=== PATIENT | male | born 1960 | race Caucasian/White ===

== ENCOUNTER 2016-05-19 18:45 | Emergency (ER) | payer BC, OTHER ==
--- NOTE | 2016-05-19 19:07 | ER Document Report ---
ED Medical Screen (RME) - General Chief Complaint: General Weakness Stated Complaint: WEAKNESS Mode of Arrival: Ambulatory Information source: Patient Notes: She presents to the emergency department with feelings of weakness. Reports he has not been eating that well. Reports history of diarrhea. Last diarrhea this am, green. Pt is a diabetic. Patient also reports recent separation from his of 20 years. He reports increased stress. He feels like his head is in a fog. Reports he is thirsty all the time. Reports frequent urination. Pt drinking po fluids now. I have greeted and performed a rapid initial assessment of this patient. A comprehensive ED assessment and evaluation of the patient, analysis of test results and completion of the medical decision making process will be conducted by additional ED providers. TRAVEL OUTSIDE OF THE [place] IN LAST 30 DAYS: No - Related Data Allergies/Adverse Reactions: No Known Allergies Allergy (Verified 01/18/15 12:53) Past Medical History - Past Medical History Cardiac Medical History: Reports: Hx Hypertension Pulmonary Medical History: Denies: Hx Tuberculosis Neurological Medical History: Denies: Hx Seizures Endocrine Medical History: Reports: Hx Diabetes Mellitus Type 2 Past Surgical History: Reports: Hx Cholecystectomy. Denies: Hx Appendectomy, Hx Bowel Surgery, Hx Coronary Artery Bypass Graft, Hx Gastric Bypass Surgery, Hx Herniorrhaphy, Hx Pacemaker, Hx Tonsillectomy - Immunizations Hx Diphtheria, Pertussis, Tetanus Vaccination: Yes Physical Exam - Vital signs Vitals: Temp Pulse Resp BP Pulse Ox 98.3 F 103 H 16 108/67 100 05/19/16 18:54 05/19/16 18:54 05/19/16 18:54 05/19/16 18:54 05/19/16 18:54 Course - Vital Signs Vital signs: Temp Pulse Resp BP Pulse Ox 98.3 F 103 H 16 108/67 100 05/19/16 18:54 05/19/16 18:54 05/19/16 18:54 05/19/16 18:54 05/19/16 18:54
[2016-05-19 19:59] LABS: ABSOLUTE EOSINOPHILS # (AUTO) 0.1 10^3/uL (0.0-0.6); ABSOLUTE LYMPHOCYTES (AUTO) 2.2 10^3/uL (0.5-4.7); ABSOLUTE MONOCYTES (AUTO) 0.9 10^3/uL (0.1-1.4); ABSOLUTE NEUT (AUTO) 7.7 10^3/uL (1.7-8.2); BASOPHILS % (AUTO) 0.4 % (0-2); EOSINOPHILS % (AUTO) 1.2 % (0-6); HEMATOCRIT 46.3 % (37.9-51.0); HEMOGLOBIN 16.1 g/dL (13.5-17.0); LYMPHOCYTES % (AUTO) 19.8 % (13-45); MEAN CORPUSCULAR HEMOGLOBIN 30.7 pg (27.0-33.4); MEAN CORPUSCULAR HGB CONC 34.8 g/dL (32.0-36.0); MEAN CORPUSCULAR VOLUME 88 fl (80-97); MONOCYTES % (AUTO) 8.3 % (3-13); RED BLOOD COUNT 5.26 10^6/uL (4.35-5.55); RED CELL DISTRIBUTION WIDTH 12.8 % (11.5-14.0); SEGMENTED NEUTROPHILS % (AUTO) 70.3 % (42-78)
[2016-05-19 20:07] LABS: APPEARANCE,URINE SLIGHTLY-CLOUDY; BILIRUBIN,URINE NEGATIVE (NEGATIVE); GLUCOSE, URINE 150 mg/dL (NEGATIVE); KETONES,URINE TRACE mg/dL (NEGATIVE); LEUKOCYTE ESTERASE,URINE NEGATIVE (NEGATIVE); NITRITE,URINE NEGATIVE (NEGATIVE); PROTEIN,URINE 100 mg/dL (NEGATIVE); URINE SPECIFIC GRAVITY 1.018; UROBILINOGEN,URINE NEGATIVE mg/dL (<2.0)
[2016-05-19 20:19] LABS: ALANINE AMINOTRANSFERASE 34 U/L (21-72); ALBUMIN 4.2 g/dL (3.5-5.0); ALKALINE PHOSPHATASE 95 U/L (38-126); ANION GAP 13 (5-19); ASPARTATE AMINO TRANSFERASE 17 U/L (17-59); BILIRUBIN,DIRECT 0.2 mg/dL (0.0-0.4); BILIRUBIN,TOTAL 0.8 mg/dL (0.2-1.3); BLOOD UREA NITROGEN 27 mg/dL (7-20); CALCIUM 10.3 mg/dL (8.4-10.2); CARBON DIOXIDE 30 mmol/L (22-30); CHLORIDE 98 mmol/L (98-107); CREATININE RESULT 1.78 mg/dL (0.52-1.25); GLUCOSE 335 mg/dL (75-110); POTASSIUM 4.7 mmol/L (3.6-5.0); SODIUM 141.1 mmol/L (137-145); TOTAL PROTEIN 7.3 g/dL (6.3-8.2)
--- NOTE | 2016-05-20 00:16 | EKG REPORT ---
SEVERITY:- BORDERLINE ECG - SINUS RHYTHM PROBABLE LEFT ATRIAL ABNORMALITY BORDERLINE T ABNORMALITIES, INFERIOR LEADS : Confirmed by: Farheen Cabrera 20-May-2016 00:15:39
--- NOTE | 2016-05-20 02:02 | ER Document Report ---
ED General - General Chief Complaint: General Weakness Stated Complaint: WEAKNESS Time seen by provider: 02:00 Mode of Arrival: Ambulatory Information source: Patient TRAVEL OUTSIDE OF THE [place] IN LAST 30 DAYS: No - HPI Patient complains to provider of: dizziness, decreased by mouth intake, depression Onset: Other - 2-3 days Onset/Duration: Waxing and waning Quality of pain: No pain Exacerbated by: Denies Relieved by: Denies Similar symptoms previously: No Recently seen / treated by doctor: No Notes: Patient is a 55-year-old male who presents to the emergency room complaining of dizziness and lightheadedness, with decreased by mouth intake and depression, states his of nearly 20 years recently left him to move with her children in [place], he reports this is worsened his depression, and therefore he is not taking very good care of himself, he is not eating very well, but continues to take his metformin and glipizide, patient denies any suicidal ideation - Related Data Allergies/Adverse Reactions: No Known Allergies Allergy (Verified 01/18/15 12:53) Past Medical History - General Information source: Patient - Social History Smoking Status: Never Smoker Family History: Reviewed & Not Pertinent Patient has suicidal ideation: No Patient has homicidal ideation: No - Past Medical History Cardiac Medical History: Reports: Hx Hypertension Pulmonary Medical History: Denies: Hx Tuberculosis Neurological Medical History: Denies: Hx Seizures Endocrine Medical History: Reports: Hx Diabetes Mellitus Type 2 Renal/ Medical History: Denies: Hx Peritoneal Dialysis Past Surgical History: Reports: Hx Cholecystectomy. Denies: Hx Appendectomy, Hx Bowel Surgery, Hx Coronary Artery Bypass Graft, Hx Gastric Bypass Surgery, Hx Herniorrhaphy, Hx Pacemaker, Hx Tonsillectomy - Immunizations Hx Diphtheria, Pertussis, Tetanus Vaccination: Yes Review of Systems - Review of Systems Constitutional: No symptoms reported EENT: No symptoms reported Cardiovascular: Dizziness, Lightheaded Respiratory: No symptoms reported Gastrointestinal: Poor appetite, Poor fluid intake Genitourinary: No symptoms reported Male Genitourinary: No symptoms reported Musculoskeletal: No symptoms reported Skin: No symptoms reported Hematologic/Lymphatic: No symptoms reported Neurological/Psychological: Depression. denies: Suicidal ideation -: Yes All other systems reviewed and negative Physical Exam - Vital signs Vitals: Temp Pulse Resp BP Pulse Ox 98.3 F 103 H 16 108/67 100 05/19/16 18:54 05/19/16 18:54 05/19/16 18:54 05/19/16 18:54 05/19/16 18:54 Interpretation: Normal - General General appearance: Appears well, Alert - HEENT Head: Normocephalic, Atraumatic Eyes: Normal Pupils: PERRL - Respiratory Respiratory status: No respiratory distress Chest status: Nontender Breath sounds: Normal Chest palpation: Normal - Cardiovascular Rhythm: Regular Heart sounds: Normal auscultation Murmur: No - Abdominal Inspection: Normal Distension: No distension Bowel sounds: Normal Tenderness: Nontender Organomegaly: No organomegaly - Back Back: Normal, Nontender - Extremities General upper extremity: Normal inspection, Nontender, Normal color, Normal ROM , Normal temperature General lower extremity: Normal inspection, Nontender, Normal color, Normal ROM , Normal temperature, Normal weight bearing. No: Roly's sign - Neurological Neuro grossly intact: Yes Cognition: Normal Orientation: AAOx4 Fernando Coma Scale Eye Opening: Spontaneous Fernando Coma Scale Verbal: Oriented Haines Coma Scale Motor: Obeys Commands Fernando Coma Scale Total: 15 Speech: Normal Motor strength normal: LUE, RUE, LLE, RLE Sensory: Normal - Psychological Associated symptoms: Depressed, Flat affect - Skin Skin Temperature: Warm Skin Moisture: Dry Skin Color: Normal Course - Re-evaluation Re-evalutation: 05/20/16 03:33 Patient ambulating without difficulty throughout the emergency room, his lab findings were discussed with him at bedside which are relatively unremarkable except for elevated blood sugar, patient denies any suicidal or homicidal ideation although he does admit to increased depression related to recent separation from his , patient was offered to stay in the emergency room as a voluntary patient to be seen and evaluated by the mental health team in the morning for assistance with resources for his current state of depression, alternatively he was offered the list of mental health providers in the area for follow-up as an outpatient on his own which he preferred, therefore patient was discharged with information for mental health resources and advised that he can return at any time for reevaluation or assistance with his depression, he was advised to eat adequately throughout the day and drink plenty of fluids, patient acknowledges understanding and agreement with this plan - Vital Signs Vital signs: Temp Pulse Resp BP Pulse Ox 98.3 F 98 18 121/84 100 05/19/16 18:54 05/20/16 01:45 05/20/16 01:45 05/20/16 01:45 05/20/16 01:45 - Laboratory Result Diagrams: 05/19/16 19:30 05/19/16 19:30 Laboratory results interpreted by me: 05/19/16 05/19/16 05/19/16 19:30 19:30 19:35 WBC 11.0 H BUN 27 H Creatinine 1.78 H Est GFR ( Amer) 48 L Est GFR (Non-Af Amer) 40 L Glucose 335 H Calcium 10.3 H Urine Protein 100 H Urine Glucose (UA) 150 H Urine Ketones TRACE H Urine Blood SMALL H - EKG Interpretation by Me EKG shows normal: Sinus rhythm Rate: Normal Rhythm: NSR Discharge - Discharge Clinical Impression: Lightheaded Depression Qualifiers: Depression Type: unspecified Qualified Code(s): F32.9 - Major depressive disorder, single episode, unspecified Condition: Stable Disposition: HOME, SELF-CARE Instructions: Depression ([facility]), Dizziness ([facility]) Additional Instructions: Follow up with your primary care provider and a mental health professional in 2- 3 days. Return to the ER immediately if symptoms worsen or any additional concerns. Forms: Return to Work
[2016-05-20 02:44] VITALS: BP 121/84
== END 2016-05-20 02:20 | disposition home or self-care (01) ==
LOC: ER 18:45
DX: R42 Dizziness and giddiness (principal); F32.9 Major depressive disorder, single episode, unspecified; R53.1 Weakness; I10 Essential (primary) hypertension; E11.9 Type 2 diabetes mellitus without complications; Z90.49 Acquired absence of other specified parts of digestive tract
CPT/HCPCS: 36415; 80053; 81001; 82962; 85025; 93005; 93010; 99285

== ENCOUNTER 2016-06-15 14:40 | Emergency (ER) | payer BC, OTHER ==
--- NOTE | 2016-06-15 15:03 | ER Document Report ---
ED Medical Screen (RME) - General Chief Complaint: Dizziness Stated Complaint: DIZZY/NAUSEA Notes: patient is here complaining of dizziness that started around 2 PM yesterday. He says he fell a couple of times because of the dizziness. The most recent episode was about 1:30 this afternoon. He says it feels as if he's on a ride at the [employer]. Denies any headache. Denies any visual changes. No recent illness, UTI, fever, etc. Did feel like he was sweating heavily yesterday. PMH: Hypertension, NIDDM, no heart disease. TRAVEL OUTSIDE OF THE [place] IN LAST 30 DAYS: No - Related Data Allergies/Adverse Reactions: No Known Allergies Allergy (Verified 06/15/16 14:48) Past Medical History - Past Medical History Cardiac Medical History: Reports: Hx Hypertension Pulmonary Medical History: Denies: Hx Tuberculosis Neurological Medical History: Denies: Hx Seizures Endocrine Medical History: Reports: Hx Diabetes Mellitus Type 2 Renal/ Medical History: Denies: Hx Peritoneal Dialysis Past Surgical History: Reports: Hx Cholecystectomy. Denies: Hx Appendectomy, Hx Bowel Surgery, Hx Coronary Artery Bypass Graft, Hx Gastric Bypass Surgery, Hx Herniorrhaphy, Hx Pacemaker, Hx Tonsillectomy - Immunizations Hx Diphtheria, Pertussis, Tetanus Vaccination: Yes Physical Exam - Vital signs Vitals: Temp Pulse Resp BP Pulse Ox 97.3 F 101 H 18 141/101 H 100 06/15/16 14:49 06/15/16 14:49 06/15/16 14:49 06/15/16 14:49 06/15/16 14:49 Course - Vital Signs Vital signs: Temp Pulse Resp BP Pulse Ox 97.3 F 101 H 18 141/101 H 100 06/15/16 14:49 06/15/16 14:49 06/15/16 14:49 06/15/16 14:49 06/15/16 14:49
[2016-06-15 15:20] LABS: ABSOLUTE LYMPHOCYTES (AUTO) 1.7 10^3/uL (0.5-4.7); ABSOLUTE MONOCYTES (AUTO) 0.7 10^3/uL (0.1-1.4); ABSOLUTE NEUT (AUTO) 6.3 10^3/uL (1.7-8.2); BASOPHILS % (AUTO) 0.4 % (0-2); EOSINOPHILS % (AUTO) 0.4 % (0-6); HEMATOCRIT 48.4 % (37.9-51.0); HEMOGLOBIN 17.2 g/dL (13.5-17.0); HGB HCT DIFFERENCE 3.2; LYMPHOCYTES % (AUTO) 19.8 % (13-45); MEAN CORPUSCULAR HEMOGLOBIN 31.2 pg (27.0-33.4); MEAN CORPUSCULAR HGB CONC 35.5 g/dL (32.0-36.0); MEAN CORPUSCULAR VOLUME 88 fl (80-97); MONOCYTES % (AUTO) 7.8 % (3-13); RED BLOOD COUNT 5.51 10^6/uL (4.35-5.55); RED CELL DISTRIBUTION WIDTH 13.2 % (11.5-14.0); SEGMENTED NEUTROPHILS % (AUTO) 71.6 % (42-78); WHITE BLOOD COUNT 8.7 10^3/uL (4.0-10.5)
[2016-06-15 15:43] LABS: ALANINE AMINOTRANSFERASE 26 U/L (21-72); ALBUMIN 4.3 g/dL (3.5-5.0); ALKALINE PHOSPHATASE 99 U/L (38-126); ANION GAP 18 (5-19); ASPARTATE AMINO TRANSFERASE 19 U/L (17-59); BILIRUBIN,DIRECT 0.2 mg/dL (0.0-0.4); BILIRUBIN,TOTAL 1.6 mg/dL (0.2-1.3); BLOOD UREA NITROGEN 12 mg/dL (7-20); CALCIUM 9.6 mg/dL (8.4-10.2); CARBON DIOXIDE 28 mmol/L (22-30); CHLORIDE 98 mmol/L (98-107); CREATININE RESULT 1.19 mg/dL (0.52-1.25); GLUCOSE 157 mg/dL (75-110); POTASSIUM 3.4 mmol/L (3.6-5.0); SODIUM 144.4 mmol/L (137-145); TOTAL PROTEIN 7.2 g/dL (6.3-8.2)
--- NOTE | 2016-06-15 15:48 | ER Document Report ---
ED Dizziness/Weakness - General Chief Complaint: Dizziness Stated Complaint: DIZZY/NAUSEA Time seen by provider: 15:35 Mode of Arrival: Ambulatory Information source: Patient Notes: Patient complains of dizziness since started around 2 PM yesterday. He says he fell down a couple times because of the dizziness. He states his most recent episode was this afternoon about 1. He states he felt like he is on a merry-go- round IFTT[employer] ride. On did not have any headaches until now. States he has had no vomiting that has helped felt a little nausea from the dizziness. Denies any history of any cardiac problems except for high blood pressure denies any seizures. TRAVEL OUTSIDE OF THE [place] IN LAST 30 DAYS: No - HPI Patient complains to provider of: Dizziness Onset: Yesterday Onset/Duration: Intermittent Quality of pain: Achy Severity: Mild Pain Level: 1 Associated symptoms: Lightheaded, Nausea Exacerbated by: Change in position Baseline gait: Walks w/o assistance - Related Data Allergies/Adverse Reactions: No Known Allergies Allergy (Verified 06/15/16 14:48) Past Medical History - General Information source: Patient - Social History Smoking Status: Never Smoker Cigarette use (# per day): No Chew tobacco use (# tins/day): No Smoking Education Provided: No Frequency of alcohol use: None Drug Abuse: None 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 Lives with: Alone - from right now Family History: Hypertension, Malignancy Patient has suicidal ideation: No Patient has homicidal ideation: No - Past Medical History Cardiac Medical History: Reports: Hx Hypertension EENT Medical History: Reports: None Neurological Medical History: Reports: None Endocrine Medical History: Reports: Hx Diabetes Mellitus Type 2 Renal/ Medical History: Reports: None Malignancy Medical History: Reports None GI Medical History: Reports: Hx Colonoscopy, Hx Endoscopy, Other - Gastroparesis Musculoskeltal Medical History: Reports None Skin Medical History: Reports None Psychiatric Medical History: Reports: None Traumatic Medical History: Reports: None Infectious Medical History: Reports: None Past Surgical History: Reports: Hx Cholecystectomy - Immunizations Hx Diphtheria, Pertussis, Tetanus Vaccination: Yes Review of Systems - Review of Systems Constitutional: No symptoms reported EENT: No symptoms reported Cardiovascular: Dizziness, Lightheaded Respiratory: No symptoms reported Gastrointestinal: Nausea - When dizzy Genitourinary: No symptoms reported Male Genitourinary: No symptoms reported Musculoskeletal: No symptoms reported Skin: No symptoms reported Hematologic/Lymphatic: No symptoms reported Neurological/Psychological: No symptoms reported -: Yes All other systems reviewed and negative - Mild headache but refused Tylenol Physical Exam - Vital signs Vitals: Temp Pulse Resp BP Pulse Ox 97.3 F 101 H 18 141/101 H 100 06/15/16 14:49 06/15/16 14:49 06/15/16 14:49 06/15/16 14:49 06/15/16 14:49 Interpretation: Tachycardic - General General appearance: Appears well, Alert - HEENT Head: Normocephalic, Atraumatic Eyes: Normal Pupils: PERRL - Respiratory Respiratory status: No respiratory distress Chest status: Nontender Breath sounds: Normal Chest palpation: Normal - Cardiovascular Rhythm: Regular Heart sounds: Normal auscultation Murmur: No - Abdominal Inspection: Normal Distension: No distension Bowel sounds: Normal Tenderness: Nontender Organomegaly: No organomegaly - Back Back: Normal, Nontender - Extremities General upper extremity: Normal inspection, Nontender, Normal color, Normal ROM , Normal temperature General lower extremity: Normal inspection, Nontender, Normal color, Normal ROM , Normal temperature, Normal weight bearing. No: Roly's sign - Neurological Neuro grossly intact: Yes Cognition: Normal Orientation: AAOx4 Thurston Coma Scale Eye Opening: Spontaneous Fernando Coma Scale Verbal: Oriented Fernando Coma Scale Motor: Obeys Commands Thurston Coma Scale Total: 15 Speech: Normal Cranial nerves: Normal Cerebellar coordination: Normal Motor strength normal: LUE, RUE, LLE, RLE Additional motor exam normals: Equal clay carman Babinski reflex: Normal (flexor plantar) Sensory: Normal - Psychological Associated symptoms: Normal affect, Normal mood - Skin Skin Temperature: Warm Skin Moisture: Dry Skin Color: Normal Course - Re-evaluation Re-evalutation: 06/15/16 19:10 Discussed labs with patient and encouraged him to increase his fluid intake. As well as eating about a diet. Patient states she has been depressed since his left him 28 days ago and he has not been eat and drink properly. All labs and x-rays except for the fact that he is dehydrated or within normal limits. He does have an elevated blood pressure this could be from stress. I have instructed him to please follow-up with his primary doctor tomorrow and go over this and to get a referral to ENT further evaluate his dizziness. - Vital Signs Vital signs: Temp Pulse Resp BP Pulse Ox 98.6 F 101 H 12 156/93 H 98 06/15/16 18:48 06/15/16 14:49 06/15/16 19:01 06/15/16 19:01 06/15/16 19:01 - Laboratory Result Diagrams: 06/15/16 15:05 06/15/16 15:05 Laboratory results interpreted by me: 06/15/16 06/15/16 06/15/16 15:05 15:05 17:33 Hgb 17.2 H Potassium 3.4 L Glucose 157 H Total Bilirubin 1.6 H Urine Protein >=500 H Urine Glucose (UA) 50 H Urine Ketones 80 H Urine Blood SMALL H Urine Urobilinogen 2.0 H - Diagnostic Test Radiology reviewed: Image reviewed, Reports reviewed - EKG Interpretation by Me When compared to previous EKG there are: No significant change Discharge - Discharge Clinical Impression: Dizziness Condition: Stable Disposition: HOME, SELF-CARE Additional Instructions: DIZZINESS: Under normal circumstances, your sense of balance is controlled by a number of signals that your brain receives from several locations: Eyes. No matter what your position, visual signals help you determine where your body is in space and how it's moving. Sensory nerves. These are in your skin, muscles and joints. Sensory nerves send messages to your brain about body movements and positions. Inner ear. The organ of balance in your inner ear is the vestibular labyrinth. It includes loop-shaped structures (semicircular canals) that contain fluid and fine, hair-like sensors that monitor the rotation of your head. Near the semicircular canals are the utricle and saccule, which contain tiny particles called otoconia ([id number]). These particles are attached to sensors that help detect gravity and [id number] motion. Good balance depends on at least two of these three sensory systems working well. For instance, closing your eyes while washing your hair in the shower doesn't mean you'll lose your balance. Signals from your inner ear and sensory nerves help keep you upright. However, if your central nervous system can't process signals from all of these locations, if the messages are contradictory, or if the sensory systems aren't functioning properly, you may experience loss of balance. Dizziness may have a number of potential causes. These may include: Vertigo Vertigo - the false sense of motion or spinning - is the most common symptom of dizziness. Sitting up or moving around may make it worse. Sometimes vertigo is severe enough to cause nausea and vomiting. Vertigo usually results from a problem with the nerves and the structures of the balance mechanism in your inner ear (vestibular system), which sense movement and changes in your head position. Abnormal rhythmic eye movements ( nystagmus) almost always accompany vertigo. Causes of vertigo may include: Benign paroxysmal positional vertigo (BPPV). BPPV involves intense, brief episodes of vertigo associated with a change in the position of your head, often when you turn over in bed or sit up in the morning. It occurs when normal calcium carbonate crystals (otoconia) break loose and fall into the wrong part of the canals in your inner ear. When these particles shift, they stimulate sensors in your ear, producing an episode of vertigo. Doctors don't know what causes BPPV, but it may be a natural result of aging. Trauma to your head also may lead to BPPV. Inflammation in the inner ear. Signs and symptoms of inflammation of the inner ear (acute vestibular neuronitis or labyrinthitis) include sudden, intense vertigo that may persist for several days, with nausea and vomiting. It can be incapacitating, requiring bed rest to minimize the signs and symptoms. Fortunately, vestibular neuronitis generally subsides and clears up on its own. Recovery time may be shorter with vestibular rehabilitation exercises. Although the cause of this condition is unknown, it may be a viral infection. Meniere's disease. This disease involves the excessive buildup of fluid in your inner ear. It may affect adults at any age and is characterized by sudden episodes of vertigo lasting 30 minutes to an hour or longer. Other signs and symptoms include the feeling of fullness in your ear, buzzing or ringing in your ear (tinnitus), and fluctuating hearing loss. The cause of Meniere's disease is unknown. Vestibular migraine. People who experience a vestibular migraine are very sensitive to motion. Dizziness and vertigo caused by a vestibular migraine may be triggered by turning your head quickly, being in a crowded or confusing place , driving or riding in a vehicle, or even watching movement on TV. A vestibular migraine may cause feelings of imbalance or unsteadiness, hearing loss, "muffled " hearing, or ringing in your ears (tinnitus). For most people with a vestibular migraine, vertigo doesn't necessarily happen at the same time as the headache. Instead, typical migraine triggers may lead to vertigo without an actual migraine. Attacks of migrainous vertigo can last from a few minutes to several days. Acoustic neuroma. An acoustic neuroma (schwannoma) is a noncancerous (benign ) growth on the acoustic nerve, which connects the inner ear to your brain. Signs and symptoms of an acoustic neuroma may include dizziness, loss of balance , hearing loss and tinnitus. Rapid changes in motion. Riding on roller coasters or in boats, cars or even airplanes may on occasion make you dizzy. Other causes. Rarely, vertigo can be a symptom of a more serious neurological problem such as a stroke, brain hemorrhage or multiple sclerosis. Feeling of faintness (presyncope) "Presyncope" is the medical term for feeling faint and lightheaded without losing consciousness. Sometimes nausea, pale skin and a sense of dizziness accompany a feeling of faintness. Causes of presyncope include: Drop in blood pressure (orthostatic hypotension). A dramatic drop in your systolic blood pressure - the higher number in your blood pressure reading - may result in lightheadedness or a feeling of faintness. It can occur after sitting up or standing too quickly. Inadequate output of blood from the heart. Conditions such as partially blocked arteries (atherosclerosis), disease of the heart muscle (cardiomyopathy) , abnormal heart rhythm (arrhythmia) or a decrease in blood volume may cause inadequate blood flow from your heart. Loss of balance (disequilibrium) Disequilibrium is the loss of balance or the feeling of unsteadiness when you walk. Causes may include: Inner ear (vestibular) problems. Abnormalities with your inner ear can cause you to feel like you are floating, have a heavy head or are unsteady in the dark. Sensory disorders. Failing vision and nerve damage in your legs (peripheral neuropathy) are common in older adultsand may result in difficulty maintaining your balance. Joint and muscle problems. Muscle weakness and osteoarthritis - the type of arthritis that involves wear and tear of your joints - can contribute to loss of balance when it involves your weight-bearing joints. Medications. Loss of balance can be a side effect of certain medications, such as anti-seizure drugs, sedatives and tranquilizers. Lightheadedness and other kinds of dizziness Feeling lightheaded is the feeling of being "spaced out" or having the sensation of spinning inside your head. It can also give you the sensation that if your lightheadedness worsens, you might lose consciousness. Causes may include: Inner ear disorders. These abnormalities of your inner ear can lead to illusions of motion and make you feel like you're floating. Anxiety disorders. Certain anxiety disorders, such as panic attacks and a fear of leaving home or being in large, open spaces (agoraphobia), may cause lightheadedness. Hyperventilation. Abnormally rapid breathing that often accompanies anxiety disorders may make you feel lightheaded. NORMAL EXAM AND WORKUP: At this time, your examination and workup show no significant abnormality. No significant abnormal physical findings were noted. All laboratory, EKG, and imaging (x-ray, CT scans, ultrasound) studies that were ordered show no significant abnormality. Although your examination and all studies that were ordered showed no significant abnormal finding, there are no examinations and no studies that are 100% accurate. There is always the possibility that some abnormality could exist and not be detected with physical examination or within the limits and capabilities of laboratory and other studies. You should return or follow up as you were instructed on your visit today for further evaluation if your symptoms do not resolve. MECLIZINE: You are to take meclizine (Antivert) for control of symptoms. This is a drug of the antihistamine family which is useful for controlling nausea, dizziness, and motion sickness. Meclizine is usually taken three times a day, as needed. It's more effective at preventing symptoms than at relieving severe symptoms once they occur. It can be taken BEFORE activities which are likely to cause dizziness or nausea. Common side effects of this medicine are drowsiness and dry mouth. You should use caution in driving or operating machinery while taking this medication. In particular, you should not drive long distances or drive at night while taking this medicine. Meclizine should not be combined with alcohol , narcotics, or sedative medications without consulting your physician. ANTINAUSEA MEDICATION: You have been given a medication to suppress nausea and vomiting. This type of medication can be given as a shot, pill, or suppository. It will usually last for many hours. Pills and shots usually last six to eight hours, suppositories last about 12 hours. For the typical illness, only one or two doses of the medication may be necessary. Mild lightheadedness may occur. This type of medicine can cause drowsiness. Do not drive or operate dangerous machinery while under its influence. Do not mix with alcohol. See your doctor at once if you have muscle spasms or tightness, or uncontrollable motions (particularly of the neck, mouth, or jaw). Persistent vomiting or severe lightheadedness should also be evaluated by the physician. FOLLOW-UP CARE: If you have been referred to a physician for follow-up care, call the physician s office for an appointment as you were instructed or within the next two days. If you experience worsening or a significant change in your symptoms, notify the physician immediately or return to the Emergency Department at any time for re-evaluation. Please call your doctor in the morning and try to schedule an appointment for tomorrow to follow-up and then get an appointment for ENT for follow-up. Prescriptions: Meclizine HCl [Antivert 25 mg Tablet] 25 mg PO TIDP PRN #14 tablet PRN Reason: Forms: Elevated Blood Pressure, Return to Work
[2016-06-15 15:54] LABS: CREATINE KINASE MB 0.53 ng/mL (<4.55)
[2016-06-15 16:00] LABS: TROPONIN I < 0.012 ng/mL
--- NOTE | 2016-06-15 16:57 | EKG REPORT ---
SEVERITY:- ABNORMAL ECG - SINUS RHYTHM PROBABLE LEFT ATRIAL ABNORMALITY NONSPECIFIC T ABNORMALITIES, INFERIOR LEADS BORDERLINE PROLONGED QT INTERVAL : Confirmed by: Latia Snow MD 15-Jun-2016 16:56:41
[2016-06-15 18:23] LABS: URINE BARBITURATES SCREEN NEGATIVE; URINE METHADONE SCREEN NEGATIVE; URINE OPIATES LOW NEGATIVE; URINE PHENCYCLIDINE SCREEN NEGATIVE
[2016-06-15 18:36] LABS: APPEARANCE,URINE SLIGHTLY-CLOUDY; BILIRUBIN,URINE NEGATIVE (NEGATIVE); GLUCOSE, URINE 50 mg/dL (NEGATIVE); KETONES,URINE 80 mg/dL (NEGATIVE); LEUKOCYTE ESTERASE,URINE NEGATIVE (NEGATIVE); NITRITE,URINE NEGATIVE (NEGATIVE); PROTEIN,URINE >=500 mg/dL (NEGATIVE); URINE SPECIFIC GRAVITY 1.028
[2016-06-15 20:01] VITALS: BP 148/95
== END 2016-06-15 20:01 | disposition home or self-care (01) ==
LOC: ER 14:40
DX: R42 Dizziness and giddiness (principal)
CPT/HCPCS: 36415; 70450; 80053; 80307; 81001; 82553; 84484; 85025; 85379; 93005; 93010; 99284

== ENCOUNTER 2017-07-09 14:26 | Emergency (ER) | payer BC ==
--- NOTE | 2017-07-09 15:03 | ER Document Report ---
ED Medical Screen (RME) - General Chief Complaint: Near Syncope Stated Complaint: NEAR SYNCOPE Time Seen by Provider: 07/09/17 14:52 Mode of Arrival: Ambulatory Information source: Patient Notes: 56-year-old male with a history of hypertension, diabetes presents with complaint of dizziness that started 4 days prior to arrival. Patient states that he has had several episodes of dizziness which he describes as feeling like he is going to "pass out". Patient states that it can occur at any time whether he is active or at rest. He states he often half to brace himself to stop from falling. Patient denies any prior similar symptoms. He does state that he has a history of vertigo but this is completely different. He denies any loss of consciousness, head injury. He does report that for over 1 month he has had a decrease in hearing of the right ear. He has seen his primary care physician for this recently without any intervention. Patient also states that about 1 month ago he stopped his blood pressure medication and restarted it 2 days ago. Patient denies any preceding chest pain, shortness of breath, diaphoresis, nausea. He denies any recent illnesses. I have greeted and performed a rapid medical assessment of the patient. A comprehensive evaluation and assessment will be performed by another ED provider. Medical decision making, lab review/xrays if performed will be reviewed by the ED provider assuming care of the patient. PHYSICAL EXAMINATION: GENERAL: Well-appearing, well-nourished and in no acute distress. HEAD: Atraumatic, normocephalic. EYES: Pupils equal round extraocular movements intact, conjunctiva are normal. No Nystagmus ENT: Nares patent Cardiac; regular rate rhythm, no murmurs. NECK: Normal range of motion LUNGS: No respiratory distress, there to auscultation bilaterally Musculoskeletal: Normal range of motion NEUROLOGICAL: Normal speech, normal gait. PSYCH: Normal mood, normal affect. SKIN: Warm, Dry, normal turgor, no rashes or lesions noted. TRAVEL OUTSIDE OF THE [place] IN LAST 30 DAYS: No - HPI Onset: Last week Onset/Duration: Sudden, Persistent Quality of pain: No pain Associated Symptoms: Dizzy/lightheaded, Earache. denies: Chest pain, Diarrhea, Nausea, Shortness of breath, Sweating Exacerbated by: Movement Relieved by: Denies Similar symptoms previously: No Recently seen / treated by doctor: No - Related Data Smoking: Non-smoker Frequency of alcohol use: None Drug Abuse: None Allergies/Adverse Reactions: No Known Allergies Allergy (Verified 07/09/17 14:31) Past Medical History - Social History Chew tobacco use (# tins/day): No Frequency of alcohol use: None Drug Abuse: None - Past Medical History Cardiac Medical History: Reports: Hx Hypertension Pulmonary Medical History: Denies: Hx Tuberculosis Neurological Medical History: Denies: Hx Seizures Endocrine Medical History: Reports: Hx Diabetes Mellitus Type 2 Renal/ Medical History: Denies: Hx Peritoneal Dialysis GI Medical History: Reports: Hx Colonoscopy, Hx Endoscopy Past Surgical History: Reports: Hx Cholecystectomy. Denies: Hx Appendectomy, Hx Bowel Surgery, Hx Coronary Artery Bypass Graft, Hx Gastric Bypass Surgery, Hx Herniorrhaphy, Hx Pacemaker, Hx Tonsillectomy - Immunizations Hx Diphtheria, Pertussis, Tetanus Vaccination: Yes Physical Exam - Vital signs Vitals: Temp Pulse Resp BP Pulse Ox 99.1 F 102 H 16 132/74 H 100 07/09/17 14:37 07/09/17 14:37 07/09/17 14:37 07/09/17 14:37 07/09/17 14:37 Course - Vital Signs Vital signs: Temp Pulse Resp BP Pulse Ox 99.1 F 102 H 16 132/74 H 100 07/09/17 14:37 07/09/17 14:37 07/09/17 14:37 07/09/17 14:37 07/09/17 14:37
[2017-07-09 16:24] LABS: ABSOLUTE BASOPHILS # (AUTO) 0.1 10^3/uL (0.0-0.2); ABSOLUTE LYMPHOCYTES (AUTO) 1.8 10^3/uL (0.5-4.7); ABSOLUTE MONOCYTES (AUTO) 1.4 10^3/uL (0.1-1.4); ABSOLUTE NEUT (AUTO) 13.4 10^3/uL (1.7-8.2); BASOPHILS % (AUTO) 0.4 % (0-2); EOSINOPHILS % (AUTO) 0.2 % (0-6); HEMOGLOBIN 16.4 g/dL (13.5-17.0); LYMPHOCYTES % (AUTO) 10.7 % (13-45); MEAN CORPUSCULAR HGB CONC 33.5 g/dL (32.0-36.0); MEAN CORPUSCULAR VOLUME 90 fl (80-97); MONOCYTES % (AUTO) 8.5 % (3-13); PLATELET COUNT 246 10^3/uL (150-450); RED BLOOD COUNT 5.47 10^6/uL (4.35-5.55); RED CELL DISTRIBUTION WIDTH 13.6 % (11.5-14.0); SEGMENTED NEUTROPHILS % (AUTO) 80.2 % (42-78); TOTAL CELLS COUNTED % (AUTO) 100 %; WHITE BLOOD COUNT 16.8 10^3/uL (4.0-10.5)
[2017-07-09 16:33] LABS: APPEARANCE,URINE SLIGHTLY-CLOUDY; BILIRUBIN,URINE NEGATIVE (NEGATIVE); COLOR,URINE AMBER; GLUCOSE, URINE 50 mg/dL (NEGATIVE); KETONES,URINE TRACE mg/dL (NEGATIVE); LEUKOCYTE ESTERASE,URINE NEGATIVE (NEGATIVE); NITRITE,URINE NEGATIVE (NEGATIVE); PROTEIN,URINE 100 mg/dL (NEGATIVE); URINE SPECIFIC GRAVITY 1.023
[2017-07-09 16:42] LABS: ALANINE AMINOTRANSFERASE 23 U/L (21-72); ALBUMIN 4.4 g/dL (3.5-5.0); ALKALINE PHOSPHATASE 100 U/L (38-126); ANION GAP 18 (5-19); ASPARTATE AMINO TRANSFERASE 16 U/L (17-59); BILIRUBIN,DIRECT 0.5 mg/dL (0.0-0.4); BLOOD UREA NITROGEN 36 mg/dL (7-20); CALCIUM 9.7 mg/dL (8.4-10.2); CARBON DIOXIDE 27 mmol/L (22-30); CHLORIDE 95 mmol/L (98-107); CREATINE KINASE 35 U/L (55-170); GLUCOSE 130 mg/dL (75-110); POTASSIUM 4.2 mmol/L (3.6-5.0); SODIUM 140.4 mmol/L (137-145); TOTAL PROTEIN 7.8 g/dL (6.3-8.2)
[2017-07-09 16:47] LABS: URINE AMPHETAMINES SCREEN NEGATIVE; URINE BARBITURATES SCREEN NEGATIVE; URINE BENZODIAZEPINES SCREEN NEGATIVE; URINE COCAINE SCREEN NEGATIVE; URINE MARIJUANA (THC) SCREEN NEGATIVE; URINE METHADONE SCREEN NEGATIVE; URINE PHENCYCLIDINE SCREEN NEGATIVE
[2017-07-09 16:56] LABS: CREATINE KINASE MB 0.49 ng/mL (<4.55); TROPONIN I < 0.012 ng/mL
[2017-07-09] MEDS ORDERED: NORMAL SALINE 1000 ML 1,000 ML IV ONE ×4 (17:03→22:28)
--- NOTE | 2017-07-09 18:43 | ER Document Report ---
ED General - General Chief Complaint: Near Syncope Stated Complaint: NEAR SYNCOPE Time Seen by Provider: 07/09/17 14:52 Mode of Arrival: Ambulatory TRAVEL OUTSIDE OF THE [place] IN LAST 30 DAYS: No - HPI Patient complains to provider of: dizzy-worse with standing up Onset: Other - 3-4 days ago Onset/Duration: Gradual Associated symptoms: Other - decreased appetite for 3 days Similar symptoms previously: Yes Recently seen / treated by doctor: Yes - PMD yesterday Notes: States that he is having marital problems and his has moved to another state with her family. Patient states that for the last 3 days he has not really had an appetite and has not eaten or drank anything. He states he is dizzy. He states he had vertigo in the past and this is not similar at all. He states that as soon as he got to the hospital he called his family member to have them inform his that he was hospitalized. He states that the family member stated he had told and she does not want to talk to them at this time. Patient states he does not have a lot of family besides a brother who lives far away. He states his parents of been for some time now. Patient denies suicidal ideation. He does work. - Related Data Allergies/Adverse Reactions: No Known Allergies Allergy (Verified 07/09/17 14:31) Past Medical History - General Information source: Patient - Social History Smoking Status: Never Smoker Chew tobacco use (# tins/day): No Frequency of alcohol use: None Drug Abuse: None Lives with: Alone Family History: Hypertension, Malignancy Patient has suicidal ideation: No Patient has homicidal ideation: No - Past Medical History Cardiac Medical History: Reports: Hx Hypertension Pulmonary Medical History: Reports: None Denies: Hx Tuberculosis EENT Medical History: Reports: None Neurological Medical History: Reports: None. Denies: Hx Seizures Endocrine Medical History: Reports: Hx Diabetes Mellitus Type 2 Renal/ Medical History: Reports: None. Denies: Hx Peritoneal Dialysis Malignancy Medical History: Reports None GI Medical History: Reports: Hx Colonoscopy, Hx Endoscopy Musculoskeltal Medical History: Reports None Skin Medical History: Reports None Psychiatric Medical History: Reports: None Traumatic Medical History: Reports: None Past Surgical History: Reports: Hx Cholecystectomy. Denies: Hx Appendectomy, Hx Bowel Surgery, Hx Coronary Artery Bypass Graft, Hx Gastric Bypass Surgery, Hx Herniorrhaphy, Hx Pacemaker, Hx Tonsillectomy - Immunizations Hx Diphtheria, Pertussis, Tetanus Vaccination: Yes Review of Systems - Review of Systems Constitutional: Weakness EENT: No symptoms reported Cardiovascular: Dizziness Respiratory: No symptoms reported Gastrointestinal: Poor appetite, Poor fluid intake Genitourinary: No symptoms reported Male Genitourinary: No symptoms reported Musculoskeletal: No symptoms reported Skin: No symptoms reported Hematologic/Lymphatic: No symptoms reported Neurological/Psychological: No symptoms reported Physical Exam - Vital signs Vitals: Temp Pulse Resp BP Pulse Ox 99.1 F 102 H 16 132/74 H 100 07/09/17 14:37 07/09/17 14:37 07/09/17 14:37 07/09/17 14:37 07/09/17 14:37 - Notes Notes: PHYSICAL EXAMINATION: GENERAL: Well-appearing, well-nourished and in no acute distress. HEAD: Atraumatic, normocephalic. EYES: Pupils equal round and reactive to light, extraocular movements intact, sclera anicteric, conjunctiva are normal. ENT: Nares patent, oropharynx clear without exudates. Dry mucous membranes. NECK: Normal range of motion, supple without lymphadenopathy LUNGS: Breath sounds clear to auscultation bilaterally and equal. No wheezes rales or rhonchi. HEART: Regular rate and rhythm without murmurs ABDOMEN: Soft, nontender, nondistended abdomen. No guarding, no rebound. No masses appreciated. Musculoskeletal: Normal range of motion, no pitting or edema. No cyanosis. NEUROLOGICAL: Cranial nerves grossly intact. Normal speech, normal gait. Normal sensory, motor exams PSYCH: Normal mood, normal affect. SKIN: Warm, Dry, normal turgor, no rashes or lesions noted. Course - Re-evaluation Re-evalutation: 07/09/17 20:15 Had loose stool was unable to get out of the bed due to being hooked up to the IV. 07/09/17 20:15 Chest X-Ray 07/09/17 18:18 IMPRESSION: NO ACUTE RADIOGRAPHIC FINDING IN THE CHEST. NO SIGNIFICANT CHANGE FROM PRIOR STUDY. 07/09/17 21:13 She had a run of SVT at 1649 and lasted a few seconds and resolve. It was prior to the magnesium infusion. It was after his bout of diarrhea. 07/09/17 21:15 EKG shows sinus tachycardia at a rate of [address] elevation or depression. Wave inversions are present inferior and laterally was present on the EKG at 06/15/2016 07/09/17 23:50 Patient's heart rate is now 90 sinus rhythm blood pressure is 158/97. Patient feels better and will be discharged home for follow-up with his primary medical doctor in the next few days. I did tell him that he needs to eat and drink on a regular basis. Patient also states he is on losartan. I stated for him to monitor his blood pressures over the next few days and write them down and then bring that documentation to his primary medical doctor so the doctor can determine whether he needs to be on this medication or not. - Vital Signs Vital signs: Temp Pulse Resp BP Pulse Ox 99.1 F 111 H 27 H 158/97 H 94 07/09/17 14:37 07/09/17 22:24 07/09/17 23:45 07/09/17 23:01 07/09/17 23:45 - Laboratory Result Diagrams: 07/09/17 16:00 07/09/17 16:00 Laboratory results interpreted by me: 07/09/17 07/09/17 07/09/17 15:30 15:56 16:00 WBC 16.8 H Seg Neutrophils % 80.2 H Lymphocytes % 10.7 L Absolute Neutrophils 13.4 H Chloride BUN Creatinine Est GFR ( Amer) Est GFR (Non-Af Amer) Glucose POC Glucose 120 H Magnesium Total Bilirubin Direct Bilirubin AST Creatine Kinase Urine Protein 100 H Urine Glucose (UA) 50 H Urine Ketones TRACE H Urine Blood SMALL H Urine Urobilinogen 2.0 H 07/09/17 07/09/17 16:00 16:00 WBC Seg Neutrophils % Lymphocytes % Absolute Neutrophils Chloride 95 L BUN 36 H Creatinine 1.72 H Est GFR ( Amer) 50 L Est GFR (Non-Af Amer) 41 L Glucose 130 H POC Glucose Magnesium 1.4 L Total Bilirubin 2.0 H Direct Bilirubin 0.5 H AST 16 L Creatine Kinase 35 L Urine Protein Urine Glucose (UA) Urine Ketones Urine Blood Urine Urobilinogen - EKG Interpretation by Me EKG shows normal: Sinus rhythm - 102 Rate: Tachycardia When compared to previous EKG there are: No significant change Additional EKG results interpreted by me: 07/09/17 20:16 NSST changes Discharge - Discharge Clinical Impression: Dehydration, Stress at home, Hypomagnesemia Instructions: Dehydration ([facility]) Additional Instructions: Make sure you are eating 3 meals daily. Please call your primary medical doctor in the morning for follow-up. Return to the emergency department as needed. Please talk to her primary medical doctor to determine if a counselor would be beneficial for you.
--- NOTE | 2017-07-09 18:56 | RADIOLOGY REPORT (SQ) ---
EXAM DESCRIPTION: CHEST 2 VIEWS COMPLETED DATE/TIME: 07/09/2017 6:48 pm REASON FOR STUDY: dizzy COMPARISON: 06/28/2011 EXAM PARAMETERS: NUMBER OF VIEWS: two views TECHNIQUE: Digital Frontal and Lateral radiographic views of the chest acquired. RADIATION DOSE: NA LIMITATIONS: none FINDINGS: LUNGS AND PLEURA: No new opacities, masses or pneumothorax. No pleural effusion. MEDIASTINUM AND HILAR STRUCTURES: No masses or contour abnormalities. HEART AND VASCULAR STRUCTURES: Heart stable size. No evidence for failure. BONES: No acute findings. HARDWARE: None in the chest. OTHER: No other significant finding. IMPRESSION: NO ACUTE RADIOGRAPHIC FINDING IN THE CHEST. NO SIGNIFICANT CHANGE FROM PRIOR STUDY. TECHNICAL DOCUMENTATION: JOB ID: [id number] [employer]- All Rights Reserved Reading location - IP/workstation name: [email or web address]
--- NOTE | 2017-07-09 19:26 | EKG REPORT ---
SEVERITY:- ABNORMAL ECG - SINUS TACHYCARDIA PROBABLE POSTERIOR INFARCT BORDERLINE T ABNORMALITIES, INFERIOR LEADS : Confirmed by: Farheen Cabrera 09-Jul-2017 19:25:20
[2017-07-09] MEDS: MAGNESIUM SULFATE/D5W 1 GM/100 ML RTUPB IV SCH ×2 (20:36→21:18)
--- NOTE | 2017-07-09 23:08 | EKG REPORT ---
SEVERITY:- ABNORMAL ECG - SINUS TACHYCARDIA NONSPECIFIC T ABNORMALITIES, DIFFUSE LEADS : Confirmed by: Farheen Cabrera 09-Jul-2017 20:07:15
[2017-07-10 00:15] VITALS: BP 131/74
== END 2017-07-10 00:22 | disposition home or self-care (01) ==
LOC: ER 14:26
DX: E86.0 Dehydration (principal); E83.42 Hypomagnesemia; I10 Essential (primary) hypertension; R42 Dizziness and giddiness; R63.0 Anorexia; R53.1 Weakness; E11.9 Type 2 diabetes mellitus without complications; R19.7 Diarrhea, unspecified; I47.1 Supraventricular tachycardia; Z63.5 Disruption of family by separation and divorce
CPT/HCPCS: 93005; 99284; 96361; 96365; 36415; 82553; 82962; 82550; 83735; 85025; 80053; 81001; 84484; 80307; 71046; 93010; J3475; J7030

== ENCOUNTER 2017-07-11 16:27 | Inpatient (IN) | payer BC, OTHER ==
[~2017-07-11 16:27] MED LIST: LIDOCAINE 2% INJ-PF (20 MG/ML) 2 ML AMPUL ONE; METOCLOPRAMIDE HCL INJ/PF 10 MG/2 ML SDV ONE; ONDANSETRON HCL INJ/PF 4 MG/2 ML SDV ONE; PHENYLEPHRINE HCL INJ/PF 10 MG/1 ML SDV ONE; SUCCINYLCHOLINE CHLORIDE INJ 200 MG/10 ML VIAL ONE
[2017-07-11] MEDS ORDERED: NORMAL SALINE 1000 ML 1,000 ML IV ONE ×2 (16:58→18:50)
[2017-07-11] MEDS ORDERED: PIPERACILLIN/TAZOBACTAM 4.5 GM VIAL IV ONE (16:58)
[2017-07-11] MEDS ORDERED: VANCOMYCIN HCL INJ 1000 MG VIAL IV ONE (16:58)
--- NOTE | 2017-07-11 17:04 | ER Document Report ---
ED Medical Screen (RME) - General Chief Complaint: Foot Pain Stated Complaint: TOE PAIN Time Seen by Provider: 07/11/17 16:46 Notes: 56-year-old male complaining of fevers and large black blister on his right great toe. Patient states that 2 days ago his foot looked completely normal however when he woke up this morning his right foot was swollen and had a large black blister on the medial aspect of the right great toe, he has had fevers for the past 2 days. States he is a diabetic. States he was seen at urgent care earlier today and was sent here via EMS because they were concerned for possible sepsis. States that he has had decreased appetite for the past several days and he thinks that is why his blood sugar is elevated. Denies any trauma. TRAVEL OUTSIDE OF THE [place] IN LAST 30 DAYS: No - Related Data Allergies/Adverse Reactions: No Known Allergies Allergy (Verified 07/11/17 16:28) Past Medical History - General Information source: Patient - Social History Chew tobacco use (# tins/day): No Frequency of alcohol use: None Drug Abuse: None - Past Medical History Cardiac Medical History: Reports: Hx Hypertension Pulmonary Medical History: Denies: Hx Tuberculosis Neurological Medical History: Denies: Hx Seizures Endocrine Medical History: Reports: Hx Diabetes Mellitus Type 2 Renal/ Medical History: Denies: Hx Peritoneal Dialysis GI Medical History: Reports: Hx Colonoscopy, Hx Endoscopy Past Surgical History: Reports: Hx Cholecystectomy. Denies: Hx Appendectomy, Hx Bowel Surgery, Hx Coronary Artery Bypass Graft, Hx Gastric Bypass Surgery, Hx Herniorrhaphy, Hx Pacemaker, Hx Tonsillectomy - Immunizations Hx Diphtheria, Pertussis, Tetanus Vaccination: Yes Review of Systems - Review of Systems Constitutional: See HPI, Chills, Fever Musculoskeletal: See HPI Skin: See HPI Physical Exam - Vital signs Vitals: Temp Pulse Resp BP Pulse Ox 100.0 F 115 H 16 133/90 H 98 07/11/17 16:42 07/11/17 16:42 07/11/17 16:42 07/11/17 16:42 07/11/17 16:42 Interpretation: Tachycardic, Febrile - General General appearance: Alert, Anxious - HEENT Head: Normocephalic, Atraumatic - Skin Notes: Right great toe is grossly swollen, there is a large dark fluid-filled blister along the medial aspect that does extend to both the dorsal and plantar aspect, no active drainage, the blister is nontender to palpation but other pieces of the right great toe R. Distal to the blister capillary refill and sensation is normal. There is erythema to the right great toe surrounding this area and it does extend proximally up the foot. Course - Vital Signs Vital signs: Temp Pulse Resp BP Pulse Ox 100.0 F 115 H 16 133/90 H 98 07/11/17 16:42 07/11/17 16:42 07/11/17 16:42 07/11/17 16:42 07/11/17 16:42
[2017-07-11 17:47] LABS: VENOUS BLOOD BASE EXCESS 2.1 mmol/L; VENOUS BLOOD HCO3 26.9 mmol/L (20-32); VENOUS BLOOD PCO2 42.6 mmHg (35-63); VENOUS BLOOD PH 7.42 (7.30-7.42)
[2017-07-11 17:51] LABS: ABSOLUTE MONOCYTES (AUTO) 1.3 10^3/uL (0.1-1.4); ABSOLUTE NEUT (AUTO) 13.7 10^3/uL (1.7-8.2); BASOPHILS % (AUTO) 0.2 % (0-2); EOSINOPHILS % (AUTO) 0.1 % (0-6); HEMOGLOBIN 14.9 g/dL (13.5-17.0); LYMPHOCYTES % (AUTO) 6.1 % (13-45); MEAN CORPUSCULAR HEMOGLOBIN 30.1 pg (27.0-33.4); MEAN CORPUSCULAR HGB CONC 33.8 g/dL (32.0-36.0); MEAN CORPUSCULAR VOLUME 89 fl (80-97); MONOCYTES % (AUTO) 8.3 % (3-13); PLATELET COUNT 251 10^3/uL (150-450); RED BLOOD COUNT 4.95 10^6/uL (4.35-5.55); RED CELL DISTRIBUTION WIDTH 13.2 % (11.5-14.0); SEGMENTED NEUTROPHILS % (AUTO) 85.3 % (42-78); TOTAL CELLS COUNTED % (AUTO) 100 %; WHITE BLOOD COUNT 16.1 10^3/uL (4.0-10.5)
[2017-07-11 17:56] LABS: INTERNATIONAL RATION (INR) 0.96; PROTHROMBIN TIME 13.2 SEC (11.4-15.4)
[2017-07-11 18:10] LABS: ALANINE AMINOTRANSFERASE 24 U/L (21-72); ALBUMIN 3.7 g/dL (3.5-5.0); ALKALINE PHOSPHATASE 84 U/L (38-126); ANION GAP 16 (5-19); ASPARTATE AMINO TRANSFERASE 11 U/L (17-59); BILIRUBIN,DIRECT 0.4 mg/dL (0.0-0.4); BILIRUBIN,TOTAL 1.1 mg/dL (0.2-1.3); BLOOD UREA NITROGEN 21 mg/dL (7-20); CALCIUM 8.8 mg/dL (8.4-10.2); CARBON DIOXIDE 28 mmol/L (22-30); CHLORIDE 95 mmol/L (98-107); GLUCOSE 276 mg/dL (75-110); POTASSIUM 4.1 mmol/L (3.6-5.0); SODIUM 138.6 mmol/L (137-145); TOTAL PROTEIN 6.9 g/dL (6.3-8.2)
--- NOTE | 2017-07-11 18:21 | ER Document Report ---
ED General - General Chief Complaint: Foot Pain Stated Complaint: TOE PAIN Time Seen by Provider: 07/11/17 16:46 Mode of Arrival: Ambulatory Information source: Patient, Outside Facility Records - Patient sent in from urgent care Notes: 56-year-old diabetic male presents with 2 day duration of swelling of his right foot first digit patient denies any previous similar episodes notes he was febrile today sent in from the urgent care for concerns of sepsis TRAVEL OUTSIDE OF THE [place] IN LAST 30 DAYS: No - HPI Onset: Other Onset/Duration: Persistent Quality of pain: Sharp Severity: Moderate Pain Level: 4 Associated symptoms: Fever, Other Exacerbated by: Movement Relieved by: Denies Similar symptoms previously: Yes Recently seen / treated by doctor: Yes - Related Data Allergies/Adverse Reactions: No Known Allergies Allergy (Verified 07/11/17 16:28) Past Medical History - General Information source: Patient - Social History Smoking Status: Never Smoker Cigarette use (# per day): No Chew tobacco use (# tins/day): No Smoking Education Provided: No Frequency of alcohol use: None Drug Abuse: None Family History: Hypertension, Malignancy Patient has suicidal ideation: No Patient has homicidal ideation: No - Past Medical History Cardiac Medical History: Reports: Hx Hypertension Pulmonary Medical History: Denies: Hx Tuberculosis Neurological Medical History: Denies: Hx Seizures Endocrine Medical History: Reports: Hx Diabetes Mellitus Type 2 Renal/ Medical History: Denies: Hx Peritoneal Dialysis GI Medical History: Reports: Hx Colonoscopy, Hx Endoscopy Past Surgical History: Reports: Hx Cholecystectomy. Denies: Hx Appendectomy, Hx Bowel Surgery, Hx Coronary Artery Bypass Graft, Hx Gastric Bypass Surgery, Hx Herniorrhaphy, Hx Pacemaker, Hx Tonsillectomy - Immunizations Hx Diphtheria, Pertussis, Tetanus Vaccination: Yes Review of Systems - Review of Systems Notes: REVIEW OF SYSTEMS: CONSTITUTIONAL : Admits fever EENT: Denies eye, ear, throat, or mouth pain or symptoms. Denies nasal or sinus congestion or discharge. Denies throat, tongue, or mouth swelling or difficulty swallowing. CARDIOVASCULAR: Denies chest pain. Denies palpitations or racing or irregular heart beat. Denies ankle edema. RESPIRATORY: Denies cough, cold, or chest congestion. Denies shortness of breath, difficulty breathing, or wheezing. GASTROINTESTINAL: Denies abdominal pain or distention. Denies nausea, vomiting , or diarrhea. Denies blood in vomitus, stools, or per rectum. Denies black, tarry stools. Denies constipation. GENITOURINARY: Denies difficulty urinating, painful urination, burning, frequency, blood in urine, or discharge. MUSCULOSKELETAL: Denies back or neck pain or stiffness. Denies joint pain or swelling. SKIN: Admits to rash on the right big toe HEMATOLOGIC : Denies easy bruising or bleeding. LYMPHATIC: Denies swollen, enlarged glands. NEUROLOGICAL: Denies confusion or altered mental status. Denies passing out or loss of consciousness. Denies dizziness or lightheadedness. Denies headache. Denies weakness or paralysis or loss of use of either side. Denies problems with gait or speech. Denies sensory loss, numbness, or tingling. Denies seizures. PSYCHIATRIC: Denies anxiety or stress. Denies depression, suicidal ideation, or homicidal ideation. ALL OTHER SYSTEMS REVIEWED AND NEGATIVE. Dictation was performed using [employer] voice recognition software PHYSICAL EXAMINATION: GENERAL: Well-appearing, well-nourished and in no acute distress. HEAD: Atraumatic, normocephalic. EYES: Pupils equal round and reactive to light, extraocular movements intact, sclera anicteric, conjunctiva are normal. ENT: Nares patent, oropharynx clear without exudates. Moist mucous membranes. NECK: Normal range of motion, supple without lymphadenopathy LUNGS: Breath sounds clear to auscultation bilaterally and equal. No wheezes rales or rhonchi. HEART: Tachycardic ABDOMEN: Soft, nontender, nondistended abdomen. No guarding, no rebound. No masses appreciated. Musculoskeletal: Normal range of motion, no pitting or edema. No cyanosis. NEUROLOGICAL: Cranial nerves grossly intact. Normal speech, normal gait. Normal sensory, motor exams PSYCH: Normal mood, normal affect. SKIN: Right foot first digit large area of necrotic tissue swelling of the medial aspect Physical Exam - Vital signs Vitals: Temp Pulse Resp BP Pulse Ox 100.0 F 115 H 16 133/90 H 98 07/11/17 16:42 07/11/17 16:42 07/11/17 16:42 07/11/17 16:42 07/11/17 16:42 Course - Re-evaluation Re-evalutation: 07/11/17 18:[address] Joyce, he will ID but requests hospitalist admission 07/11/17 18:12 Hospitalist paged for admission 07/11/17 19:31 Dr Cochran will accept patient and go to the OR where he is noted after bedside incision to have a large amount necrotic tissue 07/11/17 21:34 - Vital Signs Vital signs: Temp Pulse Resp BP Pulse Ox 99.7 F 115 H 15 193/109 H 98 07/11/17 19:08 07/11/17 16:42 07/11/17 19:40 07/11/17 19:40 07/11/17 19:40 - Laboratory Result Diagrams: 07/11/17 17:30 07/11/17 17:30 Laboratory results interpreted by me: 07/11/17 07/11/17 07/11/17 17:30 17:30 17:30 WBC 16.1 H Seg Neutrophils % 85.3 H Lymphocytes % 6.1 L Absolute Neutrophils 13.7 H Chloride 95 L BUN 21 H Creatinine 1.32 H Est GFR (Non-Af Amer) 56 L Glucose 276 H Lactic Acid 2.2 H AST 11 L Urine Protein Urine Glucose (UA) Urine Blood Urine Urobilinogen 07/11/17 18:40 WBC Seg Neutrophils % Lymphocytes % Absolute Neutrophils Chloride BUN Creatinine Est GFR (Non-Af Amer) Glucose Lactic Acid AST Urine Protein >=500 H Urine Glucose (UA) >=500 H Urine Blood SMALL H Urine Urobilinogen 4.0 H - Diagnostic Test Radiology reviewed: Image reviewed - X-ray foot review notes large amount swelling, Reports reviewed Critical Care Note - Critical Care Note Total time excluding time spent on procedures (mins): 34 Comments: 34 minutes of critical care time spent in direct contact evaluating and reevaluating the patient, treating symptoms, reviewing labs and studies and speaking with family and consultants excluding any procedures Discharge - Discharge Clinical Impression: Gangrene of toe of right foot, Gas gangrene Sepsis Qualifiers: Sepsis type: sepsis due to unspecified organism Qualified Code(s): A41.9 - Sepsis, unspecified organism Condition: Poor Disposition: ADMITTED INPATIENT Admitting Provider: Surgicalist Unit Admitted: Surgical Floor
--- NOTE | 2017-07-11 18:25 | RADIOLOGY REPORT (SQ) ---
EXAM DESCRIPTION: FOOT RIGHT COMPLETE COMPLETED DATE/TIME: 07/11/2017 6:09 pm REASON FOR STUDY: right great toe infection, possible osteo COMPARISON: None. NUMBER OF VIEWS: Three views. TECHNIQUE: AP, lateral and oblique radiographic images acquired of the right foot. LIMITATIONS: None. FINDINGS: MINERALIZATION: Normal. BONES: No periosteal reaction. No acute fracture or dislocation. No worrisome bone lesions. JOINTS: No effusions. Degenerative changes are seen of the great toe metatarsophalangeal joint. SOFT TISSUES: Marked soft tissue swelling involving the great toe noting a 2.5 x 8.0 x 1.2 cm collect ion of subcutaneous gas within the dorsal soft tissues. OTHER: No other significant finding. IMPRESSION: Great toe soft tissue swelling with subcutaneous gas. No periosteal reaction to suggest osteomyelitis. TECHNICAL DOCUMENTATION: JOB ID: [id number] [employer]- All Rights Reserved Reading location - IP/workstation name: [email or web address]
[2017-07-11] MEDS: NORMAL SALINE 1000 ML 1,000 ML IV PRN (18:59)
[2017-07-11 19:01] LABS: APPEARANCE,URINE SLIGHTLY-CLOUDY; BILIRUBIN,URINE NEGATIVE (NEGATIVE); COLOR,URINE YELLOW; GLUCOSE, URINE >=500 mg/dL (NEGATIVE); KETONES,URINE NEGATIVE (NEGATIVE); LEUKOCYTE ESTERASE,URINE NEGATIVE (NEGATIVE); NITRITE,URINE NEGATIVE (NEGATIVE); PROTEIN,URINE >=500 mg/dL (NEGATIVE); URINE SPECIFIC GRAVITY 1.028
--- NOTE | 2017-07-11 19:15 | PDOC H&P ---
History of Present Illness Patient complains of: right great toe blistering and swelling History of Present Illness: KEISHA SILVERIO is a 56 year old male with diabetes who come to the ER with a 2 day hx of progressive swelling, blistering, and black discoloration of right great toe. An Xray of the righ foot has been obtained and it is significant for great toe soft tissue gas. t Past Medical History Cardiac Medical History: Reports: Hypertension Pulmonary Medical History: Denies: Tuberculosis Neurological Medical History: Denies: Seizures Endocrine Medical History: Reports: Diabetes Mellitus Type 2 Past Surgical History Past Surgical History: Reports: Cholecystectomy Denies: Appendectomy, Coronary Artery Bypass Graft, Gastric Bypass Surgery, Herniorrhaphy, Pacemaker, Tonsillectomy Social History Smoking Status: Never Smoker Hx Recreational Drug Use: No Hx Prescription Drug Abuse: No Family History Family History: Hypertension, Malignancy Parental Family History Reviewed: Yes - NHT, cancer Children Family History Reviewed: No Sibling(s) Family History Reviewed.: No Medication/Allergy Home Medications: Metoclopramide HCl [Reglan] 10 mg PO QID 07/04/11 Glimepiride [Glimepiride] 1 tab PO BID 07/11/17 Losartan/Hydrochlorothiazide [Losartan-Hctz 100-25 mg Tab] 1 each PO DAILY 07/11 Metformin HCl 1,000 mg PO BID 07/11/17 Allergies/Adverse Reactions: No Known Allergies Allergy (Verified 07/11/17 16:28) Physical Exam Vital Signs: Temp Pulse Resp BP Pulse Ox 99.7 F 115 H 15 193/105 H 96 07/11/17 19:08 07/11/17 16:42 07/11/17 19:01 07/11/17 19:01 07/11/17 19:01 Intake & Output 07/10/17 07/11/17 07/12/17 06:59 06:59 06:59 Weight 91.2 kg General appearance: PRESENT: no acute distress, cooperative Eye exam: PRESENT: EOMI Neck exam: PRESENT: full ROM Respiratory exam: PRESENT: clear to auscultation priyank Cardiovascular exam: PRESENT: RRR GI/Abdominal exam: PRESENT: soft Extremities exam: PRESENT: other - Right foot: great toe swollen, erythematous with large blister over proxinal toe filled with foul smelling fluid and underneath necrotic proximal toe skin, lymphangitic streak crossing over right foor dorsum and anterior distal leg Results Laboratory Results: 07/11/17 17:30 07/11/17 17:30 07/11/17 07/11/17 07/11/17 17:30 17:30 17:30 WBC 16.1 H RBC 4.95 Hgb 14.9 Hct 44.0 MCV 89 MCH 30.1 MCHC 33.8 RDW 13.2 Plt Count 251 Seg Neutrophils % 85.3 H Lymphocytes % 6.1 L Monocytes % 8.3 Eosinophils % 0.1 Basophils % 0.2 Absolute Neutrophils 13.7 H Absolute Lymphocytes 1.0 Absolute Monocytes 1.3 Absolute Eosinophils 0.0 Absolute Basophils 0.0 VBG pH VBG pCO2 VBG HCO3 VBG Base Excess Sodium 138.6 Potassium 4.1 Chloride 95 L Carbon Dioxide 28 Anion Gap 16 BUN 21 H Creatinine 1.32 H Est GFR ( Amer) > 60 Est GFR (Non-Af Amer) 56 L Glucose 276 H Lactic Acid 2.2 H Calcium 8.8 Total Bilirubin 1.1 AST 11 L ALT 24 Alkaline Phosphatase 84 Total Protein 6.9 Albumin 3.7 Urine Color Urine Appearance Urine pH Ur Specific Girard Urine Protein Urine Glucose (UA) Urine Ketones Urine Blood Urine Nitrite Ur Leukocyte Esterase Urine WBC (Auto) Urine RBC (Auto) 07/11/17 07/11/17 17:30 18:40 WBC RBC Hgb Hct MCV MCH MCHC RDW Plt Count Seg Neutrophils % Lymphocytes % Monocytes % Eosinophils % Basophils % Absolute Neutrophils Absolute Lymphocytes Absolute Monocytes Absolute Eosinophils Absolute Basophils VBG pH 7.42 VBG pCO2 42.6 VBG HCO3 26.9 VBG Base Excess 2.1 Sodium Potassium Chloride Carbon Dioxide Anion Gap BUN Creatinine Est GFR ( Amer) Est GFR (Non-Af Amer) Glucose Lactic Acid Calcium Total Bilirubin AST ALT Alkaline Phosphatase Total Protein Albumin Urine Color YELLOW Urine Appearance SLIGHTLY-CLOUDY Urine pH 5.0 Ur Specific Girard 1.028 Urine Protein >=500 H Urine Glucose (UA) >=500 H Urine Ketones NEGATIVE Urine Blood SMALL H Urine Nitrite NEGATIVE Ur Leukocyte Esterase NEGATIVE Urine WBC (Auto) 1 Urine RBC (Auto) 4 Impressions: Foot X-Ray 07/11/17 16:58 IMPRESSION: Great toe soft tissue swelling with subcutaneous gas. No periosteal reaction to suggest osteomyelitis. Assessment & Plan - Diagnosis (1) Gangrene of toe of right foot Is this a current diagnosis for this admission?: Yes (2) Gas gangrene Is this a current diagnosis for this admission?: Yes - Plan Summary Plan Summary: A/ 56 y/o diabetic male with right great toe gas gangrene which occurred during the past 24-36 hours Lymphangitic streaking seen across right foot and anterior right leg Right foot Xray shows right great toe subcutaneous gas Above finding suspicious for clostridial gas gangrene infection of right great toe, rapidly spreading Leukocytosis Elevated lactic acid 2.2 P/ Plan emergent right great toe ray amputation tonight Admission to follow IVF IV Zosyn and Vancomycin Second look surgery if needed in 24-48 hours
[2017-07-11] MEDS ORDERED: KETAMINE HCL INJ 500 MG/10 ML VIAL ONE (19:21)
[2017-07-11] MEDS ORDERED: FENTANYL CITRATE INJ/PF 100 MCG/2 ML AMPUL ONE ×2 (19:21→19:22)
[2017-07-11] MEDS ORDERED: PROPOFOL INJ 200 MG/20 ML VIAL IV ONE (19:22)
[2017-07-11] MEDS ORDERED: MIDAZOLAM 2 MG/2 ML INJ ONE (19:22)
[2017-07-11] MEDS ORDERED: ACETAMINOPHEN 100 ML IV ONE (19:22)
[2017-07-11] MEDS ORDERED: DEXMEDETOMIDINE INJ 80 MCG/20 ML VIAL IV ONE (19:23)
[2017-07-11] MEDS ORDERED: EPHEDRINE SULFATE INJ 50 MG/1 ML AMPULE ONE (19:23)
--- NOTE | 2017-07-11 20:50 | EKG REPORT ---
SEVERITY:- BORDERLINE ECG - SINUS TACHYCARDIA BORDERLINE T ABNORMALITIES, INFERIOR LEADS : Confirmed by: Farheen Cabrera 11-Jul-2017 17:49:32
[2017-07-11] MEDS ORDERED: PROMETHAZINE HCL INJ 25 MG/1 ML VIAL IV PRN ×2 (20:52)
[2017-07-11] MEDS ORDERED: ONDANSETRON HCL INJ/PF 4 MG/2 ML SDV IV PRN ×2 (20:52→21:50)
[2017-07-11] MEDS ORDERED: FENTANYL CITRATE INJ/PF 100 MCG/2 ML AMPUL IV PRN ×3 (20:52)
[2017-07-11] MEDS ORDERED: MEPERIDINE HCL/PF INJ 25 MG/1 ML DISP.SYRIN IV PRN (20:52)
[2017-07-11] MEDS ORDERED: DIPHENHYDRAMINE HCL 50 MG/ML VIAL IV PRN (20:52)
[2017-07-11] MEDS ORDERED: PIPERACILLIN/TAZOBACTAM 3.375 GM VIAL IV PRN (21:48)
[2017-07-11] MEDS ORDERED: HYDROMORPHONE HCL INJ/PF 2 MG/ML AMPULE IV PRN (21:51)
[2017-07-11] MEDS ORDERED: DOCUSATE SODIUM 100 MG CAPSULE PO ONE (22:00)
[2017-07-11] MEDS ORDERED: PIPERACILLIN/TAZOBACTAM 3.375 GM VIAL IV ONE (22:26)
[2017-07-11] MEDS ORDERED: VANCOMYCIN HCL INJ 1000 MG VIAL ONE (22:26)
[2017-07-11] MEDS: FAMOTIDINE INJ/PF 20 MG/2 ML SDV IV SCH (22:40)
[2017-07-12] MEDS ORDERED: VANCOMYCIN HCL INJ 1000 MG VIAL IV PRN ×2 (00:04→03:00)
[2017-07-12] MEDS: NORMAL SALINE 1000 ML 1,000 ML IV PRN ×2 (00:11→08:03)
[2017-07-12] MEDS: PIPERACILLIN SODIUM/TAZOBACTAM 3.375 GM in NORMAL SALINE 100 ML IV SCH ×3 (00:13→12:25)
--- NOTE | 2017-07-12 01:46 | PDOC CONSULTATION ---
Consultation Consult Date: 07/11/17 Attending physician:: THOMAS GARCIA Consult reason:: Diabetic management History of Present Illness Admission Date/PCP: 07/11/17 19:39 History of Present Illness: KEISHA SILVERIO is a 56 year old male admitted for right great toe swelling and patient found to have gangrene and he is status post amputation of right great toe. The hospitalist service consulted to comanage his diabetes. Past Medical History Cardiac Medical History: Reports: Hypertension Pulmonary Medical History: Denies: Tuberculosis Neurological Medical History: Denies: Seizures Endocrine Medical History: Reports: Diabetes Mellitus Type 2 Psychiatric Medical History: Denies: Depression Past Surgical History Past Surgical History: Reports: Cholecystectomy Denies: Appendectomy, Coronary Artery Bypass Graft, Gastric Bypass Surgery, Herniorrhaphy, Pacemaker, Tonsillectomy Social History Smoking Status: Never Smoker Frequency of Alcohol Use: None Hx Recreational Drug Use: No Drugs: None Hx Prescription Drug Abuse: No - Advance Directive Resuscitation Status: Full Code Family History Family History: Hypertension, Malignancy Parental Family History Reviewed: Yes Children Family History Reviewed: Yes Sibling(s) Family History Reviewed.: Yes Medication/Allergy Home Medications: Glimepiride [Glimepiride] 1 tab PO BID 07/11/17 Lansoprazole [Lansoprazole] 1 cap PO DAILY 07/11/17 Losartan/Hydrochlorothiazide [Losartan-Hctz 100-25 mg Tab] 1 each PO DAILY 07/11 Metformin HCl 1,000 mg PO BID 07/11/17 Omeprazole [Omeprazole] 20 mg PO DAILY 07/11/17 Allergies/Adverse Reactions: No Known Allergies Allergy (Verified 07/11/17 16:28) Review of Systems Constitutional: ABSENT: as per HPI, anorexia, chills, fatigue, fever(s), headache(s), night sweats, weakness, weight gain, weight loss, other Cardiovascular: ABSENT: as per HPI, chest pain, dyspnea on exertion, edema, orthropnea, palpitations, other Respiratory: ABSENT: as per HPI, cough, dyspnea, hemoptysis, sputum, other Neurological: ABSENT: as per HPI, abnormal gait, abnormal movements, abnormal speech, confusion, convulsions, dizziness, focal weakness, frequent falls, lack of coordination, memory loss, numbness, paresthesias, restless legs, syncope, tingling, tremor(s), vertigo, weakness, other Physical Exam Vital Signs: Temp Pulse Resp BP Pulse Ox 87 F L 87 17 161/94 H 99 07/12/17 01:00 07/12/17 01:00 07/12/17 01:00 07/12/17 01:00 07/12/17 01:00 Intake & Output 07/10/17 07/11/17 07/12/17 06:59 06:59 06:59 Intake Total 1225 Output Total 50 Balance 1175 Weight 91.2 kg Results Laboratory Results: 07/11/17 22:56 Lactic Acid 1.5 Impressions: Foot X-Ray 07/11/17 16:58 IMPRESSION: Great toe soft tissue swelling with subcutaneous gas. No periosteal reaction to suggest osteomyelitis. Assessment & Plan - Diagnosis (1) Diabetes mellitus Qualifiers: Diabetes mellitus type: type 2 Is this a current diagnosis for this admission?: Yes Plan: I will start him on a sliding scale and adjust his home medications. (2) Gangrene of toe of right foot Is this a current diagnosis for this admission?: Yes Plan: Management per surgical team - Time Time Spent: 30 to 50 Minutes - Inpatient Certification Medical Necessity: Need for IV Antibiotics
[2017-07-12] MEDS ORDERED: DEXTROSE 50%-WATER 25 GM/50 ML DISP.SYRIN IV PRN ×4 (02:01→08:59)
[2017-07-12] MEDS ORDERED: GLUCAGON,HUMAN RECOMB 1 MG INJ IM PRN (02:01)
[2017-07-12] MEDS ORDERED: DEXTROSE 40% GEL 15 GM TUBE PO PRN ×4 (02:01→08:59)
[2017-07-12] MEDS ORDERED: VANCOMYCIN HCL 1,000 MG in DEXTROSE 5%-WATER 250 ML IV ONE (05:00)
[2017-07-12 06:35] LABS: HEMATOCRIT 37.9 % (37.9-51.0); HEMOGLOBIN 13.1 g/dL (13.5-17.0); MEAN CORPUSCULAR HEMOGLOBIN 30.6 pg (27.0-33.4); MEAN CORPUSCULAR HGB CONC 34.6 g/dL (32.0-36.0); MEAN CORPUSCULAR VOLUME 88 fl (80-97); PLATELET COUNT 157 10^3/uL (150-450); RED CELL DISTRIBUTION WIDTH 13.5 % (11.5-14.0); WHITE BLOOD COUNT 10.8 10^3/uL (4.0-10.5)
[2017-07-12 06:52] LABS: ANION GAP 10 (5-19); BLOOD UREA NITROGEN 15 mg/dL (7-20); CARBON DIOXIDE 24 mmol/L (22-30); CHLORIDE 107 mmol/L (98-107); GLUCOSE 238 mg/dL (75-110); SODIUM 141.4 mmol/L (137-145)
[2017-07-12] MEDS: INSULIN LISPRO 100 UNIT/ML 3 ML VIAL SUBCUT PRN ×3 (08:03→22:29)
[2017-07-12] MEDS ORDERED: HYDROCODONE/ACETAMINOPHEN 5-325 MG TABLET PO PRN (08:58)
[2017-07-12] MEDS ORDERED: GLUCAGON,HUMAN RECOMB 1 MG INJ SUBCUT PRN (08:59)
[2017-07-12] MEDS: DOCUSATE SODIUM 100 MG CAPSULE PO SCH ×2 (09:00→17:41)
[2017-07-12] MEDS: FAMOTIDINE INJ/PF 20 MG/2 ML SDV IV SCH ×2 (09:01→22:20)
[2017-07-12] MEDS: LOSARTAN POTASSIUM 50 MG TABLET PO SCH (09:01)
[2017-07-12] MEDS: LANSOPRAZOLE 30 MG TAB.RAP.DR PO SCH (09:01)
--- NOTE | 2017-07-12 09:07 | PDOC PROGRESS REPORT ---
Subjective Progress Note for:: 07/12/17 Subjective:: Sudden bleeding through right foot amputation site dressings Reason For Visit: GANGRENE OF TOE OF RIGHT FOOT, GAS GANGRENE Physical Exam Vital Signs: Temp Pulse Resp BP Pulse Ox 97.3 F 87 16 166/88 H 93 07/12/17 08:40 07/12/17 08:40 07/12/17 08:40 07/12/17 08:40 07/12/17 08:40 Intake & Output 07/11/17 07/12/17 07/13/17 06:59 06:59 06:59 Intake Total 2521 300 Output Total 1350 Balance 1171 300 Weight 91.3 kg General appearance: PRESENT: no acute distress, cooperative Musculoskeletal exam: PRESENT: other - R foot= surgical incision with mild active bleeding, particulalrly at Yury site, skin edges viable, no cellulitis , no odor, minimal edema Results Laboratory Results: 07/12/17 06:01 07/12/17 06:01 07/11/17 07/12/17 07/12/17 22:56 06:01 06:01 WBC 10.8 H RBC 4.30 L Hgb 13.1 L Hct 37.9 MCV 88 MCH 30.6 MCHC 34.6 RDW 13.5 Plt Count 157 Sodium 141.4 Potassium 4.0 Chloride 107 Carbon Dioxide 24 Anion Gap 10 BUN 15 Creatinine 0.98 Est GFR ( Amer) > 60 Est GFR (Non-Af Amer) > 60 Glucose 238 H Lactic Acid 1.5 Calcium 8.0 L Impressions: Foot X-Ray 07/11/17 16:58 IMPRESSION: Great toe soft tissue swelling with subcutaneous gas. No periosteal reaction to suggest osteomyelitis. Assessment & Plan - Diagnosis (1) Gangrene of toe of right foot Is this a current diagnosis for this admission?: Yes (2) Gas gangrene Is this a current diagnosis for this admission?: Yes - Plan Summary Plan Summary: A/ POD#1 after amputation of right great toe and first metatarsal head VSS, AF Patient noted sudden onset of bleeding through dressing this am, denies OOB ambulation Surgical site shows bleeding at suture line and at Yury sites patient sleepy after Dilaudid P/ Replace right foot dressing with pressure dressings monitor surgical site for additional bleeding Keep NPO Decreased IVF 100 mL/hr discontinue Dilaudid start [place] po
[2017-07-12] MEDS ORDERED: GLIMEPIRIDE 4 MG TABLET PO SCH (10:00)
[2017-07-12] MEDS ORDERED: (PENDING PHARMACY ID) (Losartan/Hydrochlorothiazide [Losartan-Hctz 100-25 Mg Tab] 1 EACH) PO SCH (10:00)
[2017-07-12] MEDS ORDERED: HYDROCHLOROTHIAZIDE 25 MG TABLET PO SCH (10:00)
[2017-07-12] MEDS ORDERED: METFORMIN HCL 500 MG TABLET PO SCH (10:00)
[2017-07-12] MEDS: VANCOMYCIN HCL 750 MG in DEXTROSE 5%-WATER 250 ML IV SCH ×2 (14:16→22:20)
--- NOTE | 2017-07-12 14:25 | PDOC PROGRESS REPORT ---
Subjective Progress Note for:: 07/12/17 Subjective:: KEISHA SILVERIO is a 56 year old male admitted for right great toe swelling and patient found to have gangrene and he is status post amputation of right great toe. The hospitalist service consulted to co-manage his diabetes and hypertension. Reason For Visit: GANGRENE OF TOE OF RIGHT FOOT, GAS GANGRENE Physical Exam Vital Signs: Temp Pulse Resp BP Pulse Ox 99.1 F 98 16 167/92 H 95 07/12/17 11:32 07/12/17 11:32 07/12/17 11:32 07/12/17 11:32 07/12/17 11:32 Intake & Output 07/11/17 07/12/17 07/13/17 06:59 06:59 06:59 Intake Total 2521 300 Output Total 1350 Balance 1171 300 Weight 91.3 kg General appearance: PRESENT: no acute distress Eye exam: PRESENT: conjunctiva pink, PERRLA Mouth exam: PRESENT: moist Respiratory exam: PRESENT: symmetrical, unlabored Pulses: PRESENT: normal radial pulses Extremities exam: ABSENT: full ROM - R foot immobile Musculoskeletal exam: ABSENT: ambulatory - NWB R FOOT, full ROM - right foot immobile Neurological exam: PRESENT: alert, awake, oriented to person, oriented to place , oriented to time, oriented to situation Psychiatric exam: PRESENT: appropriate affect Skin exam: PRESENT: dry, intact Results Laboratory Results: 07/12/17 06:01 07/12/17 06:01 07/11/17 07/12/17 07/12/17 22:56 06:01 06:01 WBC 10.8 H RBC 4.30 L Hgb 13.1 L Hct 37.9 MCV 88 MCH 30.6 MCHC 34.6 RDW 13.5 Plt Count 157 Sodium 141.4 Potassium 4.0 Chloride 107 Carbon Dioxide 24 Anion Gap 10 BUN 15 Creatinine 0.98 Est GFR ( Amer) > 60 Est GFR (Non-Af Amer) > 60 Glucose 238 H Lactic Acid 1.5 Calcium 8.0 L Impressions: Foot X-Ray 07/11/17 16:58 IMPRESSION: Great toe soft tissue swelling with subcutaneous gas. No periosteal reaction to suggest osteomyelitis. Status: Imported from PACS Assessment & Plan - Diagnosis (1) Hypertension Is this a current diagnosis for this admission?: Yes Plan: Patient endorses a history of hypertension. Continue home dose losartan and hydrochlorothiazide He has remained relatively HYPERtensive since admission Initiated Norvasc 5 mg p.o. 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 He has either been n.p.o. or has reported poor appetite since admission. Discontinued home dose metformin, initiate Accu-Cheks before meals at bedtime with Humalog sliding scale insulin. (3) Gangrene of toe of right foot Is this a current diagnosis for this admission?: Yes Plan: Management per surgical team - Time Time Spent with patient: 15-24 minutes Medications reviewed and adjusted accordingly: Yes Anticipated discharge: Home - Inpatient Certification Based on my medical assessment, after consideration of the patient's comorbidities, presenting symptoms, or acuity I expect that the services needed warrant INPATIENT care.: Yes I certify that my determination is in accordance with my understanding of Medicare's requirements for reasonable and necessary INPATIENT services [42 CFR 412.3e].: Yes Medical Necessity: Need For IV Fluids, Need for Surgery, Risk of Complication if Not Cared For in Hospital
[2017-07-12] MEDS: AMLODIPINE BESYLATE 5 MG TABLET PO SCH (14:39)
[2017-07-12] MEDS ORDERED: NORMAL SALINE 1000 ML 1,000 ML IV ONE (15:28)
[2017-07-12 16:02] LABS: ABSOLUTE NEUT (AUTO) 9.5 10^3/uL (1.7-8.2); BASOPHILS % (AUTO) 0.2 % (0-2); EOSINOPHILS % (AUTO) 0.2 % (0-6); HEMATOCRIT 38.2 % (37.9-51.0); HEMOGLOBIN 12.9 g/dL (13.5-17.0); LYMPHOCYTES % (AUTO) 8.5 % (13-45); MEAN CORPUSCULAR HEMOGLOBIN 29.8 pg (27.0-33.4); MEAN CORPUSCULAR HGB CONC 33.7 g/dL (32.0-36.0); MEAN CORPUSCULAR VOLUME 88 fl (80-97); PLATELET COUNT 191 10^3/uL (150-450); RED BLOOD COUNT 4.32 10^6/uL (4.35-5.55); RED CELL DISTRIBUTION WIDTH 13.5 % (11.5-14.0); SEGMENTED NEUTROPHILS % (AUTO) 82.1 % (42-78); TOTAL CELLS COUNTED % (AUTO) 100 %; WHITE BLOOD COUNT 11.5 10^3/uL (4.0-10.5)
[2017-07-12] MEDS ORDERED: ACETAMINOPHEN 325 MG TABLET PO PRN (16:10)
[2017-07-12 16:16] LABS: ANION GAP 12 (5-19); BLOOD UREA NITROGEN 11 mg/dL (7-20); CARBON DIOXIDE 26 mmol/L (22-30); CHLORIDE 102 mmol/L (98-107); GLUCOSE 212 mg/dL (75-110); POTASSIUM 3.9 mmol/L (3.6-5.0); SODIUM 139.9 mmol/L (137-145)
[2017-07-12] MEDS ORDERED: LORAZEPAM INJ 2 MG/1 ML VIAL IV ONE (16:30)
[2017-07-12 17:03] LABS: CREATINE KINASE MB 1.22 ng/mL (<4.55); TROPONIN I 0.016 ng/mL
[2017-07-12] MEDS ORDERED: MEROPENEM 500 MG VIAL IV PRN (17:12)
--- NOTE | 2017-07-12 20:07 | RADIOLOGY REPORT (SQ) ---
EXAM DESCRIPTION: CTA CHEST COMPLETED DATE/TIME: 07/12/2017 7:07 pm REASON FOR STUDY: SOB, R/O PE COMPARISON: 10/09/2009 TECHNIQUE: CT scan of the chest performed using helical scanning technique with dynamic intravenous contrast injection. Images reviewed with lung, soft tissue and bone windows. Reconstructed coronal and sagittal MPR images reviewed. Additional 3 dimensional post-processing performed to develop Maximal Intensity Projection images (VT P). All images stored on PACS. All CT scanners at this facility use dose modulation, iterative reconstruction, and/or weight based d osing when appropriate to reduce radiation dose to as low as reasonably achievable (ALARA). [facility]: Dose Right [facility]: CareDose [facility]: Dose Right [facility]: Teradose 4D [facility]: [facility] CONTRAST TYPE AND DOSE: contrast/concentration: Isovue 370.00 mg/ml; Total Contrast Delivered: 77.0 ml; Total Saline Delivered: 110.1 ml Contrast bolus optimized for the pulmonary arteries. Not diagnostic for the aorta. RENAL FUNCTION: GFR > 60. RADIATION DOSE: CT Rad equipment meets quality standard of care and radiation dose reduction techniq ues were employed. CTDIvol: 19.8 - 22.3 mGy. DLP: 785 mGy-cm. . LIMITATIONS: Moderate breathing motion artifact. FINDINGS: LUNGS AND PLEURA: Bilateral lower lobe subsegmental atelectasis and small pleural effusion s. Mild interstitial thickening consistent with mild pulmonary edema. AORTA AND GREAT VESSELS: No aneurysm. Contrast bolus not optimized for the aorta. HEART: No pericardial effusion. Mild coronary artery calcifications. PULMONARY ARTERIES: No emboli visualized in the main pulmonary arteries. Breathing motion limits jared luation of the segmental branches. HILAR AND MEDIASTINAL STRUCTURES: No identified masses or abnormal nodes. HARDWARE: None in the chest. UPPER ABDOMEN: No significant findings. Limited exam. THYROID AND OTHER SOFT TISSUES: No masses. No adenopathy. BONES: No acute finding. 3D MIPS: Confirm above findings. OTHER: No other significant finding. IMPRESSION: Bilateral lower lobe subsegmental atelectasis and small pleural effusions. Mild interst itial thickening consistent with mild pulmonary edema.No emboli visualized in the main pulmonary bernadine casandra. Breathing motion limits evaluation of the segmental branches. COMMENT: Quality ID # [id number]: Final reports with documentation of one or more dose reduction techniques (e.g., Automated exposure control, adjustment of the mA and/or kV according to patient size, use of iterative reconstruction technique) TECHNICAL DOCUMENTATION: JOB ID: [id number] [place]-72 2010 [employer]- All Rights Reserved Reading location - IP/workstation name: [email or web address]
[2017-07-12] MEDS ORDERED: MEROPENEM 1 GM VIAL ONE (22:31)
[2017-07-12] MEDS: MEROPENEM 1 GM VIAL IV PRN (23:41)
[2017-07-12] MEDS: MEROPENEM 1 GM in NORMAL SALINE 50 ML IV SCH (23:42)
[2017-07-13 04:03] LABS: HEMATOCRIT 35.4 % (37.9-51.0); HEMOGLOBIN 12.1 g/dL (13.5-17.0); MEAN CORPUSCULAR HEMOGLOBIN 29.9 pg (27.0-33.4); MEAN CORPUSCULAR HGB CONC 34.2 g/dL (32.0-36.0); MEAN CORPUSCULAR VOLUME 87 fl (80-97); PLATELET COUNT 184 10^3/uL (150-450); RED BLOOD COUNT 4.06 10^6/uL (4.35-5.55); WHITE BLOOD COUNT 11.6 10^3/uL (4.0-10.5)
[2017-07-13 04:06] LABS: ANION GAP 8 (5-19); BLOOD UREA NITROGEN 12 mg/dL (7-20); CARBON DIOXIDE 29 mmol/L (22-30); CHLORIDE 101 mmol/L (98-107); GLUCOSE 190 mg/dL (75-110); POTASSIUM 3.6 mmol/L (3.6-5.0); SODIUM 138.2 mmol/L (137-145)
[2017-07-13] MEDS: MEROPENEM 1 GM VIAL IV PRN (05:16)
[2017-07-13] MEDS: MEROPENEM 1 GM in NORMAL SALINE 50 ML IV SCH ×3 (05:16→22:43)
[2017-07-13] MEDS: VANCOMYCIN HCL 750 MG in DEXTROSE 5%-WATER 250 ML IV SCH ×2 (06:01→13:58)
[2017-07-13] MEDS: NORMAL SALINE 1000 ML 1,000 ML IV PRN ×2 (06:02→22:43)
[2017-07-13] MEDS: INSULIN LISPRO 100 UNIT/ML 3 ML VIAL SUBCUT PRN ×3 (06:38→18:54)
[2017-07-13] MEDS: LANSOPRAZOLE 30 MG TAB.RAP.DR PO SCH (09:20)
[2017-07-13] MEDS: LOSARTAN POTASSIUM 50 MG TABLET PO SCH (09:20)
[2017-07-13] MEDS: ENOXAPARIN SODIUM INJ 30 MG/0.3 ML DISP.SYRIN SUBCUT SCH (09:20)
[2017-07-13] MEDS: FAMOTIDINE INJ/PF 20 MG/2 ML SDV IV SCH ×2 (09:21→22:43)
[2017-07-13] MEDS: DOCUSATE SODIUM 100 MG CAPSULE PO SCH ×2 (09:21→18:54)
[2017-07-13] MEDS ORDERED: ALPRAZOLAM 0.5 MG TABLET PO ONE (09:55)
--- NOTE | 2017-07-13 10:58 | PDOC PROGRESS REPORT ---
Subjective Progress Note for:: 07/13/17 Reason For Visit: GANGRENE OF R TOE Patient laying in bed, no complaints; has been at bedrest Physical Exam Vital Signs: Temp Pulse Resp BP Pulse Ox 99.4 F 95 19 167/95 H 93 07/13/17 07:28 07/13/17 07:28 07/13/17 07:28 07/13/17 07:28 07/13/17 07:28 Intake & Output 07/12/17 07/13/17 07/14/17 06:59 06:59 06:59 Intake Total 2521 2468 Output Total 1350 1800 Balance 1171 668 Weight 91.3 kg 66.3 kg General appearance: PRESENT: no acute distress Extremities exam: PRESENT: other - Dressings removed; no active bleeding. No hematoma. Operative site looks excellent. All sutures in place. No drain. No erythema to the foot. Some edema. Results Laboratory Results: 07/13/17 03:39 07/13/17 03:39 07/12/17 07/12/17 07/12/17 15:46 15:46 15:46 WBC 11.5 H RBC 4.32 L Hgb 12.9 L Hct 38.2 MCV 88 MCH 29.8 MCHC 33.7 RDW 13.5 Plt Count 191 Seg Neutrophils % 82.1 H Lymphocytes % 8.5 L Monocytes % 9.0 Eosinophils % 0.2 Basophils % 0.2 Absolute Neutrophils 9.5 H Absolute Lymphocytes 1.0 Absolute Monocytes 1.0 Absolute Eosinophils 0.0 Absolute Basophils 0.0 Sodium 139.9 Potassium 3.9 Chloride 102 Carbon Dioxide 26 Anion Gap 12 BUN 11 Creatinine 1.05 Est GFR ( Amer) > 60 Est GFR (Non-Af Amer) > 60 Glucose 212 H Lactic Acid 1.6 Calcium 8.0 L 07/13/17 07/13/17 03:39 03:39 WBC 11.6 H RBC 4.06 L Hgb 12.1 L Hct 35.4 L MCV 87 MCH 29.9 MCHC 34.2 RDW 13.0 Plt Count 184 Seg Neutrophils % Lymphocytes % Monocytes % Eosinophils % Basophils % Absolute Neutrophils Absolute Lymphocytes Absolute Monocytes Absolute Eosinophils Absolute Basophils Sodium 138.2 Potassium 3.6 Chloride 101 Carbon Dioxide 29 Anion Gap 8 BUN 12 Creatinine 0.96 Est GFR ( Amer) > 60 Est GFR (Non-Af Amer) > 60 Glucose 190 H Lactic Acid Calcium 8.0 L 07/12/17 07/12/17 07/12/17 15:46 15:46 21:12 Creatine Kinase 51 L CK-MB (CK-2) 1.22 Troponin I 0.016 0.036 07/13/17 03:39 Creatine Kinase CK-MB (CK-2) Troponin I 0.027 Impressions: Foot X-Ray 07/11/17 16:58 IMPRESSION: Great toe soft tissue swelling with subcutaneous gas. No periosteal reaction to suggest osteomyelitis. Chest/Abdomen CTA 07/12/17 17:55 IMPRESSION: Bilateral lower lobe subsegmental atelectasis and small pleural effusions. Mild interstitial thickening consistent with mild pulmonary edema.No emboli visualized in the main pulmonary arteries. Breathing motion limits evaluation of the segmental branches. Assessment & Plan - Diagnosis (1) Gangrene of toe of right foot Is this a current diagnosis for this admission?: Yes Plan: Status post right great toe amputation ready, primary closure, looking very good postoperative day 1.5. Recommendations: 1. Continue intravenous antibiotics; follow-up with wound cultures 2. Start dressing changes; orders written 3. We will get patient surgical sandal, patient may be up and ambulate with supervision, keeping leg elevated all times when stationary.
--- NOTE | 2017-07-13 12:59 | OPERATIVE REPORT E ---
Operative Report NAME: KEISHA SILVERIO : 1960 AGE: 56Y DATE OF SURGERY: 07/11/2017 ROOM: 436 PREOPERATIVE DIAGNOSIS: Gas gangrene, right great toe. POSTOPERATIVE DIAGNOSIS: Gas gangrene, right great toe. OPERATION: 1. Amputation of right great toe. 2. Amputation distal head, right first metatarsal. SURGEON: THOMAS GARCIA M.D. ANESTHESIA: General. FLUIDS: 600. DRAINS: Quarter-inch Yury drain per monitor. INDICATION AND FINDINGS: A 56-year-old male presented to the emergency room with a 24-hour history of right great toe swelling, redness, pain and blistering. On physical examination, there was diffuse edema and edema of the right great toe with black discoloration of the proximal skin of right great toe together with lymphangitis, streaking of the dorsal foot as well as the distal half of the right leg. The x-ray showed subcutaneous gas and the patient's was elevated 16.1. His lactic acid 2.2. Decision was made to perform an immediate amputation of great toe and to the distal head of the first metatarsal more on the right. PROCEDURE: Procedure was done in the operating room. Patient was placed in the supine position. General anesthesia induced by endotracheal intubation. The right foot was prepped and draped in the usual fashion. A tourniquet was put in place in the right calf. Following this, an Esmarch rubber band was applied to the right foot and distal leg. A tourniquet was inflated to 260 mmHg. The Esmarch band was then removed. The healthy skin of the right foot just proximal to the necrotic great toe was marked with surgical marker circumferentially around the great toe and extended it to the medial aspect of the foot in a teardrop fashion. The skin was then divided with a knife first and then with Bovie. The great toe was then removed by dividing the tendon and ligaments and sent to Pathology. A was used to circumferentially free the distal head of the first metatarsal bone which was then divided with an electric saw and sent to Pathology. Following this, a quarter-inch Yury drain was laid flat deep in the surgical field. The anesthesia was then closed with interrupted deep inverted 2-0 Vicryl sutures. The drain was secured to the skin, only the side with 2-0 nylon sutures. The skin edges approximated with 2-0 nylon interrupted suture. Appropriate antibiotic was applied to the wound edge followed by dressings, 4 x 4's, ANGELA bandage and Kerlix. The patient was then extubated. The tourniquet was taken down. The tourniquet time was approximately 6 minutes. The patient was extubated, transferred to recovery room in satisfactory condition. DICTATING PHYSICIAN: THOMAS GARCIA M.D. [id number] PHY#: [id number] ID: [id number] JOB#: [id number] ACCT: [id number] cc:THOMAS GARCIA M.D. >
[2017-07-13] MEDS ORDERED: PAROXETINE HCL 20 MG TABLET PO ONE (13:00)
[2017-07-13 14:26] LABS: VANCOMYCIN,TROUGH 10.3 ug/mL (5.0-20.0)
[2017-07-13] MEDS ORDERED: ACETAMINOPHEN 325 MG TABLET PO PRN (15:29)
[2017-07-13] MEDS: AMLODIPINE BESYLATE 5 MG TABLET PO SCH (15:57)
[2017-07-13] MEDS: VANCOMYCIN HCL 1,000 MG in DEXTROSE 5%-WATER 250 ML IV SCH (22:43)
[2017-07-14] MEDS: HYDRALAZINE HCL INJ/PF 20 MG/1 ML SDV IV PRN ×2 (00:23→13:14)
--- NOTE | 2017-07-14 01:54 | PDOC PROGRESS REPORT ---
<RICARDA GRACIA A - Last Filed: 07/14/17 01:45> Subjective Progress Note for:: 07/13/17 Subjective:: KEISHA SILVERIO is a 56 year old male admitted for right great toe swelling and patient found to have gangrene. POD#2 amputation of right great toe and distal head of the R 1st metatarsal. The hospitalist service consulted to co- manage his diabetes and hypertension. Patient spiked a fever this afternoon. Tmax 102. Surgery aware. Plan to re- culture. Reason For Visit: GANGRENE OF R TOE Physical Exam Vital Signs: Temp Pulse Resp BP Pulse Ox 102.5 F H 103 H 18 171/82 H 93 07/13/17 15:10 07/13/17 15:10 07/13/17 15:09 07/13/17 15:10 07/13/17 15:09 Intake & Output 07/12/17 07/13/17 07/14/17 06:59 06:59 06:59 Intake Total 2521 2468 2020 Output Total 1350 1800 1225 Balance 1171 668 795 Weight 91.3 kg 66.3 kg General appearance: PRESENT: no acute distress Eye exam: PRESENT: conjunctiva pink Mouth exam: PRESENT: moist Respiratory exam: PRESENT: clear to auscultation priyank, symmetrical, unlabored Cardiovascular exam: PRESENT: +S1, +S2 Pulses: PRESENT: normal radial pulses, normal dorsalis pedis pul GI/Abdominal exam: PRESENT: normal bowel sounds, soft Rectal exam: PRESENT: deferred Extremities exam: PRESENT: full ROM Musculoskeletal exam: PRESENT: ambulatory, full ROM Neurological exam: PRESENT: alert, awake, oriented to person, oriented to place , oriented to time, oriented to situation Psychiatric exam: PRESENT: depressed, other - TEARFUL Skin exam: PRESENT: dry, normal color Results Laboratory Results: 07/13/17 03:39 07/13/17 03:39 07/13/17 07/13/17 03:39 03:39 WBC 11.6 H RBC 4.06 L Hgb 12.1 L Hct 35.4 L MCV 87 MCH 29.9 MCHC 34.2 RDW 13.0 Plt Count 184 Sodium 138.2 Potassium 3.6 Chloride 101 Carbon Dioxide 29 Anion Gap 8 BUN 12 Creatinine 0.96 Est GFR ( Amer) > 60 Est GFR (Non-Af Amer) > 60 Glucose 190 H Calcium 8.0 L 07/12/17 07/12/17 07/12/17 15:46 15:46 21:12 Creatine Kinase 51 L CK-MB (CK-2) 1.22 Troponin I 0.016 0.036 07/13/17 03:39 Creatine Kinase CK-MB (CK-2) Troponin I 0.027 Impressions: Foot X-Ray 07/11/17 16:58 IMPRESSION: Great toe soft tissue swelling with subcutaneous gas. No periosteal reaction to suggest osteomyelitis. Chest/Abdomen CTA 07/12/17 17:55 IMPRESSION: Bilateral lower lobe subsegmental atelectasis and small pleural effusions. Mild interstitial thickening consistent with mild pulmonary edema.No emboli visualized in the main pulmonary arteries. Breathing motion limits evaluation of the segmental branches. Status: Imported from PACS Assessment & Plan - Diagnosis (1) Fever QualifierTitle: Fever type: post-procedural Qualified Code(s): R50.82 - Postprocedural fever Is this a current diagnosis for this admission?: Yes Plan: POD#2 L great toe amputation, TMAX 102 today Tylenol 975mg q6h PRN fever >101 Currently on Meropenem and Vancomycin IV Repeat blood cultures today when febrile Previous blood cultures no growth to date Wound cultures +Group B Beta Strep Pending venous duplex to evaluate for DVT as possible source of fever (2) Hypertension Is this a current diagnosis for this admission?: Yes Plan: Patient endorses a history of hypertension. Continue home dose losartan and hydrochlorothiazide He has remained relatively HYPERtensive since admission Increased Norvasc to 10 mg p.o. 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 He has either been n.p.o. or has reported poor appetite since admission. Continue Accu-Cheks before meals at bedtime with Humalog sliding scale insulin. Home dose Metformin on hold for now (4) Gangrene of toe of right foot Is this a current diagnosis for this admission?: Yes Plan: Management per surgical team (5) Depression QualifierTitle: Depression Type: reactive depression Qualified Code(s): F32.9 - Major depressive disorder, single episode, unspecified Is this a current diagnosis for this admission?: Yes Plan: Patient is very tearful, states he feels like a failure for not taking better care of himself Visiting family member told nursing staff that the patient expressed suicidal ideation, patient has denied SI/HI to medical staff Patient admits to feelings of loneliness following divorce from ex- Psych consulted Initiated Paxil Encouraged ambulation (supervised by nursing staff) in hallways and open curtains during the day - Time Time Spent with patient: 15-24 minutes Medications reviewed and adjusted accordingly: Yes Anticipated discharge: Home - Inpatient Certification Based on my medical assessment, after consideration of the patient's comorbidities, presenting symptoms, or acuity I expect that the services needed warrant INPATIENT care.: Yes I certify that my determination is in accordance with my understanding of Medicare's requirements for reasonable and necessary INPATIENT services [42 CFR 412.3e].: Yes Medical Necessity: Need for IV Antibiotics <SARAHI MORENO C - Last Filed: 07/14/17 15:23> Subjective Reason For Visit: GANGRENE OF R TOE Physical Exam Vital Signs: Temp Pulse Resp BP Pulse Ox 98.9 F 94 19 171/91 H 94 07/14/17 11:26 07/14/17 11:26 07/14/17 11:26 07/14/17 11:26 07/14/17 11:26 Intake & Output 07/13/17 07/14/17 07/15/17 06:59 06:59 06:59 Intake Total 2468 3791 560 Output Total 1800 4335 Balance 668 1466 560 Weight 66.3 kg 69.7 kg Results Laboratory Results: 07/14/17 06:26 07/14/17 06:26 07/14/17 07/14/17 06:26 06:26 WBC 10.9 H RBC 4.05 L Hgb 12.2 L Hct 35.6 L MCV 88 MCH 30.2 MCHC 34.3 RDW 12.9 Plt Count 234 Sodium 138.5 Potassium 3.3 L Chloride 98 Carbon Dioxide 28 Anion Gap 13 BUN 11 Creatinine 0.91 Est GFR ( Amer) > 60 Est GFR (Non-Af Amer) > 60 Glucose 178 H Calcium 8.1 L 07/12/17 07/12/17 07/12/17 15:46 15:46 21:12 Creatine Kinase 51 L CK-MB (CK-2) 1.22 Troponin I 0.016 0.036 07/13/17 03:39 Creatine Kinase CK-MB (CK-2) Troponin I 0.027 Impressions: Foot X-Ray 07/11/17 16:58 IMPRESSION: Great toe soft tissue swelling with subcutaneous gas. No periosteal reaction to suggest osteomyelitis. Chest/Abdomen CTA 07/12/17 17:55 IMPRESSION: Bilateral lower lobe subsegmental atelectasis and small pleural effusions. Mild interstitial thickening consistent with mild pulmonary edema.No emboli visualized in the main pulmonary arteries. Breathing motion limits evaluation of the segmental branches. Venous Doppler Study 07/14/17 00:00 IMPRESSION: NO EVIDENCE DVT OR SVT IN EITHER LEG. Assessment & Plan - Plan Summary Plan Summary: Co signing the note for Ricarda Bautista NP.
[2017-07-14] MEDS ORDERED: AMLODIPINE BESYLATE 5 MG TABLET PO ONE (02:45)
[2017-07-14] MEDS: MEROPENEM 1 GM in NORMAL SALINE 50 ML IV SCH ×3 (05:56→22:36)
[2017-07-14] MEDS: VANCOMYCIN HCL 1,000 MG in DEXTROSE 5%-WATER 250 ML IV SCH ×3 (06:30→22:37)
[2017-07-14] MEDS: INSULIN LISPRO 100 UNIT/ML 3 ML VIAL SUBCUT PRN ×2 (06:54→17:14)
[2017-07-14 07:07] LABS: HEMATOCRIT 35.6 % (37.9-51.0); HEMOGLOBIN 12.2 g/dL (13.5-17.0); MEAN CORPUSCULAR HEMOGLOBIN 30.2 pg (27.0-33.4); MEAN CORPUSCULAR HGB CONC 34.3 g/dL (32.0-36.0); MEAN CORPUSCULAR VOLUME 88 fl (80-97); PLATELET COUNT 234 10^3/uL (150-450); RED BLOOD COUNT 4.05 10^6/uL (4.35-5.55); RED CELL DISTRIBUTION WIDTH 12.9 % (11.5-14.0); WHITE BLOOD COUNT 10.9 10^3/uL (4.0-10.5)
[2017-07-14 07:29] LABS: ANION GAP 13 (5-19); BLOOD UREA NITROGEN 11 mg/dL (7-20); CALCIUM 8.1 mg/dL (8.4-10.2); CARBON DIOXIDE 28 mmol/L (22-30); CHLORIDE 98 mmol/L (98-107); GLUCOSE 178 mg/dL (75-110); POTASSIUM 3.3 mmol/L (3.6-5.0); SODIUM 138.5 mmol/L (137-145)
--- NOTE | 2017-07-14 08:31 | EKG REPORT ---
SEVERITY:- ABNORMAL ECG - SINUS TACHYCARDIA CONSIDER A FLUTTER WITH 2:1 CONDUCTION OR AFIB WITH RVR REPOLARIZATION ABNORMALITY, PROB RATE RELATED BORDERLINE PROLONGED QT INTERVAL : Confirmed on behalf of: Farheen Cabrera 14-Jul-2017 08:30:47
[2017-07-14] MEDS: FAMOTIDINE INJ/PF 20 MG/2 ML SDV IV SCH ×2 (09:41→22:37)
[2017-07-14] MEDS: DOCUSATE SODIUM 100 MG CAPSULE PO SCH ×2 (09:42→17:14)
[2017-07-14] MEDS: LANSOPRAZOLE 30 MG TAB.RAP.DR PO SCH (09:42)
[2017-07-14] MEDS: LOSARTAN POTASSIUM 50 MG TABLET PO SCH (09:43)
[2017-07-14] MEDS: ENOXAPARIN SODIUM INJ 30 MG/0.3 ML DISP.SYRIN SUBCUT SCH (09:45)
[2017-07-14] MEDS ORDERED: PAROXETINE HCL 20 MG TABLET PO SCH (10:00)
--- NOTE | 2017-07-14 11:04 | RADIOLOGY REPORT (SQ) ---
EXAM DESCRIPTION: VENOUS BILATERAL LOWER COMPLETED DATE/TIME: 07/14/2017 10:07 am REASON FOR STUDY: R/O DVT COMPARISON: None. TECHNIQUE: Dynamic and static garner scale and color images acquired of both lower extremity venous sy stems. Selected spectral images acquired with additional compression and augmentation maneuvers. Imag es stored on PACS. LIMITATIONS: None. FINDINGS: RIGHT LEG COMMON FEMORAL AND FEMORAL: Normal phasicity, compression and augmentation. No visualized echogenic m aterial on garner scale. No defects on color images. POPLITEAL: Normal compression and augmentation. No visualized echogenic material on garner scale. No de fects on color images. CALF VESSELS: Normal compression and augmentation. No visualized echogenic material on garner scale. No defects on color image. GSV AND SSV: Normal compression. No visualized echogenic material on garner scale. No defects on color images. ANY DEEP VENOUS INSUFFICIENCY: Not evaluated. ANY EVIDENCE OF POPLITEAL CYST: No. OTHER: No other significant finding. LEFT LEG COMMON FEMORAL AND FEMORAL: Normal phasicity, compression and augmentation. No visualized echogenic m aterial on garner scale. No defects on color images. POPLITEAL: Normal compression and augmentation. No visualized echogenic material on garner scale. No de fects on color images. CALF VESSELS: Normal compression and augmentation. No visualized echogenic material on garner scale. No defects on color images. GSV AND SSV: Normal compression. No visualized echogenic material on garner scale. No defects on color images. ANY DEEP VENOUS INSUFFICIENCY: Not evaluated. ANY EVIDENCE POPLITEAL CYST: No. OTHER: No other significant finding. IMPRESSION: NO EVIDENCE DVT OR SVT IN EITHER LEG. TECHNICAL DOCUMENTATION: JOB ID: [id number] [employer]- All Rights Reserved Reading location - IP/workstation name: [email or web address]
--- NOTE | 2017-07-14 12:18 | PSYCHOLOGICAL NOTE ---
Psych Note - Psych Note Psych Note: Reason for consult: Suicidal ideation Contact permission: None Patient is a 56-year-old male. Patient reports on Thursday his foot was bleeding and he felt terrible and was extremely tearful. Patient reports that he lost his toe because of his diabetes. Patient reports that he feels like a failure in life and cannot take care of himself. Patient reports that he no longer can work in the job that he wanted to. Patient reports that he feels like he has no friends although people have visited him. Patient reports that he wanted to go fishing several times and would call people and nobody would want to make plans with him. Patient reports he is very lonely, as his has officially left him and is living in [employer]. Patient reports that they were doing marriage counseling approximately 2 years ago and he also did grief counseling a year ago and states that he was prescribed medications for depression. Patient reports he then stopped taking the medications and was dealing with depression off and on. Patient reports that right now he is feeling depressed and has thoughts of suicide but denies suicidal ideation however after talking for some time patient disclosed he wanted to sit in his garage with the garage door closed and the car windows open to from carbon monoxide poisoning. Patient reports that he wanted it to be the easiest way and thought if he can get a hold of a gun that would be the best way, but the car would be easy because he does not have access to a gun and can drink enough alcohol and fall asleep before he sat in his car. Patient reports that his was always concerned that he would commit suicide because of the way he has been talking lately and called the abrasive worker on him a few times to check in on him. Patient reports he has never been to an inpatient psychiatric hospital. Patient reports he was to his for 24 years. Patient reports that the grief counseling was to address his parents and states he has no family here. Patient reports that his brother also struggled with suicidal ideation. Patient stated "I just want to find the easiest way to kill myself". Collateral information: Patient's nurse Patient's nurse states that patient had visitors on Thursday. Patient's nurse stated that when the visitors left she received a phone call from the patient's friend stating that the patient was talking about suicide. Patient's nurse state stated she had concerns for patient safety regarding the suicidal ideation. Medication recommendations made by contracted [facility] a provider Dr. Jesenia MD includes: 1. Please discontinue Paxil 20 mg daily 2. Please begin Celexa 20 mg daily 3. Please begin BuSpar 10 mg at night Diagnosis: 296.23 (F32.2) Major depressive disorder (per history; patient report) Impression/plan: Recommendation to involuntary commit patient due to patient endorsing suicidal ideation with a plan. Patient endorsed suicidal ideation. Patient stated he would start his car in the garage with the garage door closed , and car windows open and drink enough alcohol so that he was able to follow through with the plan. Clinician observed patient is extremely tearful and is unable to identify a supportive system. Mental health to reassess at a later time. Attending hospitalist in agreement with plan and disposition. Consulted with Dr. oClin regarding the management and care of patient.
--- NOTE | 2017-07-14 14:24 | PDOC PROGRESS REPORT ---
Subjective Progress Note for:: 07/14/17 Subjective:: No complaints. Reason For Visit: GANGRENE OF R TOE Physical Exam Vital Signs: Temp Pulse Resp BP Pulse Ox 98.9 F 94 19 171/91 H 94 07/14/17 11:26 07/14/17 11:26 07/14/17 11:26 07/14/17 11:26 07/14/17 11:26 Intake & Output 07/13/17 07/14/17 07/15/17 06:59 06:59 06:59 Intake Total 2468 3791 560 Output Total 1800 2325 Balance 668 1466 560 Weight 66.3 kg 69.7 kg Extremities exam: PRESENT: other - Wound is clean dry and intact with no drainage. Sutures in place. There is very subtle diffuse erythema in the surrounding region but no fluctuance Results Laboratory Results: 07/14/17 06:26 07/14/17 06:26 07/14/17 07/14/17 06:26 06:26 WBC 10.9 H RBC 4.05 L Hgb 12.2 L Hct 35.6 L MCV 88 MCH 30.2 MCHC 34.3 RDW 12.9 Plt Count 234 Sodium 138.5 Potassium 3.3 L Chloride 98 Carbon Dioxide 28 Anion Gap 13 BUN 11 Creatinine 0.91 Est GFR ( Amer) > 60 Est GFR (Non-Af Amer) > 60 Glucose 178 H Calcium 8.1 L 07/12/17 07/12/17 07/12/17 15:46 15:46 21:12 Creatine Kinase 51 L CK-MB (CK-2) 1.22 Troponin I 0.016 0.036 07/13/17 03:39 Creatine Kinase CK-MB (CK-2) Troponin I 0.027 Impressions: Foot X-Ray 07/11/17 16:58 IMPRESSION: Great toe soft tissue swelling with subcutaneous gas. No periosteal reaction to suggest osteomyelitis. Chest/Abdomen CTA 07/12/17 17:55 IMPRESSION: Bilateral lower lobe subsegmental atelectasis and small pleural effusions. Mild interstitial thickening consistent with mild pulmonary edema.No emboli visualized in the main pulmonary arteries. Breathing motion limits evaluation of the segmental branches. Venous Doppler Study 07/14/17 00:00 IMPRESSION: NO EVIDENCE DVT OR SVT IN EITHER LEG. Assessment & Plan - Diagnosis (1) Gangrene of toe of right foot Is this a current diagnosis for this admission?: Yes Plan: Status post amputation with primary closure. With the erythema present, continue IV antibiotics. May be up to discharge patient home on p.o. antibiotics in the next couple days.
--- NOTE | 2017-07-14 15:01 | Progress Note ---
Provider Note Provider Note: I saw the patient to evaluate his emotional state. He is tearful and sad. He feels lonely and is in the process of separing from his long time pastner. He admits to suicidal ideation and plan. The patient agrees that he would benefit from mental health counselling/therapy. I agree with IVC and suicide precautions for now.
[2017-07-14] MEDS: AMLODIPINE BESYLATE 5 MG TABLET PO SCH (15:34)
--- NOTE | 2017-07-14 16:02 | PDOC PROGRESS REPORT ---
<ANASTASIIA ARREOLA - Last Filed: 07/14/17 15:41> Subjective Progress Note for:: 07/14/17 Subjective:: The patient is a 56-year-old male with past medical history significant for hypertension and diabetes mellitus type 2 who was admitted by the surgical service for gangrene of the great toe of the right foot now status post amputation. The hospitalist service was consulted for diabetes management. The patient is seen on morning rounds; he is found resting in bed comfortably on room air. He reports significant depression with anxiety, sleep disturbance , and poor appetite. He reports that he has had suicidal ideation recently. Per nursing, the patient's friends called them last night report that they were concerned that he may be suicidal and that he generally does not express symptoms of depression. When asked, the patient does endorse that he has been thinking of suicidal plans more frequently related to the recent separation from his significant other of 23 years. The patient does endorse depression and fever. Otherwise, the patient denies body aches, chest pain, palpitations, dyspnea, orthopnea, cough, abdominal pain , nausea vomiting and diarrhea. He denies pain to his right foot. Reason For Visit: GANGRENE OF R TOE Physical Exam Vital Signs: Temp Pulse Resp BP Pulse Ox 98.9 F 94 19 171/91 H 94 07/14/17 11:26 07/14/17 11:26 07/14/17 11:26 07/14/17 11:26 07/14/17 11:26 Intake & Output 07/13/17 07/14/17 07/15/17 06:59 06:59 06:59 Intake Total 2468 3791 560 Output Total 1800 2325 Balance 668 1466 560 Weight 66.3 kg 69.7 kg General appearance: PRESENT: no acute distress, cooperative, well-developed, well-nourished Head exam: PRESENT: atraumatic, normocephalic Eye exam: PRESENT: conjunctiva pink, EOMI, PERRLA. ABSENT: scleral icterus Ear exam: PRESENT: normal external ear exam Mouth exam: PRESENT: moist, tongue midline Neck exam: ABSENT: carotid bruit, JVD, lymphadenopathy, thyromegaly Respiratory exam: PRESENT: clear to auscultation priyank, symmetrical, unlabored. ABSENT: rales, rhonchi, wheezes Cardiovascular exam: PRESENT: RRR, +S1, +S2. ABSENT: diastolic murmur, rubs, systolic murmur Pulses: PRESENT: normal dorsalis pedis pul Vascular exam: PRESENT: normal capillary refill GI/Abdominal exam: PRESENT: normal bowel sounds, soft. ABSENT: distended, guarding, mass, organolmegaly, rebound, tenderness Rectal exam: PRESENT: deferred Extremities exam: PRESENT: full ROM. ABSENT: calf tenderness, clubbing, pedal edema Neurological exam: PRESENT: alert, awake, oriented to person, oriented to place , oriented to time, oriented to situation, CN II-XII grossly intact. ABSENT: motor sensory deficit Psychiatric exam: PRESENT: appropriate affect, depressed, suicidal ideation, other - tearful. ABSENT: homicidal ideation Skin exam: PRESENT: dry, warm. ABSENT: cyanosis, intact - Surgical site to R great toe not visualized; surgical dressing in place. No surrounding erythema or edema noted., rash Results Laboratory Results: 07/14/17 06:26 07/14/17 06:26 07/14/17 07/14/17 06:26 06:26 WBC 10.9 H RBC 4.05 L Hgb 12.2 L Hct 35.6 L MCV 88 MCH 30.2 MCHC 34.3 RDW 12.9 Plt Count 234 Sodium 138.5 Potassium 3.3 L Chloride 98 Carbon Dioxide 28 Anion Gap 13 BUN 11 Creatinine 0.91 Est GFR ( Amer) > 60 Est GFR (Non-Af Amer) > 60 Glucose 178 H Calcium 8.1 L 07/12/17 07/12/17 07/12/17 15:46 15:46 21:12 Creatine Kinase 51 L CK-MB (CK-2) 1.22 Troponin I 0.016 0.036 07/13/17 03:39 Creatine Kinase CK-MB (CK-2) Troponin I 0.027 Impressions: Foot X-Ray 07/11/17 16:58 IMPRESSION: Great toe soft tissue swelling with subcutaneous gas. No periosteal reaction to suggest osteomyelitis. Chest/Abdomen CTA 07/12/17 17:55 IMPRESSION: Bilateral lower lobe subsegmental atelectasis and small pleural effusions. Mild interstitial thickening consistent with mild pulmonary edema.No emboli visualized in the main pulmonary arteries. Breathing motion limits evaluation of the segmental branches. Venous Doppler Study 07/14/17 00:00 IMPRESSION: NO EVIDENCE DVT OR SVT IN EITHER LEG. Assessment & Plan - Diagnosis (1) Gangrene of toe of right foot Is this a current diagnosis for this admission?: Yes Plan: Management per surgical team. (2) Fever QualifierTitle: Fever type: post-procedural Qualified Code(s): R50.82 - Postprocedural fever Is this a current diagnosis for this admission?: Yes Plan: Postop day #3 right great toe amputation. T-max last 24 hours: 103.1. Initial blood cultures are negative at 48 hours. Repeat blood cultures obtained while febrile are pending. Urine culture has no growth at 2 days. Wound culture shows group B beta strep. Venous Doppler is negative for DVT/SVT (to rule out DVT as possible source of fever). We will continue IV meropenem and vancomycin. Leukocytosis is trending down (16.1--> 10.9) and the clinical appearance of the foot is improved per surgical notes. Considering antibiotics (drug fever) as potential source of the fever. Anticipate consulting infectious disease tomorrow if the patient continues to remain febrile. Incentive spirometer to bedside. Tylenol as needed. (3) Suicidal ideations Is this a current diagnosis for this admission?: Yes Plan: The patient endorsed significant depression and hopelessness related to personal relationships. Psychiatry was consulted; appreciate their evealuation and recommendations. The patient is placed on IVC. Suicide precautions. Psychiatry's medication recommendations are instituted; stop Paxil (initiated yesterday), begin Celexa 20 mg p.o. daily and BuSpar 10 mg nightly. (4) Diabetes mellitus QualifierTitle: Diabetes mellitus type: type 2 Diabetes mellitus long term care phlebotomist insulin use: with long term care phlebotomist use Diabetes mellitus complication status: without complication Qualified Code(s): E11.9 - Type 2 diabetes mellitus without complications; Z79.4 - shelter (current) use of insulin; Z79.4 - shelter (current) use of insulin; Z79.4 - equipment operator intermodal yard (current) use of insulin; Z79.4 - shelter (current) use of insulin Is this a current diagnosis for this admission?: Yes Plan: Hemoglobin A1c 7.9%. Holding metformin and glipizide while inpatient. He is placed on a consistent carb diet. Accu-Cheks before meals and at bedtime with Humalog for sliding scale coverage. The gas truck driver has been consulted; appreciate her assistance. (5) Hypertension Is this a current diagnosis for this admission?: Yes Plan: The patient has remained relatively hypertensive since admission. We will continue his home dose of losartan and hydrochlorothiazide. Blood pressure appears slightly improved following increase of Norvasc to 10 mg p.o. daily yesterday; will continue to monitor. IV hydralazine as needed for blood pressure control. (6) Depression QualifierTitle: Depression Type: major depressive disorder Is this a current diagnosis for this admission?: Yes Plan: The patient is very tearful and states that he feels like he is a failure who let his friends and family down. He endorses depression related to separation from significant other of 23 years. He reports recent suicide attempt (Feb 2017 ). Psychiatry has been consulted. Plan as above. - Time Time Spent with patient: 35 or more minutes Medications reviewed and adjusted accordingly: Yes - Inpatient Certification Based on my medical assessment, after consideration of the patient's comorbidities, presenting symptoms, or acuity I expect that the services needed warrant INPATIENT care.: Yes I certify that my determination is in accordance with my understanding of Medicare's requirements for reasonable and necessary INPATIENT services [42 CFR 412.3e].: Yes Medical Necessity: Need for IV Antibiotics <TIFFANIEJUNE C - Last Filed: 07/26/17 18:18> Subjective Reason For Visit: GANGRENE OF R TOE Physical Exam Vital Signs: Temp Pulse Resp BP Pulse Ox 98.5 F 78 16 162/86 H 99 07/24/17 11:12 07/24/17 11:12 07/24/17 11:12 07/24/17 11:12 07/24/17 11:12 Results Laboratory Results: 07/24/17 06:03 07/24/17 06:03 07/12/17 07/12/17 07/12/17 15:46 15:46 21:12 Creatine Kinase 51 L CK-MB (CK-2) 1.22 Troponin I 0.016 0.036 NT-Pro-B Natriuret Pep 07/13/17 07/16/17 07/20/17 03:39 10:50 05:30 Creatine Kinase CK-MB (CK-2) Troponin I 0.027 < 0.012 NT-Pro-B Natriuret Pep 1860 H 624 Impressions: Foot X-Ray 07/11/17 16:58 IMPRESSION: Great toe soft tissue swelling with subcutaneous gas. No periosteal reaction to suggest osteomyelitis. Chest/Abdomen CTA 07/12/17 17:55 IMPRESSION: Bilateral lower lobe subsegmental atelectasis and small pleural effusions. Mild interstitial thickening consistent with mild pulmonary edema.No emboli visualized in the main pulmonary arteries. Breathing motion limits evaluation of the segmental branches. Venous Doppler Study 07/14/17 00:00 IMPRESSION: NO EVIDENCE DVT OR SVT IN EITHER LEG. Abdomen/Pelvis CT 07/16/17 00:00 IMPRESSION: NO SIGNIFICANT OR ACUTE FINDING IN THE ABDOMEN OR PELVIS ON CT SCAN WITH IV CONTRAST. Assessment & Plan - Plan Summary Plan Summary: Co-signing for Anastasiia Arreola NP
[2017-07-14] MEDS: NORMAL SALINE 1000 ML 1,000 ML IV PRN (17:15)
[2017-07-14] MEDS ORDERED: BUSPIRONE HCL 10 MG TABLET PO SCH (22:00)
[2017-07-14 22:30] LABS: VANCOMYCIN,TROUGH 13.8 ug/mL (5.0-20.0)
[2017-07-14] MEDS: BUSPIRONE HCL 10 MG TABLET PO SCH (22:37)
[2017-07-15 05:44] LABS: HEMATOCRIT 35.6 % (37.9-51.0); HEMOGLOBIN 12.2 g/dL (13.5-17.0); MEAN CORPUSCULAR HEMOGLOBIN 29.7 pg (27.0-33.4); MEAN CORPUSCULAR HGB CONC 34.2 g/dL (32.0-36.0); MEAN CORPUSCULAR VOLUME 87 fl (80-97); PLATELET COUNT 259 10^3/uL (150-450); RED CELL DISTRIBUTION WIDTH 13.3 % (11.5-14.0); WHITE BLOOD COUNT 11.1 10^3/uL (4.0-10.5)
[2017-07-15 06:12] LABS: ANION GAP 12 (5-19); BLOOD UREA NITROGEN 13 mg/dL (7-20); CALCIUM 8.1 mg/dL (8.4-10.2); CARBON DIOXIDE 26 mmol/L (22-30); CHLORIDE 102 mmol/L (98-107); GLUCOSE 176 mg/dL (75-110); PHOSPHORUS 3.1 mg/dL (2.5-4.5); POTASSIUM 3.2 mmol/L (3.6-5.0); SODIUM 139.9 mmol/L (137-145)
[2017-07-15] MEDS: MEROPENEM 1 GM in NORMAL SALINE 50 ML IV SCH ×3 (06:17→22:26)
[2017-07-15] MEDS: VANCOMYCIN HCL 1,000 MG in DEXTROSE 5%-WATER 250 ML IV SCH ×3 (06:17→22:26)
[2017-07-15] MEDS: ENOXAPARIN SODIUM INJ 30 MG/0.3 ML DISP.SYRIN SUBCUT SCH (10:28)
[2017-07-15] MEDS: LOSARTAN POTASSIUM 50 MG TABLET PO SCH (10:29)
[2017-07-15] MEDS: LANSOPRAZOLE 30 MG TAB.RAP.DR PO SCH (10:29)
[2017-07-15] MEDS: DOCUSATE SODIUM 100 MG CAPSULE PO SCH ×2 (10:29→17:49)
[2017-07-15] MEDS: FAMOTIDINE INJ/PF 20 MG/2 ML SDV IV SCH ×2 (10:30→22:26)
[2017-07-15] MEDS: CITALOPRAM HYDROBROMIDE 20 MG TABLET PO SCH (10:30)
--- NOTE | 2017-07-15 10:50 | PDOC PROGRESS REPORT ---
Subjective Progress Note for:: 07/15/17 Reason For Visit: GANGRENE OF R TOE Physical Exam Vital Signs: Temp Pulse Resp BP Pulse Ox 98.6 F 94 14 170/87 H 96 07/15/17 08:15 07/15/17 08:15 07/15/17 08:15 07/15/17 08:15 07/15/17 08:15 Intake & Output 07/14/17 07/15/17 07/16/17 06:59 06:59 06:59 Intake Total 3791 1116 Output Total 2325 875 Balance 1466 241 Weight 69.7 kg 66.6 kg Results Laboratory Results: 07/15/17 05:21 07/15/17 05:21 07/15/17 07/15/17 05:21 05:21 WBC 11.1 H RBC 4.10 L Hgb 12.2 L Hct 35.6 L MCV 87 MCH 29.7 MCHC 34.2 RDW 13.3 Plt Count 259 Sodium 139.9 Potassium 3.2 L Chloride 102 Carbon Dioxide 26 Anion Gap 12 BUN 13 Creatinine 0.91 Est GFR ( Amer) > 60 Est GFR (Non-Af Amer) > 60 Glucose 176 H Calcium 8.1 L Phosphorus 3.1 Magnesium 1.5 L 07/12/17 07/12/17 07/12/17 15:46 15:46 21:12 Creatine Kinase 51 L CK-MB (CK-2) 1.22 Troponin I 0.016 0.036 07/13/17 03:39 Creatine Kinase CK-MB (CK-2) Troponin I 0.027 Impressions: Foot X-Ray 07/11/17 16:58 IMPRESSION: Great toe soft tissue swelling with subcutaneous gas. No periosteal reaction to suggest osteomyelitis. Chest/Abdomen CTA 07/12/17 17:55 IMPRESSION: Bilateral lower lobe subsegmental atelectasis and small pleural effusions. Mild interstitial thickening consistent with mild pulmonary edema.No emboli visualized in the main pulmonary arteries. Breathing motion limits evaluation of the segmental branches. Venous Doppler Study 07/14/17 00:00 IMPRESSION: NO EVIDENCE DVT OR SVT IN EITHER LEG. Assessment & Plan - Diagnosis (1) Gangrene of toe of right foot Is this a current diagnosis for this admission?: Yes - Plan Summary Plan Summary: This is a 56-year-old male status post Ray amputation of the right great toe. There is still some erythema at the incision site. There is no active purulence , necrosis, or gas gangrene. Continue with IV antibiotics until erythema has resolved. Keep foot elevated when laying in bed. Psychiatry following for suicidal ideations.
[2017-07-15] MEDS: INSULIN LISPRO 100 UNIT/ML 3 ML VIAL SUBCUT PRN ×2 (12:26→17:51)
--- NOTE | 2017-07-15 13:13 | PDOC PROGRESS REPORT ---
Subjective Progress Note for:: 07/15/17 Subjective:: The patient is a 56-year-old male with past medical history significant for hypertension and diabetes mellitus type 2 who was admitted by the surgical service for gangrene of the great toe of the right foot now status post amputation. The hospitalist service was consulted for diabetes management. The patient is seen on morning rounds; he is found sitting up in the recliner on room air. He is talking with the school vocational educator this morning. We do not discuss his depression today but is slightly tearful. of 23 years. The patient does endorse fever (Tmax 100.0/24 hrs) and fatigue. Otherwise, the patient denies body aches, chest pain, palpitations, dyspnea, orthopnea, cough, abdominal pain, nausea vomiting and diarrhea. He denies pain to his right foot. He does report a slightly improved appetite today. He has no new questions or concerns. Reason For Visit: GANGRENE OF R TOE Physical Exam Vital Signs: Temp Pulse Resp BP Pulse Ox 98.6 F 94 14 170/87 H 96 07/15/17 08:15 07/15/17 08:15 07/15/17 08:15 07/15/17 08:15 07/15/17 08:15 Intake & Output 07/14/17 07/15/17 07/16/17 06:59 06:59 06:59 Intake Total 3791 1116 Output Total 2325 875 Balance 1466 241 Weight 69.7 kg 66.6 kg General appearance: PRESENT: no acute distress, cooperative - pleasant, well- developed, well-nourished, other - Overweight Head exam: PRESENT: atraumatic, normocephalic Eye exam: PRESENT: conjunctiva pink, EOMI, PERRLA. ABSENT: scleral icterus Ear exam: PRESENT: normal external ear exam Mouth exam: PRESENT: moist, tongue midline Neck exam: ABSENT: carotid bruit, JVD, lymphadenopathy, thyromegaly Respiratory exam: PRESENT: clear to auscultation priyank, symmetrical, unlabored. ABSENT: rales, rhonchi, wheezes Cardiovascular exam: PRESENT: RRR, +S1, +S2. ABSENT: diastolic murmur, rubs, systolic murmur Pulses: PRESENT: normal dorsalis pedis pul Vascular exam: PRESENT: normal capillary refill GI/Abdominal exam: PRESENT: normal bowel sounds, soft. ABSENT: distended, guarding, mass, organolmegaly, rebound, tenderness Rectal exam: PRESENT: deferred Extremities exam: PRESENT: full ROM. ABSENT: calf tenderness, clubbing, pedal edema Neurological exam: PRESENT: alert, awake, oriented to person, oriented to place , oriented to time, oriented to situation, CN II-XII grossly intact. ABSENT: motor sensory deficit Psychiatric exam: PRESENT: depressed, other - pleasant, appreciative of care, tearful. ABSENT: homicidal ideation, suicidal ideation Skin exam: PRESENT: dry, warm. ABSENT: cyanosis, intact - Surgical incision not visualized; amputation of the right great toe with slight erythema per surgical note. Clean dry dressing in place., rash Results Laboratory Results: 07/15/17 05:21 07/15/17 05:21 07/15/17 07/15/17 05:21 05:21 WBC 11.1 H RBC 4.10 L Hgb 12.2 L Hct 35.6 L MCV 87 MCH 29.7 MCHC 34.2 RDW 13.3 Plt Count 259 Sodium 139.9 Potassium 3.2 L Chloride 102 Carbon Dioxide 26 Anion Gap 12 BUN 13 Creatinine 0.91 Est GFR ( Amer) > 60 Est GFR (Non-Af Amer) > 60 Glucose 176 H Calcium 8.1 L Phosphorus 3.1 Magnesium 1.5 L 07/12/17 07/12/17 07/12/17 15:46 15:46 21:12 Creatine Kinase 51 L CK-MB (CK-2) 1.22 Troponin I 0.016 0.036 07/13/17 03:39 Creatine Kinase CK-MB (CK-2) Troponin I 0.027 Impressions: Foot X-Ray 07/11/17 16:58 IMPRESSION: Great toe soft tissue swelling with subcutaneous gas. No periosteal reaction to suggest osteomyelitis. Chest/Abdomen CTA 07/12/17 17:55 IMPRESSION: Bilateral lower lobe subsegmental atelectasis and small pleural effusions. Mild interstitial thickening consistent with mild pulmonary edema.No emboli visualized in the main pulmonary arteries. Breathing motion limits evaluation of the segmental branches. Venous Doppler Study 07/14/17 00:00 IMPRESSION: NO EVIDENCE DVT OR SVT IN EITHER LEG. Assessment & Plan - Diagnosis (1) Fever Qualifiers: Fever type: post-procedural Qualified Code(s): R50.82 - Postprocedural fever Is this a current diagnosis for this admission?: Yes Plan: Improved. T-max last 24 hours: 100.0 (103.1/48 hrs). Postop day #4 right great toe amputation. Initial blood cultures are negative at 72 hours. Repeat blood cultures obtained while febrile have no growth at 24 hours. Urine culture has no growth at 2 days. Wound culture shows group B beta strep. Venous Doppler is negative for DVT/SVT (to rule out DVT as possible source of fever). We will continue IV meropenem and vancomycin. Leukocytosis is trending down (16.1--> 11.1) and the clinical appearance of the foot is improved per surgical notes. Incentive spirometer to bedside. Tylenol as needed. (2) Suicidal ideations Is this a current diagnosis for this admission?: Yes Plan: The patient endorsed significant depression and hopelessness related to personal relationships. Psychiatry was consulted; appreciate their evealuation and recommendations. The patient is placed on IVC. Suicide precautions. Psychiatry's medication recommendations are instituted; begin Celexa 20 mg p.o. daily and BuSpar 10 mg nightly. (3) Diabetes mellitus Qualifiers: Diabetes mellitus type: type 2 Diabetes mellitus nursing home insulin use: with salvage determiner use Diabetes mellitus complication status: without complication Qualified Code(s): E11.9 - Type 2 diabetes mellitus without complications; Z79.4 - snf (current) use of insulin; Z79.4 - termination clerk ( current) use of insulin; Z79.4 - snf (current) use of insulin; Z79.4 - snf (current) use of insulin Is this a current diagnosis for this admission?: Yes Plan: Hemoglobin A1c 7.9%. Holding metformin and glipizide while inpatient. He is placed on a consistent carb diet. Accu-Cheks before meals and at bedtime with Humalog for sliding scale coverage. The school vocational educator has been consulted; appreciate her assistance. (4) Gangrene of toe of right foot Is this a current diagnosis for this admission?: Yes Plan: Management per surgical team. (5) Hypertension Is this a current diagnosis for this admission?: Yes Plan: The patient has remained relatively hypertensive since admission. We will continue his home dose of losartan and hydrochlorothiazide. Blood pressure appears slightly improved following increase of Norvasc to 10 mg p.o. daily; will continue to monitor. IV hydralazine as needed for blood pressure control. (6) Depression Qualifiers: Depression Type: major depressive disorder Is this a current diagnosis for this admission?: Yes Plan: The patient is very tearful and states that he feels like he is a failure who let his friends and family down. He endorses depression related to separation from significant other of 23 years. He reports recent suicide attempt (Feb 2017 ). Psychiatry has been consulted. Plan as above. - Time Time Spent with patient: 15-24 minutes Medications reviewed and adjusted accordingly: Yes
--- NOTE | 2017-07-15 16:16 | PSYCHOLOGICAL NOTE ---
Psych Note - Psych Note Psych Note: Reason for consult: Suicidal ideation Contact permission: None Patient is a 56-year-old male. Patient reports on Thursday his foot was bleeding and he felt terrible and was extremely tearful. Patient reports that he lost his toe because of his diabetes. Patient reports that he feels like a failure in life and cannot take care of himself. Clinician conducted chart review and spoke with attending nurse. Attending nurse noted that patient did not know he was under involuntary commitment however it was explained to him today by staff. She reports no behavioral concerns from him learning he is under IVC. Patient is still not medically cleared. Medication recommendations made by [facility]'s contracted psychiatrist Dr. Jesenia MD includes: 1. Please discontinue Paxil 20 mg daily 2. Please begin Celexa 20 mg daily 3. Please begin BuSpar 10 mg at night Diagnosis: 296.23 (F32.2) Major depressive disorder (per history; patient report) Impression/plan: Recommendation to continue under involuntary commit due to patient endorsing suicidal ideation with a plan. Patient endorsed suicidal ideation with a detailed plan. Patient stated he would start his car in the garage with the garage door closed, and car windows open and drink enough alcohol so that he was able to follow through. Patient will be reassessed. Attending hospitalist in agreement with plan and disposition. Consulted with Dr. Colin regarding the management and care of patient.
[2017-07-15] MEDS: AMLODIPINE BESYLATE 5 MG TABLET PO SCH (16:45)
[2017-07-15] MEDS ORDERED: HYDRALAZINE HCL INJ/PF 20 MG/1 ML SDV IV PRN (20:22)
[2017-07-15] MEDS: BUSPIRONE HCL 10 MG TABLET PO SCH (22:26)
[2017-07-16] MEDS: MEROPENEM 1 GM in NORMAL SALINE 50 ML IV SCH ×3 (05:15→22:32)
[2017-07-16] MEDS: VANCOMYCIN HCL 1,000 MG in DEXTROSE 5%-WATER 250 ML IV SCH ×3 (05:16→22:32)
[2017-07-16 05:46] LABS: HEMOGLOBIN 12.4 g/dL (13.5-17.0); MEAN CORPUSCULAR HGB CONC 34.4 g/dL (32.0-36.0); MEAN CORPUSCULAR VOLUME 87 fl (80-97); PLATELET COUNT 288 10^3/uL (150-450); RED BLOOD COUNT 4.11 10^6/uL (4.35-5.55); RED CELL DISTRIBUTION WIDTH 13.2 % (11.5-14.0); WHITE BLOOD COUNT 9.6 10^3/uL (4.0-10.5)
[2017-07-16 06:03] LABS: ANION GAP 9 (5-19); BLOOD UREA NITROGEN 13 mg/dL (7-20); CALCIUM 8.2 mg/dL (8.4-10.2); CARBON DIOXIDE 29 mmol/L (22-30); CHLORIDE 101 mmol/L (98-107); GLUCOSE 194 mg/dL (75-110); POTASSIUM 3.4 mmol/L (3.6-5.0); SODIUM 139.3 mmol/L (137-145)
[2017-07-16] MEDS ORDERED: PROMETHAZINE HCL INJ 25 MG/1 ML VIAL IV PRN (08:14)
[2017-07-16] MEDS ORDERED: ONDANSETRON 4 MG TAB.RAPDIS PO PRN (08:14)
[2017-07-16] MEDS: LANSOPRAZOLE 30 MG TAB.RAP.DR PO SCH (09:46)
[2017-07-16] MEDS: INSULIN LISPRO 100 UNIT/ML 3 ML VIAL SUBCUT PRN (09:46)
[2017-07-16] MEDS: ENOXAPARIN SODIUM INJ 30 MG/0.3 ML DISP.SYRIN SUBCUT SCH (09:46)
[2017-07-16] MEDS: HYDROCHLOROTHIAZIDE 25 MG TABLET PO SCH (09:47)
[2017-07-16] MEDS: FAMOTIDINE INJ/PF 20 MG/2 ML SDV IV SCH (09:52)
[2017-07-16] MEDS: CITALOPRAM HYDROBROMIDE 20 MG TABLET PO SCH (09:52)
[2017-07-16] MEDS: LOSARTAN POTASSIUM 50 MG TABLET PO SCH (09:52)
[2017-07-16] MEDS: DOCUSATE SODIUM 100 MG CAPSULE PO SCH ×2 (09:53→17:35)
--- NOTE | 2017-07-16 10:19 | PDOC PROGRESS REPORT ---
Subjective Progress Note for:: 07/16/17 Subjective:: Complain of subxiphoid abdominal pain that began last night. Along with nausea. Patient has had his gallbladder removed in the past. No chest pain and no shortness of breath Reason For Visit: GANGRENE OF R TOE Physical Exam Vital Signs: Temp Pulse Resp BP Pulse Ox 98.7 F 94 18 158/76 H 95 07/15/17 23:24 07/16/17 07:00 07/15/17 23:24 07/15/17 23:24 07/15/17 23:24 Intake & Output 07/15/17 07/16/17 07/17/17 06:59 06:59 06:59 Intake Total 1116 2055 Output Total 875 1200 Balance 241 855 Weight 66.6 kg 66.7 kg General appearance: PRESENT: no acute distress, cooperative Respiratory exam: PRESENT: clear to auscultation priyank Cardiovascular exam: PRESENT: RRR GI/Abdominal exam: PRESENT: other - Soft, nondistended, mild epigastric abdominal tenderness without peritoneal signs. Extremities exam: PRESENT: other - Wound clean dry and intact with sutures. Mild diffuse erythema. No drainage Results Laboratory Results: 07/16/17 05:09 07/16/17 05:09 07/16/17 07/16/17 05:09 05:09 WBC 9.6 RBC 4.11 L Hgb 12.4 L Hct 36.0 L MCV 87 MCH 30.0 MCHC 34.4 RDW 13.2 Plt Count 288 Sodium 139.3 Potassium 3.4 L Chloride 101 Carbon Dioxide 29 Anion Gap 9 BUN 13 Creatinine 0.88 Est GFR ( Amer) > 60 Est GFR (Non-Af Amer) > 60 Glucose 194 H Calcium 8.2 L Phosphorus 3.0 Magnesium 1.6 07/12/17 07/12/17 07/12/17 15:46 15:46 21:12 Creatine Kinase 51 L CK-MB (CK-2) 1.22 Troponin I 0.016 0.036 07/13/17 03:39 Creatine Kinase CK-MB (CK-2) Troponin I 0.027 Impressions: Foot X-Ray 07/11/17 16:58 IMPRESSION: Great toe soft tissue swelling with subcutaneous gas. No periosteal reaction to suggest osteomyelitis. Chest/Abdomen CTA 07/12/17 17:55 IMPRESSION: Bilateral lower lobe subsegmental atelectasis and small pleural effusions. Mild interstitial thickening consistent with mild pulmonary edema.No emboli visualized in the main pulmonary arteries. Breathing motion limits evaluation of the segmental branches. Venous Doppler Study 07/14/17 00:00 IMPRESSION: NO EVIDENCE DVT OR SVT IN EITHER LEG. Assessment & Plan - Diagnosis (1) Gangrene of toe of right foot Is this a current diagnosis for this admission?: Yes Plan: Status post amputation with primary closure. With the erythema present, continue IV antibiotics. (2) Epigastric abdominal pain Is this a current diagnosis for this admission?: Yes Plan: New onset. Patient already on Pepcid. EKG abnormalities seen. No prior EKGs on the chart. I have called archives for prior EKGs. Will ask hospitalist to evaluate patient. We will plan to check laboratory studies as well as a troponin. Provided the troponin is negative will obtain abdominal pelvic CT scan.
[2017-07-16 11:21] LABS: ALANINE AMINOTRANSFERASE 20 U/L (21-72); ALKALINE PHOSPHATASE 78 U/L (38-126); ASPARTATE AMINO TRANSFERASE 11 U/L (17-59); BILIRUBIN,DIRECT 0.3 mg/dL (0.0-0.4); BILIRUBIN,TOTAL 0.5 mg/dL (0.2-1.3); LIPASE 63.9 U/L (23-300); TOTAL PROTEIN 6.2 g/dL (6.3-8.2)
[2017-07-16 11:23] LABS: AMYLASE < 30 U/L (30-110)
[2017-07-16 11:38] LABS: NT PRO BNP 1860 pg/mL (5-900)
[2017-07-16 11:39] LABS: TROPONIN I < 0.012 ng/mL
[2017-07-16] MEDS ORDERED: LABETALOL HCL INJ 20 MG/4 ML DISP.SYRIN IV ONE (11:56)
--- NOTE | 2017-07-16 13:41 | EKG REPORT ---
SEVERITY:- ABNORMAL ECG - SINUS RHYTHM VENTRICULAR PREMATURE COMPLEX PROBABLE LEFT ATRIAL ABNORMALITY NONSPECIFIC T ABNORMALITIES, DIFFUSE LEADS PROLONGED QT INTERVAL : Confirmed by: Howie Moreno MD 16-Jul-2017 13:40:43
[2017-07-16] MEDS: AMLODIPINE BESYLATE 5 MG TABLET PO SCH (14:35)
--- NOTE | 2017-07-16 14:48 | RADIOLOGY REPORT (SQ) ---
EXAM DESCRIPTION: CT ABD/PELVIS WITH IV ORAL COMPLETED DATE/TIME: 07/16/2017 1:32 pm REASON FOR STUDY: Epigastric abdominal pain COMPARISON: CT angio chest 07/12/2017 CT abdomen pelvis 06/28/2011 TECHNIQUE: CT scan of the abdomen and pelvis performed using helical scanning technique with dynamic intravenous contrast injection. Patient drank oral contrast. Images reviewed with lung, soft tissue , and bone windows. Reconstructed coronal and sagittal MPR images reviewed. Delayed images for evalua tion of the urinary system also acquired. All images stored on PACS. All CT scanners at this facility use dose modulation, iterative reconstruction, and/or weight based d osing when appropriate to reduce radiation dose to as low as reasonably achievable (ALARA). [facility]: Dose Right [facility]: CareDose [facility]: Dose Right [facility]: Teradose 4D [facility]: Leapset CONTRAST TYPE AND DOSE: contrast/concentration: Isovue 370.00 mg/ml; Total Contrast Delivered: 72.0 ml; Total Saline Delivered: 66.0 ml RENAL FUNCTION: Creatinine 0.88 RADIATION DOSE: CT Rad equipment meets quality standard of care and radiation dose reduction techniq ues were employed. CTDIvol: 9.1 - 10.6 mGy. DLP: 1187 mGy-cm.. LIMITATIONS: None. FINDINGS: LOWER CHEST: Trace bilateral pleural fluid is present in the posterior costophrenic sulci, new compared to prior studies. Lung bases are free of focal infiltrates. Mild cardiomegaly. LIVER: Normal size. No masses. No dilated ducts. SPLEEN: Normal size. No focal lesions. PANCREAS: No masses. No significant calcifications. No adjacent inflammation or peripancreatic fluid collections. Pancreatic duct not dilated. GALLBLADDER: Surgically absent ADRENAL GLANDS: No significant masses or asymmetry. RIGHT KIDNEY AND URETER: No solid masses. No significant calcifications. No hydronephrosis or hyd roureter. LEFT KIDNEY AND URETER: No solid masses. No significant calcifications. No hydronephrosis or hydr oureter. AORTA AND VESSELS: No aneurysm. No dissection. Renal arteries, celiac artery without stenosis. About 50% narrowing of the proximal superior mesenteric artery is present on coronal reconstruction images 51-55. RETROPERITONEUM: No retroperitoneal adenopathy, hemorrhage or masses. BOWEL AND PERITONEAL CAVITY: Patient drank oral contrast. No bowel obstruction. No free intraperito ray air or fluid. No bowel wall thickening. No diverticulitis in the colon. No oral contrast in t he stomach and duodenum. APPENDIX: Normal. PELVIS: No mass. No free fluid. Normal bladder. ABDOMINAL WALL: Fatty left inguinal hernia coronal image 40 BONES: No significant or acute findings. OTHER: Report discussed with Dr. Steele, 1430 hours 07/16/2017 IMPRESSION: NO SIGNIFICANT OR ACUTE FINDING IN THE ABDOMEN OR PELVIS ON CT SCAN WITH IV CONTRAST. TECHNICAL DOCUMENTATION: JOB ID: [id number] Quality ID # [id number]: Final reports with documentation of one or more dose reduction techniques (e.g., Au tomated exposure control, adjustment of the mA and/or kV according to patient size, use of iterative reconstruction technique) 2010 [employer]- All Rights Reserved Reading location - IP/workstation name: [email or web address]
--- NOTE | 2017-07-16 15:27 | PDOC PROGRESS REPORT ---
Subjective Progress Note for:: 07/16/17 Subjective:: The patient is a 56-year-old male with past medical history significant for hypertension and diabetes mellitus type 2 who was admitted by the surgical service for gangrene of the great toe of the right foot now status post amputation. The hospitalist service was consulted for diabetes management. The patient is seen on morning rounds; he is found sitting up to the edge of the bed drinking oral contrast. The patient reports nonradiating mid epigastric pain that occurred while at rest, described as aching, and not associated with symptoms of typical cardiac chest pain, lightheadedness, shortness of breath, diaphoresis, nausea. He reports that his surgeon was concerned that this may be cardiac related. He denies a known history of cardiac disease. Otherwise, the patient reports that he is feeling better. He is pleased that he did not have a fever overnight and that his fatigue is improving. He denies pain to his right foot. He has no new questions or concerns. Reason For Visit: GANGRENE OF R TOE Physical Exam Vital Signs: Temp Pulse Resp BP Pulse Ox 97.9 F 87 16 179/90 H 100 07/16/17 11:41 07/16/17 11:41 07/16/17 11:41 07/16/17 11:41 07/16/17 11:41 Intake & Output 07/15/17 07/16/17 07/17/17 06:59 06:59 06:59 Intake Total 1116 2055 Output Total 875 1200 Balance 241 855 Weight 66.6 kg 66.7 kg General appearance: PRESENT: no acute distress, cooperative, well-developed, well-nourished Head exam: PRESENT: atraumatic, normocephalic Eye exam: PRESENT: conjunctiva pink, EOMI, PERRLA. ABSENT: scleral icterus Ear exam: PRESENT: normal external ear exam Mouth exam: PRESENT: moist, tongue midline Neck exam: ABSENT: carotid bruit, JVD, lymphadenopathy, thyromegaly Respiratory exam: PRESENT: clear to auscultation priyank, symmetrical, unlabored. ABSENT: rales, rhonchi, wheezes Cardiovascular exam: PRESENT: RRR, +S1, +S2. ABSENT: diastolic murmur, rubs, systolic murmur Pulses: PRESENT: normal dorsalis pedis pul Vascular exam: PRESENT: normal capillary refill GI/Abdominal exam: PRESENT: normal bowel sounds, soft, tenderness - Epigastric. ABSENT: distended, guarding, mass, organolmegaly, rebound Rectal exam: PRESENT: deferred Extremities exam: PRESENT: full ROM, other - Right great toe amputation; site not directly visualized, clean dry dressing in place. Patient does show me a picture of his foot from this morning, wound is well approximated with sutures, no erythema as can be seen in the photograph.. ABSENT: calf tenderness, clubbing, pedal edema Neurological exam: PRESENT: alert, awake, oriented to person, oriented to place , oriented to time, oriented to situation, CN II-XII grossly intact. ABSENT: motor sensory deficit Psychiatric exam: PRESENT: anxious, appropriate affect, other - Tearful. ABSENT : homicidal ideation, suicidal ideation Skin exam: PRESENT: dry, intact, warm. ABSENT: cyanosis, rash Results Laboratory Results: 07/16/17 05:09 07/16/17 05:09 07/16/17 07/16/17 07/16/17 05:09 05:09 10:50 WBC 9.6 RBC 4.11 L Hgb 12.4 L Hct 36.0 L MCV 87 MCH 30.0 MCHC 34.4 RDW 13.2 Plt Count 288 Sodium 139.3 Potassium 3.4 L Chloride 101 Carbon Dioxide 29 Anion Gap 9 BUN 13 Creatinine 0.88 Est GFR ( Amer) > 60 Est GFR (Non-Af Amer) > 60 Glucose 194 H Calcium 8.2 L Phosphorus 3.0 Magnesium 1.6 Total Bilirubin 0.5 AST 11 L ALT 20 L Alkaline Phosphatase 78 Total Protein 6.2 L Albumin 3.0 L Amylase < 30 L Lipase 63.9 07/12/17 07/12/17 07/12/17 15:46 15:46 21:12 Creatine Kinase 51 L CK-MB (CK-2) 1.22 Troponin I 0.016 0.036 NT-Pro-B Natriuret Pep 07/13/17 07/16/17 03:39 10:50 Creatine Kinase CK-MB (CK-2) Troponin I 0.027 < 0.012 NT-Pro-B Natriuret Pep 1860 H Impressions: Foot X-Ray 07/11/17 16:58 IMPRESSION: Great toe soft tissue swelling with subcutaneous gas. No periosteal reaction to suggest osteomyelitis. Chest/Abdomen CTA 07/12/17 17:55 IMPRESSION: Bilateral lower lobe subsegmental atelectasis and small pleural effusions. Mild interstitial thickening consistent with mild pulmonary edema.No emboli visualized in the main pulmonary arteries. Breathing motion limits evaluation of the segmental branches. Venous Doppler Study 07/14/17 00:00 IMPRESSION: NO EVIDENCE DVT OR SVT IN EITHER LEG. Abdomen/Pelvis CT 07/16/17 00:00 IMPRESSION: NO SIGNIFICANT OR ACUTE FINDING IN THE ABDOMEN OR PELVIS ON CT SCAN WITH IV CONTRAST. Assessment & Plan - Diagnosis (1) Fever Qualifiers: Fever type: post-procedural Qualified Code(s): R50.82 - Postprocedural fever Is this a current diagnosis for this admission?: Yes Plan: Improved. T-max last 48 hours: 99.9, leukocytosis has resolved. Postop day #5 right great toe amputation. Initial blood cultures are negative at 4 days. Repeat blood cultures obtained while febrile have no growth at 48 hours. Urine culture has no growth at 2 days. Wound culture shows group B beta strep. Venous Doppler is negative for DVT/SVT (to rule out DVT as possible source of fever). We will continue IV meropenem and vancomycin. Leukocytosis has resolved and the clinical appearance of the foot is improved per surgical notes. Will discuss with surgery de-escalation of antibiotics tomorrow. Incentive spirometer to bedside. Tylenol as needed. (2) Suicidal ideations Is this a current diagnosis for this admission?: Yes Plan: The patient endorsed significant depression and hopelessness related to personal relationships. Psychiatry was consulted; appreciate their evealuation and recommendations. The patient is placed on IVC. Suicide precautions. Psychiatry's medication recommendations are instituted; begin Celexa 20 mg p.o. daily and BuSpar 10 mg nightly. Discharge planning has been notified of IVC; awaiting psychiatry's recommendations for outpatient versus inpatient follow-up. 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 Holding metformin and glipizide while inpatient. He is placed on a consistent carb diet. Accu-Cheks before meals and at bedtime with Humalog for sliding scale coverage. The sheep farmer has been consulted; appreciate her assistance. (4) Gangrene of toe of right foot Is this a current diagnosis for this admission?: Yes Plan: Management per surgical team. (5) Hypertension Is this a current diagnosis for this admission?: Yes Plan: The patient has remained relatively hypertensive since admission; somewhat labile today. We will continue his home dose of losartan. It was found that HCTZ had not been resumed has plans/indicated; will resume today. Norvasc was increased to 10 mg p.o. daily. IV hydralazine as needed for blood pressure control. (6) Depression Qualifiers: Depression Type: major depressive disorder Is this a current diagnosis for this admission?: Yes Plan: The patient is very tearful and states that he feels like he is a failure who let his friends and family down. He endorses depression related to separation from significant other of 23 years. He reports recent suicide attempt (Feb 2017 ). Psychiatry has been consulted. Plan as above. (7) Epigastric pain Is this a current diagnosis for this admission?: Yes Plan: The patient reported epigastric pain to his surgeon today. Per nursing and surgeon, some concern that this may be cardiac related. Dr. Steele graciously ordered an EKG and initial doppler. Do not feel that this is related to an acute cardiac event, however as the patient has diabetes and hypertension, will evaluate further. His discomfort is most likely related to known gastroparesis. Unfortunately, with a prolonged QTc interval I am hesitant to start him on Reglan. EKG demonstrated a sinus rhythm, PVC, diffuse nonspecific T wave abnormalities and a prolonged QT interval. Initial troponin is negative. ProBNP is 1860. CT of ABD/Pelvis is benign. The patient has no known history of cardiac disease or CHF. Will obtain echocardiogram and trend troponins. (8) Atypical chest pain Is this a current diagnosis for this admission?: Yes Plan: As above. - Time Time Spent with patient: 25-34 minutes Medications reviewed and adjusted accordingly: Yes
--- NOTE | 2017-07-16 16:55 | PSYCHOLOGICAL NOTE ---
Psych Note - Psych Note Psych Note: Reason for consult: Suicidal ideation Contact permission: None Patient is a 56-year-old male. Patient reports on Thursday his foot was bleeding and he felt terrible and was extremely tearful. Patient reports that he lost his toe because of his diabetes. Patient reports that he feels like a failure in life and cannot take care of himself. Clinician conducted checking with patient Patient disclosed that he had a difficult day and has been vomiting frequently. He reports he has had multiple medical procedures and is very tired. Patient disclosed that he is still having difficulties with his thoughts. Patient was laying on his side and attempting to sleep. Patient's mood is dysphoric with flat affect. Medication recommendations made by [facility]'s contracted psychiatrist Dr. Jesenia MD includes: 1. Please discontinue Paxil 20 mg daily 2. Please begin Celexa 20 mg daily 3. Please begin BuSpar 10 mg at night Diagnosis: 296.23 (F32.2) Major depressive disorder (per history; patient report) Impression/plan: Recommendation to continue under involuntary commit due to patient endorsing suicidal ideation with a plan. Patient endorsed suicidal ideation with a detailed plan. Patient stated he would start his car in the garage with the garage door closed, and car windows open and drink enough alcohol so that he was able to follow through. Patient will be reassessed. Attending hospitalist in agreement with plan and disposition. Consulted with Dr. Colin regarding the management and care of patient.
--- NOTE | 2017-07-16 18:40 | XCELERA REPORT ---
[address] [address] Transthoracic Echocardiogram Report Name: KEISHA SILVERIO Age: 56 yrs Gender: Male : 1960 Patient Status: Inpatient Patient Location: [address] [place] [address] Study Date: 07/16/2017 01:50 PM Height: 73 in Weight: 147 lb BSA: 1.9 m2 Procedure: A complete two-dimensional transthoracic echocardiogram was performed (2D, M-mode, spectral and color flow Doppler). The study was technically adequate with some images being suboptimal in quality. Reason For Study: chest pain Ordering Physician: EFRAIN ETIENNE Performed By: César Rm Interpretation Summary The left ventricular ejection fraction is normal. There is mild concentric left ventricular hypertrophy. The left ventricle is grossly normal size. Doppler measurements suggest pseudonormalized left ventricular relaxation, which is associated with grade II/IV or mild to moderate diastolic dysfunction Wall motion cannot be accurately commented on, but no definite regional wall motion abnormalities noted. The right ventricular systolic function is normal. The right atrium is normal in size The left atrium is mildly dilated. There is a trace amount of mitral regurgitation There is no mitral valve stenosis. There is no aortic valve stenosis No aortic regurgitation is present. There is no tricuspid stenosis. No tricuspid regurgitation. The aortic root is not well visualized but is probably normal size. The inferior vena cava was not well visualized There is no pericardial effusion. MMode/2D Measurements & Calculations RVDd: 3.2 cm LVIDd: 5.5 cm FS: 40.0 % Ao root diam: 3.8 cm IVSd: 1.1 cm LVIDs: 3.3 cm EDV(Teich): 144.8 ml LVPWd: 1.1 cm ESV(Teich): 43.2 ml Ao root area: 11.4 cm2 EF(Teich): 70.1 % Doppler Measurements & Calculations MV E max krupa: MV P1/2t max krupa: Ao V2 max: LV V1 max P.4 cm/sec 73.8 cm/sec 92.3 cm/sec 3.3 mmHg MV A max krupa: MV P1/2t: 63.3 msec Ao max PG: LV V1 max: 98.2 cm/sec 3.4 mmHg 90.3 cm/sec MV E/A: 0.84 MVA(P1/2t): 3.5 cm2 MV dec slope: 341.8 cm/sec2 MV dec time: 0.20 sec PA V2 max: 102.2 cm/sec PA max P.2 mmHg Left Ventricle The left ventricle is grossly normal size. There is mild concentric left ventricular hypertrophy. The left ventricular ejection fraction is normal. Doppler measurements suggest pseudonormalized left ventricular relaxation, which is associated with grade II/IV or mild to moderate diastolic dysfunction. Wall motion cannot be accurately commented on, but no definite regional wall motion abnormalities noted. Right Ventricle The right ventricle is grossly normal size. There is normal right ventricular wall thickness. The right ventricular systolic function is normal. Atria The right atrium is normal in size. The left atrium is mildly dilated. Interarterial septum not well visualized and not well dopplered. Cannot comment on ASD/PFO presence. Mitral Valve The mitral valve is grossly normal. There is no mitral valve stenosis. There is a trace amount of mitral regurgitation. Aortic Valve The aortic valve is grossly normal. There is no aortic valve stenosis. No aortic regurgitation is present. Tricuspid Valve The tricuspid valve is not well visualized, but is grossly normal. There is no tricuspid stenosis. No tricuspid regurgitation. Pulmonic Valve The pulmonic valve is not well visualized. Great Vessels The aortic root is not well visualized but is probably normal size. The inferior vena cava was not well visualized. Effusions There is no pericardial effusion. : EFRAIN ETIENNE > Farheen Cabrera
[2017-07-16] MEDS: BUSPIRONE HCL 10 MG TABLET PO SCH (22:32)
[2017-07-17] MEDS: VANCOMYCIN HCL 1,000 MG in DEXTROSE 5%-WATER 250 ML IV SCH ×3 (05:33→21:34)
[2017-07-17] MEDS: MEROPENEM 1 GM in NORMAL SALINE 50 ML IV SCH (05:33)
[2017-07-17 06:23] LABS: HEMOGLOBIN 12.7 g/dL (13.5-17.0); MEAN CORPUSCULAR HEMOGLOBIN 30.2 pg (27.0-33.4); MEAN CORPUSCULAR HGB CONC 35.1 g/dL (32.0-36.0); MEAN CORPUSCULAR VOLUME 86 fl (80-97); PLATELET COUNT 341 10^3/uL (150-450); RED BLOOD COUNT 4.19 10^6/uL (4.35-5.55); RED CELL DISTRIBUTION WIDTH 12.9 % (11.5-14.0); WHITE BLOOD COUNT 9.4 10^3/uL (4.0-10.5)
[2017-07-17 06:47] LABS: ANION GAP 10 (5-19); BLOOD UREA NITROGEN 12 mg/dL (7-20); CALCIUM 8.5 mg/dL (8.4-10.2); CARBON DIOXIDE 32 mmol/L (22-30); CHLORIDE 98 mmol/L (98-107); GLUCOSE 171 mg/dL (75-110); PHOSPHORUS 3.6 mg/dL (2.5-4.5); POTASSIUM 3.4 mmol/L (3.6-5.0); SODIUM 139.6 mmol/L (137-145)
[2017-07-17] MEDS: DOCUSATE SODIUM 100 MG CAPSULE PO SCH ×2 (09:04→17:13)
[2017-07-17] MEDS: CITALOPRAM HYDROBROMIDE 20 MG TABLET PO SCH (09:08)
[2017-07-17] MEDS: LANSOPRAZOLE 30 MG TAB.RAP.DR PO SCH (09:08)
[2017-07-17] MEDS: HYDROCHLOROTHIAZIDE 25 MG TABLET PO SCH (09:08)
[2017-07-17] MEDS: ENOXAPARIN SODIUM INJ 30 MG/0.3 ML DISP.SYRIN SUBCUT SCH (09:09)
[2017-07-17] MEDS: LOSARTAN POTASSIUM 50 MG TABLET PO SCH (09:09)
[2017-07-17] MEDS: SCOPOLAMINE HYDROBROMIDE 1.5 MG PATCH.TD72 TD SCH (10:00)
--- NOTE | 2017-07-17 14:01 | PDOC PROGRESS REPORT ---
Subjective Progress Note for:: 07/17/17 Subjective:: The patient is a 56-year-old male with past medical history significant for hypertension and diabetes mellitus type 2 who was admitted by the surgical service for gangrene of the great toe of the right foot now status post amputation. The hospitalist service was consulted for diabetes management. The patient is seen on morning rounds; he is found resting in bed comfortably on room air. He reports that his abdominal pain has resolved, however, he continues to have a decreased appetite. He reports that his nausea is much improved and he has had no further episodes of emesis. He denies foot pain and tells me that his wound looked improved today when surgery came by to evaluate it. He denies fever, chills, body aches, chest pain, palpitations, dyspnea, abdominal pain, emesis. He is very agitated regarding his IVC status and the requirement of a sitter for suicide precautions. Otherwise, he has no new questions or concerns. Reason For Visit: GANGRENE OF R TOE Physical Exam Vital Signs: Temp Pulse Resp BP Pulse Ox 99.2 F 92 18 149/85 H 94 07/17/17 10:57 07/17/17 10:57 07/17/17 10:57 07/17/17 10:57 07/17/17 10:57 Intake & Output 07/16/17 07/17/17 07/18/17 06:59 06:59 06:59 Intake Total 2055 2250 Output Total 1200 1450 Balance 855 800 Weight 66.7 kg 66.1 kg General appearance: PRESENT: no acute distress, well-developed, well-nourished, other - Overweight Head exam: PRESENT: atraumatic, normocephalic Eye exam: PRESENT: conjunctiva pink, EOMI, PERRLA. ABSENT: scleral icterus Ear exam: PRESENT: normal external ear exam Mouth exam: PRESENT: moist, tongue midline Neck exam: ABSENT: carotid bruit, JVD, lymphadenopathy, thyromegaly Respiratory exam: PRESENT: clear to auscultation priyank, symmetrical, unlabored. ABSENT: rales, rhonchi, wheezes Cardiovascular exam: PRESENT: RRR, +S1, +S2. ABSENT: diastolic murmur, rubs, systolic murmur Pulses: PRESENT: normal dorsalis pedis pul Vascular exam: PRESENT: normal capillary refill GI/Abdominal exam: PRESENT: normal bowel sounds, soft. ABSENT: distended, guarding, mass, organolmegaly, rebound, tenderness Rectal exam: PRESENT: deferred Extremities exam: PRESENT: full ROM, other - Right great toe amputation; surgical incision not directly visualized. No clean dry dressing is in place.. ABSENT: calf tenderness, clubbing, pedal edema Neurological exam: PRESENT: alert, awake, oriented to person, oriented to place , oriented to time, oriented to situation, CN II-XII grossly intact. ABSENT: motor sensory deficit Psychiatric exam: PRESENT: agitated, appropriate affect. ABSENT: homicidal ideation, suicidal ideation Skin exam: PRESENT: dry, warm. ABSENT: cyanosis, intact - Surgical incision, rash Results Laboratory Results: 07/17/17 05:46 07/17/17 05:46 07/17/17 07/17/17 05:46 05:46 WBC 9.4 RBC 4.19 L Hgb 12.7 L Hct 36.0 L MCV 86 MCH 30.2 MCHC 35.1 RDW 12.9 Plt Count 341 Sodium 139.6 Potassium 3.4 L Chloride 98 Carbon Dioxide 32 H Anion Gap 10 BUN 12 Creatinine 0.99 Est GFR ( Amer) > 60 Est GFR (Non-Af Amer) > 60 Glucose 171 H Calcium 8.5 Phosphorus 3.6 Magnesium 1.6 07/12/17 07/12/17 07/12/17 15:46 15:46 21:12 Creatine Kinase 51 L CK-MB (CK-2) 1.22 Troponin I 0.016 0.036 NT-Pro-B Natriuret Pep 07/13/17 07/16/17 03:39 10:50 Creatine Kinase CK-MB (CK-2) Troponin I 0.027 < 0.012 NT-Pro-B Natriuret Pep 1860 H Impressions: Foot X-Ray 07/11/17 16:58 IMPRESSION: Great toe soft tissue swelling with subcutaneous gas. No periosteal reaction to suggest osteomyelitis. Chest/Abdomen CTA 07/12/17 17:55 IMPRESSION: Bilateral lower lobe subsegmental atelectasis and small pleural effusions. Mild interstitial thickening consistent with mild pulmonary edema.No emboli visualized in the main pulmonary arteries. Breathing motion limits evaluation of the segmental branches. Venous Doppler Study 07/14/17 00:00 IMPRESSION: NO EVIDENCE DVT OR SVT IN EITHER LEG. Abdomen/Pelvis CT 07/16/17 00:00 IMPRESSION: NO SIGNIFICANT OR ACUTE FINDING IN THE ABDOMEN OR PELVIS ON CT SCAN WITH IV CONTRAST. Assessment & Plan - Diagnosis (1) Gangrene of toe of right foot Is this a current diagnosis for this admission?: Yes Plan: Now postop day 5 right great toe amputation. Initial blood cultures are negative at 5 days. Repeat blood cultures obtained while febrile have no growth at 72 hours. Wound culture shows group B beta strep. Venous Doppler is negative for DVT/SVT (to rule out DVT as possible source of fever). Discussed with surgery, Dr. Marroquin, will discontinue meropenem and continue IV vancomycin. He recommends that we continue vancomycin for an additional 7 days. Continue dressing changes: Xeroform and gauze dressing. May ambulate with surgical shoe. Patient to follow-up with the surgical clinic 2 weeks following discharge. We appreciate the surgical team's assistance in managing this patient and offered to assume care for the remainder of his inpatient stay. (2) Fever Qualifiers: Fever type: post-procedural Qualified Code(s): R50.82 - Postprocedural fever Is this a current diagnosis for this admission?: Yes Plan: Resolved. T-max last 48 hours: 99.2, leukocytosis has resolved. Postop day #5 right great toe amputation. Initial blood cultures are negative at 5 days. Repeat blood cultures obtained while febrile have no growth at 48 hours. Urine culture has no growth at 2 days. Wound culture shows group B beta strep. Venous Doppler is negative for DVT/SVT (to rule out DVT as possible source of fever). We will continue IV vancomycin. Leukocytosis has resolved and the clinical appearance of the foot is improved per surgical notes. Incentive spirometer to bedside. Tylenol as needed. (3) Suicidal ideations Is this a current diagnosis for this admission?: Yes Plan: The patient endorsed significant depression and hopelessness related to personal relationships. The patient is very agitated today. He tells me that we are overreacting and states, "if I were going to kill myself, I would have done it 2 days after my surgery." He does not seem to recognize that these statements increase her concern regarding his depression and potential suicidal ideation. Psychiatry was consulted; appreciate their evealuation and recommendations. The patient is placed on IVC. Suicide precautions. Psychiatry's medication recommendations are instituted; Celexa 20 mg p.o. daily and BuSpar 10 mg nightly. Discharge planning has been notified of IVC; awaiting psychiatry's recommendations for outpatient versus inpatient follow-up. (4) Diabetes mellitus Qualifiers: Diabetes mellitus type: type 2 Diabetes mellitus custodial insulin use: with custodial use Diabetes mellitus complication status: without complication Qualified Code(s): E11.9 - Type 2 diabetes mellitus without complications; Z79.4 - longterm (current) use of insulin; Z79.4 - termite helper ( current) use of insulin; Z79.4 - termite helper (current) use of insulin; Z79.4 - longterm (current) use of insulin Is this a current diagnosis for this admission?: Yes Plan: Hemoglobin A1c 7.9%. Holding metformin and glipizide while inpatient. He is placed on a consistent carb diet. Accu-Cheks before meals and at bedtime with Humalog for sliding scale coverage. The personal development educator has been consulted; appreciate her assistance. (5) Hypertension Is this a current diagnosis for this admission?: Yes Plan: The patient has remained relatively hypertensive since admission; somewhat labile today. We will continue his home dose of losartan and HCTZ. Continue Norvasc 10 mg p.o. daily. Will consider Coreg for further hypertension. IV hydralazine as needed for blood pressure control. (6) Depression Qualifiers: Depression Type: major depressive disorder Is this a current diagnosis for this admission?: Yes Plan: The patient is very tearful and states that he feels like he is a failure who let his friends and family down. He endorses depression related to separation from significant other of 23 years. He reports recent suicide attempt (Feb 2017 ). Psychiatry has been consulted. Plan as above. (7) Epigastric pain Is this a current diagnosis for this admission?: Yes Plan: Resolved. The patient reported epigastric pain to his surgeon yesterday. Per nursing and surgeon, there was some concern that this may be cardiac related. Dr. Steele graciously ordered an EKG and initial doppler. Do not feel that this is related to an acute cardiac event, however, as the patient has diabetes and hypertension, will evaluate further. His discomfort is most likely related to known gastroparesis. Unfortunately, with a prolonged QTc interval I am hesitant to start him on Reglan. We will trial scopolamine patch. (8) Diastolic CHF Qualifiers: Heart failure chronicity: unspecified Qualified Code(s): I50.30 - Unspecified diastolic (congestive) heart failure Is this a current diagnosis for this admission?: Yes Plan: EKG demonstrated a sinus rhythm, PVC, diffuse nonspecific T wave abnormalities and a prolonged QT interval. Troponin is negative. ProBNP is 1860. CT of ABD/Pelvis is benign. Echocardiogram revealed mild concentric left ventricular hypertrophy and mild to moderate diastolic dysfunction with a poorly preserved ejection fraction. IV fluids have been discontinued. Patient is placed on a cardiac diet. (9) Atypical chest pain Is this a current diagnosis for this admission?: Yes Plan: Resolved. As above. - Time Time Spent with patient: 25-34 minutes Medications reviewed and adjusted accordingly: Yes - Plan Summary Plan Summary: Per surgery, the patient requires an additional 7 days of IV vancomycin. The patient is also currently IVC for suicidal ideation with a valid plan. Awaiting psychiatry's recommendations on disposition.
[2017-07-17] MEDS: AMLODIPINE BESYLATE 5 MG TABLET PO SCH (14:49)
[2017-07-17] MEDS: INSULIN LISPRO 100 UNIT/ML 3 ML VIAL SUBCUT PRN ×2 (18:10→21:34)
--- NOTE | 2017-07-17 19:20 | PDOC PROGRESS REPORT ---
Subjective Progress Note for:: 07/17/17 Subjective:: Abdominal pains has resolved Reason For Visit: GANGRENE OF R TOE Physical Exam Vital Signs: Temp Pulse Resp BP Pulse Ox 98.7 F 91 19 172/85 H 92 07/17/17 15:36 07/17/17 15:36 07/17/17 15:36 07/17/17 15:36 07/17/17 15:36 Intake & Output 07/16/17 07/17/17 07/18/17 06:59 06:59 06:59 Intake Total 2055 2250 360 Output Total 1200 1450 925 Balance 855 800 -565 Weight 66.7 kg 66.1 kg Exam: Right great toe ray amputation site healing well. Has good right ankle DENSITOMETRIST and DPA pulses. Results Laboratory Results: 07/17/17 05:46 07/17/17 05:46 07/17/17 07/17/17 05:46 05:46 WBC 9.4 RBC 4.19 L Hgb 12.7 L Hct 36.0 L MCV 86 MCH 30.2 MCHC 35.1 RDW 12.9 Plt Count 341 Sodium 139.6 Potassium 3.4 L Chloride 98 Carbon Dioxide 32 H Anion Gap 10 BUN 12 Creatinine 0.99 Est GFR ( Amer) > 60 Est GFR (Non-Af Amer) > 60 Glucose 171 H Calcium 8.5 Phosphorus 3.6 Magnesium 1.6 07/12/17 07/12/17 07/12/17 15:46 15:46 21:12 Creatine Kinase 51 L CK-MB (CK-2) 1.22 Troponin I 0.016 0.036 NT-Pro-B Natriuret Pep 07/13/17 07/16/17 03:39 10:50 Creatine Kinase CK-MB (CK-2) Troponin I 0.027 < 0.012 NT-Pro-B Natriuret Pep 1860 H Impressions: Foot X-Ray 07/11/17 16:58 IMPRESSION: Great toe soft tissue swelling with subcutaneous gas. No periosteal reaction to suggest osteomyelitis. Chest/Abdomen CTA 07/12/17 17:55 IMPRESSION: Bilateral lower lobe subsegmental atelectasis and small pleural effusions. Mild interstitial thickening consistent with mild pulmonary edema.No emboli visualized in the main pulmonary arteries. Breathing motion limits evaluation of the segmental branches. Venous Doppler Study 07/14/17 00:00 IMPRESSION: NO EVIDENCE DVT OR SVT IN EITHER LEG. Abdomen/Pelvis CT 07/16/17 00:00 IMPRESSION: NO SIGNIFICANT OR ACUTE FINDING IN THE ABDOMEN OR PELVIS ON CT SCAN WITH IV CONTRAST. Assessment & Plan - Time Time Spent with patient: 15-24 minutes - Plan Summary Plan Summary: In view of the patient's surgical site healing well,suicidal ideation and DM will transfer to Hospitalist service Continue [facility] for another week
[2017-07-17] MEDS: BUSPIRONE HCL 10 MG TABLET PO SCH (21:34)
[2017-07-18] MEDS: VANCOMYCIN HCL 1,000 MG in DEXTROSE 5%-WATER 250 ML IV SCH ×3 (05:18→21:00)
[2017-07-18 06:15] LABS: HEMATOCRIT 38.3 % (37.9-51.0); HEMOGLOBIN 13.2 g/dL (13.5-17.0); MEAN CORPUSCULAR HGB CONC 34.4 g/dL (32.0-36.0); MEAN CORPUSCULAR VOLUME 87 fl (80-97); PLATELET COUNT 381 10^3/uL (150-450); RED CELL DISTRIBUTION WIDTH 13.2 % (11.5-14.0); WHITE BLOOD COUNT 8.5 10^3/uL (4.0-10.5)
[2017-07-18 06:42] LABS: ANION GAP 11 (5-19); BLOOD UREA NITROGEN 12 mg/dL (7-20); CALCIUM 8.4 mg/dL (8.4-10.2); CARBON DIOXIDE 32 mmol/L (22-30); CHLORIDE 96 mmol/L (98-107); GLUCOSE 156 mg/dL (75-110); POTASSIUM 3.1 mmol/L (3.6-5.0)
[2017-07-18] MEDS: HYDROCHLOROTHIAZIDE 25 MG TABLET PO SCH (09:17)
[2017-07-18] MEDS: POTASSIUM CHLORIDE 10 MEQ TABLET.SA PO SCH ×2 (09:18→17:40)
[2017-07-18] MEDS: CITALOPRAM HYDROBROMIDE 20 MG TABLET PO SCH (09:18)
[2017-07-18] MEDS: LOSARTAN POTASSIUM 50 MG TABLET PO SCH (09:19)
[2017-07-18] MEDS: INSULIN LISPRO 100 UNIT/ML 3 ML VIAL SUBCUT PRN ×3 (09:19→21:02)
[2017-07-18] MEDS: LANSOPRAZOLE 30 MG TAB.RAP.DR PO SCH (09:19)
[2017-07-18] MEDS: ENOXAPARIN SODIUM INJ 30 MG/0.3 ML DISP.SYRIN SUBCUT SCH (09:19)
[2017-07-18] MEDS: DOCUSATE SODIUM 100 MG CAPSULE PO SCH ×2 (09:20→17:41)
--- NOTE | 2017-07-18 12:11 | PDOC PROGRESS REPORT ---
Subjective Progress Note for:: 07/18/17 Subjective:: The patient is a 56-year-old male with past medical history significant for hypertension and diabetes mellitus type 2 who was admitted by the surgical service for gangrene of the great toe of the right foot now status post amputation. The hospitalist service was consulted for diabetes management. The patient is seen on morning rounds; he is found resting in bed comfortably on room air. He reports that his abdominal pain and nausea have resolved increased appetite. He reports that all of his food has a metallic taste and questions whether or not 1 of his IV antibiotics may have caused this (most likely this was related to meropenem which was discontinued yesterday). He denies foot pain. While ambulating last evening, he noted that his foot had begun bleeding. Otherwise he has no new concerns. He denies fever, chills, body aches, chest pain, palpitations, dyspnea, abdominal pain, emesis. Reason For Visit: GANGRENE OF R TOE Physical Exam Vital Signs: Temp Pulse Resp BP Pulse Ox 98.6 F 87 14 142/89 H 99 07/18/17 08:13 07/18/17 08:13 07/18/17 08:13 07/18/17 08:13 07/18/17 08:42 Intake & Output 07/17/17 07/18/17 07/19/17 06:59 06:59 06:59 Intake Total 2250 1160 Output Total 1450 925 Balance 800 235 Weight 66.1 kg 65.3 kg General appearance: PRESENT: no acute distress, cooperative, well-developed, well-nourished, other - Overweight Head exam: PRESENT: atraumatic, normocephalic Eye exam: PRESENT: conjunctiva pink, EOMI, PERRLA. ABSENT: scleral icterus Ear exam: PRESENT: normal external ear exam Mouth exam: PRESENT: moist, tongue midline Neck exam: ABSENT: carotid bruit, JVD, lymphadenopathy, thyromegaly Respiratory exam: PRESENT: clear to auscultation priyank, symmetrical, unlabored. ABSENT: rales, rhonchi, wheezes Cardiovascular exam: PRESENT: RRR. ABSENT: diastolic murmur, rubs, systolic murmur Pulses: PRESENT: normal dorsalis pedis pul Vascular exam: PRESENT: normal capillary refill GI/Abdominal exam: PRESENT: normal bowel sounds, soft. ABSENT: distended, guarding, mass, organolmegaly, rebound, tenderness Rectal exam: PRESENT: deferred Extremities exam: PRESENT: full ROM, other - s/p right great toe amputation. ABSENT: calf tenderness, clubbing, pedal edema Neurological exam: PRESENT: alert, awake, oriented to person, oriented to place , oriented to time, oriented to situation, CN II-XII grossly intact. ABSENT: motor sensory deficit Psychiatric exam: PRESENT: appropriate affect, depressed. ABSENT: homicidal ideation, suicidal ideation Skin exam: PRESENT: dry, warm, other - Surgical incision 2 right foot is inspected; the wound is well approximated with sutures. There is slight maceration of the tissue to the lateral 1 cm of the incision. There is no surrounding erythema or edema. No drainage.. ABSENT: cyanosis, rash Results Laboratory Results: 07/18/17 05:30 07/18/17 05:30 07/18/17 07/18/17 05:30 05:30 WBC 8.5 RBC 4.40 Hgb 13.2 L Hct 38.3 MCV 87 MCH 30.0 MCHC 34.4 RDW 13.2 Plt Count 381 Sodium 139.0 Potassium 3.1 L Chloride 96 L Carbon Dioxide 32 H Anion Gap 11 BUN 12 Creatinine 0.92 Est GFR ( Amer) > 60 Est GFR (Non-Af Amer) > 60 Glucose 156 H Calcium 8.4 07/12/17 07/12/17 07/12/17 15:46 15:46 21:12 Creatine Kinase 51 L CK-MB (CK-2) 1.22 Troponin I 0.016 0.036 NT-Pro-B Natriuret Pep 07/13/17 07/16/17 03:39 10:50 Creatine Kinase CK-MB (CK-2) Troponin I 0.027 < 0.012 NT-Pro-B Natriuret Pep 1860 H Impressions: Foot X-Ray 07/11/17 16:58 IMPRESSION: Great toe soft tissue swelling with subcutaneous gas. No periosteal reaction to suggest osteomyelitis. Chest/Abdomen CTA 07/12/17 17:55 IMPRESSION: Bilateral lower lobe subsegmental atelectasis and small pleural effusions. Mild interstitial thickening consistent with mild pulmonary edema.No emboli visualized in the main pulmonary arteries. Breathing motion limits evaluation of the segmental branches. Venous Doppler Study 07/14/17 00:00 IMPRESSION: NO EVIDENCE DVT OR SVT IN EITHER LEG. Abdomen/Pelvis CT 07/16/17 00:00 IMPRESSION: NO SIGNIFICANT OR ACUTE FINDING IN THE ABDOMEN OR PELVIS ON CT SCAN WITH IV CONTRAST. Assessment & Plan - Diagnosis (1) Gangrene of toe of right foot Is this a current diagnosis for this admission?: Yes Plan: Now postop day 6 right great toe amputation. Initial blood cultures are negative at 5 days. Repeat blood cultures obtained while febrile have no growth at 4 days. Wound culture shows group B beta strep. Venous Doppler is negative for DVT/SVT (to rule out DVT as possible source of fever). Hospital service has assumed care from surgical team. Meropenem was discontinued yesterday. We will continue IV vancomycin for an additional 6 days. Continue dressing changes: Xeroform and gauze dressing. May ambulate with surgical shoe. Patient to follow-up with the surgical clinic 2 weeks following discharge. (2) Fever Qualifiers: Fever type: post-procedural Qualified Code(s): R50.82 - Postprocedural fever Is this a current diagnosis for this admission?: Yes Plan: Resolved. T-max last 48 hours: 99.2, leukocytosis has resolved. Postop day #6 right great toe amputation. Initial blood cultures are negative at 5 days. Repeat blood cultures obtained while febrile have no growth at 4 days. Urine culture has no growth at 2 days. Wound culture shows group B beta strep. Venous Doppler is negative for DVT/SVT (to rule out DVT as possible source of fever). We will continue IV vancomycin. Incentive spirometer to bedside. Tylenol as needed. (3) Suicidal ideations Is this a current diagnosis for this admission?: Yes Plan: The patient endorsed significant depression and hopelessness related to personal relationships. He is more calm today and does not discuss his depression, suicidal ideation, or IVC status. Psychiatry was consulted; appreciate their evealuation and recommendations. The patient is placed on IVC. Suicide precautions. Psychiatry's medication recommendations are instituted; Celexa 20 mg p.o. daily and BuSpar 10 mg nightly. Discharge planning has been notified of IVC; awaiting psychiatry's recommendations for outpatient versus inpatient follow-up. (4) Diabetes mellitus Qualifiers: Diabetes mellitus type: type 2 Diabetes mellitus correction insulin use: with correction use Diabetes mellitus complication status: without complication Qualified Code(s): E11.9 - Type 2 diabetes mellitus without complications; Z79.4 - intermediate (current) use of insulin; Z79.4 - superintendent terminal ( current) use of insulin; Z79.4 - intermediate (current) use of insulin; Z79.4 - superintendent terminal (current) use of insulin Is this a current diagnosis for this admission?: Yes Plan: Hemoglobin A1c 7.9%. Holding metformin and glipizide while inpatient. He is placed on a consistent carb diet. Accu-Cheks before meals and at bedtime with Humalog for sliding scale coverage. The cosmetology educator has been consulted; appreciate her assistance. (5) Hypertension Is this a current diagnosis for this admission?: Yes Plan: The patient has remained relatively hypertensive since admission; somewhat labile. We will continue his home dose of losartan and HCTZ. Continue Norvasc 10 mg p.o. daily. Will consider Coreg for further hypertension. IV hydralazine as needed for blood pressure control. (6) Depression Qualifiers: Depression Type: major depressive disorder Is this a current diagnosis for this admission?: Yes Plan: The patient is very tearful and states that he feels like he is a failure who let his friends and family down. He endorses depression related to separation from significant other of 23 years. He reports recent suicide attempt (Feb 2017 ). Psychiatry has been consulted. Plan as above. (7) Epigastric pain Is this a current diagnosis for this admission?: Yes Plan: Resolved. The patient reported epigastric pain to his surgeon. Per nursing and surgeon, there was some concern that this may be cardiac related. Dr. Steele graciously ordered an EKG and initial troponin. I do not feel that this is related to an acute cardiac event. His discomfort was most likely related to known gastroparesis. Unfortunately, with a prolonged QTc interval I am hesitant to start him on Reglan. We will trial scopolamine patch. (8) Diastolic CHF Qualifiers: Heart failure chronicity: unspecified Qualified Code(s): I50.30 - Unspecified diastolic (congestive) heart failure Is this a current diagnosis for this admission?: Yes Plan: EKG demonstrated a sinus rhythm, PVC, diffuse nonspecific T wave abnormalities and a prolonged QT interval. Troponin is negative. ProBNP is 1860. CT of ABD/Pelvis is benign. Echocardiogram revealed mild concentric left ventricular hypertrophy and mild to moderate diastolic dysfunction with a poorly preserved ejection fraction. IV fluids have been discontinued. Patient is placed on a cardiac diet. (9) Atypical chest pain Is this a current diagnosis for this admission?: Yes Plan: Resolved; likely was secondary to gastroparesis. As above. - Time Time Spent with patient: 15-24 minutes Medications reviewed and adjusted accordingly: Yes Anticipated discharge: Other - Awaiting disposition recommendations from psychiatry team. Within: Other - Surgical team recommends an additional 6 days of IV vancomycin.
[2017-07-18] MEDS: AMLODIPINE BESYLATE 5 MG TABLET PO SCH (16:29)
[2017-07-18] MEDS: BUSPIRONE HCL 10 MG TABLET PO SCH (21:00)
[2017-07-19] MEDS: POTASSIUM CHLORIDE 10 MEQ TABLET.SA PO SCH (03:23)
[2017-07-19] MEDS: VANCOMYCIN HCL 1,000 MG in DEXTROSE 5%-WATER 250 ML IV SCH ×2 (05:55→17:09)
[2017-07-19 06:27] LABS: HEMATOCRIT 37.8 % (37.9-51.0); HEMOGLOBIN 13.1 g/dL (13.5-17.0); MEAN CORPUSCULAR HEMOGLOBIN 30.3 pg (27.0-33.4); MEAN CORPUSCULAR HGB CONC 34.8 g/dL (32.0-36.0); MEAN CORPUSCULAR VOLUME 87 fl (80-97); PLATELET COUNT 371 10^3/uL (150-450); RED BLOOD COUNT 4.34 10^6/uL (4.35-5.55); RED CELL DISTRIBUTION WIDTH 13.1 % (11.5-14.0); WHITE BLOOD COUNT 10.3 10^3/uL (4.0-10.5)
[2017-07-19 07:12] LABS: VANCOMYCIN,TROUGH 21.4 ug/mL (5.0-20.0)
[2017-07-19 07:47] LABS: ANION GAP 8 (5-19); BLOOD UREA NITROGEN 12 mg/dL (7-20); CALCIUM 8.5 mg/dL (8.4-10.2); CARBON DIOXIDE 36 mmol/L (22-30); CHLORIDE 97 mmol/L (98-107); GLUCOSE 185 mg/dL (75-110); POTASSIUM 3.2 mmol/L (3.6-5.0)
--- NOTE | 2017-07-19 08:04 | PSYCHOLOGICAL NOTE ---
Psych Note - Psych Note Psych Note: Reason for consult: Suicidal ideation Contact permission: None Patient is a 56-year-old male. Patient reports on Thursday his foot was bleeding and he felt terrible and was extremely tearful. Patient reports that he lost his toe because of his diabetes. Patient reports that he feels like a failure in life and cannot take care of himself. Due to patient flow in the ED; Behavioral Health Team was unable to conduct check in with patient. Chart review was conducted. Patient reported by attending [facility] staff to be improving. Patient will be re-evaluated. Medication recommendations made by [facility]'s contracted psychiatrist Dr. Jesenia MD includes: 1. Please discontinue Paxil 20 mg daily 2. Please begin Celexa 20 mg daily 3. Please begin BuSpar 10 mg at night Diagnosis: 296.23 (F32.2) Major depressive disorder (per history; patient report) Impression/plan: Recommendation to continue under involuntary commit due to patient endorsing suicidal ideation with a plan. Patient endorsed suicidal ideation with a detailed plan. Patient stated he would start his car in the garage with the garage door closed, and car windows open and drink enough alcohol so that he was able to follow through. Patient will be reassessed. Attending hospitalist in agreement with plan and disposition. Consulted with Dr. Colin regarding the management and care of patient.
[2017-07-19] MEDS ORDERED: POTASSIUM CHLORIDE 10 MEQ TABLET.SA PO ONE (08:30)
--- NOTE | 2017-07-19 08:31 | PSYCHOLOGICAL NOTE ---
Psych Note - Psych Note Psych Note: Reason for consult: Suicidal ideation Contact permission: None Patient is a 56-year-old male. Patient reports on Thursday his foot was bleeding and he felt terrible and was extremely tearful. Patient reports that he lost his toe because of his diabetes. Patient reports that he feels like a failure in life and cannot take care of himself. Conducted check in with patient: patient discussed the first time he made a suicidal comment; "it was 2 years ago...my left me... I said that to my because I wanted her to come back..." He continued to disclosed that he was in a lot of pain with his foot and that maybe 2 days after surgery he would have been thinking about hurting himself but denies continued or current thoughts of self harm or killing himself. Patient disclosed that he does withdraw at times and has had SHANIKA come for welfare checks initiated by family members and friends; "but it is just because I get at points that I just don't want to talk to anyone...not that I am going to hurt myself." Patient discussed with clinician the medical progress of his foot and reports the only thing he is struggling with is everything tasting metallic so has not been able to eat; "I am so hungry...so I have been trying to sleep to get my mind off of food and eating." He reports his (they never only lived apart) will be coming to [place] next week and staying to help him recover. Patient's mood is euthymic with congruent affect as evidenced by the patient laugh, smiling and openly engaging with the clinician. Clinician discussed the rescinding of the IVC and the patient responded; "I could kiss you on the mouth right now...but I know that is not something you would let me do...I swear I don't want to hurt myself...I am scared of weapons and pain...I just don't like the sitters sitting there and watching me... they were all very nice but I like to be alone." Medication recommendations made by [facility]'s contracted psychiatrist Dr. Jesenia MD includes: 1. Please discontinue Paxil 20 mg daily 2. Please begin Celexa 20 mg daily 3. Please begin BuSpar 10 mg at night Diagnosis: 296.23 (F32.2) Major depressive disorder; recurrent (per history; patient report ) Impression/plan: Patient is recommended for rescind of IVC and is considered cleared from acute psychiatric services. Patient no longer meets IVC criteria. Patient discussed very openly his depressive symptoms. Patient demonstrated insight with his symptoms and reports that he does get into depressive states that he isolates. He reported that he had made suicidal comments in the past with the goal of keeping his from moving away and currently made comments because of the pain he was in. Patient denies intent, demonstrated forward thinking and presented euythmic with congruent affect (even joking and laughing with clinician). Patient's is reported coming to help the patient recover. Patient is recommended to continue taking recommended medications and follows through with out patient mental health services. Dr. Colin was consulted on the care and management of this patient.
[2017-07-19] MEDS: INSULIN LISPRO 100 UNIT/ML 3 ML VIAL SUBCUT PRN ×4 (09:47→21:23)
[2017-07-19] MEDS: CITALOPRAM HYDROBROMIDE 20 MG TABLET PO SCH (09:48)
[2017-07-19] MEDS: HYDROCHLOROTHIAZIDE 25 MG TABLET PO SCH (09:48)
[2017-07-19] MEDS: LOSARTAN POTASSIUM 50 MG TABLET PO SCH (09:49)
[2017-07-19] MEDS: ENOXAPARIN SODIUM INJ 30 MG/0.3 ML DISP.SYRIN SUBCUT SCH (09:49)
[2017-07-19] MEDS: LANSOPRAZOLE 30 MG TAB.RAP.DR PO SCH (09:49)
[2017-07-19] MEDS: DOCUSATE SODIUM 100 MG CAPSULE PO SCH ×2 (09:49→17:09)
[2017-07-19] MEDS: POTASSI CL 20 MEQ/50 ML RIDER 20 MEQ/50 ML RTUPB IV SCH ×2 (10:22→13:17)
--- NOTE | 2017-07-19 11:22 | PDOC PROGRESS REPORT ---
Subjective Progress Note for:: 07/19/17 Subjective:: The patient is a 56-year-old male with past medical history significant for hypertension and diabetes mellitus type 2 who was admitted by the surgical service for gangrene of the great toe of the right foot now status post amputation. The hospitalist service was consulted for diabetes management. The patient is seen on morning rounds; he is found resting in bed comfortably on room air. He states that he is feeling well today. He reports that the metallic taste in his mouth is decreasing and his appetite is returning. He is feeling better about his foot and tells me that he plans to walk in the [place] this afternoon. He denies foot pain. He denies fever, chills, body aches, chest pain, palpitations, dyspnea, abdominal pain, nausea and emesis. He has no new questions or concerns today. Reason For Visit: GANGRENE OF R TOE Physical Exam Vital Signs: Temp Pulse Resp BP Pulse Ox 98.5 F 78 12 155/81 H 93 07/19/17 10:00 07/19/17 10:00 07/19/17 10:00 07/19/17 10:00 07/19/17 10:00 Intake & Output 07/18/17 07/19/17 07/20/17 06:59 06:59 06:59 Intake Total 1160 1673 Output Total 925 1620 Balance 235 53 Weight 65.3 kg 65 kg General appearance: PRESENT: no acute distress, well-developed, well-nourished Head exam: PRESENT: atraumatic, normocephalic Eye exam: PRESENT: conjunctiva pink, EOMI, PERRLA. ABSENT: scleral icterus Ear exam: PRESENT: normal external ear exam Mouth exam: PRESENT: moist, tongue midline Neck exam: ABSENT: carotid bruit, JVD, lymphadenopathy, thyromegaly Respiratory exam: PRESENT: clear to auscultation priyank, symmetrical, unlabored. ABSENT: rales, rhonchi, wheezes Cardiovascular exam: PRESENT: RRR. ABSENT: diastolic murmur, rubs, systolic murmur Pulses: PRESENT: normal dorsalis pedis pul Vascular exam: PRESENT: normal capillary refill GI/Abdominal exam: PRESENT: normal bowel sounds, soft. ABSENT: distended, guarding, mass, organolmegaly, rebound, tenderness Rectal exam: PRESENT: deferred Extremities exam: PRESENT: full ROM, other - Right great toe amputation; surgical incision approximated with sutures. Slight maceration to the lateral 1 cm. Scant amount of blood noted to dressing in that area. No surrounding erythema or edema. No purulent drainage.. ABSENT: calf tenderness, clubbing, pedal edema Neurological exam: PRESENT: alert, awake, oriented to person, oriented to place , oriented to time, oriented to situation, CN II-XII grossly intact. ABSENT: motor sensory deficit Psychiatric exam: PRESENT: appropriate affect, normal mood. ABSENT: homicidal ideation, suicidal ideation Skin exam: PRESENT: dry, warm. ABSENT: cyanosis, intact - Surgical amputation right great toe, rash Results Laboratory Results: 07/19/17 05:48 07/19/17 05:48 07/19/17 07/19/17 05:48 05:48 WBC 10.3 RBC 4.34 L Hgb 13.1 L Hct 37.8 L MCV 87 MCH 30.3 MCHC 34.8 RDW 13.1 Plt Count 371 Sodium 141.0 Potassium 3.2 L Chloride 97 L Carbon Dioxide 36 H Anion Gap 8 BUN 12 Creatinine 1.05 Est GFR ( Amer) > 60 Est GFR (Non-Af Amer) > 60 Glucose 185 H Calcium 8.5 07/13/17 17:15 Blood Blood Culture - Final NO GROWTH IN 5 DAYS 07/13/17 15:47 Blood Blood Culture - Final NO GROWTH IN 5 DAYS 07/12/17 07/12/17 07/12/17 15:46 15:46 21:12 Creatine Kinase 51 L CK-MB (CK-2) 1.22 Troponin I 0.016 0.036 NT-Pro-B Natriuret Pep 07/13/17 07/16/17 03:39 10:50 Creatine Kinase CK-MB (CK-2) Troponin I 0.027 < 0.012 NT-Pro-B Natriuret Pep 1860 H Impressions: Foot X-Ray 07/11/17 16:58 IMPRESSION: Great toe soft tissue swelling with subcutaneous gas. No periosteal reaction to suggest osteomyelitis. Chest/Abdomen CTA 07/12/17 17:55 IMPRESSION: Bilateral lower lobe subsegmental atelectasis and small pleural effusions. Mild interstitial thickening consistent with mild pulmonary edema.No emboli visualized in the main pulmonary arteries. Breathing motion limits evaluation of the segmental branches. Venous Doppler Study 07/14/17 00:00 IMPRESSION: NO EVIDENCE DVT OR SVT IN EITHER LEG. Abdomen/Pelvis CT 07/16/17 00:00 IMPRESSION: NO SIGNIFICANT OR ACUTE FINDING IN THE ABDOMEN OR PELVIS ON CT SCAN WITH IV CONTRAST. Assessment & Plan - Diagnosis (1) Gangrene of toe of right foot Is this a current diagnosis for this admission?: Yes Plan: Now postop day 7 right great toe amputation. Initial blood cultures are negative at 5 days. Repeat blood cultures obtained while febrile have no growth at 5 days. Wound culture shows group B beta strep. Venous Doppler is negative for DVT/SVT (to rule out DVT as possible source of fever). Hospital service has assumed care from surgical team. We will continue IV vancomycin for an additional 5 days. Continue dressing changes: Xeroform and gauze dressing. May ambulate with surgical shoe. Patient to follow-up with the surgical clinic 2 weeks following discharge. (2) Fever Qualifiers: Fever type: post-procedural Qualified Code(s): R50.82 - Postprocedural fever Is this a current diagnosis for this admission?: Yes Plan: Resolved. Patient is afebrile, leukocytosis has resolved. Postop day #7 right great toe amputation. Initial blood cultures are negative at 5 days. Repeat blood cultures obtained while febrile have no growth at 5 days. Urine culture has no growth at 2 days. Wound culture shows group B beta strep. Venous Doppler is negative for DVT/SVT (to rule out DVT as possible source of fever). We will continue IV vancomycin. Incentive spirometer to bedside. Tylenol as needed. (3) Suicidal ideations Is this a current diagnosis for this admission?: Yes Plan: IVC rescinded. Psychiatry was consulted; appreciate their evealuation and recommendations. Suicide precautions. Psychiatry's medication recommendations are continued; Celexa 20 mg p.o. daily and BuSpar 10 mg nightly. (4) Diabetes mellitus Qualifiers: Diabetes mellitus type: type 2 Diabetes mellitus ad terminal makeup operator insulin use: with ad terminal makeup operator use Diabetes mellitus complication status: without complication Qualified Code(s): E11.9 - Type 2 diabetes mellitus without complications; Z79.4 - terminal operations supervisor (current) use of insulin; Z79.4 - terminal operations supervisor ( current) use of insulin; Z79.4 - custodial (current) use of insulin; Z79.4 - terminal operations supervisor (current) use of insulin Is this a current diagnosis for this admission?: Yes Plan: Hemoglobin A1c 7.9%. Holding metformin and glipizide while inpatient. He is placed on a consistent carb diet. Accu-Cheks before meals and at bedtime with Humalog for sliding scale coverage. The top spotter has been consulted; appreciate her assistance. (5) Hypertension Is this a current diagnosis for this admission?: Yes Plan: The patient continues to remain hypertensive. We will continue his home dose of losartan and HCTZ. Continue Norvasc 10 mg p.o. daily. We will start low-dose Coreg; this may also be beneficial for frequent PVCs noted on EKG/telemetry. IV hydralazine as needed for blood pressure control. (6) Depression Qualifiers: Depression Type: major depressive disorder Is this a current diagnosis for this admission?: Yes Plan: Psychiatry has been consulted. Plan as above. (7) Epigastric pain Is this a current diagnosis for this admission?: Yes Plan: Resolved. The patient reported epigastric pain to his surgeon. Per nursing and surgeon, there was some concern that this may be cardiac related. Dr. Steele graciously ordered an EKG and initial troponin. I do not feel that this is related to an acute cardiac event. His discomfort was most likely related to known gastroparesis. Unfortunately, with a prolonged QTc interval I am hesitant to start him on Reglan. We will trial scopolamine patch. (8) Diastolic CHF Qualifiers: Heart failure chronicity: unspecified Qualified Code(s): I50.30 - Unspecified diastolic (congestive) heart failure Is this a current diagnosis for this admission?: Yes Plan: EKG demonstrated a sinus rhythm, PVC, diffuse nonspecific T wave abnormalities and a prolonged QT interval. Troponin is negative. ProBNP is 1860. CT of ABD/Pelvis is benign. Echocardiogram revealed mild concentric left ventricular hypertrophy and mild to moderate diastolic dysfunction with a poorly preserved ejection fraction. IV fluids have been discontinued. Patient is placed on a cardiac diet. (9) Atypical chest pain Is this a current diagnosis for this admission?: Yes Plan: Resolved; likely was secondary to gastroparesis. As above. - Time Time Spent with patient: 15-24 minutes Medications reviewed and adjusted accordingly: Yes Anticipated discharge: Home Within: Other - 5-6 days
[2017-07-19] MEDS: AMLODIPINE BESYLATE 5 MG TABLET PO SCH (15:20)
[2017-07-19] MEDS: BUSPIRONE HCL 10 MG TABLET PO SCH (21:12)
[2017-07-19] MEDS: CARVEDILOL 3.125 MG TABLET PO SCH (21:12)
[2017-07-20] MEDS: VANCOMYCIN HCL 1,000 MG in DEXTROSE 5%-WATER 250 ML IV SCH ×3 (03:25→17:28)
[2017-07-20 05:48] LABS: HEMATOCRIT 35.8 % (37.9-51.0); HEMOGLOBIN 12.4 g/dL (13.5-17.0); MEAN CORPUSCULAR HEMOGLOBIN 30.3 pg (27.0-33.4); MEAN CORPUSCULAR HGB CONC 34.6 g/dL (32.0-36.0); MEAN CORPUSCULAR VOLUME 88 fl (80-97); PLATELET COUNT 365 10^3/uL (150-450); RED BLOOD COUNT 4.08 10^6/uL (4.35-5.55); RED CELL DISTRIBUTION WIDTH 13.1 % (11.5-14.0); WHITE BLOOD COUNT 9.9 10^3/uL (4.0-10.5)
[2017-07-20 06:08] LABS: ANION GAP 8 (5-19); BLOOD UREA NITROGEN 13 mg/dL (7-20); CALCIUM 8.4 mg/dL (8.4-10.2); CARBON DIOXIDE 32 mmol/L (22-30); CHLORIDE 100 mmol/L (98-107); GLUCOSE 237 mg/dL (75-110); POTASSIUM 3.6 mmol/L (3.6-5.0); SODIUM 139.8 mmol/L (137-145)
[2017-07-20] MEDS: INSULIN LISPRO 100 UNIT/ML 3 ML VIAL SUBCUT PRN ×3 (08:18→17:28)
[2017-07-20] MEDS: CITALOPRAM HYDROBROMIDE 20 MG TABLET PO SCH (10:21)
[2017-07-20] MEDS: CARVEDILOL 3.125 MG TABLET PO SCH ×2 (10:21→21:59)
[2017-07-20] MEDS: LANSOPRAZOLE 30 MG TAB.RAP.DR PO SCH (10:21)
[2017-07-20] MEDS: LOSARTAN POTASSIUM 50 MG TABLET PO SCH (10:21)
[2017-07-20] MEDS: HYDROCHLOROTHIAZIDE 25 MG TABLET PO SCH (10:21)
[2017-07-20] MEDS: DOCUSATE SODIUM 100 MG CAPSULE PO SCH ×2 (10:23→17:24)
[2017-07-20] MEDS: SCOPOLAMINE HYDROBROMIDE 1.5 MG PATCH.TD72 TD SCH (10:23)
[2017-07-20] MEDS: ENOXAPARIN SODIUM INJ 30 MG/0.3 ML DISP.SYRIN SUBCUT SCH (10:23)
--- NOTE | 2017-07-20 13:08 | PDOC PROGRESS REPORT ---
Subjective Progress Note for:: 07/20/17 Subjective:: The patient is a 56-year-old male with past medical history significant for hypertension and diabetes mellitus type 2 who was admitted by the surgical service for gangrene of the great toe of the right foot now status post amputation. The hospitalist service was consulted for diabetes management. The patient is seen on morning rounds; he is found resting in bed comfortably on room air. He reports that the metallic taste in his mouth has resolved and he is looking forward to his breakfast. Overall, he is feeling very good and is looking forward to his upcoming discharge. He denies foot pain. He denies fever, chills, body aches, chest pain, palpitations, dyspnea, abdominal pain, nausea and emesis. He has no new questions or concerns today. Reason For Visit: GANGRENE OF R TOE Physical Exam Vital Signs: Temp Pulse Resp BP Pulse Ox 98.6 F 79 13 163/91 H 96 07/20/17 07:42 07/20/17 07:42 07/20/17 07:42 07/20/17 07:42 07/20/17 07:42 Intake & Output 07/19/17 07/20/17 07/21/17 06:59 06:59 06:59 Intake Total 1673 3329 Output Total 1620 725 Balance 53 2604 Weight 65 kg 63.1 kg General appearance: PRESENT: no acute distress, cooperative, well-developed, well-nourished, other - Overweight Head exam: PRESENT: atraumatic, normocephalic Eye exam: PRESENT: conjunctiva pink, EOMI, PERRLA. ABSENT: scleral icterus Ear exam: PRESENT: normal external ear exam Mouth exam: PRESENT: moist, tongue midline Neck exam: ABSENT: carotid bruit, JVD, lymphadenopathy, thyromegaly Respiratory exam: PRESENT: clear to auscultation priyank, symmetrical, unlabored. ABSENT: rales, rhonchi, wheezes Cardiovascular exam: PRESENT: RRR, +S1, +S2. ABSENT: diastolic murmur, rubs, systolic murmur Pulses: PRESENT: normal dorsalis pedis pul Vascular exam: PRESENT: normal capillary refill GI/Abdominal exam: PRESENT: normal bowel sounds, soft. ABSENT: distended, guarding, mass, organolmegaly, rebound, tenderness Rectal exam: PRESENT: deferred Extremities exam: PRESENT: full ROM. ABSENT: calf tenderness, clubbing, pedal edema Neurological exam: PRESENT: alert, awake, oriented to person, oriented to place , oriented to time, oriented to situation, CN II-XII grossly intact. ABSENT: motor sensory deficit Psychiatric exam: PRESENT: appropriate affect, normal mood. ABSENT: homicidal ideation, suicidal ideation Skin exam: PRESENT: dry, intact, warm. ABSENT: cyanosis, rash Results Laboratory Results: 07/20/17 05:30 07/20/17 05:30 07/20/17 07/20/17 05:30 05:30 WBC 9.9 RBC 4.08 L Hgb 12.4 L Hct 35.8 L MCV 88 MCH 30.3 MCHC 34.6 RDW 13.1 Plt Count 365 Sodium 139.8 Potassium 3.6 Chloride 100 Carbon Dioxide 32 H Anion Gap 8 BUN 13 Creatinine 1.12 Est GFR ( Amer) > 60 Est GFR (Non-Af Amer) > 60 Glucose 237 H Calcium 8.4 07/12/17 07/12/17 07/12/17 15:46 15:46 21:12 Creatine Kinase 51 L CK-MB (CK-2) 1.22 Troponin I 0.016 0.036 NT-Pro-B Natriuret Pep 07/13/17 07/16/17 07/20/17 03:39 10:50 05:30 Creatine Kinase CK-MB (CK-2) Troponin I 0.027 < 0.012 NT-Pro-B Natriuret Pep 1860 H 624 Impressions: Foot X-Ray 07/11/17 16:58 IMPRESSION: Great toe soft tissue swelling with subcutaneous gas. No periosteal reaction to suggest osteomyelitis. Chest/Abdomen CTA 07/12/17 17:55 IMPRESSION: Bilateral lower lobe subsegmental atelectasis and small pleural effusions. Mild interstitial thickening consistent with mild pulmonary edema.No emboli visualized in the main pulmonary arteries. Breathing motion limits evaluation of the segmental branches. Venous Doppler Study 07/14/17 00:00 IMPRESSION: NO EVIDENCE DVT OR SVT IN EITHER LEG. Abdomen/Pelvis CT 07/16/17 00:00 IMPRESSION: NO SIGNIFICANT OR ACUTE FINDING IN THE ABDOMEN OR PELVIS ON CT SCAN WITH IV CONTRAST. Assessment & Plan - Diagnosis (1) Gangrene of toe of right foot Is this a current diagnosis for this admission?: Yes Plan: Now postop right great toe amputation. Initial blood cultures are negative at 5 days. Repeat blood cultures obtained while febrile have no growth at 5 days. Wound culture shows group B beta strep. Venous Doppler is negative for DVT/SVT (to rule out DVT as possible source of fever). Hospital service has assumed care from surgical team. We will continue IV vancomycin through 07/23 as advised by surgery. Continue dressing changes: Xeroform and gauze dressing. May ambulate with surgical shoe. Patient to follow-up with the surgical clinic 1 week following discharge. (2) Fever Qualifiers: Fever type: post-procedural Qualified Code(s): R50.82 - Postprocedural fever Is this a current diagnosis for this admission?: Yes Plan: Resolved. Patient is afebrile, leukocytosis has resolved. Postop right great toe amputation. Initial blood cultures are negative at 5 days. Repeat blood cultures obtained while febrile have no growth at 5 days. Urine culture has no growth at 2 days. Wound culture shows group B beta strep. Venous Doppler is negative for DVT/SVT (to rule out DVT as possible source of fever). We will continue IV vancomycin. Incentive spirometer to bedside. Tylenol as needed. (3) Suicidal ideations Is this a current diagnosis for this admission?: Yes Plan: IVC rescinded. Psychiatry was consulted; appreciate their evealuation and recommendations. Suicide precautions. Psychiatry's medication recommendations are continued; Celexa 20 mg p.o. daily and BuSpar 10 mg nightly. (4) Diabetes mellitus Qualifiers: Diabetes mellitus type: type 2 Diabetes mellitus group home insulin use: with heavy equipment sales manager use Diabetes mellitus complication status: without complication Qualified Code(s): E11.9 - Type 2 diabetes mellitus without complications; Z79.4 - disintegrator feeder (current) use of insulin; Z79.4 - disintegrator feeder ( current) use of insulin; Z79.4 - disintegrator feeder (current) use of insulin; Z79.4 - residential (current) use of insulin Is this a current diagnosis for this admission?: Yes Plan: Hemoglobin A1c 7.9%. Holding metformin and glimepiride while inpatient. He is placed on a consistent carb diet. Accu-Cheks before meals and at bedtime with Humalog for sliding scale coverage. The cosmetology educator has been consulted; appreciate her assistance. Discussed with patient potential of additional antidiabetic medication at discharge. He is currently taking metformin 1000 mg twice daily and glimepiride 4 mg twice daily. He has done well with his diet over the last year and has decreased his hemoglobin A1c from 13.1 to 7.9. He feels that he is having difficulty obtaining further control with diet and exercise. Would advise against Januvia secondary to delayed gastric emptying in patient with gastroparesis. May consider Jardiance. (5) Hypertension Is this a current diagnosis for this admission?: Yes Plan: The patient continues to remain hypertensive. We will continue his home dose of losartan and HCTZ. Continue Norvasc 10 mg p.o. daily. Continue low-dose Coreg; this may also be beneficial for frequent PVCs noted on EKG/telemetry. IV hydralazine as needed for blood pressure control. (6) Depression Qualifiers: Depression Type: major depressive disorder Is this a current diagnosis for this admission?: Yes Plan: Psychiatry has been consulted. Plan as above. (7) Epigastric pain Is this a current diagnosis for this admission?: Yes Plan: Resolved. The patient reported epigastric pain to his surgeon. Per nursing and surgeon, there was some concern that this may be cardiac related. Dr. Steele graciously ordered an EKG and initial troponin. I do not feel that this is related to an acute cardiac event. His discomfort was most likely related to known gastroparesis. Unfortunately, with a prolonged QTc interval I am hesitant to start him on Reglan. We will trial scopolamine patch. (8) Diastolic CHF Qualifiers: Heart failure chronicity: unspecified Qualified Code(s): I50.30 - Unspecified diastolic (congestive) heart failure Is this a current diagnosis for this admission?: Yes Plan: EKG demonstrated a sinus rhythm, PVC, diffuse nonspecific T wave abnormalities and a prolonged QT interval. Troponin is negative. ProBNP is 1860 --> [address] of ABD/Pelvis is benign. Echocardiogram revealed mild concentric left ventricular hypertrophy and mild to moderate diastolic dysfunction with a poorly preserved ejection fraction. IV fluids have been discontinued. Patient is placed on a cardiac diet. (9) Atypical chest pain Is this a current diagnosis for this admission?: Yes Plan: Resolved; likely was secondary to gastroparesis. As above. (10) Hypokalemia Is this a current diagnosis for this admission?: Yes Plan: Replete; secondary to poor p.o. intake. The patient reports a return of appetite and I anticipate stabilization of electrolytes now that he is eating adequate intake. - Time Time Spent with patient: 15-24 minutes Medications reviewed and adjusted accordingly: Yes Anticipated discharge: Home Within: Other - 3-4 days
[2017-07-20] MEDS: AMLODIPINE BESYLATE 5 MG TABLET PO SCH (15:50)
[2017-07-20] MEDS: BUSPIRONE HCL 10 MG TABLET PO SCH (21:59)
[2017-07-21 06:26] LABS: HEMATOCRIT 35.3 % (37.9-51.0); HEMOGLOBIN 12.1 g/dL (13.5-17.0); MEAN CORPUSCULAR HEMOGLOBIN 29.8 pg (27.0-33.4); MEAN CORPUSCULAR HGB CONC 34.4 g/dL (32.0-36.0); MEAN CORPUSCULAR VOLUME 87 fl (80-97); PLATELET COUNT 317 10^3/uL (150-450); RED BLOOD COUNT 4.07 10^6/uL (4.35-5.55); RED CELL DISTRIBUTION WIDTH 13.1 % (11.5-14.0)
[2017-07-21 06:50] LABS: ANION GAP 10 (5-19); BLOOD UREA NITROGEN 14 mg/dL (7-20); CALCIUM 8.7 mg/dL (8.4-10.2); CARBON DIOXIDE 35 mmol/L (22-30); CHLORIDE 95 mmol/L (98-107); GLUCOSE 260 mg/dL (75-110); POTASSIUM 3.5 mmol/L (3.6-5.0); SODIUM 139.9 mmol/L (137-145)
[2017-07-21] MEDS: HYDROCHLOROTHIAZIDE 25 MG TABLET PO SCH (09:35)
[2017-07-21] MEDS: CARVEDILOL 3.125 MG TABLET PO SCH ×2 (09:35→22:15)
[2017-07-21] MEDS: LOSARTAN POTASSIUM 50 MG TABLET PO SCH (09:36)
[2017-07-21] MEDS: CITALOPRAM HYDROBROMIDE 20 MG TABLET PO SCH (09:36)
[2017-07-21] MEDS: LANSOPRAZOLE 30 MG TAB.RAP.DR PO SCH (09:37)
[2017-07-21] MEDS: DOCUSATE SODIUM 100 MG CAPSULE PO SCH ×2 (09:47→17:47)
[2017-07-21] MEDS: ENOXAPARIN SODIUM INJ 30 MG/0.3 ML DISP.SYRIN SUBCUT SCH (09:47)
[2017-07-21] MEDS ORDERED: VANCOMYCIN HCL 0 MG in DEXTROSE 5%-WATER 250 ML IV NR (11:15)
[2017-07-21] MEDS ORDERED: VANCOMYCIN HCL 1,250 MG in DEXTROSE 5%-WATER 250 ML IV ONE (11:30)
[2017-07-21] MEDS: INSULIN LISPRO 100 UNIT/ML 3 ML VIAL SUBCUT PRN ×2 (13:49→17:47)
[2017-07-21] MEDS: AMLODIPINE BESYLATE 5 MG TABLET PO SCH (15:29)
--- NOTE | 2017-07-21 17:09 | PDOC PROGRESS REPORT ---
Subjective Progress Note for:: 07/21/17 Subjective:: KEISHA SILVERIO is a 56 year old male admitted for right great toe swelling and patient found to have gangrene. Status post amputation of right great toe and distal head of the R 1st metatarsal. The hospitalist service consulted to co-manage his diabetes and hypertension. Patient was seen this morning on rounds, he is found resting comfortably in his bedside recliner on room air. Overall, he states he feels very well this morning. He denies foot pain, fever, chills, body aches, chest pain, shortness of breath, palpitations, nausea/vomiting, or abdominal pain. Reason For Visit: GANGRENE OF R TOE Physical Exam Vital Signs: Temp Pulse Resp BP Pulse Ox 97.9 F 78 18 141/81 H 100 07/21/17 15:52 07/21/17 15:52 07/21/17 15:52 07/21/17 15:52 07/21/17 15:52 Intake & Output 07/20/17 07/21/17 07/22/17 06:59 06:59 06:59 Intake Total 3329 1972 Output Total 725 1160 Balance 2604 812 Weight 63.1 kg 88.7 kg General appearance: PRESENT: no acute distress Eye exam: PRESENT: conjunctiva pink, PERRLA Mouth exam: PRESENT: moist Neck exam: PRESENT: full ROM Respiratory exam: PRESENT: clear to auscultation priyank, symmetrical, unlabored Cardiovascular exam: PRESENT: +S1, +S2 Pulses: PRESENT: normal radial pulses, normal dorsalis pedis pul - L FOOT. +PT PULSES R FOOT, UNABLE TO ASSESS R FOOT DP PULSES DUE TO SURGICAL DRESSING GI/Abdominal exam: PRESENT: normal bowel sounds, soft. ABSENT: tenderness Rectal exam: PRESENT: deferred Extremities exam: PRESENT: full ROM Musculoskeletal exam: PRESENT: ambulatory - WITH SURGICAL SHOE, full ROM Neurological exam: PRESENT: alert, awake, oriented to person, oriented to place , oriented to time, oriented to situation Psychiatric exam: PRESENT: appropriate affect. ABSENT: homicidal ideation, suicidal ideation Skin exam: PRESENT: dry, intact, normal color Results Laboratory Results: 07/21/17 06:02 07/21/17 06:02 07/21/17 07/21/17 06:02 06:02 WBC 9.0 RBC 4.07 L Hgb 12.1 L Hct 35.3 L MCV 87 MCH 29.8 MCHC 34.4 RDW 13.1 Plt Count 317 Sodium 139.9 Potassium 3.5 L Chloride 95 L Carbon Dioxide 35 H Anion Gap 10 BUN 14 Creatinine 1.13 Est GFR ( Amer) > 60 Est GFR (Non-Af Amer) > 60 Glucose 260 H Calcium 8.7 07/12/17 07/12/17 07/12/17 15:46 15:46 21:12 Creatine Kinase 51 L CK-MB (CK-2) 1.22 Troponin I 0.016 0.036 NT-Pro-B Natriuret Pep 07/13/17 07/16/17 07/20/17 03:39 10:50 05:30 Creatine Kinase CK-MB (CK-2) Troponin I 0.027 < 0.012 NT-Pro-B Natriuret Pep 1860 H 624 Impressions: Foot X-Ray 07/11/17 16:58 IMPRESSION: Great toe soft tissue swelling with subcutaneous gas. No periosteal reaction to suggest osteomyelitis. Chest/Abdomen CTA 07/12/17 17:55 IMPRESSION: Bilateral lower lobe subsegmental atelectasis and small pleural effusions. Mild interstitial thickening consistent with mild pulmonary edema.No emboli visualized in the main pulmonary arteries. Breathing motion limits evaluation of the segmental branches. Venous Doppler Study 07/14/17 00:00 IMPRESSION: NO EVIDENCE DVT OR SVT IN EITHER LEG. Abdomen/Pelvis CT 07/16/17 00:00 IMPRESSION: NO SIGNIFICANT OR ACUTE FINDING IN THE ABDOMEN OR PELVIS ON CT SCAN WITH IV CONTRAST. Status: Imported from PACS Assessment & Plan - Diagnosis (1) Gangrene of toe of right foot Is this a current diagnosis for this admission?: Yes Plan: Postop right great toe amputation. Initial blood cultures no growth to date. Repeat blood cultures (obtained all febrile) no growth to date. Wound culture growing group B beta strep. Venous Doppler negative for DVT/SVT (R/O DVT as possible source of fever) Hospital service has assumed care from surgical team. Continue IV vancomycin through 07/24 as advised by surgery (initially, antibiotic therapy was supposed to END 07/23, but extended for 24 hours because patient missed 2 doses of IV vancomycin overnight). Continue dressing changes: Xeroform and gauze dressing. May ambulate with surgical shoe. Patient will need to follow-up with surgical clinic 1 week post-discharge (2) Fever Qualifiers: Fever type: post-procedural Qualified Code(s): R50.82 - Postprocedural fever Is this a current diagnosis for this admission?: Yes Plan: Resolved. Patient is afebrile, leukocytosis has resolved. Postop R great toe amputation. Initial blood cultures negative Repeat blood cultures while febrile no growth to date Urine culture no growth Wound culture growing group B beta strep Venous Doppler negative for DVT/SVT to rule out DVT as possible source of fever Continue IV vancomycin until 07/24 Incentive spirometer to bedside Tylenol as needed for fever (3) Hypertension Is this a current diagnosis for this admission?: Yes Plan: Patient endorses a history of hypertension. The patient is relatively NORMOtensive over the last 24 hours. Continue home dose losartan and hydrochlorothiazide Continue Norvasc to 10 mg p.o. daily, will likely need to continue post discharge IV hydralazine 10 mg as needed for SBP > 170 (4) Diabetes mellitus Qualifiers: Diabetes mellitus type: type 2 Diabetes mellitus emt intermediate insulin use: with emt intermediate use Diabetes mellitus complication status: without complication Qualified Code(s): E11.9 - Type 2 diabetes mellitus without complications; Z79.4 - emt intermediate (current) use of insulin; Z79.4 - nursing home ( current) use of insulin; Z79.4 - emt intermediate (current) use of insulin; Z79.4 - emt intermediate (current) use of insulin Is this a current diagnosis for this admission?: Yes Plan: Hemoglobin A1c 7.9%. The patient endorses a history of diabetes, takes metformin and glimepiride at home, on hold while inpatient. The patient reports he has done well with his home medication regimen, over the last years decrease his hemoglobin A1c from 13.1-7.9. prosthodontist/educator has been consulted and met with patient last week. They discussed dietary restrictions in relation to his diabetes. Continue consistent carb diet Continue Accu-Cheks before meals at bedtime with Humalog sliding scale insulin. (5) Suicidal ideations Is this a current diagnosis for this admission?: Yes Plan: IVC rescinded. No longer on suicide precautions. Psychiatry was consulted, medication recommendations are: Celexa 20 mg p.o. daily and BuSpar 10 mg nightly (6) Depression Qualifiers: Depression Type: major depressive disorder Is this a current diagnosis for this admission?: Yes Plan: Psychiatry has been consulted. Plan as above (7) Diastolic CHF Qualifiers: Heart failure chronicity: unspecified Qualified Code(s): I50.30 - Unspecified diastolic (congestive) heart failure Is this a current diagnosis for this admission?: Yes Plan: EKG demonstrates normal sinus rhythm, occasional PVC, diffuse nonspecific T- wave abnormalities and prolonged QT interval. Serial troponin negative, no longer trending. Initial proBNP 1860, trending down to 624 CT abdomen/pelvis benign Echocardiogram revealed mild concentric LVH with mild to moderate diastolic dysfunction with a poorly preserved ejection fraction. IV fluids have been discontinued, patient tolerating p.o. Continue cardiac diet (8) Epigastric pain Is this a current diagnosis for this admission?: Yes Plan: Resolved. The patient reported epigastric pain to surgeon, there was some concern that this may be cardiac related. EKG and serial cardiac enzymes negative. His abdominal discomfort is most likely related to gastroparesis. Unfortunately, with a prolonged QTC unable to prescribe Reglan. Scopolamine patch seems to helps with symptomology, plan to continue. - Time Time Spent with patient: 15-24 minutes Medications reviewed and adjusted accordingly: Yes Anticipated discharge: Home Within: within 72 hours - Inpatient Certification Medical Necessity: Need for IV Antibiotics, Risk of Complication if Not Cared For in Hospital - Plan Summary Plan Summary: Will remain inpatient IV antibiotic therapy
[2017-07-21] MEDS: BUSPIRONE HCL 10 MG TABLET PO SCH (22:15)
[2017-07-21] MEDS: VANCOMYCIN HCL 1,250 MG in DEXTROSE 5%-WATER 250 ML IV SCH (22:16)
[2017-07-22 06:29] LABS: HEMATOCRIT 36.2 % (37.9-51.0); HEMOGLOBIN 12.4 g/dL (13.5-17.0); MEAN CORPUSCULAR HEMOGLOBIN 29.6 pg (27.0-33.4); MEAN CORPUSCULAR HGB CONC 34.2 g/dL (32.0-36.0); MEAN CORPUSCULAR VOLUME 87 fl (80-97); PLATELET COUNT 343 10^3/uL (150-450); RED BLOOD COUNT 4.18 10^6/uL (4.35-5.55); RED CELL DISTRIBUTION WIDTH 12.8 % (11.5-14.0); WHITE BLOOD COUNT 7.7 10^3/uL (4.0-10.5)
[2017-07-22 06:48] LABS: ANION GAP 11 (5-19); BLOOD UREA NITROGEN 14 mg/dL (7-20); CALCIUM 8.9 mg/dL (8.4-10.2); CARBON DIOXIDE 34 mmol/L (22-30); CHLORIDE 93 mmol/L (98-107); GLUCOSE 245 mg/dL (75-110); POTASSIUM 3.4 mmol/L (3.6-5.0); SODIUM 137.9 mmol/L (137-145)
[2017-07-22] MEDS ORDERED: MAGNESIUM SULFATE/D5W 1 GM/100 ML RTUPB IV ONE (08:30)
[2017-07-22] MEDS ORDERED: POTASSIUM CHLORIDE 10 MEQ TABLET.SA PO ONE (08:30)
[2017-07-22] MEDS: INSULIN LISPRO 100 UNIT/ML 3 ML VIAL SUBCUT PRN ×3 (09:11→21:48)
[2017-07-22] MEDS: LANSOPRAZOLE 30 MG TAB.RAP.DR PO SCH (09:12)
[2017-07-22] MEDS: HYDROCHLOROTHIAZIDE 25 MG TABLET PO SCH (09:13)
[2017-07-22] MEDS: LOSARTAN POTASSIUM 50 MG TABLET PO SCH (09:13)
[2017-07-22] MEDS: CITALOPRAM HYDROBROMIDE 20 MG TABLET PO SCH (09:13)
[2017-07-22] MEDS: CARVEDILOL 3.125 MG TABLET PO SCH ×2 (09:14→21:48)
[2017-07-22] MEDS: DOCUSATE SODIUM 100 MG CAPSULE PO SCH ×2 (09:18→17:41)
[2017-07-22] MEDS: ENOXAPARIN SODIUM INJ 30 MG/0.3 ML DISP.SYRIN SUBCUT SCH (09:18)
[2017-07-22] MEDS: VANCOMYCIN HCL 1,250 MG in DEXTROSE 5%-WATER 250 ML IV SCH ×2 (10:31→21:48)
[2017-07-22] MEDS: AMLODIPINE BESYLATE 5 MG TABLET PO SCH (15:35)
--- NOTE | 2017-07-22 20:40 | PDOC PROGRESS REPORT ---
Subjective Progress Note for:: 07/22/17 Subjective:: KEISHA SILVERIO is a 56 year old male admitted for right great toe swelling and patient found to have gangrene. Status post amputation of right great toe and distal head of the R 1st metatarsal. The hospitalist service consulted to co-manage his diabetes and hypertension. Patient was seen this morning on rounds, he is found resting comfortably in bed. Overall, he states he feels very well this morning. He denies foot pain, fever, chills, body aches, chest pain, shortness of breath, palpitations, nausea /vomiting, or abdominal pain. He is very concerned about the filing of his short term disability paperwork. Case management is aware of the patient's request, they have a medicaid worker scheduled to meet with the patient today. Reason For Visit: GANGRENE OF R TOE Physical Exam Vital Signs: Temp Pulse Resp BP Pulse Ox 98.7 F 77 17 167/94 H 97 07/22/17 16:00 07/22/17 16:00 07/22/17 16:00 07/22/17 16:00 07/22/17 16:00 Intake & Output 07/21/17 07/22/17 07/23/17 06:59 06:59 06:59 Intake Total 1972 2240 1730 Output Total 1160 1220 1450 Balance 812 1020 280 Weight 88.7 kg 88.7 kg General appearance: PRESENT: no acute distress Eye exam: PRESENT: conjunctiva pink, PERRLA Mouth exam: PRESENT: moist Neck exam: PRESENT: full ROM Respiratory exam: PRESENT: clear to auscultation priyank, symmetrical, unlabored Cardiovascular exam: PRESENT: +S1, +S2 Pulses: PRESENT: normal radial pulses GI/Abdominal exam: PRESENT: normal bowel sounds, soft. ABSENT: tenderness Rectal exam: PRESENT: deferred Extremities exam: PRESENT: full ROM Musculoskeletal exam: PRESENT: ambulatory - with surgical shoe, full ROM Neurological exam: PRESENT: alert, awake, oriented to person, oriented to place , oriented to time, oriented to situation Psychiatric exam: PRESENT: appropriate affect Skin exam: PRESENT: dry, intact, warm Results Laboratory Results: 07/22/17 06:19 07/22/17 06:19 07/22/17 07/22/17 06:19 06:19 WBC 7.7 RBC 4.18 L Hgb 12.4 L Hct 36.2 L MCV 87 MCH 29.6 MCHC 34.2 RDW 12.8 Plt Count 343 Sodium 137.9 Potassium 3.4 L Chloride 93 L Carbon Dioxide 34 H Anion Gap 11 BUN 14 Creatinine 1.08 Est GFR ( Amer) > 60 Est GFR (Non-Af Amer) > 60 Glucose 245 H Calcium 8.9 Phosphorus 4.0 Magnesium 1.7 07/12/17 07/12/17 07/12/17 15:46 15:46 21:12 Creatine Kinase 51 L CK-MB (CK-2) 1.22 Troponin I 0.016 0.036 NT-Pro-B Natriuret Pep 07/13/17 07/16/17 07/20/17 03:39 10:50 05:30 Creatine Kinase CK-MB (CK-2) Troponin I 0.027 < 0.012 NT-Pro-B Natriuret Pep 1860 H 624 Impressions: Foot X-Ray 07/11/17 16:58 IMPRESSION: Great toe soft tissue swelling with subcutaneous gas. No periosteal reaction to suggest osteomyelitis. Chest/Abdomen CTA 07/12/17 17:55 IMPRESSION: Bilateral lower lobe subsegmental atelectasis and small pleural effusions. Mild interstitial thickening consistent with mild pulmonary edema.No emboli visualized in the main pulmonary arteries. Breathing motion limits evaluation of the segmental branches. Venous Doppler Study 07/14/17 00:00 IMPRESSION: NO EVIDENCE DVT OR SVT IN EITHER LEG. Abdomen/Pelvis CT 07/16/17 00:00 IMPRESSION: NO SIGNIFICANT OR ACUTE FINDING IN THE ABDOMEN OR PELVIS ON CT SCAN WITH IV CONTRAST. Status: Imported from PACS Assessment & Plan - Diagnosis (1) Gangrene of toe of right foot Is this a current diagnosis for this admission?: Yes Plan: Postop right great toe amputation. Initial blood cultures no growth to date. Repeat blood cultures (obtained all febrile) no growth to date. Wound culture growing group B beta strep. Venous Doppler negative for DVT/SVT (R/O DVT as possible source of fever) Hospital service has assumed care from surgical team. Continue IV vancomycin through 07/24 as advised by surgery (initially, antibiotic therapy was supposed to END 07/23, but extended for 24 hours because patient missed 2 doses of IV vancomycin). Continue dressing changes: Xeroform and gauze dressing. May ambulate with surgical shoe. Patient will need to follow-up with surgical clinic 1 week post-discharge (2) Fever Qualifiers: Fever type: post-procedural Qualified Code(s): R50.82 - Postprocedural fever Is this a current diagnosis for this admission?: Yes Plan: Resolved. Patient is afebrile, leukocytosis has resolved. Postop R great toe amputation. Initial blood cultures negative Repeat blood cultures while febrile no growth to date Urine culture no growth Wound culture growing group B beta strep Venous Doppler negative for DVT/SVT to rule out DVT as possible source of fever Continue IV vancomycin until 07/24 Incentive spirometer to bedside Tylenol as needed for fever (3) Hypertension Is this a current diagnosis for this admission?: Yes Plan: Patient endorses a history of hypertension. The patient is relatively NORMOtensive over the last 24 hours. Continue home dose losartan and hydrochlorothiazide Continue Norvasc to 10 mg p.o. daily, will likely need to continue post discharge IV hydralazine 10 mg as needed for SBP > 170 (4) Diabetes mellitus Qualifiers: Diabetes mellitus type: type 2 Diabetes mellitus watermelon inspector insulin use: with watermelon inspector use Diabetes mellitus complication status: without complication Qualified Code(s): E11.9 - Type 2 diabetes mellitus without complications; Z79.4 - retirement (current) use of insulin; Z79.4 - retirement ( current) use of insulin; Z79.4 - petroleum terminal plant operator (current) use of insulin; Z79.4 - retirement (current) use of insulin Is this a current diagnosis for this admission?: Yes Plan: Hemoglobin A1c 7.9%. The patient endorses a history of diabetes, takes metformin and glimepiride at home, on hold while inpatient. The patient reports he has done well with his home medication regimen, over the last years decrease his hemoglobin A1c from 13.1-7.9. perinatal educator has been consulted and met with patient last week. They discussed dietary restrictions in relation to his diabetes. Continue consistent carb diet Continue Accu-Cheks before meals at bedtime with Humalog sliding scale insulin. (5) Suicidal ideations Is this a current diagnosis for this admission?: Yes Plan: IVC rescinded. No longer on suicide precautions. Psychiatry was consulted, medication recommendations are: Celexa 20 mg p.o. daily and BuSpar 10 mg nightly (6) Depression Qualifiers: Depression Type: major depressive disorder Is this a current diagnosis for this admission?: Yes Plan: Psychiatry has been consulted. Plan as above (7) Diastolic CHF Qualifiers: Heart failure chronicity: unspecified Qualified Code(s): I50.30 - Unspecified diastolic (congestive) heart failure Is this a current diagnosis for this admission?: Yes Plan: EKG demonstrates normal sinus rhythm, occasional PVC, diffuse nonspecific T- wave abnormalities and prolonged QT interval. Serial troponin negative, no longer trending. Initial proBNP 1860, trending down to 624 CT abdomen/pelvis benign Echocardiogram revealed mild concentric LVH with mild to moderate diastolic dysfunction with a poorly preserved ejection fraction. IV fluids have been discontinued, patient tolerating p.o. Continue cardiac diet (8) Epigastric pain Is this a current diagnosis for this admission?: Yes Plan: Resolved. The patient reported epigastric pain to surgeon, there was some concern that this may be cardiac related. EKG and serial cardiac enzymes negative. His abdominal discomfort is most likely related to gastroparesis. Unfortunately, with a prolonged QTC unable to prescribe Reglan. Scopolamine patch seems to helps with symptomology, plan to continue. - Time Time Spent with patient: 15-24 minutes Medications reviewed and adjusted accordingly: Yes Anticipated discharge: Home - Inpatient Certification Based on my medical assessment, after consideration of the patient's comorbidities, presenting symptoms, or acuity I expect that the services needed warrant INPATIENT care.: Yes I certify that my determination is in accordance with my understanding of Medicare's requirements for reasonable and necessary INPATIENT services [42 CFR 412.3e].: Yes Medical Necessity: Need for IV Antibiotics, Risk of Complication if Not Cared For in Hospital - Plan Summary Plan Summary: discharge home following antibiotic treatment
[2017-07-22] MEDS: BUSPIRONE HCL 10 MG TABLET PO SCH (21:48)
[2017-07-22 22:07] LABS: VANCOMYCIN,TROUGH 19.8 ug/mL (5.0-20.0)
[2017-07-23 06:44] LABS: HEMATOCRIT 36.7 % (37.9-51.0); HEMOGLOBIN 12.7 g/dL (13.5-17.0); MEAN CORPUSCULAR HEMOGLOBIN 30.1 pg (27.0-33.4); MEAN CORPUSCULAR HGB CONC 34.5 g/dL (32.0-36.0); MEAN CORPUSCULAR VOLUME 87 fl (80-97); PLATELET COUNT 334 10^3/uL (150-450); RED BLOOD COUNT 4.21 10^6/uL (4.35-5.55); RED CELL DISTRIBUTION WIDTH 12.8 % (11.5-14.0); WHITE BLOOD COUNT 9.4 10^3/uL (4.0-10.5)
[2017-07-23 07:03] LABS: ANION GAP 11 (5-19); BLOOD UREA NITROGEN 21 mg/dL (7-20); CALCIUM 9.2 mg/dL (8.4-10.2); CARBON DIOXIDE 34 mmol/L (22-30); CHLORIDE 93 mmol/L (98-107); GLUCOSE 257 mg/dL (75-110); PHOSPHORUS 4.6 mg/dL (2.5-4.5); SODIUM 138.3 mmol/L (137-145)
[2017-07-23] MEDS ORDERED: DEXTROSE 50%-WATER 25 GM/50 ML DISP.SYRIN IV PRN ×2 (08:09)
[2017-07-23] MEDS ORDERED: DEXTROSE 40% GEL 15 GM TUBE PO PRN ×2 (08:09)
[2017-07-23] MEDS ORDERED: GLUCAGON,HUMAN RECOMB 1 MG INJ IM PRN (08:09)
[2017-07-23] MEDS ORDERED: NORMAL SALINE 1000 ML 500 ML IV ONE (09:00)
[2017-07-23] MEDS: LANSOPRAZOLE 30 MG TAB.RAP.DR PO SCH (09:25)
[2017-07-23] MEDS: HYDROCHLOROTHIAZIDE 25 MG TABLET PO SCH (09:26)
[2017-07-23] MEDS: LOSARTAN POTASSIUM 50 MG TABLET PO SCH (09:26)
[2017-07-23] MEDS: CARVEDILOL 3.125 MG TABLET PO SCH ×2 (09:31→21:27)
[2017-07-23] MEDS: CITALOPRAM HYDROBROMIDE 20 MG TABLET PO SCH (09:31)
[2017-07-23] MEDS: SCOPOLAMINE HYDROBROMIDE 1.5 MG PATCH.TD72 TD SCH (09:34)
[2017-07-23] MEDS: INSULIN LISPRO 100 UNIT/ML 3 ML VIAL SUBCUT PRN ×4 (09:39→21:57)
[2017-07-23] MEDS: DOCUSATE SODIUM 100 MG CAPSULE PO SCH ×2 (09:42→16:58)
[2017-07-23] MEDS: ENOXAPARIN SODIUM INJ 30 MG/0.3 ML DISP.SYRIN SUBCUT SCH (09:42)
[2017-07-23] MEDS: INSULIN GLARGINE,HUM.REC.ANLOG 300 UNIT/3 ML INSULN.PEN SUBCUT SCH (09:42)
[2017-07-23] MEDS: VANCOMYCIN HCL 1,250 MG in DEXTROSE 5%-WATER 250 ML IV SCH (09:45)
[2017-07-23] MEDS ORDERED: VANCOMYCIN HCL 1,250 MG in NORMAL SALINE 250 ML IV ONE (11:00)
--- NOTE | 2017-07-23 14:40 | PDOC PROGRESS REPORT ---
Subjective Progress Note for:: 07/23/17 Subjective:: KEISHA SILVERIO is a 56 year old male admitted for right great toe swelling and patient found to have gangrene. Status post amputation of right great toe and distal head of the R 1st metatarsal. The hospitalist service consulted to co-manage his diabetes and hypertension. Patient was seen this morning on rounds, he is found sitting up in bed. Overall , he states he feels very well this morning. He denies foot pain, fever, chills , body aches, chest pain, shortness of breath, palpitations, nausea/vomiting, or abdominal pain. The patient expresses increasing frustration that no one has talked to him about filing of his short term disability paperwork. The patient states he has repeatedly asked for help, and no one from case management has met with him. Case management is aware of the patient's request, they have a medicaid worker scheduled to meet with the patient today at 1330. Reason For Visit: GANGRENE OF R TOE Physical Exam Vital Signs: Temp Pulse Resp BP Pulse Ox 98.4 F 81 18 93/56 L 95 07/23/17 12:00 07/23/17 12:00 07/23/17 12:00 07/23/17 12:00 07/23/17 12:00 Intake & Output 07/22/17 07/23/17 07/24/17 06:59 06:59 06:59 Intake Total 2240 2560 Output Total 1220 2100 Balance 1020 460 Weight 88.7 kg 88.5 kg General appearance: PRESENT: no acute distress Eye exam: PRESENT: conjunctiva pink, PERRLA Mouth exam: PRESENT: moist Neck exam: PRESENT: full ROM Respiratory exam: PRESENT: clear to auscultation priyank, symmetrical, unlabored Cardiovascular exam: PRESENT: +S1, +S2 Pulses: PRESENT: normal radial pulses, normal dorsalis pedis pul Vascular exam: PRESENT: normal capillary refill GI/Abdominal exam: PRESENT: soft. ABSENT: tenderness Rectal exam: PRESENT: deferred Extremities exam: PRESENT: full ROM Musculoskeletal exam: PRESENT: ambulatory - WITH SURGICAL SHOE, full ROM Neurological exam: PRESENT: alert, awake, oriented to person, oriented to place , oriented to time, oriented to situation Psychiatric exam: PRESENT: appropriate affect Skin exam: PRESENT: dry, intact, warm Results Laboratory Results: 07/23/17 06:14 05/31/18 06:14 07/22/17 07/23/17 07/23/17 21:40 06:14 06:14 WBC 9.4 RBC 4.21 L Hgb 12.7 L Hct 36.7 L MCV 87 MCH 30.1 MCHC 34.5 RDW 12.8 Plt Count 334 Sodium 138.3 Potassium 4.0 Chloride 93 L Carbon Dioxide 34 H Anion Gap 11 BUN 21 H Creatinine 1.32 H 1.37 H Est GFR ( Amer) > 60 > 60 Est GFR (Non-Af Amer) 56 L 54 L Glucose 257 H Calcium 9.2 Phosphorus 4.6 H Magnesium 2.0 07/12/17 07/12/17 07/12/17 15:46 15:46 21:12 Creatine Kinase 51 L CK-MB (CK-2) 1.22 Troponin I 0.016 0.036 NT-Pro-B Natriuret Pep 07/13/17 07/16/17 07/20/17 03:39 10:50 05:30 Creatine Kinase CK-MB (CK-2) Troponin I 0.027 < 0.012 NT-Pro-B Natriuret Pep 1860 H 624 Impressions: Foot X-Ray 07/11/17 16:58 IMPRESSION: Great toe soft tissue swelling with subcutaneous gas. No periosteal reaction to suggest osteomyelitis. Chest/Abdomen CTA 07/12/17 17:55 IMPRESSION: Bilateral lower lobe subsegmental atelectasis and small pleural effusions. Mild interstitial thickening consistent with mild pulmonary edema.No emboli visualized in the main pulmonary arteries. Breathing motion limits evaluation of the segmental branches. Venous Doppler Study 07/14/17 00:00 IMPRESSION: NO EVIDENCE DVT OR SVT IN EITHER LEG. Abdomen/Pelvis CT 07/16/17 00:00 IMPRESSION: NO SIGNIFICANT OR ACUTE FINDING IN THE ABDOMEN OR PELVIS ON CT SCAN WITH IV CONTRAST. Status: Imported from PACS Assessment & Plan - Diagnosis (1) Gangrene of toe of right foot Is this a current diagnosis for this admission?: Yes Plan: Postop right great toe amputation. Initial blood cultures no growth to date. Repeat blood cultures (obtained all febrile) no growth to date. Wound culture growing group B beta strep. Venous Doppler negative for DVT/SVT (R/O DVT as possible source of fever) Hospital service has assumed care from surgical team. Continue IV vancomycin through 07/24 as advised by surgery (initially, antibiotic therapy was supposed to END 07/23, but extended for 24 hours because patient missed 2 doses of IV vancomycin). Continue dressing changes: Xeroform and gauze dressing. May ambulate with surgical shoe. Patient will need to follow-up with surgical clinic 1 week post-discharge (2) Fever Qualifiers: Fever type: post-procedural Qualified Code(s): R50.82 - Postprocedural fever Is this a current diagnosis for this admission?: Yes Plan: Resolved. Patient is afebrile, leukocytosis has resolved. Postop R great toe amputation. Initial blood cultures negative Repeat blood cultures while febrile no growth to date Urine culture no growth Wound culture growing group B beta strep Venous Doppler negative for DVT/SVT to rule out DVT as possible source of fever Continue IV vancomycin until 07/24 Incentive spirometer to bedside Tylenol as needed for fever (3) Hypertension Is this a current diagnosis for this admission?: Yes Plan: Patient endorses a history of hypertension. The patient is relatively NORMOtensive over the last 24 hours. Continue home dose losartan and hydrochlorothiazide Continue Norvasc to 10 mg p.o. 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 The patient endorses a history of diabetes, takes metformin and glimepiride at home, on hold while inpatient. The patient reports he has done well with his home medication regimen, over the last years decrease his hemoglobin A1c from 13.1-7.9. clinical systems educator has been consulted and met with patient last week. They discussed dietary restrictions in relation to his diabetes. Continue consistent carb diet Continue Accu-Cheks before meals at bedtime with Humalog sliding scale insulin. Blood glucose is not well controlled, according to charting the patient has not consistently been receiving SC insulin with every meal. BG range this week 207-341. Initiated Lantus 10u daily (5) Suicidal ideations Is this a current diagnosis for this admission?: Yes Plan: IVC rescinded. No longer on suicide precautions. Psychiatry was consulted, medication recommendations are: Celexa 20 mg p.o. daily and BuSpar 10 mg nightly (6) Depression Qualifiers: Depression Type: major depressive disorder Is this a current diagnosis for this admission?: Yes Plan: Psychiatry has been consulted. Plan as above (7) Diastolic CHF Qualifiers: Heart failure chronicity: unspecified Qualified Code(s): I50.30 - Unspecified diastolic (congestive) heart failure Is this a current diagnosis for this admission?: Yes Plan: EKG demonstrates normal sinus rhythm, occasional PVC, diffuse nonspecific T- wave abnormalities and prolonged QT interval. Serial troponin negative, no longer trending. Initial proBNP 1860, trending down to 624 CT abdomen/pelvis benign Echocardiogram revealed mild concentric LVH with mild to moderate diastolic dysfunction with a poorly preserved ejection fraction. IV fluids have been discontinued, patient tolerating p.o. Continue cardiac diet (8) Epigastric pain Is this a current diagnosis for this admission?: Yes Plan: Resolved. The patient reported epigastric pain to surgeon, there was some concern that this may be cardiac related. EKG and serial cardiac enzymes negative. His abdominal discomfort is most likely related to gastroparesis. Unfortunately, with a prolonged QTC unable to prescribe Reglan. Scopolamine patch seems to helps with symptomology, plan to continue. - Time Time Spent with patient: 15-24 minutes Medications reviewed and adjusted accordingly: Yes Anticipated discharge: Home Within: within 24 hours - Inpatient Certification Based on my medical assessment, after consideration of the patient's comorbidities, presenting symptoms, or acuity I expect that the services needed warrant INPATIENT care.: Yes I certify that my determination is in accordance with my understanding of Medicare's requirements for reasonable and necessary INPATIENT services [42 CFR 412.3e].: Yes Medical Necessity: Risk of Complication if Not Cared For in Hospital - Plan Summary Plan Summary: DISCHARGE HOME 07/24 FOLLOWING ANTIBIOTIC REGIMEN
[2017-07-23] MEDS: AMLODIPINE BESYLATE 5 MG TABLET PO SCH (16:56)
[2017-07-23] MEDS: BUSPIRONE HCL 10 MG TABLET PO SCH (21:27)
[2017-07-23] MEDS ORDERED: VANCOMYCIN HCL 1,250 MG in NORMAL SALINE 250 ML IV SCH (22:00)
[2017-07-23] MEDS ORDERED: KETOROLAC TROMETHAMINE INJ/PF 30 MG/1 ML SDV IV ONE (22:15)
[2017-07-24 06:26] LABS: HEMATOCRIT 34.7 % (37.9-51.0); HEMOGLOBIN 12.1 g/dL (13.5-17.0); MEAN CORPUSCULAR HEMOGLOBIN 30.1 pg (27.0-33.4); MEAN CORPUSCULAR HGB CONC 34.9 g/dL (32.0-36.0); MEAN CORPUSCULAR VOLUME 86 fl (80-97); PLATELET COUNT 336 10^3/uL (150-450); RED BLOOD COUNT 4.02 10^6/uL (4.35-5.55); RED CELL DISTRIBUTION WIDTH 13.2 % (11.5-14.0)
[2017-07-24 06:46] LABS: ANION GAP 11 (5-19); BLOOD UREA NITROGEN 32 mg/dL (7-20); CALCIUM 9.2 mg/dL (8.4-10.2); CARBON DIOXIDE 33 mmol/L (22-30); CHLORIDE 95 mmol/L (98-107); GLUCOSE 227 mg/dL (75-110); PHOSPHORUS 4.4 mg/dL (2.5-4.5); SODIUM 138.9 mmol/L (137-145)
[2017-07-24] MEDS: CITALOPRAM HYDROBROMIDE 20 MG TABLET PO SCH (10:04)
[2017-07-24] MEDS: CARVEDILOL 3.125 MG TABLET PO SCH (10:04)
[2017-07-24] MEDS: DOCUSATE SODIUM 100 MG CAPSULE PO SCH (10:04)
[2017-07-24] MEDS: LANSOPRAZOLE 30 MG TAB.RAP.DR PO SCH (10:04)
[2017-07-24] MEDS: HYDROCHLOROTHIAZIDE 25 MG TABLET PO SCH (10:04)
[2017-07-24] MEDS: LOSARTAN POTASSIUM 50 MG TABLET PO SCH (10:05)
[2017-07-24] MEDS: ENOXAPARIN SODIUM INJ 30 MG/0.3 ML DISP.SYRIN SUBCUT SCH (10:05)
[2017-07-24] MEDS: INSULIN GLARGINE,HUM.REC.ANLOG 300 UNIT/3 ML INSULN.PEN SUBCUT SCH (10:05)
[2017-07-24 12:27] VITALS: BP 162/86
== END 2017-07-24 15:58 | disposition home health service (06) | DRG 255 ==
LOC: ER 16:27 → EH 19:39 → 4S 22:05
PROVIDERS: ADMIT Surgery; ATTEND Surgery
PROC: 0Y6P0Z3 Detachment at Right 1st Toe, Low, Open Approach (ICD-10-PCS; principal; 2017-07-11 20:25)
DX: E11.52 Type 2 diabetes mellitus with diabetic peripheral angiopathy with gangrene (principal); A48.0 Gas gangrene; R45.851 Suicidal ideations; I50.30 Unspecified diastolic (congestive) heart failure; F32.2 Major depressive disorder, single episode, severe without psychotic features; E11.65 Type 2 diabetes mellitus with hyperglycemia; E11.43 Type 2 diabetes mellitus with diabetic autonomic (poly)neuropathy; I10 Essential (primary) hypertension; B95.1 Streptococcus, group B, as the cause of diseases classified elsewhere; R50.82 Postprocedural fever; E87.6 Hypokalemia; R10.13 Epigastric pain; K31.84 Gastroparesis; Z79.84 Long term (current) use of oral hypoglycemic drugs; Z79.899 Other long term (current) drug therapy
CPT/HCPCS: 01480; 36415; 71275; 74177; 80048; 80053; 80076; 80202; 81001; 82150; 82550; 82553; 82565; 82803; 82962; 83036; 83605; 83690; 83735; 83880; 84100; 84484; 85025; 85027; 85610; 87040; 87070; 87077; 87086; 87205; 88305; 88311; 93005; 93010; 93306; 93970; 94799; 96361; 96365; 96367; 99291; J0131; J0330; J0360; J1170; J1650; J1815; J1885; J2060; J2185; J2250; J2370; J2405; J2543; J2550; J2704; J2765; J3010; J3370; J3475; J3480; J3490; J7030; J7050; J7060; S0028; S0119

== ENCOUNTER → 2017-09-10 | Outpatient (CLI) | payer OTHER ==
[2017-09-10 12:26] LABS: ABSOLUTE EOSINOPHILS # (AUTO) 0.2 10^3/uL (0.0-0.6); ABSOLUTE LYMPHOCYTES (AUTO) 1.5 10^3/uL (0.5-4.7); ABSOLUTE MONOCYTES (AUTO) 0.9 10^3/uL (0.1-1.4); ABSOLUTE NEUT (AUTO) 6.3 10^3/uL (1.7-8.2); BASOPHILS % (AUTO) 0.5 % (0-2); EOSINOPHILS % (AUTO) 2.2 % (0-6); HEMATOCRIT 37.9 % (37.9-51.0); LYMPHOCYTES % (AUTO) 16.6 % (13-45); MEAN CORPUSCULAR HEMOGLOBIN 29.8 pg (27.0-33.4); MEAN CORPUSCULAR HGB CONC 34.4 g/dL (32.0-36.0); MEAN CORPUSCULAR VOLUME 87 fl (80-97); MONOCYTES % (AUTO) 9.6 % (3-13); PLATELET COUNT 244 10^3/uL (150-450); RED BLOOD COUNT 4.38 10^6/uL (4.35-5.55); RED CELL DISTRIBUTION WIDTH 14.5 % (11.5-14.0); SEGMENTED NEUTROPHILS % (AUTO) 71.1 % (42-78); TOTAL CELLS COUNTED % (AUTO) 100 %; WHITE BLOOD COUNT 8.9 10^3/uL (4.0-10.5)
[2017-09-10 13:10] LABS: ERYTHROCYTE SEDIMENTATION RATE 41 mm/hr (0-20)
--- NOTE | 2017-09-10 13:29 | RADIOLOGY REPORT (SQ) ---
EXAM DESCRIPTION: FOOT RIGHT COMPLETE COMPLETED DATE/TIME: 09/10/2017 11:52 am REASON FOR STUDY: PAIN IN RIGHT FOOT/OTHER SPECIFIED SOFT TISSUE DIS M79.671 PAIN IN RIGHT FOOT M79 .89 OTHER SPECIFIED SOFT TISSUE DISORDERS S98.111A COMPLETE TRAUMATIC AMPUTATION OF RIGHT GREAT TOE , I COMPARISON: 07/11/2017 NUMBER OF VIEWS: Three views. TECHNIQUE: AP, lateral and oblique radiographic images acquired of the right foot. LIMITATIONS: None. FINDINGS: MINERALIZATION: Overall normal bone density. BONES: Patient is post transmetatarsal amputation of the great toe. There is periosteal new bone at the 1st metatarsal osteotomy stump. Since the prior films 07/11/2017, patient has developed a subacute fractures at the distal 2nd and 3rd metatarsals, with dorsal displacement of the metatarsal heads with respect to the metatarsal shafts. 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 JOINTS: Fragmentation of the 2nd metatarsal head with bone debris in the 2nd MTP joint. SOFT TISSUES: Diffuse right foot soft tissue swelling. No radiopaque foreign body or soft tissue gas OTHER: No other significant finding. IMPRESSION: Periosteal new bone along the 1st metatarsal osteotomy likely from healing rather than i nfection. Clinical correlation recommended. Subacute dorsally displaced fractures of the distal 2nd and 3rd metatarsal diaphyses. Fragmentation of the 2nd metatarsal head we bony debris in the 2nd MTP joint. These findings are worrisome for kuldip ropathic Charcot foot. TECHNICAL DOCUMENTATION: JOB ID: [id number] [employer]- All Rights Reserved Reading location - IP/workstation name: [email or web address]
== END ==
LOC: RAD 11:30
PROVIDERS: ATTEND Surgery
DX: M79.671 Pain in right foot (principal); M79.89 Other specified soft tissue disorders; S98.111A Complete traumatic amputation of right great toe, initial encounter; X58.XXXA Exposure to other specified factors, initial encounter; Y93.9 Activity, unspecified; Y92.9 Unspecified place or not applicable
CPT/HCPCS: 36415; 85025; 85652

== ENCOUNTER → 2017-09-11 | Outpatient (CLI) | payer OTHER ==
--- NOTE | 2017-09-11 12:49 | RADIOLOGY REPORT (SQ) ---
EXAM DESCRIPTION: MRI RT LOWER EXTREMITY COMBO COMPLETED DATE/TIME: 09/11/2017 12:28 pm REASON FOR STUDY: PAIN IN RIGHT FOOT/OTHER SPECIFIED SOFT TISSUE DISORDERS M79.671 PAIN IN RIGHT F OOT COMPARISON: Venous Doppler 07/14/2017 Right foot films 09/10/2017, 07/11/2017 TECHNIQUE: Multiplanar imaging of the right foot to include T1-weighted, postcontrast T1-weighted, a nd T2-weighted images. CONTRAST TYPE AND DOSE: 15 mL Prohance. RENAL FUNCTION: GFR > 60. LIMITATIONS: None. FINDINGS: Patient is post old right 1st toe amputation at the mid 1st metatarsal. There is edema an d enhancement of the distal aspect of the 1st metatarsal at the osteotomy. Marrow edema throughout the 2nd metatarsal. There is a nonunited subacute fracture of the 2nd metata rsal distal metaphysis with dorsal displacement of the 2nd metatarsal head. There is a rind of surro unding fluid or phlegmon 3 x 3 cm in size with peripheral rim enhancement worrisome for abscess or he matoma at the fracture site. There is a nonunited subacute fracture of the distal 3rd metatarsal metaphysis with dorsal angulation and displacement of the 3rd metatarsal head. Minimal edema and enhancement in the 3rd metatarsal di aphysis. There is extensive D forefoot cellulitis with extensive edema and diffuse contrast enhancement in the soft tissues between the 2nd and 5th metatarsals. IMPRESSION: Diffuse forefoot cellulitis with edema and enhancement of the soft tissues 3 x 3 cm peripheral rim enhancing fluid collection surrounding the 2nd metatarsal head at the site of subacute 2nd metatarsal distal metaphysis fracture. This fluid collection could either represent he matoma or abscess. Mild marrow edema and contrast enhancement throughout the 2nd and 3rd metatarsals worrisome for osteo myelitis. Old prior 1st toe amputation at the mid metatarsal. Mild edema and enhancement at the osteotomy site , nonspecific TECHNICAL DOCUMENTATION: JOB ID: [id number] [employer]- All Rights Reserved Reading location - IP/workstation name: [email or web address]
== END ==
LOC: RAD 11:15
PROVIDERS: ATTEND Surgery
DX: M79.671 Pain in right foot (principal); M79.89 Other specified soft tissue disorders; L03.115 Cellulitis of right lower limb; Z89.421 Acquired absence of other right toe(s)
CPT/HCPCS: 82565; 73720; A9576

== ENCOUNTER 2018-02-07 16:37 | Inpatient (IN) | payer SELFPAY ==
[2018-02-07] MEDS ORDERED: NORMAL SALINE 1000 ML 1,000 ML IV ONE ×3 (18:01→21:09)
[2018-02-07 18:02] LABS: HEMATOCRIT 40.4 % (37.9-51.0); HEMOGLOBIN 14.1 g/dL (13.5-17.0); MEAN CORPUSCULAR HEMOGLOBIN 30.4 pg (27.0-33.4); MEAN CORPUSCULAR HGB CONC 34.8 g/dL (32.0-36.0); MEAN CORPUSCULAR VOLUME 87 fl (80-97); PLATELET COUNT 192 10^3/uL (150-450); RED BLOOD COUNT 4.62 10^6/uL (4.35-5.55); RED CELL DISTRIBUTION WIDTH 13.1 % (11.5-14.0); WHITE BLOOD COUNT 8.6 10^3/uL (4.0-10.5)
[2018-02-07 18:04] LABS: INTERNATIONAL RATION (INR) 1.02; PROTHROMBIN TIME 13.9 SEC (11.4-15.4)
[2018-02-07 18:16] LABS: VENOUS BLOOD BASE EXCESS 1.8 mmol/L; VENOUS BLOOD HCO3 25.8 mmol/L (20-32); VENOUS BLOOD PCO2 38.2 mmHg (35-63); VENOUS BLOOD PH 7.45 (7.30-7.42)
[2018-02-07 18:17] LABS: ALBUMIN 3.3 g/dL (3.5-5.0); ANION GAP 12 (5-19); BLOOD UREA NITROGEN 44 mg/dL (7-20); CARBON DIOXIDE 26 mmol/L (22-30); CHLORIDE 94 mmol/L (98-107); GLUCOSE 305 mg/dL (75-110); POTASSIUM 4.2 mmol/L (3.6-5.0); TOTAL PROTEIN 6.6 g/dL (6.3-8.2)
[2018-02-07 18:18] LABS: ALANINE AMINOTRANSFERASE 65 U/L (21-72); ALKALINE PHOSPHATASE 102 U/L (38-126); ASPARTATE AMINO TRANSFERASE 265 U/L (17-59); BILIRUBIN,DIRECT 0.4 mg/dL (0.0-0.4); BILIRUBIN,TOTAL 0.5 mg/dL (0.2-1.3); CALCIUM 8.4 mg/dL (8.4-10.2)
[2018-02-07 18:19] LABS: ABSOLUTE LYMPHOCYTES# (MANUAL) 0.2 10^3/uL (0.5-4.7); ABSOLUTE MONOCYTES # (MANUAL) 0.2 10^3/uL (0.1-1.4); ABSOLUTE NEUTROPHILS# (MANUAL) 8.3 10^3/uL (1.7-8.2); BASOPHILS % (MANUAL) 0 % (0-2); EOSINOPHILS % (MANUAL) 0 % (0-6); LYMPHOCYTES % (MANUAL) 2 % (13-45); MONOCYTES % (MANUAL) 2 % (3-13); PLATELET COMMENT ADEQUATE; SEGMENTED NEUTROPHILS % (MAN) 96 % (42-78); TOTAL CELLS COUNTED 100
[2018-02-07 18:39] LABS: LIPASE 35.4 U/L (23-300)
[2018-02-07 18:52] LABS: A TYPE INFLUENZA AG NEGATIVE (NEGATIVE); B INFLUENZA AG NEGATIVE (NEGATIVE)
--- NOTE | 2018-02-07 19:04 | RADIOLOGY REPORT (SQ) ---
EXAM DESCRIPTION: ACUTE ABDOMEN SERIES COMPLETED DATE/TIME: 02/07/2018 6:52 pm REASON FOR STUDY: nvd COMPARISON: None. NUMBER OF VIEWS: Three views. TECHNIQUE: PA chest, supine abdomen and upright/decubitus abdomen radiographic images acquired. LIMITATIONS: Positioning. FINDINGS: CHEST: Lungs clear of infiltrates. FREE AIR: None. No abnormal gas collections. BOWEL GAS PATTERN: Few scattered small bowel loops with air fluid levels. No distended large or small bowel loops. CALCIFICATIONS: No suspicious calcifications. HARDWARE: None in the abdomen. SOFT TISSUES: No gross mass or suggestion of organomegaly. BONES: No acute fracture. No worrisome bone lesions. OTHER: No other significant finding. IMPRESSION: NONSPECIFIC BOWEL GAS PATTERN WITHOUT EVIDENCE FOR OBSTRUCTION. TECHNICAL DOCUMENTATION: JOB ID: [id number] [employer]- All Rights Reserved Reading location - IP/workstation name: [email or web address]
[2018-02-07 20:44] LABS: APPEARANCE,URINE CLOUDY; BILIRUBIN,URINE NEGATIVE (NEGATIVE); GLUCOSE, URINE >=500 mg/dL (NEGATIVE); KETONES,URINE NEGATIVE (NEGATIVE); LEUKOCYTE ESTERASE,URINE NEGATIVE (NEGATIVE); NITRITE,URINE NEGATIVE (NEGATIVE); PROTEIN,URINE >=500 mg/dL (NEGATIVE); URINE SPECIFIC GRAVITY 1.022; UROBILINOGEN,URINE NEGATIVE mg/dL (<2.0)
[2018-02-07 20:48] LABS: COLOR,URINE DARK YELLOW
[2018-02-07] MEDS ORDERED: VANCOMYCIN HCL INJ 1000 MG VIAL IV ONE ×3 (20:55→21:15)
[2018-02-07] MEDS ORDERED: CEFTRIAXONE 1 GM/D5W RTU 1 GM/50 ML RTUPB IV ONE ×2 (20:55→21:16)
[2018-02-07] MEDS ORDERED: CLINDAMYCIN 900 MG/D5W RTU 900 MG/50 ML RTUPB IV ONE (21:10)
[2018-02-07] MEDS ORDERED: DIPHENHYDRAMINE HCL 50 MG/ML VIAL IV ONE (21:21)
[2018-02-07] MEDS ORDERED: METOCLOPRAMIDE HCL INJ/PF 10 MG/2 ML SDV IV ONE (21:21)
--- NOTE | 2018-02-07 21:21 | ER Document Report ---
ED General - General Chief Complaint: Fever Stated Complaint: FEVER Time Seen by Provider: 02/07/18 18:01 TRAVEL OUTSIDE OF THE [place] IN LAST 30 DAYS: No - HPI Patient complains to provider of: Fever Notes: Patient coming in for evaluation of fever nausea vomiting patient states fever ongoing for the last 3 days. Patient is postop day 5 from having part of his second right toe operated on and removed by a local air chipper. Patient is already had a greater toe removed. Patient states the surgical site was infected and the air chipper did initially try to start the patient on rifampin however was unable to tolerate rifampin therefore has been on Bactrim for the last 2 days. Patient states nausea vomiting diarrhea feeling unwell T-max at home has been 103. Patient states he does have diabetes with gastroparesis currently is on Reglan however unable to tolerate his Reglan at home. Patient denies receiving a flu shot this year. Otherwise resting comfortably upon my evaluation of the right l foot bandaged - Related Data Allergies/Adverse Reactions: No Known Allergies Allergy (Verified 02/07/18 17:03) Past Medical History - Social History Smoking Status: Never Smoker Frequency of alcohol use: None Drug Abuse: None Family History: Hypertension, Malignancy Patient has suicidal ideation: No Patient has homicidal ideation: No - Past Medical History Cardiac Medical History: Reports: Hx Hypertension Pulmonary Medical History: Denies: Hx Tuberculosis Neurological Medical History: Denies: Hx Seizures Endocrine Medical History: Reports: Hx Diabetes Mellitus Type 2 Renal/ Medical History: Denies: Hx Peritoneal Dialysis GI Medical History: Reports: Hx Colonoscopy, Hx Endoscopy Psychiatric Medical History: Reports: Hx Depression Past Surgical History: Reports: Hx Cholecystectomy, Hx Orthopedic Surgery - right great toe. Denies: Hx Appendectomy, Hx Bowel Surgery, Hx Coronary Artery Bypass Graft, Hx Gastric Bypass Surgery, Hx Herniorrhaphy, Hx Pacemaker, Hx Tonsillectomy - Immunizations Hx Diphtheria, Pertussis, Tetanus Vaccination: Yes Review of Systems - Review of Systems Constitutional: Fever EENT: No symptoms reported Cardiovascular: No symptoms reported Respiratory: No symptoms reported Gastrointestinal: Nausea, Vomiting Genitourinary: No symptoms reported Male Genitourinary: No symptoms reported Musculoskeletal: Other - Wound infection Skin: No symptoms reported Hematologic/Lymphatic: No symptoms reported Neurological/Psychological: No symptoms reported Physical Exam - Vital signs Vitals: Temp Pulse Resp BP Pulse Ox 100.2 F 107 H 16 74/62 L 94 02/07/18 16:48 02/07/18 16:48 02/07/18 16:48 02/07/18 16:48 02/07/18 16:48 Interpretation: Hypotensive, Tachycardic, Febrile - General General appearance: Appears well, Alert - HEENT Head: Normocephalic, Atraumatic Eyes: Normal Pupils: PERRL - Respiratory Respiratory status: No respiratory distress Chest status: Nontender Breath sounds: Normal Chest palpation: Normal - Cardiovascular Rhythm: Tachycardia Heart sounds: Normal auscultation Murmur: No - Abdominal Inspection: Normal Distension: No distension Bowel sounds: Normal Tenderness: Nontender Organomegaly: No organomegaly - Back Back: Normal, Nontender - Extremities General upper extremity: Normal inspection, Nontender, Normal color, Normal ROM , Normal temperature General lower extremity: Other - Patient with a greater toe and right foot are removed patient has a post surgical changes to the second toe of the foot with pus coming out of the wound left foot unaffected - Neurological Neuro grossly intact: Yes Cognition: Normal Orientation: AAOx4 [place] Coma Scale Eye Opening: Spontaneous [place] Coma Scale Verbal: Oriented [place] Coma Scale Motor: Obeys Commands [place] Coma Scale Total: 15 Speech: Normal Motor strength normal: LUE, RUE, LLE, RLE Sensory: Normal - Psychological Associated symptoms: Normal affect, Normal mood - Skin Skin Temperature: Warm Skin Moisture: Dry Skin Color: Normal Course - Re-evaluation Re-evalutation: 02/07/18 23:03 Concern for underlying sepsis because of the infection of the foot. Patient did have a workup performed showing slight lactic acid elevation improvement of his vital signs with aggressive IV fluids. Patient was started on vancomycin and Rocephin. This was chosen as the patient's wound cultures in the clinic that showed MRSA and staph epi that was sensitive to vancomycin. Patient case was discussed with the hospitalist will admit the patient to the [facility] - Vital Signs Vital signs: Temp Pulse Resp BP Pulse Ox 101.5 F H 107 H 23 H 108/66 94 02/07/18 22:09 02/07/18 16:48 02/07/18 19:31 02/07/18 19:31 02/07/18 19:01 - Laboratory Result Diagrams: 02/07/18 16:58 02/07/18 16:58 Laboratory results interpreted by me: 02/07/18 02/07/18 02/07/18 16:58 16:58 16:58 Seg Neuts % (Manual) 96 H Lymphocytes % (Manual) 2 L Monocytes % (Manual) 2 L Abs Neuts (Manual) 8.3 H Abs Lymphs (Manual) 0.2 L VBG pH Sodium 132.0 L Chloride 94 L BUN 44 H Creatinine 2.68 H Est GFR ( Amer) 30 L Est GFR (Non-Af Amer) 25 L Glucose 305 H Lactic Acid 2.4 H AST 265 H Albumin 3.3 L Urine Protein Urine Glucose (UA) Urine Blood 02/07/18 02/07/18 16:58 20:25 Seg Neuts % (Manual) Lymphocytes % (Manual) Monocytes % (Manual) Abs Neuts (Manual) Abs Lymphs (Manual) VBG pH 7.45 H Sodium Chloride BUN Creatinine Est GFR ( Amer) Est GFR (Non-Af Amer) Glucose Lactic Acid AST Albumin Urine Protein >=500 H Urine Glucose (UA) >=500 H Urine Blood SMALL H Critical Care Note - Critical Care Note Total time excluding time spent on procedures (mins): 35 Comments: My evaluation patient with tachycardia hypotension sepsis Discharge - Discharge Clinical Impression: Diabetic foot infection Fever Qualifiers: Encounter type: initial encounter Nausea & vomiting Qualifiers: Vomiting type: unspecified Vomiting Intractability: unspecified Qualified Code( s): R11.2 - Nausea with vomiting, unspecified Sepsis Qualifiers: Sepsis type: sepsis due to unspecified organism Qualified Code(s): A41.9 - Sepsis, unspecified organism Diabetes mellitus Qualifiers: Diabetes mellitus type: type 2 Diabetes mellitus long-term insulin use: with long-term use Diabetes mellitus complication status: without complication Qualified Code(s): E11.9 - Type 2 diabetes mellitus without complications Condition: Good Disposition: ADMITTED INPATIENT Admitting Provider: [facility] Unit Admitted: [facility]
[2018-02-07] MEDS ORDERED: ACETAMINOPHEN 1,000 MG/100 ML RTUPB IV ONE (21:45)
[2018-02-07] MEDS ORDERED: MAGNESIUM HYDROXIDE SUSP 30 ML UDCUP PO PRN (21:48)
[2018-02-07] MEDS ORDERED: ONDANSETRON 4 MG TAB.RAPDIS PO PRN (21:48)
[2018-02-07] MEDS ORDERED: ONDANSETRON HCL INJ/PF 4 MG/2 ML SDV IV PRN (21:48)
[2018-02-07] MEDS ORDERED: MAG HYDROX/AL HYDROX/SIMETH SUSP 30 ML UDCUP PO PRN (21:48)
[2018-02-07] MEDS ORDERED: FAMOTIDINE 20 MG TABLET PO SCH (22:00)
[2018-02-07] MEDS ORDERED: ACETAMINOPHEN 325 MG TABLET PO PRN (22:03)
[2018-02-07] MEDS ORDERED: HYDRALAZINE HCL INJ/PF 20 MG/1 ML SDV IV PRN (22:03)
[2018-02-07] MEDS ORDERED: MORPHINE SULFATE 10 MG/ML INJ IV PRN ×2 (22:03)
[2018-02-07] MEDS ORDERED: ACETAMINOPHEN 650 MG SUPP.RECT PR PRN (22:03)
[2018-02-07] MEDS ORDERED: GLUCAGON,HUMAN RECOMB 1 MG INJ IM PRN (22:08)
[2018-02-07] MEDS ORDERED: DEXTROSE 50%-WATER 25 GM/50 ML DISP.SYRIN IV PRN ×2 (22:08)
[2018-02-07] MEDS ORDERED: DEXTROSE 40% GEL 15 GM TUBE PO PRN ×2 (22:08)
[2018-02-07] MEDS ORDERED: VANCOMYCIN HCL INJ 1000 MG VIAL IV PRN (22:19)
[2018-02-07] MEDS ORDERED: METOCLOPRAMIDE HCL INJ/PF 10 MG/2 ML SDV ONE (22:23)
[2018-02-07] MEDS ORDERED: INSULIN GLARGINE,HUM.REC.ANLOG 300 UNIT/3 ML INSULN.PEN SUBCUT ONE (22:30)
[2018-02-07] MEDS ORDERED: VANCOMYCIN HCL 1,000 MG in DEXTROSE 5%-WATER 250 ML IV ONE (23:00)
--- NOTE | 2018-02-07 23:15 | Operative Report ---
Operative Report DATE OF SURGERY: 02/07/18 PREOPERATIVE DIAGNOSIS: 1. Sepsis. 2. Infected right second partial toe amputation site POSTOPERATIVE DIAGNOSIS: Same OPERATION: Debridement of right second toe SURGEON: MANUEL SOLIS ANESTHESIA: Other - None TISSUE REMOVED OR ALTERED: Pus COMPLICATIONS: None ESTIMATED BLOOD LOSS: Scant PROCEDURE: I explained I was going to open up the wound at bedside; right foot exposed. Right second toe partial amputation incision opened by removing all sutures. Pus evacuated and wound cultures obtained. Patient's foot insensate due to diabetic neuropathy. Wound irrigated. The proximal phalanx including the latch of the surface is exposed. Wound irrigated several more times. Wound packed open. Recommendations: 1. Empiric antibiotic therapy, leg elevation, dressing changed 2. Follow-up wound cultures 3. Right second toe needs to be completely amputated, as well as the second metatarsal head. This can be done during the light of day at bedside given the insensate nature of the patient's foot. This was explained to the patient and his .
[2018-02-08] MEDS: INSULIN REG, HUMAN 100 UNIT/ML 3 ML VIAL (PYX) SUBCUT PRN (00:46)
--- NOTE | 2018-02-08 00:50 | EKG REPORT ---
SEVERITY:- ABNORMAL ECG - SINUS TACHYCARDIA MULTIPLE ATRIAL PREMATURE COMPLEXES BORDERLINE PROLONGED QT INTERVAL : Confirmed by: Latia Snow MD 08-Feb-2018 00:49:07
[2018-02-08] MEDS: MORPHINE SULFATE 10 MG/ML INJ IV PRN ×3 (01:32→22:56)
[2018-02-08] MEDS: CEFAZOLIN 1 GM/D5W RTU 1 GM/50 ML RTUPB IV SCH ×4 (01:34→17:05)
[2018-02-08] MEDS: HEPARIN SOD (PORCINE) 5,000 UNIT/ML 1 ML SYRINGE SUBCUT SCH ×4 (02:19→21:17)
[2018-02-08] MEDS: RINGERS SOLUTION,LACTATED 1,000 ML IV PRN ×2 (02:30→05:18)
--- NOTE | 2018-02-08 03:38 | PDOC H&P ---
History of Present Illness Admission Date/PCP: 02/07/18 21:26 GARRETT GALARZA DPM Patient complains of: Right foot infection with fever History of Present Illness: KEISHA SILVERIO is a 57 year old male who underwent an amputation of the distal phalanx of his right second toe 5 days prior to his emergency room visit today. Dr. Galarza performed the procedure in his office as he was treating Keisha for a diabetic toe abscess, and created a skin flap to close over the distal end of the toe. Dr. Galarza had obtained a culture of the wound at that time which was positive for MRSA. Patient then was treated as an outpatient with rifampin which he did not tolerate and then subsequently was placed on Bactrim DS which he also did not tolerate. For the last 2-3 days prior to admission he had severe nausea and vomiting at home and had been unable to eat or drink anything and he also noted a subjective fever and that had become progressively weaker. Due to these symptoms he presented to the emergency room where he was found to have acute kidney injury, hypotension, sinus tachycardia ( all presumably resulting from acute severe dehydration) and a significant leukocytosis. With these findings he was admitted to the medical service for intravenous MRSA antibiotic therapy and surgical consultation with Dr. Madison was obtained. Past Medical History Cardiac Medical History: Reports: Hypertension, Peripheral Vascular Disease Denies: Atrial Fibrillation, Coronary Artery Disease Pulmonary Medical History: Denies: Asthma, Chronic Obstructive Pulmonary Disease (COPD), Tuberculosis EENT Medical History: Reports: None Neurological Medical History: Denies: Hemorrhagic CVA, Ischemic CVA, Seizures Endocrine Medical History: Reports: Diabetes Mellitus Type 2 Denies: Diabetes Mellitus Type 1, Hyperthyroidism, Hypothyroidism Renal/ Medical History: Denies: Chronic Kidney Disease, Nephrolithiasis Malignancy Medical History: Reports: None GI Medical History: Denies: Cirrhosis, Crohn's Disease, Hepatitis, Ulcerative Colitis Musculoskeltal Medical History: Denies: Arthritis, Gout Skin Medical History: Denies: Eczema, Psoriasis Psychiatric Medical History: Reports: Depression Denies: Alcohol Dependency, Substance Abuse, Tobacco Dependency Traumatic Medical History: Reports: None Hematology: Denies: Anemia, Bleeding Tendencies Infectious Medical History: Reports: Methicillin-Resistant Staph Aureus Past Surgical History Past Surgical History: Reports: Cholecystectomy, Orthopedic Surgery - right great toe amputation, recent amputation distal right second toe Social History Information Source: Patient Lives with: Spouse/Significant other Smoking Status: Never Smoker Frequency of Alcohol Use: None Hx Recreational Drug Use: No Drugs: None Hx Prescription Drug Abuse: No - Advance Directive Resuscitation Status: Full Code Surrogate healthcare decision maker:: Spouse: Suzi Family History Family History: Hypertension, Malignancy Parental Family History Reviewed: Yes Children Family History Reviewed: No Sibling(s) Family History Reviewed.: Yes Medication/Allergy Home Medications: Glimepiride 4 mg PO BID 07/11/17 Losartan/Hydrochlorothiazide [Losartan-Hctz 100-25 mg Tab] 1 each PO DAILY 07/11 Metformin HCl 1,000 mg PO BID 07/11/17 Omeprazole 20 mg PO DAILY 07/11/17 Dicyclomine HCl [Bentyl 20 mg Tablet] 20 mg PO Q6HP PRN MDD 1-2 TABS 07/12/17 Amlodipine Besylate [Norvasc 5 mg Tablet] 10 mg PO DAILY #30 tablet 07/24/17 Buspirone HCl [Buspar 10 mg Tablet] 10 mg PO QHS #30 tablet 07/24/17 Carvedilol [Coreg 3.125 mg Tablet] 3.125 mg PO Q12 #60 tablet 07/24/17 Citalopram Hydrobromide [Celexa 20 mg Tablet] 20 mg PO DAILY #30 tablet Hydrochlorothiazide [Hydrodiuril 25 mg Tablet] 25 mg PO DAILY #30 tablet Allergies/Adverse Reactions: No Known Allergies Allergy (Verified 02/07/18 17:03) Review of Systems Constitutional: PRESENT: anorexia, chills, fever(s), weakness Eyes: ABSENT: visual disturbances, other - Ocular pain Ears: ABSENT: hearing changes, other - Ear pain Nose, Mouth, and Throat: ABSENT: mouth pain, sore throat Cardiovascular: ABSENT: chest pain, dyspnea on exertion, palpitations Respiratory: ABSENT: cough, dyspnea Gastrointestinal: PRESENT: nausea, vomiting. ABSENT: abdominal pain, constipation, diarrhea, hematemesis Genitourinary: ABSENT: dysuria, hematuria Musculoskeletal: ABSENT: back pain, joint swelling Integumentary: PRESENT: other - Abscess of right second toe having been debrided and redressed by surgery area is currently covered by a fresh bandage which will not be disturbed.. ABSENT: pruritus, rash Neurological: PRESENT: weakness. ABSENT: confusion, convulsions, memory loss, syncope Psychiatric: PRESENT: depression. ABSENT: anxiety Endocrine: ABSENT: cold intolerance, heat intolerance Hematologic/Lymphatic: ABSENT: easy bleeding, easy bruising Physical Exam Vital Signs: Temp Pulse Resp BP Pulse Ox 100.3 F 107 H 23 H 108/66 94 02/07/18 19:31 02/07/18 16:48 02/07/18 19:31 02/07/18 19:31 02/07/18 19:01 Intake & Output 02/05/18 02/06/18 02/07/18 23:59 23:59 23:59 Intake Total 1000 Balance 1000 General appearance: PRESENT: cooperative, mild distress - Due to generalized malaise Head exam: PRESENT: atraumatic, normocephalic Eye exam: PRESENT: EOMI. ABSENT: nystagmus, scleral icterus Ear exam: PRESENT: normal external ear exam. ABSENT: bleeding, drainage Mouth exam: PRESENT: dry mucosa, neck supple Neck exam: ABSENT: JVD, thyromegaly, tracheal deviation Respiratory exam: PRESENT: clear to auscultation priyank, symmetrical, unlabored Cardiovascular exam: PRESENT: RRR, tachycardia - 140s. ABSENT: clicks, gallop, rubs Pulses: PRESENT: normal radial pulses, normal dorsalis pedis pul Vascular exam: PRESENT: normal capillary refill. ABSENT: pallor GI/Abdominal exam: PRESENT: normal bowel sounds, soft. ABSENT: tenderness Rectal exam: PRESENT: deferred Extremities exam: ABSENT: joint swelling, pedal edema Musculoskeletal exam: PRESENT: other - Amputation sites of the right first toe well-healed in the right second toe currently freshly dressed.. ABSENT: deformity, dislocation Neurological exam: PRESENT: alert, oriented to person, oriented to place, oriented to time, oriented to situation, CN II-XII grossly intact. ABSENT: motor sensory deficit Psychiatric exam: PRESENT: appropriate affect, normal mood Skin exam: PRESENT: dry, warm, other - Freshly opened wound of the amputation site of the right second toe distal phalanx.. ABSENT: jaundice, rash, urticaria Results Impressions: Acute Abdomen Series 02/07/18 18:10 IMPRESSION: NONSPECIFIC BOWEL GAS PATTERN WITHOUT EVIDENCE FOR OBSTRUCTION. Assessment & Plan - Diagnosis (1) Diabetic foot infection Is this a current diagnosis for this admission?: Yes Plan: Patient has known MRSA with positive wound culture. MRSA is not sensitive to clindamycin but is sensitive to vancomycin, doxycycline and trimethoprim sulfa. I will start IV vancomycin and will additionally continue a cotherapy of intravenous Ancef for the first 72 hours. Patient will receive intravenous morphine sulfate on a sliding scale as needed for pain control and surgical consultation with Dr. Madison has been obtained and he will be debriding the wound on an ongoing basis as needed. (2) Nausea & vomiting Qualifiers: Vomiting type: unspecified Vomiting Intractability: unspecified Qualified Code(s): R11.2 - Nausea with vomiting, unspecified Is this a current diagnosis for this admission?: Yes Plan: Nausea and vomiting is most likely due to antibiotic therapy and his past history of diabetic gastroparesis. He will be started on therapy for diabetic gastroparesis utilizing famotidine, metoclopramide and sucralfate. He will be given supplemental fluids and electrolyte therapy as required for repletion of his body stores and normalization of his vascular volume. (3) Hypotension Qualifiers: Hypotension type: hypotension due to hypovolemia Qualified Code(s): I95.89 - Other hypotension; E86.1 - Hypovolemia; E86.1 - Hypovolemia Is this a current diagnosis for this admission?: Yes Plan: Patient is developed hypotension, tachycardia and acute kidney injury secondary to severe dehydration with his recent 2-3-day history of nausea and vomiting. He will recieved high volume IV fluid replacement and his BMP and Mg++ will be followed daily. (4) Tachycardia with heart rate 141-160 beats per minute Is this a current diagnosis for this admission?: Yes Plan: Patient is developed hypotension, tachycardia and acute kidney injury secondary to severe dehydration with his recent 2-3-day history of nausea and vomiting. He will recieved high volume IV fluid replacement and his BMP and Mg++ will be followed daily. His heart rate will be monitored with telemetry. (5) Acute kidney injury (nontraumatic) Is this a current diagnosis for this admission?: Yes Plan: Patient is developed hypotension, tachycardia and acute kidney injury secondary to severe dehydration with his recent 2-3-day history of nausea and vomiting. He will recieved high volume IV fluid replacement and his BMP and Mg++ will be followed daily. His urine output will be followed closely. (6) Diabetes mellitus type 2 in nonobese Is this a current diagnosis for this admission?: Yes Plan: He will receive Lantus and Humalog to control his diabetes until he can be restarted on his prior therapy regiment. A HgbA1c will be obtained to evaluate his prehospital therapy. - Time Time Spent: 30 to 50 Minutes Critical Time spent with patient: Less than 15 minutes Medications reviewed and adjusted accordingly: Yes Anticipated discharge: Home - Inpatient Certification Based on my medical assessment, after consideration of the patient's comorbidities, presenting symptoms, or acuity I expect that the services needed warrant INPATIENT care.: Yes I certify that my determination is in accordance with my understanding of Medicare's requirements for reasonable and necessary INPATIENT services [42 CFR 412.3e].: Yes Medical Necessity: Failure to Improve With Outpatient Therapy, Significant Comorbidiites Make Outpatient Treatment Too Risky, Need Close Monitoring Due to Risk of Patient Decompensation, Need For IV Fluids, Need For Continuous Telemetry Monitoring, Need for Pain Control, Need for IV Antibiotics, Need for Surgery, Risk of Complication if Not Cared For in Hospital
[2018-02-08 04:00] LABS: HEMATOCRIT 36.8 % (37.9-51.0); HEMOGLOBIN 12.8 g/dL (13.5-17.0); MEAN CORPUSCULAR HEMOGLOBIN 30.2 pg (27.0-33.4); MEAN CORPUSCULAR HGB CONC 34.8 g/dL (32.0-36.0); MEAN CORPUSCULAR VOLUME 87 fl (80-97); PLATELET COUNT 148 10^3/uL (150-450); RED BLOOD COUNT 4.23 10^6/uL (4.35-5.55); RED CELL DISTRIBUTION WIDTH 13.2 % (11.5-14.0); WHITE BLOOD COUNT 5.8 10^3/uL (4.0-10.5)
[2018-02-08 04:17] LABS: ABSOLUTE LYMPHOCYTES# (MANUAL) 0.4 10^3/uL (0.5-4.7); ABSOLUTE MONOCYTES # (MANUAL) 0.1 10^3/uL (0.1-1.4); ABSOLUTE NEUTROPHILS# (MANUAL) 5.3 10^3/uL (1.7-8.2); BASOPHILS % (MANUAL) 0 % (0-2); EOSINOPHILS % (MANUAL) 0 % (0-6); LYMPHOCYTES % (MANUAL) 7 % (13-45); MONOCYTES % (MANUAL) 1 % (3-13); SEGMENTED NEUTROPHILS % (MAN) 92 % (42-78); TOTAL CELLS COUNTED 100
[2018-02-08 04:18] LABS: ANION GAP 8 (5-19); BLOOD UREA NITROGEN 43 mg/dL (7-20); CALCIUM 7.8 mg/dL (8.4-10.2); CARBON DIOXIDE 27 mmol/L (22-30); CHLORIDE 101 mmol/L (98-107); GLUCOSE 204 mg/dL (75-110); PLATELET CLUMPS PRESENT; PLATELET COMMENT ADEQUATE; POTASSIUM 4.2 mmol/L (3.6-5.0); SODIUM 136.1 mmol/L (137-145); TOXIC GRANULATION SLIGHT; TOXIC VACUOLATION PRESENT
[2018-02-08 04:19] LABS: PLATELET LARGE PRESENT
[2018-02-08] MEDS ORDERED: DILTIAZEM HCL INJ 25 MG/5 ML VIAL ONE (06:13)
[2018-02-08] MEDS ORDERED: RINGERS SOLUTION,LACTATED 1,000 ML IV ONE (06:15)
[2018-02-08] MEDS ORDERED: DILTIAZEM HCL INJ 25 MG/5 ML VIAL IV ONE (06:15)
[2018-02-08] MEDS ORDERED: DIAZEPAM INJ 10 MG/2 ML DISP.SYRIN IV ONE (06:30)
[2018-02-08] MEDS ORDERED: ACETAMINOPHEN 650 MG SUPP.RECT PR PRN (08:30)
[2018-02-08] MEDS ORDERED: ACETAMINOPHEN 325 MG TABLET PO PRN (08:30)
[2018-02-08] MEDS: SUCRALFATE SUSP 1 GM/10 ML UDCUP PO SCH ×4 (08:34→21:16)
[2018-02-08] MEDS: INSULIN LISPRO 100 UNIT/ML 3 ML VIAL SUBCUT SCH ×3 (08:35→15:50)
[2018-02-08] MEDS: FAMOTIDINE INJ/PF 20 MG/2 ML SDV IV SCH ×4 (08:39→21:20)
[2018-02-08] MEDS: METOCLOPRAMIDE HCL INJ/PF 10 MG/2 ML SDV IV SCH ×4 (08:40→21:21)
[2018-02-08] MEDS: INSULIN GLARGINE,HUM.REC.ANLOG 300 UNIT/3 ML INSULN.PEN SUBCUT SCH ×2 (09:13→21:19)
[2018-02-08] MEDS: VANCOMYCIN HCL 750 MG in DEXTROSE 5%-WATER 250 ML IV SCH ×2 (09:14→21:15)
[2018-02-08] MEDS ORDERED: DOCUSATE SODIUM 100 MG/10 ML UDC PO SCH (10:00)
[2018-02-08] MEDS ORDERED: VANCOMYCIN HCL INJ 1000 MG VIAL IV SCH (10:00)
[2018-02-08 12:18] LABS: ARTERIAL BLOOD H2CO3 1.01 mmol/L (1.05-1.35); ARTERIAL BLOOD O2 SATURATION 95.6 % (94-98); ARTERIAL BLOOD PCO2 33.4 mmHg (35-45); ARTERIAL BLOOD PH 7.47 (7.35-7.45); ARTERIAL BLOOD PO2 72.7 mmHg (80-100)
[2018-02-08 12:19] LABS: ARTERIAL BLOOD FIO2 8L
--- NOTE | 2018-02-08 13:25 | EKG REPORT ---
SEVERITY:- ABNORMAL ECG - JUNCTIONAL TACHYCARDIA LOW VOLTAGE IN FRONTAL LEADS : Confirmed by: Howie Moreno MD 08-Feb-2018 13:24:27
--- NOTE | 2018-02-08 14:04 | RADIOLOGY REPORT (SQ) ---
EXAM DESCRIPTION: CHEST 2 VIEWS COMPLETED DATE/TIME: 02/08/2018 1:28 pm REASON FOR STUDY: Hypoxia, sob, leukocytosis COMPARISON: None. EXAM PARAMETERS: NUMBER OF VIEWS: two views TECHNIQUE: Digital Frontal and Lateral radiographic views of the chest acquired. RADIATION DOSE: NA LIMITATIONS: none FINDINGS: LUNGS AND PLEURA: There is new, severe diffuse bilateral interstitial pulmonary opacity, s omewhat coarse appearing. MEDIASTINUM AND HILAR STRUCTURES: No masses or contour abnormalities. HEART AND VASCULAR STRUCTURES: Cardiomegaly. BONES: No acute findings. HARDWARE: None in the chest. OTHER: No other significant finding. IMPRESSION: 1. There is new, severe diffuse bilateral interstitial pulmonary opacity, somewhat coars e and unusual appearing. This may reflect pulmonary edema, atypical or viral infection, or nonspecif ic inflammatory pneumonitis. Consider CT to further evaluate. 2. Cardiomegaly. TECHNICAL DOCUMENTATION: JOB ID: [id number] [employer]- All Rights Reserved Reading location - IP/workstation name: [email or web address]
[2018-02-08] MEDS: NORMAL SALINE 1000 ML 1,000 ML IV PRN (14:13)
--- NOTE | 2018-02-08 16:00 | PDOC PROGRESS REPORT ---
Subjective Progress Note for:: 02/08/18 Subjective:: This is a 57-year-old male with an infected second toe. The patient reports shortness of breath this morning, fatigue, anxiety, and diaphoresis. He denies chest pain, or pain in his foot. The patient is status post opening of the incision of the right second toe yesterday. A large amount of purulent material was found in the subcutaneous tissue. At present, the patient has bone and articular cartilage exposed to the atmosphere. The patient reports that he "does not feel well ". Reason For Visit: DIABETIC RIGHT FOOT ABSCESS Physical Exam Vital Signs: Temp Pulse Resp BP Pulse Ox 98.5 F 117 H 26 H 99/75 L 95 02/08/18 12:12 02/08/18 14:00 02/08/18 12:12 02/08/18 12:12 02/08/18 12:12 Intake & Output 02/07/18 02/08/18 02/09/18 06:59 06:59 06:59 Intake Total 3260 2750 Output Total 250 300 Balance 3010 2450 Weight 101.6 kg General appearance: PRESENT: mild distress - Respiratory Head exam: PRESENT: atraumatic, normocephalic Eye exam: PRESENT: EOMI, PERRLA Neck exam: ABSENT: meningismus, tenderness, thyromegaly, tracheal deviation Respiratory exam: PRESENT: accessory muscle use, tachypnea. ABSENT: unlabored Cardiovascular exam: PRESENT: tachycardia Vascular exam: PRESENT: pallor GI/Abdominal exam: PRESENT: soft. ABSENT: distended, firm, tenderness Extremities exam: PRESENT: other - Right second toe is open. Articular cartilage is exposed. No active purulence or necrotic tissue.. ABSENT: clubbing Neurological exam: PRESENT: altered, awake Psychiatric exam: PRESENT: agitated, anxious Skin exam: PRESENT: erythema - Distal right second toe. ABSENT: cyanosis, jaundice Results Laboratory Results: 02/08/18 03:50 02/08/18 03:50 02/07/18 02/08/18 02/08/18 21:40 03:50 03:50 WBC 5.8 RBC 4.23 L Hgb 12.8 L Hct 36.8 L MCV 87 MCH 30.2 MCHC 34.8 RDW 13.2 Plt Count 148 L Seg Neutrophils % Not Reportable Lymphocytes % Not Reportable Monocytes % Not Reportable Eosinophils % Not Reportable Basophils % Not Reportable Absolute Neutrophils Not Reportable Absolute Lymphocytes Not Reportable Absolute Monocytes Not Reportable Absolute Eosinophils Not Reportable Absolute Basophils Not Reportable Carbonic Acid HCO3/H2CO3 Ratio ABG pH ABG pCO2 ABG pO2 ABG HCO3 ABG O2 Saturation ABG Base Excess FiO2 Sodium Potassium Chloride Carbon Dioxide Anion Gap BUN Creatinine Est GFR ( Amer) Est GFR (Non-Af Amer) Glucose Lactic Acid 2.3 H 1.6 Calcium Magnesium 02/08/18 02/08/18 02/08/18 03:50 10:36 11:45 WBC RBC Hgb Hct MCV MCH MCHC RDW Plt Count Seg Neutrophils % Lymphocytes % Monocytes % Eosinophils % Basophils % Absolute Neutrophils Absolute Lymphocytes Absolute Monocytes Absolute Eosinophils Absolute Basophils Carbonic Acid 1.01 L HCO3/H2CO3 Ratio 23:1 ABG pH 7.47 H ABG pCO2 33.4 L ABG pO2 72.7 L ABG HCO3 24.0 ABG O2 Saturation 95.6 ABG Base Excess 1.0 FiO2 8L Sodium 136.1 L Potassium 4.2 Chloride 101 Carbon Dioxide 27 Anion Gap 8 BUN 43 H Creatinine 2.19 H Est GFR ( Amer) 38 L Est GFR (Non-Af Amer) 31 L Glucose 204 H Lactic Acid 1.3 Calcium 7.8 L Magnesium 1.9 Impressions: Acute Abdomen Series 02/07/18 18:10 IMPRESSION: NONSPECIFIC BOWEL GAS PATTERN WITHOUT EVIDENCE FOR OBSTRUCTION. Chest X-Ray 02/08/18 00:00 IMPRESSION: 1. There is new, severe diffuse bilateral interstitial pulmonary opacity, somewhat coarse and unusual appearing. This may reflect pulmonary edema, atypical or viral infection, or nonspecific inflammatory pneumonitis. Consider CT to further evaluate. 2. Cardiomegaly. Assessment & Plan - Diagnosis (1) Surgical site infection Is this a current diagnosis for this admission?: Yes - Plan Summary Plan Summary: There is a 57-year-old male who is status post partial amputation of the right second toe. His surgical incision has become infected. The incision is now opened, with exposed bone and articular cartilage. I have discussed options with the patient, including formal amputation of the left second toe. At this time, the patient reports significant anxiety and shortness of breath. He is tachypneic, with retractions. His sats are 92% on 100% nonrebreather. The patient is not fit for surgery today. I have relayed my findings to the patient 's admitting physician. Continue antibiotics and local wound care. I will again discuss formal amputation of the right second toe once his medical condition improves.
[2018-02-08] MEDS ORDERED: METOPROLOL TARTRATE PF/INJ 5 MG/5 ML SDV IV ONE ×2 (16:29→16:30)
[2018-02-08 18:55] LABS: ANION GAP 9 (5-19); BLOOD UREA NITROGEN 45 mg/dL (7-20); CALCIUM 7.6 mg/dL (8.4-10.2); CARBON DIOXIDE 25 mmol/L (22-30); CHLORIDE 101 mmol/L (98-107); GLUCOSE 230 mg/dL (75-110); POTASSIUM 4.7 mmol/L (3.6-5.0); SODIUM 134.5 mmol/L (137-145)
--- NOTE | 2018-02-08 19:08 | PDOC PROGRESS REPORT ---
Subjective Progress Note for:: 02/08/18 Subjective:: Patient reports shortness of breath. He admits to palpitations. Denies chest pain, denies fever or chills at this time. Reason For Visit: FEVER,DIABETIC FOOT INFECTION,NAUSEA AND VOMITING Physical Exam Vital Signs: Temp Pulse Resp BP Pulse Ox 99.2 F 101 H 16 104/66 98 02/08/18 03:43 02/08/18 07:00 02/08/18 03:43 02/08/18 03:43 02/08/18 03:43 Intake & Output 02/07/18 02/08/18 02/09/18 06:59 06:59 06:59 Intake Total 3260 2300 Output Total 250 Balance 3010 2300 Weight 101.6 kg GENERAL: Well-developed, no acute distress HEENT: Normocephalic/atraumatic NECK supple, no JVD CARDIOVASCULAR: Tachycardic, normal S1-S2 LUNGS: Coarse breath sounds bilaterally ABDOMEN: Soft, NT, NL bowel sounds EXTREMITIES: No edema, clubbing, cyanosis NEUROLOGICAL: Alert, oriented x 3, no focal weakness Results Laboratory Results: 02/08/18 03:50 02/08/18 03:50 02/07/18 02/08/18 02/08/18 21:40 03:50 03:50 WBC 5.8 RBC 4.23 L Hgb 12.8 L Hct 36.8 L MCV 87 MCH 30.2 MCHC 34.8 RDW 13.2 Plt Count 148 L Seg Neutrophils % Not Reportable Lymphocytes % Not Reportable Monocytes % Not Reportable Eosinophils % Not Reportable Basophils % Not Reportable Absolute Neutrophils Not Reportable Absolute Lymphocytes Not Reportable Absolute Monocytes Not Reportable Absolute Eosinophils Not Reportable Absolute Basophils Not Reportable Carbonic Acid HCO3/H2CO3 Ratio ABG pH ABG pCO2 ABG pO2 ABG HCO3 ABG O2 Saturation ABG Base Excess FiO2 Sodium Potassium Chloride Carbon Dioxide Anion Gap BUN Creatinine Est GFR ( Amer) Est GFR (Non-Af Amer) Glucose Lactic Acid 2.3 H 1.6 Calcium Magnesium 02/08/18 02/08/18 02/08/18 03:50 10:36 11:45 WBC RBC Hgb Hct MCV MCH MCHC RDW Plt Count Seg Neutrophils % Lymphocytes % Monocytes % Eosinophils % Basophils % Absolute Neutrophils Absolute Lymphocytes Absolute Monocytes Absolute Eosinophils Absolute Basophils Carbonic Acid 1.01 L HCO3/H2CO3 Ratio 23:1 ABG pH 7.47 H ABG pCO2 33.4 L ABG pO2 72.7 L ABG HCO3 24.0 ABG O2 Saturation 95.6 ABG Base Excess 1.0 FiO2 8L Sodium 136.1 L Potassium 4.2 Chloride 101 Carbon Dioxide 27 Anion Gap 8 BUN 43 H Creatinine 2.19 H Est GFR ( Amer) 38 L Est GFR (Non-Af Amer) 31 L Glucose 204 H Lactic Acid 1.3 Calcium 7.8 L Magnesium 1.9 Impressions: Acute Abdomen Series 02/07/18 18:10 IMPRESSION: NONSPECIFIC BOWEL GAS PATTERN WITHOUT EVIDENCE FOR OBSTRUCTION. Assessment & Plan - Diagnosis (1) Sepsis Qualifiers: Sepsis type: sepsis due to unspecified organism Qualified Code(s): A41.9 - Sepsis, unspecified organism Is this a current diagnosis for this admission?: Yes Plan: Present on admission, as evidenced by tachycardia, tachypnea, fever and fluids as source of infection. (2) Diabetic foot infection Is this a current diagnosis for this admission?: Yes (3) Chronic diastolic CHF (congestive heart failure) Is this a current diagnosis for this admission?: Yes (4) Tachycardia Is this a current diagnosis for this admission?: Yes (5) Diabetes mellitus type 2 in nonobese Is this a current diagnosis for this admission?: Yes (6) Acute kidney injury (nontraumatic) Is this a current diagnosis for this admission?: Yes - Plan Summary Plan Summary: We will continue cefepime and Vanco at this time for sepsis. Sepsis was present on admission, as evidenced by tachycardia, tachypnea, fever and foot as the source of infection. Echo by 07/17/17 revealed normal EF, grade II diastolic dysfunction present. We will continue IV fluid for now, getting LEODAN, sepsis, suspected dehydration, and patient to be monitor closely. Continue O2 for now. Patient with hypoxia requiring O2. Chest x-ray with diffuse changes. Radiology recommending chest CT. I would like to get a CT angiogram to also evaluate for PE, but creatinine currently elevated. Will treat empirically with IV heparin for now and recommend CTA in a.m. if renal function better. Dehydration and sepsis likely contributory to tachycardia. We will continue IV fluid. We will also treat with metoprolol. Surgical evaluation appreciated. Service will continue to follow up.
[2018-02-08] MEDS ORDERED: HEPARIN SODIUM,PORCINE/D5W 25,000 UNIT/250 ML RTUINJ IV PRN (20:39)
[2018-02-08] MEDS: METOPROLOL SUCCINATE 25 MG TAB.SR.24H PO SCH (21:18)
[2018-02-08] MEDS ORDERED: HEPARIN SOD (PORCINE) 1,000 UNIT/ML 10 ML VIAL IV PRN (23:41)
[2018-02-09] MEDS: NORMAL SALINE 1000 ML 1,000 ML IV PRN (00:31)
[2018-02-09] MEDS: CEFAZOLIN 1 GM/D5W RTU 1 GM/50 ML RTUPB IV SCH ×2 (00:34→05:21)
[2018-02-09] MEDS ORDERED: ALBUTEROL SULFATE 0.083% NEB 2.5 MG/3 ML AMPUL NEB PRN (00:54)
[2018-02-09] MEDS ORDERED: IPRATROPIUM BROMIDE 0.02% NEB 0.5 MG/2.5 ML AMPUL NEB PRN (00:58)
[2018-02-09] MEDS: LEVALBUTEROL HCL NEB 1.25 MG/3 ML AMPUL NEB SCH ×2 (01:43→09:56)
[2018-02-09 02:57] LABS: ABSOLUTE LYMPHOCYTES (AUTO) 0.3 10^3/uL (0.5-4.7); ABSOLUTE MONOCYTES (AUTO) 0.2 10^3/uL (0.1-1.4); ABSOLUTE NEUT (AUTO) 3.1 10^3/uL (1.7-8.2); BASOPHILS % (AUTO) 0.4 % (0-2); HEMATOCRIT 39.1 % (37.9-51.0); HEMOGLOBIN 13.3 g/dL (13.5-17.0); LYMPHOCYTES % (AUTO) 8.7 % (13-45); MEAN CORPUSCULAR VOLUME 88 fl (80-97); MONOCYTES % (AUTO) 5.7 % (3-13); PLATELET COUNT 143 10^3/uL (150-450); RED BLOOD COUNT 4.44 10^6/uL (4.35-5.55); RED CELL DISTRIBUTION WIDTH 13.3 % (11.5-14.0); SEGMENTED NEUTROPHILS % (AUTO) 85.2 % (42-78); TOTAL CELLS COUNTED % (AUTO) 100 %; WHITE BLOOD COUNT 3.7 10^3/uL (4.0-10.5)
[2018-02-09 03:20] LABS: ANION GAP 12 (5-19); BLOOD UREA NITROGEN 47 mg/dL (7-20); CALCIUM 7.4 mg/dL (8.4-10.2); CARBON DIOXIDE 22 mmol/L (22-30); CHLORIDE 100 mmol/L (98-107); GLUCOSE 302 mg/dL (75-110); POTASSIUM 4.9 mmol/L (3.6-5.0); SODIUM 133.5 mmol/L (137-145)
[2018-02-09] MEDS: HEPARIN SOD (PORCINE) 5,000 UNIT/ML 1 ML SYRINGE SUBCUT SCH (05:19)
[2018-02-09 07:53] LABS: ARTERIAL BLOOD BASE EXCESS -3.5 mmol/L; ARTERIAL BLOOD H2CO3 0.96 mmol/L (1.05-1.35); ARTERIAL BLOOD HCO3 20.1 mmol/L (20-24); ARTERIAL BLOOD O2 SATURATION 93.9 % (94-98); ARTERIAL BLOOD PH 7.42 (7.35-7.45); ARTERIAL BLOOD PO2 67.1 mmHg (80-100); ARTERIAL BLOOD TOTAL CO2 21.1 mmol/L (23-27)
[2018-02-09 07:54] LABS: ARTERIAL BLOOD FIO2 100%
[2018-02-09 08:09] LABS: ABSOLUTE LYMPHOCYTES (AUTO) 0.3 10^3/uL (0.5-4.7); ABSOLUTE MONOCYTES (AUTO) 0.2 10^3/uL (0.1-1.4); ABSOLUTE NEUT (AUTO) 3.3 10^3/uL (1.7-8.2); BASOPHILS % (AUTO) 0.4 % (0-2); EOSINOPHILS % (AUTO) 0.1 % (0-6); HEMATOCRIT 38.9 % (37.9-51.0); HEMOGLOBIN 12.8 g/dL (13.5-17.0); LYMPHOCYTES % (AUTO) 7.7 % (13-45); MEAN CORPUSCULAR HEMOGLOBIN 29.1 pg (27.0-33.4); MEAN CORPUSCULAR HGB CONC 32.9 g/dL (32.0-36.0); MEAN CORPUSCULAR VOLUME 89 fl (80-97); MONOCYTES % (AUTO) 6.4 % (3-13); PLATELET COUNT 140 10^3/uL (150-450); RED BLOOD COUNT 4.39 10^6/uL (4.35-5.55); RED CELL DISTRIBUTION WIDTH 13.2 % (11.5-14.0); SEGMENTED NEUTROPHILS % (AUTO) 85.4 % (42-78); TOTAL CELLS COUNTED % (AUTO) 100 %; WHITE BLOOD COUNT 3.9 10^3/uL (4.0-10.5)
--- NOTE | 2018-02-09 08:16 | RADIOLOGY REPORT (SQ) ---
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 TECHNIQUE: Single frontal radiographic view of the chest acquired. RADIATION DOSE: NA LIMITATIONS: None. FINDINGS: LUNGS AND PLEURA: Diffuse bilateral alveolar and interstitial pulmonary edema with fluid i n the right minor fissure. This is similar compared to 02/08/2018, 1321 hours. No gross left pleural effusions. No pneumothorax. MEDIASTINUM AND HILAR STRUCTURES: No masses. Contour normal. HEART AND VASCULAR STRUCTURES: Mild cardiomegaly BONES: No acute findings. HARDWARE: Clips right upper quadrant post cholecystectomy OTHER: No other significant finding. IMPRESSION: Alveolar and interstitial pulmonary edema with trace fluid in the right minor fissure TECHNICAL DOCUMENTATION: JOB ID: [id number] [employer]- All Rights Reserved Reading location - IP/workstation name: [email or web address]
--- NOTE | 2018-02-09 09:13 | RADIOLOGY REPORT (SQ) ---
EXAM DESCRIPTION: NM LUNG VENT/PERF SCAN COMPLETED DATE/TIME: 02/09/2018 8:58 am REASON FOR STUDY: SOB, RESP DISTRESS COMPARISON: Chest radiograph, 02/06/2018 RADIONUCLIDE AND DOSE: 5.2 millicuries TC-99m MAA Intravenous 30.3 millicuries TC-99m DTPA Inhaled aerosol TECHNIQUE: Eight matching views of the lungs acquired following injection of MAA. Ventilation scan was attempted, however by technologist report, the patient became unstable and examination was termin ated prematurely. LIMITATIONS: Incomplete ventilation scan due to patient instability FINDINGS: VENTILATION: Incomplete scan yielding no useful images. PERFUSION: Perfusion images with normal homogenous activity and no wedge-shaped or segmental defects. No ventilation-perfusion mismatches. OTHER: No other significant finding. IMPRESSION: Perfusion only nuclear scintigraphic lung scan without evidence of perfusion defect or o ther finding concerning for pulmonary embolism. TECHNICAL DOCUMENTATION: JOB ID: [id number] [employer]- All Rights Reserved Reading location - IP/workstation name: [email or web address]
[2018-02-09] MEDS: SUCRALFATE SUSP 1 GM/10 ML UDCUP PO SCH ×2 (09:54→11:17)
[2018-02-09] MEDS: INSULIN LISPRO 100 UNIT/ML 3 ML VIAL SUBCUT SCH ×2 (09:58→11:17)
[2018-02-09] MEDS: METOCLOPRAMIDE HCL INJ/PF 10 MG/2 ML SDV IV SCH ×2 (10:11→11:18)
[2018-02-09] MEDS ORDERED: DILTIAZEM HCL/D5W 125 MG/125 ML RTUINJ IV PRN (10:11)
[2018-02-09] MEDS: FAMOTIDINE INJ/PF 20 MG/2 ML SDV IV SCH ×2 (10:11→11:17)
[2018-02-09] MEDS: INSULIN GLARGINE,HUM.REC.ANLOG 300 UNIT/3 ML INSULN.PEN SUBCUT SCH (10:12)
[2018-02-09] MEDS: METOPROLOL SUCCINATE 25 MG TAB.SR.24H PO SCH (10:12)
[2018-02-09] MEDS ORDERED: DILTIAZEM HCL INJ 25 MG/5 ML VIAL IV ONE (10:15)
--- NOTE | 2018-02-09 10:35 | Progress Note ---
Provider Note Provider Note: Events noted. patient severely tachypneic, on 15 L O2 via mask, has atrial fibrillation with elevated troponin. He is on Heparin drip and Cardizem IV. A/P Right foot toe ulcer Evolving MA elevated troponin atrial fibrillation On heparin drip P/ Patient to be transferred to larger facility due to his severe heart condition Will hold off any surgical intervention at this time.
[2018-02-09] MEDS ORDERED: FUROSEMIDE INJ/PF 40 MG/4 ML SDV IV ONE (10:49)
[2018-02-09] MEDS ORDERED: ASPIRIN 325 MG TABLET PO ONE (11:00)
[2018-02-09] MEDS ORDERED: CLOPIDOGREL BISULFATE 300 MG TABLET PO ONE (11:00)
[2018-02-09] MEDS ORDERED: DIGOXIN INJ 0.5 MG/2 ML AMPULE IV ONE (11:00)
--- NOTE | 2018-02-09 11:17 | PDOC TRANSFER SUMMARY ---
General Admission Date/PCP: 02/07/18 21:26 GARRETT GONZALEZ DPM Admission Date: 02/09/18 Resuscitation Status: Full Code - Transfer Diagnosis (1) Non-ST elevated myocardial infarction (non-STEMI) Is this a current diagnosis for this admission?: Yes (2) New onset A. fib with RVR Is this a current diagnosis for this admission?: Yes (3) Sepsis Is this a current diagnosis for this admission?: Yes (4) Diabetic foot infection Is this a current diagnosis for this admission?: Yes (5) Acute kidney injury (nontraumatic) Is this a current diagnosis for this admission?: Yes (6) Chronic diastolic CHF (congestive heart failure) Is this a current diagnosis for this admission?: Yes (7) Diabetes mellitus type 2 in nonobese Is this a current diagnosis for this admission?: Yes - Transfer Medications Home Medications: Glimepiride 4 mg PO BID 07/11/17 Losartan/Hydrochlorothiazide [Losartan-Hctz 100-25 mg Tab] 1 each PO DAILY 07/11 Metformin HCl 1,000 mg PO BID 07/11/17 Transfer Medications: Current Medications Acetaminophen (Tylenol 325 Mg Tablet) 650 mg PO Q6HP PRN PRN Reason: For headache, pain or fever Stop: 03/09/18 22:02 Last Admin: 02/08/18 15:57 Dose: 650 mg Acetaminophen (Tylenol 650 Mg Supp) 650 mg NE Q6HP PRN PRN Reason: For headache, pain or fever Stop: 03/09/18 22:02 Al Hydrox/Mg Hydrox/Simethicone (Maalox Plus Susp 30 Udcup) 30 ml PO Q6HP PRN PRN Reason: HEARTBURN Stop: 03/09/18 21:47 Albuterol (Ventolin 0.083% Neb 2.5 Mg/3 Ml Ampul) 2.5 mg NEB RTQ1HP PRN PRN Reason: SHORTNESS OF BREATH Stop: 03/11/18 00:53 Dextrose (Dextrose Inj 50% Syringe (25 Gm/50 Ml)) 25 gm IV PRN PRN; Protocol PRN Reason: PER PROTOCOL Stop: 03/09/18 22:07 Dextrose (Dextrose Inj 50% Syringe (25 Gm/50 Ml)) 12.5 gm IV PRN PRN; Protocol PRN Reason: FOR BG 50-69 IN ALERT PATIENT Stop: 03/09/18 22:07 Famotidine (Pepcid Inj/Pf 20 Mg/2 Ml Sdv) 10 mg IV ACHS [facility] Stop: 03/10/18 07:59 Last Admin: 02/08/18 21:20 Dose: 10 mg Glucagon (Glucagen Inj 1 Mg Vial) 1 mg IM PRN PRN; Protocol PRN Reason: Evaluate for BG < 70 Stop: 03/09/18 22:07 Glucose (Glutose 40% Gel 15 Gm Tube) 15 gm PO PRN PRN; Protocol PRN Reason: FOR BG 50-69 IN ALERT PATIENT Stop: 03/09/18 22:07 Glucose (Glutose 40% Gel 15 Gm Tube) 30 gm PO PRN PRN; Protocol PRN Reason: FOR BG < 50 IN ALERT PATIENT Stop: 03/09/18 22:07 Heparin Sodium (Porcine) (Heparin Inj 5,000 Units/Ml 1 Ml Syringe) 5,000 unit SUBCUT Q8 JEANE Stop: 03/09/18 21:59 Last Admin: 02/09/18 05:19 Dose: Not Given Heparin Sodium (Porcine) (Heparin Inj 1,000 Unit/Ml 10 Ml Vial) 0 - 15,000 unit IV .BOLUS PER PROTOCOL PRN; Protocol PRN Reason: RESPOND TO aPTT VALUE Stop: 03/10/18 23:40 Last Admin: 02/09/18 09:20 Dose: 8,240 units Hydralazine HCl (Apresoline Inj/Pf 20 Mg/1 Ml Sdv) 20 mg IV Q4HP PRN PRN Reason: Give For Sbp > 160 / Dbp > 100 Stop: 03/09/18 22:02 Cefazolin Sodium/Dextrose (Ancef Rtu 1 Gm/D5w 50 Ml Premix Bag) 1 gm in 50 mls @ 100 mls/hr IV Q6 [facility] Stop: 02/15/18 00:00 Last Infusion: 02/09/18 05:54 Dose: Infused Sodium Chloride (Nacl 0.9% 1000 Ml Iv Soln) 1,000 mls @ 167 mls/hr IV CONTINUOUS PRN PRN Reason: THIS MED IS NOT "PRN" Stop: 03/09/18 21:47 Last Admin: 02/09/18 00:31 Dose: 167.67 mls/hr Vancomycin HCl 750 mg/ (Dextrose) 250 mls @ 166.667 mls/hr IV Q12 [facility] Stop: 02/15/18 09:59 Last Infusion: 02/09/18 00:29 Dose: Infused Heparin Sodium/Dextrose (Heparin Rtu 25,000 Unit/250 Ml D5w Premix) 25,000 unit in 250 mls @ 0 mls/hr IV CONTINUOUS PRN; Protocol; Titrate PRN Reason: THIS MED IS NOT "PRN" Stop: 03/10/18 20:38 Last Admin: 02/09/18 09:22 Dose: 18.54 ml/hr, 18.54 mls/hr Insulin Glargine (Lantus Insulin Inj 300 Unit/3 Ml Pen) 14 unit SUBCUT Q12 [facility] Stop: 03/10/18 09:59 Last Admin: 02/08/18 21:19 Dose: 14 units Insulin Human Lispro (Humalog Insulin 100 Unit/1 Ml 3 Ml Vial) 5 unit SUBCUT AC [facility] Stop: 03/10/18 07:59 Last Admin: 02/08/18 15:50 Dose: Not Given Insulin Human Regular (Humulin R (Pyxis) Insulin 100 Unit/Ml 3ml) 0 - 12 unit SUBCUT ACHSP PRN; Protocol PRN Reason: PER PROTOCOL Stop: 03/09/18 22:07 Last Admin: 02/08/18 00:46 Dose: 4 unit Ipratropium [place] (Atrovent 0.02% Neb 0.5 Mg/2.5 Ml Ampul) 0.5 mg NEB RTQ6HP PRN PRN Reason: SHORTNESS OF BREATH Stop: 03/11/18 00:57 Levalbuterol HCl (Xopenex Neb 1.25 Mg/3 Ml Ampul) 1.25 mg NEB RTQ6 [facility] Stop: 03/11/18 01:59 Last Admin: 02/09/18 01:43 Dose: 1.25 mg Magnesium Hydroxide (Milk Of Magnesia 30 Ml Udcup) 30 ml PO HSP PRN PRN Reason: FOR CONSTIPATION Stop: 03/09/18 21:47 Metoclopramide HCl (Reglan Inj/Pf 10 Mg/2 Ml Sdv) 10 mg IV ACHS [facility] Stop: 03/10/18 07:59 Last Admin: 02/08/18 21:21 Dose: 10 mg Metoprolol Succinate (Toprol Xl 25 Mg Tab.Sr) 25 mg PO Q12 [facility] Stop: 03/10/18 21:59 Last Admin: 02/08/18 21:18 Dose: 25 mg Morphine Sulfate (Morphine 10 Mg/Ml Inj) 2 mg IV Q2HP PRN PRN Reason: FOR PAIN SCALE 1-2 Stop: 02/14/18 22:02 Morphine Sulfate (Morphine 10 Mg/Ml Inj) 3 mg IV Q2HP PRN PRN Reason: FOR PAIN SCALE 3-4 Stop: 02/14/18 22:02 Morphine Sulfate (Morphine 10 Mg/Ml Inj) 4 mg IV Q2HP PRN PRN Reason: PAIN SCALE OF 5 Stop: 02/14/18 22:02 Last Admin: 02/08/18 22:56 Dose: 4 mg Ondansetron HCl (Zofran Inj/Pf 4 Mg/2 Ml Sdv) 4 mg IV Q4HP PRN PRN Reason: FOR NAUSEA/VOMITING Stop: 03/09/18 21:47 Last Admin: 02/08/18 05:14 Dose: 4 mg Ondansetron HCl (Zofran Odt 4 Mg Tablet) 4 mg PO Q4HP PRN PRN Reason: FOR NAUSEA/VOMITING Stop: 03/09/18 21:47 Last Admin: 02/08/18 21:34 Dose: 4 mg Sodium Chloride (Saline Flush 2.5 Ml Monoject Prefil Syrin) 2.5 ml IV Q8 [facility] Stop: 03/10/18 05:59 Last Admin: 02/09/18 05:21 Dose: 2.5 ml Sucralfate (Carafate Susp 1 Gm/10 Ml Udcup) 1 gm PO ACHS [facility] Stop: 03/10/18 07:59 Last Admin: 02/08/18 21:16 Dose: 1 gm - Allergies Allergies/Adverse Reactions: No Known Allergies Allergy (Verified 02/08/18 11:04) Hospital Course Hospital Course: This is a 57 years old male patient admitted for infected right second toe stump. Of note patient underwent an amputation of the distal phalanx of his right second toe 7 days prior to his emergency room visit on February 08, 2018. His nitro worker performed the amputation in his office as he was treating the patient for diabetic 2 abscess, and created a skin flap to close over the distal wound of the toe. His nitro worker obtained culture of the wound at that time which was positive for MRSA, and patient then was treated as an outpatient with rifampin which he did not tolerate and then subsequently was placed on Bactrim which also did not tolerate. Patient has had severe nausea and vomiting for 2-3 days prior to admission. Patient admitted for IV antibiotics. Patient has been on cefepime and vancomycin. His wound culture also grew MRSA while in hospital. Yesterday morning patient started complaining of shortness of breath and the attending physician suspected PE and started empirically on IV heparin but CTA of the chest could not be done because of his elevated creatinine. This morning rapid response was activated because patient become diaphoretic and short of breath. His VQ scan reported as negative for acute pulmonary embolism. Patient is found to have markedly elevated troponin of 22. His EKG revealed A. fib which is new onset. I talked to medical research assistant at [facility] his name is Dr. Morales who is a since patient has shortness of breath he wants me to consult hospitalist and he needs to be consulted after patient being admitted. Physical Exam Vital Signs: Temp Pulse Resp BP Pulse Ox 98.3 F 99 28 H 137/87 H 93 02/09/18 08:59 02/09/18 07:54 02/09/18 08:59 02/09/18 09:00 02/09/18 07:54 Intake & Output 02/08/18 02/09/18 02/10/18 06:59 06:59 06:59 Intake Total 3260 4150 Output Total 250 650 Balance 3010 3500 Weight 101.6 kg 103 kg General appearance: PRESENT: other - Moderate distress Head exam: PRESENT: atraumatic, normocephalic Neck exam: ABSENT: carotid bruit, JVD, lymphadenopathy, thyromegaly Respiratory exam: PRESENT: clear to auscultation priyank. ABSENT: rales, rhonchi, wheezes Cardiovascular exam: PRESENT: irregular rhythm, tachycardia GI/Abdominal exam: PRESENT: normal bowel sounds, soft. ABSENT: distended, guarding, mass, organolmegaly, rebound, tenderness Neurological exam: PRESENT: alert, awake, oriented to time Psychiatric exam: PRESENT: normal mood Results Laboratory Results: 02/09/18 07:36 02/09/18 02:41 02/08/18 02/08/18 02/08/18 10:36 11:45 18:25 WBC RBC Hgb Hct MCV MCH MCHC RDW Plt Count Seg Neutrophils % Lymphocytes % Monocytes % Eosinophils % Basophils % Absolute Neutrophils Absolute Lymphocytes Absolute Monocytes Absolute Eosinophils Absolute Basophils Carbonic Acid 1.01 L HCO3/H2CO3 Ratio 23:1 ABG pH 7.47 H ABG pCO2 33.4 L ABG pO2 72.7 L ABG HCO3 24.0 ABG O2 Saturation 95.6 ABG Base Excess 1.0 FiO2 8L Sodium 134.5 L Potassium 4.7 Chloride 101 Carbon Dioxide 25 Anion Gap 9 BUN 45 H Creatinine 2.23 H Est GFR ( Amer) 37 L Est GFR (Non-Af Amer) 30 L Glucose 230 H Lactic Acid 1.3 Calcium 7.6 L Magnesium 02/09/18 02/09/18 02/09/18 02:41 02:41 07:36 WBC 3.7 L 3.9 L RBC 4.44 4.39 Hgb 13.3 L 12.8 L Hct 39.1 38.9 MCV 88 89 MCH 30.0 29.1 MCHC 34.0 32.9 RDW 13.3 13.2 Plt Count 143 L 140 L Seg Neutrophils % 85.2 H 85.4 H Lymphocytes % 8.7 L 7.7 L Monocytes % 5.7 6.4 Eosinophils % 0.0 0.1 Basophils % 0.4 0.4 Absolute Neutrophils 3.1 3.3 Absolute Lymphocytes 0.3 L 0.3 L Absolute Monocytes 0.2 0.2 Absolute Eosinophils 0.0 0.0 Absolute Basophils 0.0 0.0 Carbonic Acid HCO3/H2CO3 Ratio ABG pH ABG pCO2 ABG pO2 ABG HCO3 ABG O2 Saturation ABG Base Excess FiO2 Sodium 133.5 L Potassium 4.9 Chloride 100 Carbon Dioxide 22 Anion Gap 12 BUN 47 H Creatinine 2.36 H Est GFR ( Amer) 34 L Est GFR (Non-Af Amer) 28 L Glucose 302 H Lactic Acid Calcium 7.4 L Magnesium 1.9 02/09/18 07:42 WBC RBC Hgb Hct MCV MCH MCHC RDW Plt Count Seg Neutrophils % Lymphocytes % Monocytes % Eosinophils % Basophils % Absolute Neutrophils Absolute Lymphocytes Absolute Monocytes Absolute Eosinophils Absolute Basophils Carbonic Acid 0.96 L HCO3/H2CO3 Ratio 20:1 ABG pH 7.42 ABG pCO2 32.0 L ABG pO2 67.1 L ABG HCO3 20.1 ABG O2 Saturation 93.9 L ABG Base Excess -3.5 FiO2 100% Sodium Potassium Chloride Carbon Dioxide Anion Gap BUN Creatinine Est GFR ( Amer) Est GFR (Non-Af Amer) Glucose Lactic Acid Calcium Magnesium 02/09/18 02/09/18 07:36 07:36 Creatine Kinase 537 H CK-MB (CK-2) 10.00 H Troponin I 22.000 NT-Pro-B Natriuret Pep 60650 H Impressions: Acute Abdomen Series 02/07/18 18:10 IMPRESSION: NONSPECIFIC BOWEL GAS PATTERN WITHOUT EVIDENCE FOR OBSTRUCTION. Chest X-Ray 02/09/18 00:00 IMPRESSION: Alveolar and interstitial pulmonary edema with trace fluid in the right minor fissure Lung Scan-VQ NM 02/09/18 00:00 IMPRESSION: Perfusion only nuclear scintigraphic lung scan without evidence of perfusion defect or other finding concerning for pulmonary embolism.
[2018-02-09] MEDS ORDERED: FUROSEMIDE INJ/PF 100 MG/10 ML SDV IV ONE (11:30)
[2018-02-09] MEDS: INSULIN REG, HUMAN 100 UNIT/ML 3 ML VIAL (PYX) SUBCUT PRN (12:19)
--- NOTE | 2018-02-09 12:27 | XCELERA REPORT ---
[address] [address] Transthoracic Echocardiogram Report Name: KEISHA SILEVRIO Age: 57 yrs Gender: Male : 1960 Patient Status: Inpatient Patient Location: [facility]^A Study Date: 02/09/2018 10:41 AM Height: 73 in Weight: 227 lb BSA: 2.3 m2 Procedure: A two-dimensional transthoracic echocardiogram with color flow and Doppler was performed. The study was technically difficult with many images being suboptimal in quality. Reason For Study: elevated troponins History: elevated troponins / NSTEMI. Ordering Physician: LATIA HILLMAN Performed By: Bree Mccall Interpretation Summary The left ventricle is normal in size. There is mild concentric left ventricular hypertrophy. LV EF is 40% Left ventricular systolic function is moderately reduced. LV diastolic function could not be adequately assessed due to atrial fibrilation. In a setting of moderate global hypokinesis ,there isslightly increased hypopkinesis of the anterior and lateral salvador. There is no ventricular septal defect visualized. The right ventricle is grossly normal size. The right atrium is normal. The left atrium is mildly dilated. The interatrial septum is intact with no evidence for an atrial septal defect. There is no evidence of mitral valve prolapse. There is no vegetation seen on the mitral valve. There is no mitral valve stenosis. There is a moderate amount of mitral regurgitation There is no aortic valvular vegetation. There is no aortic valve stenosis There is no LVOT obstruction. There is a mild amount of aortic regurgitation There is no tricuspid stenosis. There is a mild to moderate amount of tricuspid regurgitation There is servere pulmonary hypertension by echo There is no pulmonic valvular stenosis. There is a trace amount of pulmonic regurgitation The aortic root is normal size. The inferior vena cava appeared normal and decreased > 50% with respiration (RAP 5-10 mmHg) There is no pericardial effusion. MMode/2D Measurements & Calculations RVDd: 3.7 cm LVIDd: 5.2 cm FS: 20.1 % Ao root diam: 3.1 cm IVSd: 1.2 cm LVIDs: 4.2 cm EDV(Teich): 130.9 ml Ao root area: 7.8 cm2 LVPWd: 1.2 cm ESV(Teich): 77.4 ml LA dimension: 4.4 cm EF(Teich): 40.8 % Doppler Measurements & Calculations MV E max krupa: MV P1/2t max krupa: Ao V2 max: AI max krupa: 101.2 cm/sec 100.7 cm/sec 118.7 cm/sec 460.0 cm/sec MV P1/2t: 40.8 msec Ao max PG: AI max PG: MVA(P1/2t): 5.4 cm2 5.6 mmHg 84.6 mmHg MV dec slope: AI dec slope: 338.6 cm/sec2 722.5 cm/sec2 AI P1/2t: MV dec time: 0.14 sec 397.9 msec LV V1 max PG: PA V2 max: TR max krupa: AV P1/2t-pr_phl: 2.5 mmHg 112.5 cm/sec 388.2 cm/sec 397.9 msec LV V1 max: PA max P.1 mmHg TR max P.5 cm/sec 60.3 mmHg MV P1/2t-pr_phl: 40.8 msec Left Ventricle The left ventricle is normal in size. There is mild concentric left ventricular hypertrophy. LV EF is 40%. Left ventricular systolic function is moderately reduced. LV diastolic function could not be adequately assessed due to atrial fibrilation. In a setting of moderate global hypokinesis ,there isslightly increased hypopkinesis of the anterior and lateral salvador. There is no thrombus. There is no ventricular septal defect visualized. Right Ventricle The right ventricle is grossly normal size. Atria The right atrium is normal. The left atrium is mildly dilated. The interatrial septum is intact with no evidence for an atrial septal defect. Mitral Valve There is no evidence of mitral valve prolapse. There is no vegetation seen on the mitral valve. There is no mitral valve stenosis. There is a moderate amount of mitral regurgitation. Aortic Valve There is no aortic valvular vegetation. There is no aortic valve stenosis. There is no LVOT obstruction. There is a mild amount of aortic regurgitation. Tricuspid Valve There is no tricuspid stenosis. There is a mild to moderate amount of tricuspid regurgitation. There is servere pulmonary hypertension by echo. RVSP is 65 to 70 mm of Hg , with RA mean of 5 to 10. Pulmonic Valve There is no pulmonic valvular stenosis. There is a trace amount of pulmonic regurgitation. Great Vessels The aortic root is normal size. The inferior vena cava appeared normal and decreased > 50% with respiration (RAP 5-10 mmHg). Effusions There is no pericardial effusion. : LATIA HILLMAN > Latia Hillman
[2018-02-09 12:55] VITALS: BP 132/87
--- NOTE | 2018-02-09 12:58 | EKG REPORT ---
SEVERITY:- ABNORMAL ECG - ATRIAL FIBRILLATION, V-RATE 103-155 BORDERLINE RIGHT AXIS DEVIATION LOW VOLTAGE IN FRONTAL LEADS REPOL ABNRM SUGGESTS ISCHEMIA, ANT-LAT LEADS BORDERLINE PROLONGED QT INTERVAL : Confirmed by: Howie Moreno MD 09-Feb-2018 12:58:03
== END 2018-02-09 12:40 | disposition short-term general hospital (02) | DRG 500 ==
LOC: ER 16:37 → EH 21:26 → 3S 02-08 01:02
PROVIDERS: ADMIT Emergency Medicine; ATTEND Emergency Medicine
PROC: 0QDQ0ZZ Extraction of Right Toe Phalanx, Open Approach (ICD-10-PCS; principal; 2018-02-07)
DX: T87.43 Infection of amputation stump, right lower extremity (principal); A41.9 Sepsis, unspecified organism; I21.4 Non-ST elevation (NSTEMI) myocardial infarction; N17.9 Acute kidney failure, unspecified; I50.32 Chronic diastolic (congestive) heart failure; L02.611 Cutaneous abscess of right foot; E11.43 Type 2 diabetes mellitus with diabetic autonomic (poly)neuropathy; K31.84 Gastroparesis; I48.91 Unspecified atrial fibrillation; E86.0 Dehydration; I11.0 Hypertensive heart disease with heart failure; D72.829 Elevated white blood cell count, unspecified; B95.62 Methicillin resistant Staphylococcus aureus infection as the cause of diseases classified elsewhere; Z89.411 Acquired absence of right great toe; E11.40 Type 2 diabetes mellitus with diabetic neuropathy, unspecified; E11.51 Type 2 diabetes mellitus with diabetic peripheral angiopathy without gangrene; F32.9 Major depressive disorder, single episode, unspecified; E86.1 Hypovolemia; Z90.49 Acquired absence of other specified parts of digestive tract; Z82.49 Family history of ischemic heart disease and other diseases of the circulatory system; Z79.84 Long term (current) use of oral hypoglycemic drugs
CPT/HCPCS: 36415; 36600; 71045; 71046; 74022; 78582; 80048; 80053; 81001; 82550; 82553; 82803; 82962; 83036; 83605; 83690; 83735; 83880; 84484; 85025; 85610; 85730; 87040; 87070; 87075; 87077; 87086; 87186; 87205; 87804; 93005; 93010; 93306; 94660; 96361; 96374; 99291; A6266; A9540; A9567; J0131; J0690; J0696; J1160; J1200; J1644; J1815; J1940; J2270; J2405; J2765; J3360; J3370; J3490; J7030; J7060; J7120; Q9969; S0028; S0119

== ENCOUNTER 2018-07-25 16:57 | Emergency (ER) | payer MEDICAID ==
--- NOTE | 2018-07-25 17:58 | ER Document Report ---
Addendum entered and electronically signed by CINDY ALEJANDRE NP 07/25/18 18:05: Course - Re-evaluation Re-evalutation: 07/25/18 18:04 Patient also complains of right flank pain for the past 6 months. Patient feels that the pain started after he had surgery. Patient has been taking muscle relaxers without improvement of his pain symptoms and would like evaluated today as well. - Vital Signs Vital signs: Temp Pulse Resp BP Pulse Ox 98 F 93 16 185/95 H 97 07/25/18 17:19 07/25/18 17:19 07/25/18 17:19 07/25/18 17:19 07/25/18 17:19 Original Note: ED Medical Screen (RME) - General Chief Complaint: Toe Injury Stated Complaint: TOE PAIN Time Seen by Provider: 07/25/18 17:48 Primary Care Provider: APARNA MARLEY PA-C [Primary Care Provider] - Follow up as needed Information source: Patient Notes: Patient presents complaining of swelling and discoloration to the third toe. Patient does have a flattened blood blister to the fourth toe as well. Patient has a history of diabetic neuropathy in the previous first and second toe amputation of this foot before last year. Patient denies any fever. Patient is uncertain if he may have fractured the toe unknowingly. Patient does report a history of MRSA as well. hx: Diabetes, NH, CAD, quadruple bypass I have greeted and performed a rapid initial assessment of this patient. A comprehensive ED assessment and evaluation of the patient, analysis of test results and completion of the medical decision making process will be conducted by additional ED providers. TRAVEL OUTSIDE OF THE [place] IN LAST 30 DAYS: No - Related Data Allergies/Adverse Reactions: No Known Allergies Allergy (Verified 07/25/18 17:05) Past Medical History - Past Medical History Cardiac Medical History: Reports: Hx Hypertension, Hx Peripheral Vascular Disease Denies: Hx Atrial Fibrillation, Hx Coronary Artery Disease Pulmonary Medical History: Denies: Hx Asthma, Hx COPD, Hx Tuberculosis Neurological Medical History: Denies: Hx Seizures Endocrine Medical History: Reports: Hx Diabetes Mellitus Type 2. Denies: Hx Diabetes Mellitus Type 1, Hx Hyperthyroidism, Hx Hypothyroidism Renal/ Medical History: Denies: Hx Peritoneal Dialysis GI Medical History: Reports: Hx Colonoscopy, Hx Endoscopy. Denies: Hx Cirrhosis, Hx Crohn's Disease, Hx Hepatitis, Hx Ulcerative Colitis Musculoskeltal Medical History: Denies Hx Arthritis, Denies Hx Gout Skin Medical History: Denies Hx Eczema, Denies Hx Psoriasis Psychiatric Medical History: Reports: Hx Depression Infectious Medical History: Reports: Hx MRSA. Denies: Hx Hepatitis Past Surgical History: Reports: Hx Cholecystectomy, Hx Orthopedic Surgery - right great toe amputation, recent amputation distal right second toe. Denies: Hx Appendectomy, Hx Bowel Surgery, Hx Coronary Artery Bypass Graft, Hx Gastric Bypass Surgery, Hx Herniorrhaphy, Hx Pacemaker, Hx Tonsillectomy - Immunizations Hx Diphtheria, Pertussis, Tetanus Vaccination: Yes Physical Exam - Vital signs Vitals: Temp Pulse Resp BP Pulse Ox 98 F 93 16 185/95 H 97 07/25/18 17:19 07/25/18 17:19 07/25/18 17:19 07/25/18 17:19 07/25/18 17:19 - General Notes: Right third toe erythema, fluid-filled blister like lesion to dorsal aspect of right third toe, flattened crusted dark area to the dorsal aspect of right fourth toe. Patient status post first and second toe amputation. Course - Vital Signs Vital signs: Temp Pulse Resp BP Pulse Ox 98 F 93 16 185/95 H 97 07/25/18 17:19 07/25/18 17:19 07/25/18 17:19 07/25/18 17:19 07/25/18 17:19 Doctor's Discharge - Discharge Referrals: APARNA MARLEY PA-C [Primary Care Provider] - Follow up as needed
--- NOTE | 2018-07-25 19:47 | RADIOLOGY REPORT (SQ) ---
EXAM DESCRIPTION: FOOT RIGHT COMPLETE COMPLETED DATE/TIME: 07/25/2018 7:05 pm REASON FOR STUDY: r foot 3rd toe swelling, discoloration COMPARISON: None. NUMBER OF VIEWS: Three views. TECHNIQUE: AP, lateral and oblique without weight bearing radiographic images acquired of the right foot. LIMITATIONS: None. FINDINGS: MINERALIZATION: Normal. BONES: Oblique fracture in the proximal phalanx of the 3rd digit. Heterogeneous Hypertrophic bone fo rmation in the distal 2nd and 3rd metatarsals. Prior 1st and 2nd digit amputation. . SOFT TISSUES: Moderate swelling. No radiopaque foreign body. OTHER: No other significant finding. IMPRESSION: Oblique fracture in the proximal phalanx of the 3rd digit. Heterogeneous Hypertrophic bone formation in the distal 2nd and 3rd metatarsals. Prior 1st and 2nd digit amputation. No radiopa que foreign body. TECHNICAL DOCUMENTATION: JOB ID: [id number] [employer]- All Rights Reserved Reading location - IP/workstation name: [email or web address]
[2018-07-25 21:28] LABS: ABSOLUTE BASOPHILS # (AUTO) 0.1 10^3/uL (0.0-0.2); ABSOLUTE EOSINOPHILS # (AUTO) 0.3 10^3/uL (0.0-0.6); ABSOLUTE LYMPHOCYTES (AUTO) 1.7 10^3/uL (0.5-4.7); ABSOLUTE MONOCYTES (AUTO) 0.8 10^3/uL (0.1-1.4); ABSOLUTE NEUT (AUTO) 5.2 10^3/uL (1.7-8.2); BASOPHILS % (AUTO) 0.9 % (0-2); EOSINOPHILS % (AUTO) 3.7 % (0-6); HEMOGLOBIN 13.4 g/dL (13.5-17.0); LYMPHOCYTES % (AUTO) 20.9 % (13-45); MEAN CORPUSCULAR HEMOGLOBIN 27.8 pg (27.0-33.4); MEAN CORPUSCULAR HGB CONC 33.5 g/dL (32.0-36.0); MEAN CORPUSCULAR VOLUME 83 fl (80-97); MONOCYTES % (AUTO) 9.9 % (3-13); PLATELET COUNT 209 10^3/uL (150-450); RED BLOOD COUNT 4.82 10^6/uL (4.35-5.55); RED CELL DISTRIBUTION WIDTH 16.7 % (11.5-14.0); SEGMENTED NEUTROPHILS % (AUTO) 64.6 % (42-78); TOTAL CELLS COUNTED % (AUTO) 100 %; WHITE BLOOD COUNT 8.1 10^3/uL (4.0-10.5)
[2018-07-25 21:42] LABS: ALANINE AMINOTRANSFERASE 17 U/L (21-72); ALBUMIN 4.4 g/dL (3.5-5.0); ALKALINE PHOSPHATASE 128 U/L (38-126); ANION GAP 14 (5-19); ASPARTATE AMINO TRANSFERASE 18 U/L (17-59); BILIRUBIN,DIRECT 0.3 mg/dL (0.0-0.4); BILIRUBIN,TOTAL 0.6 mg/dL (0.2-1.3); BLOOD UREA NITROGEN 30 mg/dL (7-20); CALCIUM 9.7 mg/dL (8.4-10.2); CARBON DIOXIDE 23 mmol/L (22-30); CHLORIDE 104 mmol/L (98-107); GLUCOSE 106 mg/dL (75-110); POTASSIUM 3.9 mmol/L (3.6-5.0); SODIUM 141.4 mmol/L (137-145)
[2018-07-25 22:20] LABS: APPEARANCE,URINE CLEAR; BILIRUBIN,URINE NEGATIVE (NEGATIVE); COLOR,URINE YELLOW; GLUCOSE, URINE NEGATIVE (NEGATIVE); KETONES,URINE NEGATIVE (NEGATIVE); LEUKOCYTE ESTERASE,URINE NEGATIVE (NEGATIVE); NITRITE,URINE NEGATIVE (NEGATIVE); PROTEIN,URINE >=500 mg/dL (NEGATIVE); URINE SPECIFIC GRAVITY 1.013; UROBILINOGEN,URINE NEGATIVE mg/dL (<2.0)
[2018-07-25] MEDS ORDERED: CLINDAMYCIN HCL 150 MG CAPSULE PO ONE (23:19)
--- NOTE | 2018-07-25 23:22 | ER Document Report ---
ED Extremity Problem, Lower - General Chief Complaint: Toe Injury Stated Complaint: TOE PAIN Time Seen by Provider: 07/25/18 17:48 Primary Care Provider: MORALES HENRIQUEZ MD [ACTIVE STAFF] - Follow up as needed Notes: RME note: Patient presents complaining of swelling and discoloration to the third toe. Patient does have a flattened blood blister to the fourth toe as well. Patient has a history of diabetic neuropathy in the previous first and second toe amputation of this foot before last year. Patient denies any fever. Patient is uncertain if he may have fractured the toe unknowingly. Patient does report a history of MRSA as well. Patient also complaining of intermittent left flank pain without nausea, vomiting, diarrhea or urinary symptoms. TRAVEL OUTSIDE OF THE [place] IN LAST 30 DAYS: No - Related Data Allergies/Adverse Reactions: No Known Allergies Allergy (Verified 07/25/18 17:05) Past Medical History - General Information source: Patient - Social History Smoking Status: Never Smoker Chew tobacco use (# tins/day): No Frequency of alcohol use: None Drug Abuse: None Family History: Hypertension, Malignancy Patient has suicidal ideation: No Patient has homicidal ideation: No - Past Medical History Cardiac Medical History: Reports: Hx Hypertension, Hx Peripheral Vascular Disease Denies: Hx Atrial Fibrillation, Hx Coronary Artery Disease Pulmonary Medical History: Denies: Hx Asthma, Hx COPD, Hx Tuberculosis Neurological Medical History: Denies: Hx Seizures Endocrine Medical History: Reports: Hx Diabetes Mellitus Type 2. Denies: Hx Diabetes Mellitus Type 1, Hx Hyperthyroidism, Hx Hypothyroidism Renal/ Medical History: Denies: Hx Peritoneal Dialysis GI Medical History: Reports: Hx Colonoscopy, Hx Endoscopy. Denies: Hx Cirrhosis, Hx Crohn's Disease, Hx Hepatitis, Hx Ulcerative Colitis Musculoskeletal Medical History: Denies Hx Arthritis, Denies Hx Gout Skin Medical History: Denies Hx Eczema, Denies Hx Psoriasis Psychiatric Medical History: Reports: Hx Depression Infectious Medical History: Reports: Hx MRSA. Denies: Hx Hepatitis Past Surgical History: Reports: Hx Cholecystectomy, Hx Orthopedic Surgery - right great toe amputation, recent amputation distal right second toe. Denies: Hx Appendectomy, Hx Bowel Surgery, Hx Coronary Artery Bypass Graft, Hx Gastric Bypass Surgery, Hx Herniorrhaphy, Hx Pacemaker, Hx Tonsillectomy - Immunizations Hx Diphtheria, Pertussis, Tetanus Vaccination: Yes Review of Systems - Review of Systems Constitutional: No symptoms reported EENT: No symptoms reported Cardiovascular: No symptoms reported Respiratory: No symptoms reported Gastrointestinal: No symptoms reported Genitourinary: Flank pain Male Genitourinary: No symptoms reported Musculoskeletal: See HPI Skin: No symptoms reported Hematologic/Lymphatic: No symptoms reported Neurological/Psychological: No symptoms reported Physical Exam - Vital signs Vitals: Temp Pulse Resp BP Pulse Ox 98 F 93 16 185/95 H 97 07/25/18 17:19 07/25/18 17:19 07/25/18 17:19 07/25/18 17:19 07/25/18 17:19 - Notes Notes: PHYSICAL EXAMINATION: GENERAL: Well-appearing, well-nourished and in no acute distress. HEAD: Atraumatic, normocephalic. EYES: Pupils equal round and reactive to light, extraocular movements intact, sclera anicteric, conjunctiva are normal. ENT: Nares patent, oropharynx clear without exudates. Moist mucous membranes. NECK: Normal range of motion, supple without lymphadenopathy LUNGS: Breath sounds clear to auscultation bilaterally and equal. No wheezes rales or rhonchi. HEART: Regular rate and rhythm without murmurs ABDOMEN: Soft, nontender, nondistended abdomen. No guarding, no rebound. No masses appreciated. Genitourinary: No CVA tenderness. Musculoskeletal: Normal range of motion, no pitting or edema. No cyanosis. NEUROLOGICAL: Cranial nerves grossly intact. Normal speech, normal gait. Normal sensory, motor exams PSYCH: Normal mood, normal affect. SKIN: Erythema noted at digits #3 and 4 of the left foot. Normal cap refill, strong dorsalis pedis pulse. Erythema and ecchymosis also noted across the dorsal surface of the foot. Course - Re-evaluation Re-evalutation: CBC and CMP are unremarkable. Hematuria noted on urinalysis. Urine does not appear to be infected and patient does not have any CVA tenderness so I doubt he has a kidney stone. X-ray of the left foot shows no oblique fracture in the proximal phalanx of the third digit. There is a prior first and second digit amputation noted. Patient already uses a postop shoe. He states that he has a wound care appointment scheduled for this coming up Thursday and he also has an appointment with his primary care provider. I instructed him to please also follow-up with orthopedics. - Vital Signs Vital signs: Temp Pulse Resp BP Pulse Ox 98.2 F 95 16 187/102 H 100 07/25/18 23:36 07/25/18 23:36 07/25/18 17:19 07/25/18 23:36 07/25/18 23:36 - Laboratory Result Diagrams: 07/25/18 21:10 07/25/18 21:10 Laboratory results interpreted by me: 07/25/18 07/25/18 07/25/18 21:10 21:10 22:00 Hgb 13.4 L RDW 16.7 H BUN 30 H Creatinine 1.56 H Est GFR ( Amer) 56 L Est GFR (Non-Af Amer) 46 L ALT 17 L Alkaline Phosphatase 128 H Urine Protein >=500 H Urine Blood MODERATE H Discharge - Discharge Clinical Impression: Skin infection Phalanx fracture, foot Qualifiers: Encounter type: initial encounter Toe: lesser toe Fracture type: closed Phalanx: proximal Fracture alignment: nondisplaced Laterality: right Qualified Code(s): S92.514A - Nondisplaced fracture of proximal phalanx of right lesser toe(s), initial encounter for closed fracture Condition: Stable Disposition: HOME, SELF-CARE Additional Instructions: Please use the postop shoe as discussed. Take ibuprofen 600 mg for inflammation. Ice and elevate as much as possible. Do not leave ice on for longer than 20 minutes at a time. Start taking the clindamycin for your skin infection. Follow-up with orthopedics as well as primary care. Keep the appointment you have scheduled for Thursday with wound care. Return to the emergency department with any new or worsening symptoms. Prescriptions: Clindamycin HCl 300 mg PO TID #30 capsule Referrals: MORALES HENRIQUEZ MD [ACTIVE STAFF] - Follow up as needed
[2018-07-25 23:53] VITALS: BP 187/102
== END 2018-07-26 00:02 | disposition home or self-care (01) ==
LOC: ER 16:57
DX: L08.9 Local infection of the skin and subcutaneous tissue, unspecified (principal); M79.675 Pain in left toe(s); S90.32XA Contusion of left foot, initial encounter; S90.425A Blister (nonthermal), left lesser toe(s), initial encounter; X58.XXXA Exposure to other specified factors, initial encounter; R31.9 Hematuria, unspecified; R10.9 Unspecified abdominal pain; E11.40 Type 2 diabetes mellitus with diabetic neuropathy, unspecified; E11.51 Type 2 diabetes mellitus with diabetic peripheral angiopathy without gangrene; I10 Essential (primary) hypertension; Z89.411 Acquired absence of right great toe; Z89.421 Acquired absence of other right toe(s); Z86.14 Personal history of Methicillin resistant Staphylococcus aureus infection; L53.9 Erythematous condition, unspecified
CPT/HCPCS: 99283; 36415; 85025; 80053; 81001; 73630; J3490

== ENCOUNTER → 2019-03-09 | Outpatient (CLI) | payer MEDICAID ==
--- NOTE | 2019-03-09 18:24 | RADIOLOGY REPORT (SQ) ---
EXAM DESCRIPTION: CHEST 2 VIEWS COMPLETED DATE/TIME: 03/09/2019 6:15 pm REASON FOR STUDY: MRI CLEARANCE POSS FB COMPARISON: None. EXAM PARAMETERS: NUMBER OF VIEWS: two views TECHNIQUE: Digital Frontal and Lateral radiographic views of the chest acquired. RADIATION DOSE: NA LIMITATIONS: none FINDINGS: LUNGS AND PLEURA: No opacities, masses or pneumothorax. No pleural effusion. MEDIASTINUM AND HILAR STRUCTURES: No masses or contour abnormalities. HEART AND VASCULAR STRUCTURES: Heart normal size. No evidence for failure. BONES: No acute findings. HARDWARE: Sternotomy wires. Graft markers. OTHER: No other significant finding. IMPRESSION: NO ACUTE RADIOGRAPHIC FINDING IN THE CHEST. TECHNICAL DOCUMENTATION: JOB ID: [id number] [employer]- All Rights Reserved Reading location - IP/workstation name: [email or web address]
--- NOTE | 2019-03-10 12:26 | RADIOLOGY REPORT (SQ) ---
EXAM DESCRIPTION: MRI THORACIC SPINE WITHOUT COMPLETED DATE/TIME: 03/09/2019 6:53 pm REASON FOR STUDY: (M54.6)PAIN IN THORACIC SPINE M54.6 PAIN IN THORACIC SPINE COMPARISON: None. TECHNIQUE: Sagittal and Axial imaging includes T1, T2, STIR and gradient echo sequences. LIMITATIONS: None. FINDINGS: LOCALIZER: No worrisome findings. ALIGNMENT: Normal. VERTEBRAE: Intact. BONE MARROW: Normal. No marrow replacement or reactive changes. HARDWARE: None in the spine. CORD: Normal in size and signal intensity. SOFT TISSUES: No soft tissue masses. THORACIC DISCS T1-T12: Desiccation multiple levels. No evidence of acute disc herniation. LOWER CERVICAL: Not imaged. UPPER LUMBAR: Incompletely imaged. No significant spinal stenosis or exit foraminal stenosis. OTHER: No other significant finding. IMPRESSION: No acute findings. TECHNICAL DOCUMENTATION: JOB ID: [id number] [employer]- All Rights Reserved Reading location - IP/workstation name: [email or web address]
== END ==
LOC: RAD 17:25
PROVIDERS: ATTEND Orthopaedic Surgery
DX: M54.6 Pain in thoracic spine (principal)
CPT/HCPCS: 71046; 72146

== ENCOUNTER 2019-09-25 13:28 | Inpatient (IN) | payer MEDICAID ==
[2019-09-25] MEDS ORDERED: NORMAL SALINE 1000 ML 1,000 ML IV ONE ×2 (14:01→16:14)
--- NOTE | 2019-09-25 14:10 | ER Document Report ---
ED Medical Screen (RME) - General Chief Complaint: Epigastric Pain Stated Complaint: STOMACH PAIN Time Seen by Provider: 09/25/19 13:59 Primary Care Provider: KRYSTAL RUELAS MD [Primary Care Provider] - Follow up as needed Notes: HPI: 58-year-old male brought by EMS for evaluation of epigastric pain that radiates through into his back over the last 5 days. Has not been able to eat in the last 5 days because of the pain. Patient with history of myocardial infarction in 2019 and resulted in a four-vessel bypass in January 2019 at [facility]. Patient has not had vomiting. Patient does have diabetic history does report history of gastroparesis has not had an episode in for 5 years states this feels somewhat similar. PHYSICAL EXAMINATION: Patient is pale and uncomfortable appearing. Patient systolic blood pressure between 80 and 90. He has tenderness in the epigastric region on palpation regular rate and rhythm with clear lung sounds on auscultation. discussed with Dr. Roque I have greeted and performed a rapid initial assessment of this patient. A comprehensive ED assessment and evaluation of the patient, analysis of test results and completion of medical decision making process will be conducted by an additional ED providers. TRAVEL OUTSIDE OF THE [place] IN LAST 30 DAYS: No - Related Data Allergies/Adverse Reactions: No Known Allergies Allergy (Verified 07/25/18 17:05) Past Medical History - Past Medical History Cardiac Medical History: Reports: Hx Hypertension, Hx Peripheral Vascular Disease Denies: Hx Atrial Fibrillation, Hx Coronary Artery Disease Pulmonary Medical History: Denies: Hx Asthma, Hx COPD, Hx Tuberculosis Neurological Medical History: Denies: Hx Seizures Endocrine Medical History: Reports: Hx Diabetes Mellitus Type 2. Denies: Hx Diabetes Mellitus Type 1, Hx Hyperthyroidism, Hx Hypothyroidism Renal/ Medical History: Denies: Hx Peritoneal Dialysis GI Medical History: Reports: Hx Colonoscopy, Hx Endoscopy. Denies: Hx Cirrhosis, Hx Crohn's Disease, Hx Hepatitis, Hx Ulcerative Colitis Musculoskeltal Medical History: Denies Hx Arthritis, Denies Hx Gout Skin Medical History: Denies Hx Eczema, Denies Hx Psoriasis Psychiatric Medical History: Reports: Hx Depression Infectious Medical History: Reports: Hx MRSA. Denies: Hx Hepatitis Past Surgical History: Reports: Hx Cholecystectomy, Hx Orthopedic Surgery - right great toe amputation, recent amputation distal right second toe. Denies: Hx Appendectomy, Hx Bowel Surgery, Hx Coronary Artery Bypass Graft, Hx Gastric Bypass Surgery, Hx Herniorrhaphy, Hx Pacemaker, Hx Tonsillectomy - Immunizations Hx Diphtheria, Pertussis, Tetanus Vaccination: Yes Doctor's Discharge - Discharge Referrals: KRYSTAL RUELAS MD [Primary Care Provider] - Follow up as needed
[2019-09-25] MEDS ORDERED: HYDROMORPHONE HCL INJ/PF 2 MG/ML AMPULE IV ONE (14:22)
--- NOTE | 2019-09-25 14:25 | ER Document Report ---
ED General - General Chief Complaint: Epigastric Pain Stated Complaint: STOMACH PAIN Time Seen by Provider: 09/25/19 13:59 Primary Care Provider: KRYSTAL RUELAS MD [ACTIVE STAFF] - Follow up as needed Notes: 58-year-old male brought emergently to the main side of the emergency department for epigastric pressure that radiates through his back associated with hypotension with a systolic blood pressure of 80-90 systolic in the waiting room. Patient states that he has a history of gastroparesis but he has not had any episodes in approximately 4 years. States he developed epigastric abdominal pain that he describes as a pressure radiating to his back on Thursday, states he was seen by his primary care physician on Thursday who performed blood work, but he does not know these results. Patient states no further treatment was given at that time. Patient states the pain worsens while laying flat, decreases when he is in his recliner or laying on his left hand side. It is associated with 1 episode of nonbloody nonbilious emesis on Thursday, also complains of chills. States that he started taking some leftover Reglan that he had at home which improved his symptoms for approximately an hour and then it comes back. Denies any numbness, tingling, weakness. TRAVEL OUTSIDE OF THE [place] IN LAST 30 DAYS: No - Related Data Allergies/Adverse Reactions: No Known Allergies Allergy (Verified 07/25/18 17:05) Past Medical History - General Information source: Patient - Social History Smoking Status: Never Smoker Frequency of alcohol use: None Drug Abuse: None Family History: Hypertension, Malignancy - Past Medical History Cardiac Medical History: Reports: Hx Hypertension, Hx Peripheral Vascular Disease Denies: Hx Atrial Fibrillation, Hx Coronary Artery Disease Pulmonary Medical History: Denies: Hx Asthma, Hx COPD, Hx Tuberculosis Neurological Medical History: Denies: Hx Seizures Endocrine Medical History: Reports: Hx Diabetes Mellitus Type 2. Denies: Hx Diabetes Mellitus Type 1, Hx Hyperthyroidism, Hx Hypothyroidism Renal/ Medical History: Denies: Hx Peritoneal Dialysis GI Medical History: Reports: Hx Colonoscopy, Hx Endoscopy. Denies: Hx Cirrhosis, Hx Crohn's Disease, Hx Hepatitis, Hx Ulcerative Colitis Musculoskeletal Medical History: Denies Hx Arthritis, Denies Hx Gout Skin Medical History: Denies Hx Eczema, Denies Hx Psoriasis Psychiatric Medical History: Reports: Hx Depression Infectious Medical History: Reports: Hx MRSA. Denies: Hx Hepatitis Past Surgical History: Reports: Hx Cholecystectomy, Hx Orthopedic Surgery - right great toe amputation, recent amputation distal right second toe. Denies: Hx Appendectomy, Hx Bowel Surgery, Hx Coronary Artery Bypass Graft, Hx Gastric Bypass Surgery, Hx Herniorrhaphy, Hx Pacemaker, Hx Tonsillectomy - Immunizations Hx Diphtheria, Pertussis, Tetanus Vaccination: Yes Review of Systems - Review of Systems Constitutional: Chills. denies: Fever EENT: No symptoms reported Cardiovascular: No symptoms reported. denies: Chest pain, Syncope, Dizziness Respiratory: No symptoms reported Gastrointestinal: See HPI, Abdominal pain, Nausea, Vomiting -: Yes All other systems reviewed and negative Physical Exam - Vital signs Vitals: Temp Pulse Resp BP Pulse Ox 98.6 F 89 16 79/54 L 99 09/25/19 13:59 09/25/19 13:59 09/25/19 13:59 09/25/19 13:59 09/25/19 13:59 Interpretation: Hypotensive - Notes Notes: GENERAL: Alert, interacts well. Rubbing his epigastric region, appears mildly uncomfortable. During my examination patient's blood pressure was 150/93. HEAD: Normocephalic, atraumatic EYES: Pupils equal, round and reactive to light, extraocular movements intact. ENT: Oral mucosa moist, tongue midline. NECK: Full range of motion, supple, trachea midline. LUNGS: Clear to auscultation bilaterally, no wheezes, rales or rhonchi, no respiratory distress. HEART: Regular rate and rhythm, no murmurs, gallops, rubs. ABDOMEN: Soft, epigastric tenderness to palpation, no guarding, no rigidity, no rebounding, nondistended, bowel sounds present in all 4 quadrants. EXTREMITIES: Moves all 4 extremities spontaneously, no edema, radial pulses 2/4 bilaterally. No cyanosis. NEUROLOGICAL: Alert and oriented x3, normal speech, biceps and patellar DTRs 2+ bilaterally. PSYCH: Mildly anxious. SKIN: Warm, Dry, normal turgor, no rashes or lesions noted. Course - Re-evaluation Re-evalutation: 09/25/19 20:27 On arrival patient was markedly hypotensive with pain that was radiating from his epigastrium to his back. I was quite concerned for the possibility of a aortic dissection. Patient was immediately sent for CT angiogram of the chest, abdomen and pelvis. Thankfully this did not show an aortic dissection. Patient's blood pressure did improve with initial hydration with 2 L of normal saline. Given the epigastric pain and his history of a quadruple bypass a year and a half ago I was concerned that this might be an anginal equivalent, patient was given nitroglycerin which initially decreased his pain by about half however when he was given the second dose he once again became quite hypotensive and fluid resuscitation was continued. His blood pressure rebounded well after the nitroglycerin wore off. Pain then returned, patient was given a GI cocktail, that did resolve his pain and then his pain returned again but has since resolved. EKG does not show any acute ischemic changes. There is not a STEMI. Patient has stable renal failure, CBC and venous blood gas are unremarkable, initial troponin was indeterminate at 0.056, it has down trended to 0.037 2-1/2 hours later. Lipase is normal. Urinalysis shows some small blood but no signs of infection. Patient did have some hypoxia where his oxygen saturation dropped down to 89% while sitting in the bed and he had to be placed on 2 L via nasal cannula. After about an hour when the patient's pain was better controlled and he was taking deep breaths we were able to take him off the oxygen and ambulate him around the emergency department. The lowest that his oxygen saturation went was 91%. Discussed with patient that this may be his gastroparesis causing some of his pain but I am concerned by the troponin leak. Recommend admission to the hospital for overnight observation, to continue downtrending of his troponin and likely stress test in the morning. Patient is agreeable to this plan. Discussed with Dr. Penn as well, he is agreeable to this plan and will see the patient and place him on the observation status in the telemetry care unit. I did confirm with nursing asbestos cement sheet supervisor Aleksandr that we are able to do stress test tomorrow. - Vital Signs Vital signs: Temp Pulse Resp BP Pulse Ox 98.1 F 89 17 122/80 96 09/25/19 18:50 09/25/19 14:00 09/25/19 19:41 09/25/19 19:41 09/25/19 19:41 - Laboratory Result Diagrams: 09/25/19 14:14 09/25/19 14:14 Laboratory results interpreted by me: 09/25/19 09/25/19 09/25/19 14:14 14:14 16:48 RDW 14.7 H Sodium 136.1 L BUN 29 H Creatinine 2.03 H Est GFR ( Amer) 41 L Est GFR (MDRD) Non-Af 34 L Glucose 179 H Creatine Kinase 54 L Urine Protein Urine Glucose (UA) Urine Ketones Urine Blood 09/25/19 17:36 RDW Sodium BUN Creatinine Est GFR ( Amer) Est GFR (MDRD) Non-Af Glucose Creatine Kinase Urine Protein >=500 H Urine Glucose (UA) 50 H Urine Ketones TRACE H Urine Blood SMALL H - EKG Interpretation by Me Additional EKG results interpreted by me: 09/25/19 15:40 EKG shows sinus rhythm rate 95, left axis deviation, prolonged QT interval at 400, no ST segment elevations or depressions, normal R wave progression, T wave flattening noted in aVL, no T wave inversions per my interpretation. Critical Care Note - Critical Care Note Total time excluding time spent on procedures (mins): 55 Discharge - Discharge Clinical Impression: Epigastric abdominal pain, Chest pain, rule out acute myocardial infarction, CKD (chronic kidney disease) stage 3, GFR 30-59 ml/min Condition: Good Disposition: ADMITTED OBSERVATION Admitting Provider: Isamar (Hospitalist) Unit Admitted: Telemetry Referrals: KRYSTAL RUELAS MD [ACTIVE STAFF] - Follow up as needed
[2019-09-25 14:26] LABS: ABSOLUTE MONOCYTES (AUTO) 0.6 10^3/uL (0.1-1.4); ABSOLUTE NEUT (AUTO) 4.1 10^3/uL (1.7-8.2); BASOPHILS % (AUTO) 0.4 % (0-2); HEMATOCRIT 45.9 % (37.9-51.0); HEMOGLOBIN 15.4 g/dL (13.5-17.0); LYMPHOCYTES % (AUTO) 17.3 % (13-45); MEAN CORPUSCULAR HEMOGLOBIN 29.3 pg (27.0-33.4); MEAN CORPUSCULAR HGB CONC 33.6 g/dL (32.0-36.0); MEAN CORPUSCULAR VOLUME 87 fl (80-97); PLATELET COUNT 191 10^3/uL (150-450); RED BLOOD COUNT 5.26 10^6/uL (4.35-5.55); RED CELL DISTRIBUTION WIDTH 14.7 % (11.5-14.0); SEGMENTED NEUTROPHILS % (AUTO) 72.3 % (42-78); TOTAL CELLS COUNTED % (AUTO) 100 %; WHITE BLOOD COUNT 5.7 10^3/uL (4.0-10.5)
[2019-09-25 14:44] LABS: ALBUMIN 3.7 g/dL (3.5-5.0); ALKALINE PHOSPHATASE 121 U/L (38-126); ANION GAP 7 (5-19); ASPARTATE AMINO TRANSFERASE 43 U/L (17-59); BILIRUBIN,TOTAL 0.7 mg/dL (0.2-1.3); BLOOD UREA NITROGEN 29 mg/dL (7-20); CALCIUM 8.9 mg/dL (8.4-10.2); CARBON DIOXIDE 28 mmol/L (22-30); CHLORIDE 101 mmol/L (98-107); GLUCOSE 179 mg/dL (75-110); POTASSIUM 3.8 mmol/L (3.6-5.0); TOTAL PROTEIN 6.9 g/dL (6.3-8.2)
--- NOTE | 2019-09-25 14:51 | RADIOLOGY REPORT (SQ) ---
EXAM DESCRIPTION: CHEST SINGLE VIEW IMAGES COMPLETED DATE/TIME: 09/25/2019 2:42 pm REASON FOR STUDY: upper abd pain COMPARISON: 03/09/2019 TECHNIQUE: Single frontal radiographic view of the chest acquired. NUMBER OF VIEWS: One view. LIMITATIONS: None. FINDINGS: LUNGS AND PLEURA: No pneumothorax. No consolidation or pleural effusion. MEDIASTINUM AND HILAR STRUCTURES: Stable. HEART AND VASCULAR STRUCTURES: Stable. BONES: No acute findings. HARDWARE: CABG. OTHER: No other significant finding. IMPRESSION: NO ACUTE FINDINGS. TECHNICAL DOCUMENTATION: JOB ID: [id number] [place]-72 2010 [employer]- All Rights Reserved Reading location - IP/workstation name: [email or web address]
--- NOTE | 2019-09-25 15:03 | RADIOLOGY REPORT (SQ) ---
EXAM DESCRIPTION: CTA CHEST; CTA ABDOMEN/PELVIS W WO IMAGES COMPLETED DATE/TIME: 09/25/2019 2:43 pm REASON FOR STUDY: dissection; dissection, don't wait for labs COMPARISON: 07/12/2017 TECHNIQUE: CT scan of the aorta extending to the iliac bifurcation performed with and without intra venous contrast using helical scanning technique with dynamic intravenous contrast injection. Images reviewed with lung, soft tissue, and bone windows. Reconstructed coronal and sagittal MPR images revi ewed. All images stored on PACS. Advanced 3D imaging as volume rendering, MIPS, SSD performed? yes All CT scanners at this facility use dose modulation, iterative reconstruction, and/or weight based d osing when appropriate to reduce radiation dose to as low as reasonably achievable (ALARA). [facility]: Dose Right [facility]: CareDose [facility]: Dose Right [facility]: Teradose 4D [facility]: OBOOK CONTRAST TYPE AND DOSE: contrast/concentration: Isovue 350.00 mmol/ml; Total Contrast Delivered: 100 .0 ml; Total Saline Delivered: 90.0 ml RENAL FUNCTION: GFR > 60. LIMITATIONS: None. FINDINGS: NON-CONTRASTED IMAGING: No significant renal or bladder calcifications. No other significa nt organ calcifications. POST-CONTRAST IMAGING: AORTA AND VESSELS: No aortic aneurysm or dissection. There is approximately 80% stenosis in the righ t renal artery and the first 1 cm from its origin. Left Renal arteries, SMA, celiac without signific ant stenosis. Prior CABG. LUNGS: No consolidation or pleural effusion. LIVER: Normal size. No masses or dilated ducts. SPLEEN: Normal size. No focal lesions. PANCREAS: No masses. No significant calcifications. No adjacent inflammation or peripancreatic fluid collections. Pancreatic duct not dilated. GALLBLADDER: Surgically absent. ADRENAL GLANDS: No significant masses or asymmetry. RIGHT KIDNEY AND URETER: No mass, calculi or urinary tract obstruction. LEFT KIDNEY AND URETER: No mass, calculi or urinary tract obstruction. RETROPERITONEUM: No retroperitoneal adenopathy, hemorrhage or masses. BOWEL AND PERITONEAL CAVITY: No masses or inflammatory changes. No free fluid or peritoneal masses. APPENDIX: Not visualized. ABDOMINAL WALL: No masses. No hernias. BONY STRUCTURES: No acute findings. 3-D IMAGING: Confirms the above findings. OTHER: No other significant finding. IMPRESSION: No aortic aneurysm or dissection. 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 No acute findings otherwise. TECHNICAL DOCUMENTATION: JOB ID: [id number] Quality ID # [id number]: Final reports with documentation of one or more dose reduction techniques (e.g., Au tomated exposure control, adjustment of the mA and/or kV according to patient size, use of iterative reconstruction technique) 2010 [employer]- All Rights Reserved Reading location - IP/workstation name: [email or web address]
--- NOTE | 2019-09-25 15:03 | RADIOLOGY REPORT (SQ) ---
EXAM DESCRIPTION: CTA CHEST; CTA ABDOMEN/PELVIS W WO IMAGES COMPLETED DATE/TIME: 09/25/2019 2:43 pm REASON FOR STUDY: dissection; dissection, don't wait for labs COMPARISON: 07/12/2017 TECHNIQUE: CT scan of the aorta extending to the iliac bifurcation performed with and without intra venous contrast using helical scanning technique with dynamic intravenous contrast injection. Images reviewed with lung, soft tissue, and bone windows. Reconstructed coronal and sagittal MPR images revi ewed. All images stored on PACS. Advanced 3D imaging as volume rendering, MIPS, SSD performed? yes All CT scanners at this facility use dose modulation, iterative reconstruction, and/or weight based d osing when appropriate to reduce radiation dose to as low as reasonably achievable (ALARA). [facility]: Dose Right [facility]: CareDose [facility]: Dose Right [facility]: Teradose 4D [facility]: Tower Cloud CONTRAST TYPE AND DOSE: contrast/concentration: Isovue 350.00 mmol/ml; Total Contrast Delivered: 100 .0 ml; Total Saline Delivered: 90.0 ml RENAL FUNCTION: GFR > 60. LIMITATIONS: None. FINDINGS: NON-CONTRASTED IMAGING: No significant renal or bladder calcifications. No other significa nt organ calcifications. POST-CONTRAST IMAGING: AORTA AND VESSELS: No aortic aneurysm or dissection. There is approximately 80% stenosis in the righ t renal artery and the first 1 cm from its origin. Left Renal arteries, SMA, celiac without signific ant stenosis. Prior CABG. LUNGS: No consolidation or pleural effusion. LIVER: Normal size. No masses or dilated ducts. SPLEEN: Normal size. No focal lesions. PANCREAS: No masses. No significant calcifications. No adjacent inflammation or peripancreatic fluid collections. Pancreatic duct not dilated. GALLBLADDER: Surgically absent. ADRENAL GLANDS: No significant masses or asymmetry. RIGHT KIDNEY AND URETER: No mass, calculi or urinary tract obstruction. LEFT KIDNEY AND URETER: No mass, calculi or urinary tract obstruction. RETROPERITONEUM: No retroperitoneal adenopathy, hemorrhage or masses. BOWEL AND PERITONEAL CAVITY: No masses or inflammatory changes. No free fluid or peritoneal masses. APPENDIX: Not visualized. ABDOMINAL WALL: No masses. No hernias. BONY STRUCTURES: No acute findings. 3-D IMAGING: Confirms the above findings. OTHER: No other significant finding. IMPRESSION: No aortic aneurysm or dissection. 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 No acute findings otherwise. TECHNICAL DOCUMENTATION: JOB ID: [id number] Quality ID # [id number]: Final reports with documentation of one or more dose reduction techniques (e.g., Au tomated exposure control, adjustment of the mA and/or kV according to patient size, use of iterative reconstruction technique) 2010 [employer]- All Rights Reserved Reading location - IP/workstation name: [email or web address]
[2019-09-25] MEDS ORDERED: ASPIRIN 325 MG TABLET PO ONE (15:35)
[2019-09-25] MEDS: NITROGLYCERIN 0.4 MG/TAB 25 TAB/BOTTLE SL PRN ×2 (15:47→15:54)
[2019-09-25] MEDS ORDERED: MAG HYDROX/AL HYDROX/SIMETH SUSP 30 ML UDCUP PO ONE (16:14)
[2019-09-25] MEDS ORDERED: LIDOCAINE 2% VISCOUS SOLN 15 ML UDCUP PO ONE (16:14)
[2019-09-25] MEDS ORDERED: METOCLOPRAMIDE HCL ORAL SOLN 10 MG/10 ML UDCUP PO ONE (16:14)
[2019-09-25 17:16] LABS: VENOUS BLOOD BASE EXCESS -0.1 mmol/L; VENOUS BLOOD HCO3 26.1 mmol/L (20-32); VENOUS BLOOD PCO2 48.1 mmHg (35-63); VENOUS BLOOD PH 7.35 (7.30-7.42)
[2019-09-25 18:08] LABS: APPEARANCE,URINE SLIGHTLY-CLOUDY; BILIRUBIN,URINE NEGATIVE (NEGATIVE); COLOR,URINE YELLOW; GLUCOSE, URINE 50 mg/dL (NEGATIVE); KETONES,URINE TRACE mg/dL (NEGATIVE); LEUKOCYTE ESTERASE,URINE NEGATIVE (NEGATIVE); NITRITE,URINE NEGATIVE (NEGATIVE); PROTEIN,URINE >=500 mg/dL (NEGATIVE); URINE SPECIFIC GRAVITY 1.044; UROBILINOGEN,URINE NEGATIVE mg/dL (<2.0)
[2019-09-25] MEDS ORDERED: DEXTROSE 50%-WATER 25 GM/50 ML DISP.SYRIN IV PRN ×2 (20:59)
[2019-09-25] MEDS ORDERED: GLUCAGON,HUMAN RECOMB 1 MG INJ IM PRN (20:59)
[2019-09-25] MEDS ORDERED: DEXTROSE 40% GEL 15 GM TUBE PO PRN ×2 (20:59)
--- NOTE | 2019-09-25 21:17 | PDOC H&P ---
History of Present Illness History of Present Illness: KEISHA SILVERIO is a 58 year old male with a history of coronary artery disease, grh-ushfuop-ngiybpzli diabetes mellitus, and diabetic gastroparesis who does not frequently have flareups but said that since Thursday he has had middle abdominal discomfort with nausea. He said he also had some discomfort in the left lower quadrant but it is been intermittent. He said he is not really been vomiting but he has spit up a little bit intermittently. He said he can usually take Reglan for a few days and it makes it go away. He came to the ER because it had not been getting any better. He also has chronic kidney disease with baseline creatinine of around 2 and renal artery stenosis. He has not had chest pain. No diaphoresis. Said his nausea gets worse if he lays down flat. He has not had any shortness of breath. No diarrhea. He said something they gave him in the ER made him feel better, but they gave him Reglan, nitroglycerin, morphine and Dilaudid, so there is no telling what it was it actually made him feel better. He said he is not sure why they put him through the CT scanner for chest pain because he said his chest is never been hurting him. At any rate, CTA of the chest abdomen and pelvis was unremarkable except for some renal artery stenosis that was noted. He does have some elevated troponins but no signs of ischemia on chest x-ray, and the troponin is likely due to his chronic kidney disease. He had some fluctuations in his blood pressure which may be due to the nitroglycerin and narcotics. When I saw him in the ER his blood pressure was in the normal range and he was feeling improved overall. Past Medical History Cardiac Medical History: Reports: Hypertension, Peripheral Vascular Disease Denies: Atrial Fibrillation, Coronary Artery Disease Pulmonary Medical History: Denies: Asthma, Chronic Obstructive Pulmonary Disease (COPD), Tuberculosis Neurological Medical History: Denies: Seizures Endocrine Medical History: Reports: Diabetes Mellitus Type 2 Denies: Diabetes Mellitus Type 1, Hyperthyroidism, Hypothyroidism GI Medical History: Denies: Cirrhosis, Crohn's Disease, Hepatitis, Ulcerative Colitis Musculoskeltal Medical History: Denies: Arthritis, Gout Skin Medical History: Denies: Eczema, Psoriasis Psychiatric Medical History: Reports: Depression Hematology: Denies: Anemia, Bleeding Tendencies Infectious Medical History: Reports: Methicillin-Resistant Staph Aureus Past Surgical History Past Surgical History: Reports: Cholecystectomy, Orthopedic Surgery - right great toe amputation, recent amputation distal right second toe Denies: Appendectomy, Coronary Artery Bypass Graft, Gastric Bypass Surgery, Herniorrhaphy, Pacemaker, Tonsillectomy Social History Smoking Status: Never Smoker Frequency of Alcohol Use: None Hx Recreational Drug Use: No Drugs: None Hx Prescription Drug Abuse: No Family History Family History: Hypertension, Malignancy Parental Family History Reviewed: Yes Children Family History Reviewed: Yes Sibling(s) Family History Reviewed.: Yes Medication/Allergy Home Medications: Glimepiride 4 mg PO BID 07/11/17 Losartan/Hydrochlorothiazide [Losartan-Hctz 100-25 mg Tab] 1 each PO DAILY 0 07/11/17 Metformin HCl 1,000 mg PO BID 07/11/17 Clindamycin HCl 300 mg PO TID #30 capsule 07/25/18 Allergies/Adverse Reactions: No Known Allergies Allergy (Verified 07/25/18 17:05) Review of Systems All systems: reviewed and no additional remarkable complaints except as stated - All systems were reviewed and were negative except as noted in the HPI Physical Exam Vital Signs: Temp Pulse Resp BP Pulse Ox 98.1 F 89 13 124/78 96 09/25/19 18:50 09/25/19 14:00 09/25/19 20:21 09/25/19 20:21 09/25/19 20:21 Intake & Output 09/24/19 09/25/19 09/26/19 06:59 06:59 06:59 Intake Total 1999 Balance 1999 Weight 90.718 kg General appearance: PRESENT: no acute distress, cooperative Head exam: PRESENT: atraumatic, normocephalic Eye exam: PRESENT: EOMI, PERRLA. ABSENT: conjunctival injection, nystagmus, scleral icterus Ear exam: PRESENT: normal external ear exam Mouth exam: PRESENT: moist, neck supple Teeth exam: PRESENT: poor dentation Throat exam: ABSENT: post pharyngeal erythema Neck exam: PRESENT: full ROM. ABSENT: carotid bruit, JVD, lymphadenopathy, meningismus, tenderness, thyromegaly Respiratory exam: PRESENT: clear to auscultation [place], symmetrical, unlabored. ABSENT: accessory muscle use, chest wall tenderness, crackles, prolonged expiratory phas, rhonchi, tachypnea, wheezes Cardiovascular exam: PRESENT: RRR, +S1, +S2 Pulses: PRESENT: normal carotid pulses Vascular exam: PRESENT: normal capillary refill GI/Abdominal exam: PRESENT: normal bowel sounds, soft. ABSENT: distended, guarding, rebound, tenderness Extremities exam: ABSENT: clubbing, pedal edema Musculoskeletal exam: PRESENT: normal inspection. ABSENT: deformity Neurological exam: PRESENT: alert, awake, oriented to person, oriented to place, oriented to time, oriented to situation, CN II-XII grossly intact. ABSENT: motor sensory deficit Psychiatric exam: PRESENT: appropriate affect, normal mood Skin exam: PRESENT: dry, warm Results Laboratory Results: 09/25/19 14:14 09/25/19 14:14 09/25/19 09/25/19 09/25/19 14:14 14:14 14:14 WBC 5.7 RBC 5.26 Hgb 15.4 Hct 45.9 MCV 87 MCH 29.3 MCHC 33.6 RDW 14.7 H Plt Count 191 Seg Neutrophils % 72.3 VBG pH VBG pCO2 VBG HCO3 VBG Base Excess Sodium 136.1 L Potassium 3.8 Chloride 101 Carbon Dioxide 28 Anion Gap 7 BUN 29 H Creatinine 2.03 H Est GFR ( Amer) 41 L Glucose 179 H Lactic Acid 1.5 Calcium 8.9 Total Bilirubin 0.7 AST 43 Alkaline Phosphatase 121 Total Protein 6.9 Albumin 3.7 Lipase 214.3 Urine Color Urine Appearance Urine pH Ur Specific [place] Urine Protein Urine Glucose (UA) Urine Ketones Urine Blood Urine Nitrite Ur Leukocyte Esterase Urine WBC (Auto) Urine RBC (Auto) 09/25/19 09/25/19 16:48 17:36 WBC RBC Hgb Hct MCV MCH MCHC RDW Plt Count Seg Neutrophils % VBG pH 7.35 VBG pCO2 48.1 VBG HCO3 26.1 VBG Base Excess -0.1 Sodium Potassium Chloride Carbon Dioxide Anion Gap BUN Creatinine Est GFR ( Amer) Glucose Lactic Acid Calcium Total Bilirubin AST Alkaline Phosphatase Total Protein Albumin Lipase Urine Color YELLOW Urine Appearance SLIGHTLY-CLOUDY Urine pH 5.0 Ur Specific [place] 1.044 Urine Protein >=500 H Urine Glucose (UA) 50 H Urine Ketones TRACE H Urine Blood SMALL H Urine Nitrite NEGATIVE Ur Leukocyte Esterase NEGATIVE Urine WBC (Auto) 2 Urine RBC (Auto) 3 09/25/19 09/25/19 09/25/19 14:14 16:48 16:48 Creatine Kinase 54 L CK-MB (CK-2) Troponin I 0.056 0.037 09/25/19 16:48 Creatine Kinase CK-MB (CK-2) 1.03 Troponin I Impressions: Chest X-Ray 09/25/19 14:00 IMPRESSION: NO ACUTE FINDINGS. Abdomen/Pelvis CTA 09/25/19 14:10 IMPRESSION: No aortic aneurysm or dissection. There is approximately 80% stenosis in the right renal artery and the first 1 cm from its origin. No acute findings otherwise. Chest/Abdomen CTA 09/25/19 14:10 IMPRESSION: No aortic aneurysm or dissection. There is approximately 80% stenosis in the right renal artery and the first 1 cm from its origin. No acute findings otherwise. Assessment and Plan - Diagnosis (1) Diabetic gastroparesis associated with type 2 diabetes mellitus Is this a current diagnosis for this admission?: Yes Plan: I think this is what is actually going on with him here and why he came to the hospital. We will put him on some scheduled Reglan before meals with a clear liquid diabetic diet. We will also give him a little bit of IV fluids because his oral intake last several days has not been very good. (2) Coronary artery disease Qualifiers: Coronary Disease-Associated Artery/Lesion type: [place] artery [place] vs. transplanted heart: [place] heart Associated angina: without angina Qualified Code(s): I25.10 - Atherosclerotic heart disease of [place] coronary artery without angina pectoris Is this a current diagnosis for this admission?: Yes Plan: We will put him on aspirin. We will check a lipid panel in the morning. We will check another troponin on him later this evening. (3) CKD (chronic kidney disease) stage 3, GFR 30-59 ml/min Is this a current diagnosis for this admission?: Yes Plan: At baseline. His mild troponin elevation is probably from accumulation due to his chronic kidney disease and not from acute coronary ischemia. (4) Diabetes mellitus type 2 in nonobese Is this a current diagnosis for this admission?: Yes Plan: Diabetic diet. We will put him on a sliding scale for better blood sugar control but he should be able to resume his oral medications when he goes home. He takes metformin and glimepiride at home, and should probably be on glipizide instead and avoid metformin with his creatinine being elevated. - Time Time Spent with patient: 35 or more minutes Anticipated Discharge Disposition: Home, Self Care Anticipated Discharge Timeframe: within 48 hours
[2019-09-25] MEDS: INSULIN LISPRO 100 UNIT/ML 3 ML VIAL SUBCUT SCH (23:29)
[2019-09-26] MEDS: NORMAL SALINE 1000 ML 1,000 ML IV PRN ×2 (00:20→16:54)
[2019-09-26] MEDS: METOCLOPRAMIDE HCL INJ/PF 10 MG/2 ML SDV IV SCH ×3 (00:20→13:03)
--- NOTE | 2019-09-26 01:15 | EKG REPORT ---
SEVERITY:- ABNORMAL ECG - SINUS RHYTHM PROBABLE LEFT ATRIAL ABNORMALITY BORDERLINE LEFT AXIS DEVIATION REPOL ABNRM SUGGESTS ISCHEMIA, LATERAL LEADS PROLONGED QT INTERVAL : Confirmed by: Latia Snow MD 26-Sep-2019 01:14:10
[2019-09-26] MEDS ORDERED: ONDANSETRON HCL INJ/PF 4 MG/2 ML SDV ONE (04:29)
[2019-09-26 05:27] LABS: HEMATOCRIT 39.8 % (37.9-51.0); MEAN CORPUSCULAR HGB CONC 33.4 g/dL (32.0-36.0); MEAN CORPUSCULAR VOLUME 87 fl (80-97); PLATELET COUNT 136 10^3/uL (150-450); RED BLOOD COUNT 4.58 10^6/uL (4.35-5.55); RED CELL DISTRIBUTION WIDTH 14.7 % (11.5-14.0)
[2019-09-26 05:45] LABS: ANION GAP 7 (5-19); BLOOD UREA NITROGEN 30 mg/dL (7-20); CARBON DIOXIDE 24 mmol/L (22-30); CHLORIDE 104 mmol/L (98-107); CHOLESTEROL 104.73 mg/dL (0-200); GLUCOSE 154 mg/dL (75-110); TRIGLYCERIDES 150 mg/dL (<150)
[2019-09-26 05:56] LABS: DIRECT LDL 58 mg/dL (<100)
[2019-09-26 06:44] LABS: HEMOGLOBIN 13.3 g/dL (13.5-17.0)
[2019-09-26] MEDS: INSULIN LISPRO 100 UNIT/ML 3 ML VIAL SUBCUT SCH ×4 (08:20→21:47)
[2019-09-26] MEDS: ONDANSETRON HCL INJ/PF 4 MG/2 ML SDV IV PRN (09:22)
[2019-09-26] MEDS ORDERED: PANTOPRAZOLE SODIUM 40 MG TABLET.DR PO ONE (09:30)
[2019-09-26] MEDS ORDERED: MAG HYDROX/AL HYDROX/SIMETH SUSP 30 ML UDCUP PO ONE (09:30)
[2019-09-26] MEDS ORDERED: LIDOCAINE 2% VISCOUS SOLN 15 ML UDCUP PO ONE (09:30)
[2019-09-26] MEDS: ASPIRIN 81 MG TABLET, CHEWABLE PO SCH (09:37)
[2019-09-26] MEDS ORDERED: METOCLOPRAMIDE HCL ORAL SOLN 10 MG/10 ML UDCUP PO PRN (14:45)
[2019-09-26] MEDS ORDERED: LIDOCAINE 2% VISCOUS SOLN 15 ML UDCUP PO PRN (14:45)
[2019-09-26] MEDS ORDERED: DEXTROSE 40% GEL 15 GM TUBE PO PRN (14:56)
--- NOTE | 2019-09-26 15:23 | PDOC PROGRESS REPORT ---
Subjective Progress Note for:: 09/26/19 Subjective:: KEISHA SILVERIO is a 58 year old male with a history of coronary artery disease, axl-rqnmbfr-gflgsuulv diabetes mellitus, and diabetic gastroparesis who does not frequently have flareups who was admitted 09/25/19 for severe epigastric pain. Patient was seen on morning rounds. He was found sitting up to the recliner on room air. He was noted to be in obvious discomfort with facial grimacing and frequent position changes/restlessness. Patient reports waxing and waning, sharp, epigastric abdominal pain, nonradiating. Similar to previous gastroparesis, however, more severe in discomfort and less responsive to Reglan which is worked for him well in the past. He reports associated nausea but without emesis. He denies fever, chest pain, palpitations, dyspnea. Agreeable to trial of GI cocktail. No questions per nursing. -- Followed up with nursing this afternoon; patient had near immediate relief with GI cocktail and is now resting comfortably. Request to eat. They are advised that Dr. Higginbotham will be on-call and available for consult tomorrow. Please have patient return to n.p.o. status after midnight. Reason For Visit: DIABETIC GASTROPARESIS Physical Exam Vital Signs: Temp Pulse Resp BP Pulse Ox 98.8 F 85 16 164/83 H 97 09/26/19 03:23 09/26/19 03:23 09/26/19 03:23 09/26/19 03:23 09/26/19 03:23 Intake & Output 09/25/19 09/26/19 09/27/19 06:59 06:59 06:59 Intake Total 2560 Output Total 600 Balance 1960 Weight 94.5 kg General appearance: PRESENT: mild distress - obvious discomfort, well-developed, well-nourished Head exam: PRESENT: atraumatic, normocephalic Eye exam: PRESENT: conjunctiva pink, EOMI, PERRLA. ABSENT: scleral icterus Ear exam: PRESENT: normal external ear exam Mouth exam: PRESENT: moist, tongue midline Respiratory exam: PRESENT: clear to auscultation [place], symmetrical, unlabored. ABSENT: rales, rhonchi, wheezes Cardiovascular exam: PRESENT: RRR, +S1, +S2. ABSENT: diastolic murmur, rubs, systolic murmur Pulses: PRESENT: normal dorsalis pedis pul Vascular exam: PRESENT: normal capillary refill GI/Abdominal exam: PRESENT: normal bowel sounds, soft, tenderness. ABSENT: distended, guarding, mass, organolmegaly, rebound Rectal exam: PRESENT: deferred Extremities exam: PRESENT: full ROM. ABSENT: calf tenderness, clubbing, pedal edema Musculoskeletal exam: PRESENT: ambulatory Neurological exam: PRESENT: alert, awake, oriented to person, oriented to place, oriented to time, oriented to situation, CN II-XII grossly intact. ABSENT: motor sensory deficit Psychiatric exam: PRESENT: appropriate affect, normal mood. ABSENT: homicidal ideation, suicidal ideation Skin exam: PRESENT: dry, intact, warm. ABSENT: cyanosis, rash Results Laboratory Results: 09/26/19 05:02 09/26/19 05:02 09/25/19 09/25/19 09/25/19 14:14 16:48 17:36 WBC RBC Hgb Hct MCV MCH MCHC RDW Plt Count VBG pH 7.35 VBG pCO2 48.1 VBG HCO3 26.1 VBG Base Excess -0.1 Sodium Potassium Chloride Carbon Dioxide Anion Gap BUN Creatinine Est GFR ( Amer) Glucose Lactic Acid 1.5 Calcium Triglycerides Cholesterol LDL Cholesterol Direct VLDL Cholesterol HDL Cholesterol Urine Color YELLOW Urine Appearance SLIGHTLY-CLOUDY Urine pH 5.0 Ur Specific [place] 1.044 Urine Protein >=500 H Urine Glucose (UA) 50 H Urine Ketones TRACE H Urine Blood SMALL H Urine Nitrite NEGATIVE Ur Leukocyte Esterase NEGATIVE Urine WBC (Auto) 2 Urine RBC (Auto) 3 09/26/19 09/26/19 05:02 05:02 WBC 5.0 RBC 4.58 Hgb 13.3 L D Hct 39.8 MCV 87 MCH 29.0 MCHC 33.4 RDW 14.7 H Plt Count 136 L VBG pH VBG pCO2 VBG HCO3 VBG Base Excess Sodium 134.9 L Potassium 4.0 Chloride 104 Carbon Dioxide 24 Anion Gap 7 BUN 30 H Creatinine 1.63 H Est GFR ( Amer) 53 L Glucose 154 H Lactic Acid Calcium 8.0 L Triglycerides 150 Cholesterol 104.73 LDL Cholesterol Direct 58 VLDL Cholesterol 30.0 HDL Cholesterol 22 L Urine Color Urine Appearance Urine pH Ur Specific [place] Urine Protein Urine Glucose (UA) Urine Ketones Urine Blood Urine Nitrite Ur Leukocyte Esterase Urine WBC (Auto) Urine RBC (Auto) 09/25/19 09/25/19 09/25/19 14:14 16:48 16:48 Creatine Kinase 54 L CK-MB (CK-2) Troponin I 0.056 0.037 09/25/19 09/25/19 16:48 22:45 Creatine Kinase CK-MB (CK-2) 1.03 Troponin I 0.047 Impressions: Chest X-Ray 09/25/19 14:00 IMPRESSION: NO ACUTE FINDINGS. Abdomen/Pelvis CTA 09/25/19 14:10 IMPRESSION: No aortic aneurysm or dissection. There is approximately 80% stenosis in the right renal artery and the first 1 cm from its origin. No acute findings otherwise. Chest/Abdomen CTA 09/25/19 14:10 IMPRESSION: No aortic aneurysm or dissection. There is approximately 80% stenosis in the right renal artery and the first 1 cm from its origin. No acute findings otherwise. Assessment and Plan - Diagnosis (1) Epigastric abdominal pain Is this a current diagnosis for this admission?: Yes Plan: Lipase normal. CTA chest abdomen pelvis is negative for acute findings. Patient is admitted to the medical floor and monitored on telemetry. He started on Protonix. Start Carafate. GI cocktail every 6 hours PRN. Soft, low residue diet today. N.p.o. after midnight. Fortunately, Dr. Higginbotham is quality liaison tomorrow. Have placed consult for the morning. (2) CKD (chronic kidney disease) stage 3, GFR 30-59 ml/min Is this a current diagnosis for this admission?: Yes Plan: At baseline. Avoid nephrotoxic medications as able. Follow-up chemistry. (3) Coronary artery disease Qualifiers: Coronary Disease-Associated Artery/Lesion type: [place] artery [place] vs. transplanted heart: [place] heart Associated angina: without angina Qualified Code(s): I25.10 - Atherosclerotic heart disease of [place] coronary artery without angina pectoris Is this a current diagnosis for this admission?: Yes Plan: Lipid panel is acceptable. Troponins are indeterminate but stable. Patient's discomfort was clearly relieved with GI cocktail. Continue monitoring on telemetry. Continue daily aspirin and statin therapy. Resume home antihypertensive regiment. (4) Diabetic gastroparesis associated with type 2 diabetes mellitus Is this a current diagnosis for this admission?: Yes Plan: Likely contributing to his discomfort. Did not have relief with IV Reglan. As the patient had recently received IV Reglan, he was provided Maalox and viscous lidocaine with near immediate relief. We will continue GI cocktail every 6 hours PRN. GI consultation in the morning when Dr. Higginbotham is available. (5) Diabetes mellitus type 2 in nonobese Is this a current diagnosis for this admission?: Yes Plan: Holding oral medications while admitted. We will check A1c with a.m. lab work. Patient is placed on a consistent carb diet. Accu-Cheks before meals and at bedtime with Humalog for sliding scale coverage. Hypoglycemia protocol in place. Registered dietitian branch associate teller consulted. - Time Time Spent with patient: 35 or more minutes Medications reviewed and adjusted accordingly: Yes Anticipated Discharge Disposition: Home, Self Care Anticipated Discharge Timeframe: within 48 hours
[2019-09-26] MEDS: METOPROLOL SUCCINATE 50 MG TAB.SR.24H PO SCH (16:53)
[2019-09-26] MEDS: PANTOPRAZOLE SODIUM 40 MG TABLET.DR PO SCH (16:53)
[2019-09-26] MEDS: SUCRALFATE 1 GM TABLET PO SCH (16:53)
[2019-09-26] MEDS: MONTELUKAST SODIUM 10 MG TABLET PO SCH (17:00)
[2019-09-27] MEDS: METOPROLOL SUCCINATE 50 MG TAB.SR.24H PO SCH ×3 (00:52→22:03)
[2019-09-27] MEDS: ATORVASTATIN CALCIUM 40 MG TABLET PO SCH ×2 (00:52→22:03)
[2019-09-27] MEDS: SUCRALFATE 1 GM TABLET PO SCH ×5 (00:53→22:03)
[2019-09-27] MEDS ORDERED: LISINOPRIL 10 MG TABLET PO ONE (05:45)
[2019-09-27 06:00] LABS: HEMATOCRIT 40.2 % (37.9-51.0); HEMOGLOBIN 13.5 g/dL (13.5-17.0); MEAN CORPUSCULAR HEMOGLOBIN 29.3 pg (27.0-33.4); MEAN CORPUSCULAR HGB CONC 33.7 g/dL (32.0-36.0); MEAN CORPUSCULAR VOLUME 87 fl (80-97); PLATELET COUNT 124 10^3/uL (150-450); RED BLOOD COUNT 4.62 10^6/uL (4.35-5.55); RED CELL DISTRIBUTION WIDTH 14.3 % (11.5-14.0); WHITE BLOOD COUNT 5.2 10^3/uL (4.0-10.5)
[2019-09-27] MEDS: PANTOPRAZOLE SODIUM 40 MG TABLET.DR PO SCH ×2 (06:09→17:59)
[2019-09-27 06:52] LABS: ANION GAP 9 (5-19); BLOOD UREA NITROGEN 20 mg/dL (7-20); CALCIUM 7.8 mg/dL (8.4-10.2); CARBON DIOXIDE 23 mmol/L (22-30); CHLORIDE 103 mmol/L (98-107); GLUCOSE 148 mg/dL (75-110); POTASSIUM 3.8 mmol/L (3.6-5.0)
[2019-09-27] MEDS: INSULIN LISPRO 100 UNIT/ML 3 ML VIAL SUBCUT SCH ×4 (07:57→22:10)
[2019-09-27] MEDS: NORMAL SALINE 1000 ML 1,000 ML IV PRN ×2 (07:57→17:59)
[2019-09-27] MEDS: FUROSEMIDE 40 MG TABLET PO SCH (07:59)
[2019-09-27] MEDS ORDERED: ASPIRIN 81 MG TABLET, ENT COATED PO SCH (08:00)
--- NOTE | 2019-09-27 08:04 | Progress Note ---
Provider Note Provider Note: [facility] is on generator and procedures are currently on hold until power is restored OR is not scheduled to open up until 10am. patient will need to have Covid 19 testing prior to any procedure if rapid is not indicated nor available, procedure likely in 48hours thanks Full consult to follow
[2019-09-27] MEDS: AMLODIPINE BESYLATE 10 MG TABLET PO SCH (10:46)
[2019-09-27] MEDS: ASPIRIN 81 MG TABLET, CHEWABLE PO SCH (10:46)
[2019-09-27] MEDS: MAG HYDROX/AL HYDROX/SIMETH SUSP 30 ML UDCUP PO PRN ×2 (10:46→22:10)
--- NOTE | 2019-09-27 15:29 | PDOC CONSULTATION ---
Consultation Consult Date: 09/27/19 Provider Consulted: LARRY LUCIA Consult reason:: epigastric pain and gastroparesis History of Present Illness Admission Date/PCP: 09/27/19 12:00 History of Present Illness: KEISHA SILVERIO is a 58 year old male Asked to see patient , admitted due to symptoms of epigastric pain and has a history of gastroparesis patient will need an EGD to rule out PUD denies any hematemesis there is no dysphagia patient has Covid testing is progress will schedule procedure for am no melena denies any weight loss Past Medical History Cardiac Medical History: Reports: Hypertension, Peripheral Vascular Disease Denies: Atrial Fibrillation, Coronary Artery Disease Pulmonary Medical History: Denies: Asthma, Chronic Obstructive Pulmonary Disease (COPD), Tuberculosis Neurological Medical History: Denies: Seizures Endocrine Medical History: Reports: Diabetes Mellitus Type 2 Denies: Diabetes Mellitus Type 1, Hyperthyroidism, Hypothyroidism GI Medical History: Denies: Cirrhosis, Crohn's Disease, Hepatitis, Ulcerative Colitis Musculoskeltal Medical History: Denies: Arthritis, Gout Skin Medical History: Denies: Eczema, Psoriasis Psychiatric Medical History: Reports: Depression Hematology: Denies: Anemia, Bleeding Tendencies Infectious Medical History: Reports: Methicillin-Resistant Staph Aureus Past Surgical History Past Surgical History: Reports: Cholecystectomy, Orthopedic Surgery - right great toe amputation, recent amputation distal right second toe Denies: Appendectomy, Coronary Artery Bypass Graft, Gastric Bypass Surgery, Herniorrhaphy, Pacemaker, Tonsillectomy Social History Smoking Status: Never Smoker Frequency of Alcohol Use: None Hx Recreational Drug Use: No Drugs: None Hx Prescription Drug Abuse: No Family History Family History: Hypertension, Malignancy Parental Family History Reviewed: Yes Children Family History Reviewed: Unknown Sibling(s) Family History Reviewed.: Unknown Medication/Allergy Home Medications: Glimepiride 4 mg PO BID 07/11/17 Metformin HCl 1,000 mg PO BID 07/11/17 Amlodipine Besylate [Norvasc 10 mg Tablet] 10 mg PO DAILY 09/26/19 Aspirin [Adult Low Dose Aspirin EC] 81 mg PO QAM 09/26/19 Atorvastatin Calcium [Lipitor 40 mg Tablet] 40 mg PO QHS 09/26/19 Furosemide [Lasix 40 mg Tablet] 40 mg PO QAM 09/26/19 Metoclopramide HCl [Reglan 10 mg Tablet] 10 mg PO QIDP PRN 09/26/19 Metoprolol Succinate [Toprol Xl] 100 mg PO BID 09/26/19 Montelukast Sodium [Singulair 10 mg Tablet] 10 mg PO QPM 09/26/19 Allergies/Adverse Reactions: No Known Allergies Allergy (Verified 07/25/18 17:05) Review of Systems Constitutional: ABSENT: fever(s), headache(s), night sweats, weakness Eyes: ABSENT: visual disturbances Ears: ABSENT: hearing changes Nose, Mouth, and Throat: ABSENT: mouth pain, sore throat Respiratory: ABSENT: dyspnea, hemoptysis Gastrointestinal: ABSENT: dysphagia, hematemesis, hematochezia, melena Genitourinary: ABSENT: dysuria, hematuria Musculoskeletal: ABSENT: deformity, joint swelling Neurological: ABSENT: syncope, tingling, tremor(s), vertigo Endocrine: ABSENT: polydipsia, polyphagia, polyuria Hematologic/Lymphatic: ABSENT: easy bruising Physical Exam Vital Signs: Temp Pulse Resp BP Pulse Ox 99.0 F 74 16 177/96 H 97 09/27/19 07:58 09/27/19 07:58 09/27/19 07:58 09/27/19 07:58 09/27/19 07:58 Intake & Output 09/26/19 09/27/19 09/28/19 06:59 06:59 06:59 Intake Total 2560 2520 Output Total 600 1940 Balance 1960 580 Weight 94.5 kg 95 kg General appearance: PRESENT: mild distress, well-developed, well-nourished Head exam: PRESENT: atraumatic, normocephalic Eye exam: PRESENT: EOMI, PERRLA. ABSENT: scleral icterus Mouth exam: PRESENT: moist, neck supple Neck exam: ABSENT: meningismus, tenderness, thyromegaly Respiratory exam: PRESENT: symmetrical, unlabored. ABSENT: tachypnea, wheezes Cardiovascular exam: PRESENT: RRR, +S1, +S2 GI/Abdominal exam: PRESENT: normal bowel sounds. ABSENT: Gay's sign, organolmegaly, rebound, rigid Extremities exam: ABSENT: joint swelling, pedal edema Musculoskeletal exam: PRESENT: full ROM, normal inspection Neurological exam: PRESENT: alert, awake, CN II-XII grossly intact Skin exam: PRESENT: normal color. ABSENT: mottled, pallor, petechiae Results Laboratory Results: 09/27/19 05:21 09/27/19 05:21 09/27/19 09/27/19 05:21 05:21 WBC 5.2 RBC 4.62 Hgb 13.5 Hct 40.2 MCV 87 MCH 29.3 MCHC 33.7 RDW 14.3 H Plt Count 124 L Sodium 134.7 L Potassium 3.8 Chloride 103 Carbon Dioxide 23 Anion Gap 9 BUN 20 Creatinine 1.44 H Est GFR ( Amer) > 60 Glucose 148 H Calcium 7.8 L 09/25/19 09/25/19 09/25/19 14:14 16:48 16:48 Creatine Kinase 54 L CK-MB (CK-2) Troponin I 0.056 0.037 09/25/19 09/25/19 16:48 22:45 Creatine Kinase CK-MB (CK-2) 1.03 Troponin I 0.047 Impressions: Chest X-Ray 09/25/19 14:00 IMPRESSION: NO ACUTE FINDINGS. Abdomen/Pelvis CTA 09/25/19 14:10 IMPRESSION: No aortic aneurysm or dissection. There is approximately 80% stenosis in the right renal artery and the first 1 cm from its origin. No acute findings otherwise. Chest/Abdomen CTA 09/25/19 14:10 IMPRESSION: No aortic aneurysm or dissection. There is approximately 80% stenosis in the right renal artery and the first 1 cm from its origin. No acute findings otherwise. Assessment & Plan - Diagnosis (1) Epigastric pain Plan: Will schedule EGD Covid testing is progress will schedule patient for am Risks, benefits and alternatives are discussed further recommendations to follow - Time Time Spent: 50 to 70 Minutes
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
--- NOTE | 2019-09-27 17:16 | Progress Note ---
Provider Note Provider Note: Patient has come back Covid 19 positive I have spoken to anesthesia, the current policy is to defer procedure unless life threatening patient has no GI bleeding, or potential food bolus impaction which are emergent GI procedures. will need to defer his EGD he can have upper GI series in place of EGD for now I will speak to RN
[2019-09-27] MEDS: AZITHROMYCIN 500 MG in DEXTROSE 5%-WATER 250 ML IV SCH (17:58)
[2019-09-27] MEDS: MONTELUKAST SODIUM 10 MG TABLET PO SCH (17:59)
[2019-09-27] MEDS: LISINOPRIL 10 MG TABLET PO SCH (17:59)
[2019-09-27] MEDS: ZINC SULFATE 220 MG CAPSULE PO SCH (18:00)
[2019-09-27 19:38] LABS: PROTHROMBIN TIME 12.4 SEC (11.4-15.4)
[2019-09-27 19:41] LABS: D-DIMER 0.71 ug/mL (0.00-0.50)
[2019-09-27] MEDS: IPRATROPIUM/ALBUTEROL 0.5-2.5 MG/3 ML AMPUL NEB SCH (20:09)
[2019-09-27] MEDS: CEFTRIAXONE 1 GM/D5W RTU 1 GM/50 ML RTUPB IV SCH (21:52)
[2019-09-27] MEDS: DEXAMETHASONE SOD PHOSPHATE INJ 4 MG/1 ML VIAL IV SCH (22:02)
[2019-09-27] MEDS: ENOXAPARIN SODIUM INJ 100 MG/1 ML DISP.SYRIN SUBCUT SCH (22:03)
[2019-09-28] MEDS: ONDANSETRON HCL INJ/PF 4 MG/2 ML SDV IV PRN ×2 (00:24→22:23)
[2019-09-28 05:39] LABS: HEMOGLOBIN 12.2 g/dL (13.5-17.0); MEAN CORPUSCULAR HEMOGLOBIN 29.2 pg (27.0-33.4); MEAN CORPUSCULAR HGB CONC 33.9 g/dL (32.0-36.0); MEAN CORPUSCULAR VOLUME 86 fl (80-97); PLATELET COUNT 116 10^3/uL (150-450); RED BLOOD COUNT 4.19 10^6/uL (4.35-5.55); RED CELL DISTRIBUTION WIDTH 14.6 % (11.5-14.0); WHITE BLOOD COUNT 3.9 10^3/uL (4.0-10.5)
[2019-09-28] MEDS: DEXAMETHASONE SOD PHOSPHATE INJ 4 MG/1 ML VIAL IV SCH ×3 (05:54→22:23)
[2019-09-28] MEDS: PANTOPRAZOLE SODIUM 40 MG TABLET.DR PO SCH ×2 (05:54→17:12)
[2019-09-28 06:15] LABS: ALBUMIN 2.3 g/dL (3.5-5.0); ALKALINE PHOSPHATASE 79 U/L (38-126); ANION GAP 7 (5-19); ASPARTATE AMINO TRANSFERASE 27 U/L (17-59); BILIRUBIN,TOTAL 0.5 mg/dL (0.2-1.3); BLOOD UREA NITROGEN 23 mg/dL (7-20); CARBON DIOXIDE 21 mmol/L (22-30); CHLORIDE 103 mmol/L (98-107); GLUCOSE 192 mg/dL (75-110); POTASSIUM 3.7 mmol/L (3.6-5.0); TOTAL PROTEIN 5.1 g/dL (6.3-8.2)
[2019-09-28 06:23] LABS: CALCIUM 6.8 mg/dL (8.4-10.2)
[2019-09-28] MEDS: SUCRALFATE 1 GM TABLET PO SCH ×4 (08:16→22:22)
[2019-09-28] MEDS: INSULIN LISPRO 100 UNIT/ML 3 ML VIAL SUBCUT SCH ×4 (08:17→22:23)
[2019-09-28] MEDS: IPRATROPIUM/ALBUTEROL 0.5-2.5 MG/3 ML AMPUL NEB SCH ×2 (08:38→14:43)
[2019-09-28] MEDS: CALCIUM GLUCONATE 1 GM/NS 50 ML RTU IV SCH ×2 (09:17→10:15)
[2019-09-28] MEDS: METOPROLOL SUCCINATE 50 MG TAB.SR.24H PO SCH ×2 (09:17→22:22)
[2019-09-28] MEDS: ASPIRIN 81 MG TABLET, CHEWABLE PO SCH (09:17)
[2019-09-28] MEDS: ZINC SULFATE 220 MG CAPSULE PO SCH (09:17)
[2019-09-28] MEDS: AMLODIPINE BESYLATE 10 MG TABLET PO SCH (09:17)
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
[2019-09-28] MEDS: HYDRALAZINE HCL INJ/PF 20 MG/1 ML SDV IV PRN (12:14)
[2019-09-28] MEDS: NORMAL SALINE 1000 ML 1,000 ML IV PRN ×2 (12:25→22:25)
[2019-09-28 12:43] LABS: APPEARANCE,URINE SLIGHTLY-CLOUDY; BILIRUBIN,URINE NEGATIVE (NEGATIVE); COLOR,URINE YELLOW; GLUCOSE, URINE >=500 mg/dL (NEGATIVE); KETONES,URINE TRACE mg/dL (NEGATIVE); LEUKOCYTE ESTERASE,URINE NEGATIVE (NEGATIVE); NITRITE,URINE NEGATIVE (NEGATIVE); PROTEIN,URINE >=500 mg/dL (NEGATIVE); UROBILINOGEN,URINE NEGATIVE mg/dL (<2.0)
[2019-09-28] MEDS: MONTELUKAST SODIUM 10 MG TABLET PO SCH (17:12)
[2019-09-28] MEDS: LISINOPRIL 10 MG TABLET PO SCH (17:12)
[2019-09-28] MEDS: AZITHROMYCIN 500 MG in DEXTROSE 5%-WATER 250 ML IV SCH (17:32)
[2019-09-28] MEDS: MAG HYDROX/AL HYDROX/SIMETH SUSP 30 ML UDCUP PO PRN (22:22)
[2019-09-28] MEDS: CEFTRIAXONE 1 GM/D5W RTU 1 GM/50 ML RTUPB IV SCH (22:22)
[2019-09-28] MEDS: ATORVASTATIN CALCIUM 40 MG TABLET PO SCH (22:23)
[2019-09-28] MEDS: TEMAZEPAM 7.5 MG CAPSULE PO SCH (22:23)
[2019-09-28 22:56] LABS: APPEARANCE,URINE CLEAR; BILIRUBIN,URINE NEGATIVE (NEGATIVE); COLOR,URINE YELLOW; GLUCOSE, URINE >=500 mg/dL (NEGATIVE); KETONES,URINE NEGATIVE (NEGATIVE); LEUKOCYTE ESTERASE,URINE NEGATIVE (NEGATIVE); NITRITE,URINE NEGATIVE (NEGATIVE); PROTEIN,URINE >=500 mg/dL (NEGATIVE); UROBILINOGEN,URINE NEGATIVE mg/dL (<2.0)
[2019-09-29 05:46] LABS: ABSOLUTE LYMPHOCYTES (AUTO) 0.5 10^3/uL (0.5-4.7); ABSOLUTE MONOCYTES (AUTO) 0.3 10^3/uL (0.1-1.4); ABSOLUTE NEUT (AUTO) 2.8 10^3/uL (1.7-8.2); ABSOLUTE RETICS # 0.031 10^6/uL (0.028-0.122); BASOPHILS % (AUTO) 0.1 % (0-2); HEMATOCRIT 36.6 % (37.9-51.0); HEMOGLOBIN 12.4 g/dL (13.5-17.0); LYMPHOCYTES % (AUTO) 13.5 % (13-45); MEAN CORPUSCULAR HEMOGLOBIN 29.3 pg (27.0-33.4); MEAN CORPUSCULAR HGB CONC 33.9 g/dL (32.0-36.0); MEAN CORPUSCULAR VOLUME 86 fl (80-97); MONOCYTES % (AUTO) 8.3 % (3-13); PLATELET COUNT 115 10^3/uL (150-450); RED BLOOD COUNT 4.25 10^6/uL (4.35-5.55); RED CELL DISTRIBUTION WIDTH 14.6 % (11.5-14.0); RETICULOCYTE COUNT (AUTO) 0.72 % (0.66-2.85); SEGMENTED NEUTROPHILS % (AUTO) 78.1 % (42-78); TOTAL CELLS COUNTED % (AUTO) 100 %; WHITE BLOOD COUNT 3.6 10^3/uL (4.0-10.5)
[2019-09-29] MEDS: DEXAMETHASONE SOD PHOSPHATE INJ 4 MG/1 ML VIAL IV SCH ×3 (05:48→23:08)
[2019-09-29] MEDS: PANTOPRAZOLE SODIUM 40 MG TABLET.DR PO SCH ×2 (05:48→18:34)
[2019-09-29 06:10] LABS: ANION GAP 5 (5-19); BLOOD UREA NITROGEN 20 mg/dL (7-20); CALCIUM 7.3 mg/dL (8.4-10.2); CARBON DIOXIDE 25 mmol/L (22-30); CHLORIDE 105 mmol/L (98-107); GLUCOSE 222 mg/dL (75-110)
[2019-09-29 06:12] LABS: IRON(TIBC) < 10.1 ug/dL (49-181); POTASSIUM 3.8 mmol/L (3.6-5.0)
[2019-09-29 07:16] LABS: FOLATE 8.08 ng/mL (>2.76)
[2019-09-29] MEDS: INSULIN LISPRO 100 UNIT/ML 3 ML VIAL SUBCUT SCH ×4 (07:52→23:09)
[2019-09-29] MEDS: CALCIUM CARBONATE 600 MG TABLET PO SCH ×2 (07:53→18:34)
[2019-09-29] MEDS: SUCRALFATE 1 GM TABLET PO SCH ×4 (07:53→23:09)
[2019-09-29] MEDS: NORMAL SALINE 1000 ML 1,000 ML IV PRN (07:53)
[2019-09-29] MEDS: AMLODIPINE BESYLATE 10 MG TABLET PO SCH (09:33)
[2019-09-29] MEDS: ASPIRIN 81 MG TABLET, CHEWABLE PO SCH (09:33)
[2019-09-29] MEDS: METOPROLOL SUCCINATE 50 MG TAB.SR.24H PO SCH ×2 (09:33→23:07)
[2019-09-29] MEDS: MULTIVITAMIN TABLET PO SCH (09:33)
[2019-09-29] MEDS: ZINC SULFATE 220 MG CAPSULE PO SCH (09:33)
[2019-09-29] MEDS: FERROUS SULFATE 325 MG TABLET PO SCH (09:33)
[2019-09-29] MEDS: ENOXAPARIN SODIUM INJ 100 MG/1 ML DISP.SYRIN SUBCUT SCH ×2 (09:34→23:09)
[2019-09-29] MEDS ORDERED: MULTIVITAMINS W-IRON TABLET, CHEWABLE PO SCH (10:00)
[2019-09-29] MEDS ORDERED: LISINOPRIL 10 MG TABLET PO SCH (10:00)
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
[2019-09-29] MEDS ORDERED: LISINOPRIL 10 MG TABLET PO ONE (10:30)
[2019-09-29] MEDS: MONTELUKAST SODIUM 10 MG TABLET PO SCH (18:34)
[2019-09-29] MEDS: AZITHROMYCIN 500 MG in DEXTROSE 5%-WATER 250 ML IV SCH (18:34)
[2019-09-29] MEDS: TEMAZEPAM 7.5 MG CAPSULE PO SCH (23:07)
[2019-09-29] MEDS: CEFTRIAXONE 1 GM/D5W RTU 1 GM/50 ML RTUPB IV SCH (23:09)
[2019-09-29] MEDS: ACETAMINOPHEN 325 MG TABLET PO PRN (23:10)
[2019-09-29] MEDS: ATORVASTATIN CALCIUM 40 MG TABLET PO SCH (23:10)
[2019-09-30] MEDS: NORMAL SALINE 1000 ML 1,000 ML IV PRN (02:25)
[2019-09-30] MEDS: PANTOPRAZOLE SODIUM 40 MG TABLET.DR PO SCH ×2 (05:00→16:30)
[2019-09-30] MEDS: DEXAMETHASONE SOD PHOSPHATE INJ 4 MG/1 ML VIAL IV SCH ×3 (05:00→21:59)
[2019-09-30 05:15] LABS: ABSOLUTE LYMPHOCYTES (AUTO) 0.5 10^3/uL (0.5-4.7); ABSOLUTE MONOCYTES (AUTO) 0.4 10^3/uL (0.1-1.4); ABSOLUTE NEUT (AUTO) 5.2 10^3/uL (1.7-8.2); BASOPHILS % (AUTO) 0.1 % (0-2); HEMATOCRIT 36.5 % (37.9-51.0); HEMOGLOBIN 12.5 g/dL (13.5-17.0); LYMPHOCYTES % (AUTO) 8.3 % (13-45); MEAN CORPUSCULAR HEMOGLOBIN 29.4 pg (27.0-33.4); MEAN CORPUSCULAR HGB CONC 34.2 g/dL (32.0-36.0); MEAN CORPUSCULAR VOLUME 86 fl (80-97); MONOCYTES % (AUTO) 5.9 % (3-13); PLATELET COUNT 128 10^3/uL (150-450); RED BLOOD COUNT 4.25 10^6/uL (4.35-5.55); RED CELL DISTRIBUTION WIDTH 14.5 % (11.5-14.0); SEGMENTED NEUTROPHILS % (AUTO) 85.7 % (42-78); TOTAL CELLS COUNTED % (AUTO) 100 %
[2019-09-30 05:33] LABS: ANION GAP 6 (5-19); BLOOD UREA NITROGEN 19 mg/dL (7-20); CALCIUM 7.5 mg/dL (8.4-10.2); CARBON DIOXIDE 24 mmol/L (22-30); CHLORIDE 104 mmol/L (98-107); GLUCOSE 199 mg/dL (75-110); POTASSIUM 3.5 mmol/L (3.6-5.0)
[2019-09-30 06:34] LABS: APPEARANCE,URINE SLIGHTLY-CLOUDY; BILIRUBIN,URINE NEGATIVE (NEGATIVE); COLOR,URINE YELLOW; GLUCOSE, URINE 150 mg/dL (NEGATIVE); KETONES,URINE NEGATIVE (NEGATIVE); LEUKOCYTE ESTERASE,URINE NEGATIVE (NEGATIVE); NITRITE,URINE NEGATIVE (NEGATIVE); PROTEIN,URINE >=500 mg/dL (NEGATIVE); URINE SPECIFIC GRAVITY 1.018; UROBILINOGEN,URINE NEGATIVE mg/dL (<2.0)
[2019-09-30] MEDS: SUCRALFATE 1 GM TABLET PO SCH ×4 (09:05→22:00)
[2019-09-30] MEDS: CALCIUM CARBONATE 600 MG TABLET PO SCH ×2 (09:05→16:30)
[2019-09-30] MEDS: INSULIN LISPRO 100 UNIT/ML 3 ML VIAL SUBCUT SCH ×4 (09:05→21:59)
[2019-09-30] MEDS: ENOXAPARIN SODIUM INJ 100 MG/1 ML DISP.SYRIN SUBCUT SCH ×2 (09:06→21:59)
[2019-09-30] MEDS: ASPIRIN 81 MG TABLET, CHEWABLE PO SCH (09:06)
[2019-09-30] MEDS: FERROUS SULFATE 325 MG TABLET PO SCH (09:06)
[2019-09-30] MEDS: FUROSEMIDE 40 MG TABLET PO SCH (09:06)
[2019-09-30] MEDS: MULTIVITAMIN TABLET PO SCH (09:07)
[2019-09-30] MEDS: METOPROLOL SUCCINATE 50 MG TAB.SR.24H PO SCH ×2 (09:07→22:00)
[2019-09-30] MEDS: AMLODIPINE BESYLATE 10 MG TABLET PO SCH (09:07)
[2019-09-30] MEDS: ZINC SULFATE 220 MG CAPSULE PO SCH (09:07)
[2019-09-30] MEDS ORDERED: LISINOPRIL 10 MG TABLET PO SCH (10:00)
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
[2019-09-30] MEDS: HYDRALAZINE HCL INJ/PF 20 MG/1 ML SDV IV PRN (16:28)
[2019-09-30] MEDS: ACETAMINOPHEN 325 MG TABLET PO PRN (16:29)
[2019-09-30] MEDS: LISINOPRIL 10 MG TABLET PO SCH (17:58)
[2019-09-30] MEDS: AZITHROMYCIN 500 MG in DEXTROSE 5%-WATER 250 ML IV SCH (17:59)
[2019-09-30] MEDS: MONTELUKAST SODIUM 10 MG TABLET PO SCH (18:04)
[2019-09-30] MEDS: IPRATROPIUM/ALBUTEROL 0.5-2.5 MG/3 ML AMPUL NEB SCH (20:20)
[2019-09-30] MEDS: ATORVASTATIN CALCIUM 40 MG TABLET PO SCH (22:00)
[2019-09-30] MEDS: TEMAZEPAM 7.5 MG CAPSULE PO SCH (22:00)
[2019-09-30] MEDS: CEFTRIAXONE 1 GM/D5W RTU 1 GM/50 ML RTUPB IV SCH (22:04)
[2019-09-30 23:15] LABS: APPEARANCE,URINE SLIGHTLY-CLOUDY; BILIRUBIN,URINE NEGATIVE (NEGATIVE); COLOR,URINE YELLOW; GLUCOSE, URINE >=500 mg/dL (NEGATIVE); KETONES,URINE TRACE mg/dL (NEGATIVE); LEUKOCYTE ESTERASE,URINE NEGATIVE (NEGATIVE); NITRITE,URINE NEGATIVE (NEGATIVE); PROTEIN,URINE >=500 mg/dL (NEGATIVE); URINE SPECIFIC GRAVITY 1.021; UROBILINOGEN,URINE NEGATIVE mg/dL (<2.0)
[2019-10-01] MEDS: HYDRALAZINE HCL INJ/PF 20 MG/1 ML SDV IV PRN ×2 (03:46→12:24)
[2019-10-01] MEDS: DEXAMETHASONE SOD PHOSPHATE INJ 4 MG/1 ML VIAL IV SCH ×3 (05:11→21:43)
[2019-10-01] MEDS: PANTOPRAZOLE SODIUM 40 MG TABLET.DR PO SCH ×2 (05:12→17:08)
[2019-10-01] MEDS: LISINOPRIL 10 MG TABLET PO SCH ×2 (05:16→17:08)
[2019-10-01] MEDS: IPRATROPIUM/ALBUTEROL 0.5-2.5 MG/3 ML AMPUL NEB SCH ×3 (08:29→20:33)
[2019-10-01 09:04] LABS: HEMATOCRIT 39.6 % (37.9-51.0); HEMOGLOBIN 13.7 g/dL (13.5-17.0); MEAN CORPUSCULAR HEMOGLOBIN 29.5 pg (27.0-33.4); MEAN CORPUSCULAR HGB CONC 34.6 g/dL (32.0-36.0); MEAN CORPUSCULAR VOLUME 85 fl (80-97); PLATELET COUNT 163 10^3/uL (150-450); RED BLOOD COUNT 4.65 10^6/uL (4.35-5.55); RED CELL DISTRIBUTION WIDTH 14.7 % (11.5-14.0); WHITE BLOOD COUNT 8.9 10^3/uL (4.0-10.5)
[2019-10-01 09:19] LABS: ANION GAP 10 (5-19); BLOOD UREA NITROGEN 19 mg/dL (7-20); CALCIUM 7.7 mg/dL (8.4-10.2); CARBON DIOXIDE 22 mmol/L (22-30); CHLORIDE 100 mmol/L (98-107); GLUCOSE 218 mg/dL (75-110); POTASSIUM 3.7 mmol/L (3.6-5.0)
[2019-10-01] MEDS: ENOXAPARIN SODIUM INJ 100 MG/1 ML DISP.SYRIN SUBCUT SCH ×3 (09:25→22:08)
[2019-10-01] MEDS: SUCRALFATE 1 GM TABLET PO SCH ×4 (09:31→21:43)
[2019-10-01] MEDS: ASPIRIN 81 MG TABLET, CHEWABLE PO SCH (09:32)
[2019-10-01] MEDS: FUROSEMIDE 40 MG TABLET PO SCH (09:32)
[2019-10-01] MEDS: CALCIUM CARBONATE 600 MG TABLET PO SCH ×2 (09:32→17:08)
[2019-10-01] MEDS: FERROUS SULFATE 325 MG TABLET PO SCH (09:32)
[2019-10-01] MEDS: INSULIN LISPRO 100 UNIT/ML 3 ML VIAL SUBCUT SCH ×4 (09:32→21:44)
[2019-10-01] MEDS: METOPROLOL SUCCINATE 50 MG TAB.SR.24H PO SCH ×2 (09:33→21:43)
[2019-10-01] MEDS: MULTIVITAMIN TABLET PO SCH (09:33)
[2019-10-01] MEDS: ZINC SULFATE 220 MG CAPSULE PO SCH (09:34)
[2019-10-01] MEDS ORDERED: AMLODIPINE BESYLATE 10 MG TABLET PO SCH ×2 (10:00→18:00)
[2019-10-01 10:09] LABS: ABSOLUTE LYMPHOCYTES# (MANUAL) 0.3 10^3/uL (0.5-4.7); ABSOLUTE MONOCYTES # (MANUAL) 0.3 10^3/uL (0.1-1.4); BASOPHILS % (MANUAL) 0 % (0-2); EOSINOPHILS % (MANUAL) 0 % (0-6); LYMPHOCYTES % (MANUAL) 3 % (13-45); MONOCYTES % (MANUAL) 3 % (3-13); PLATELET COMMENT ADEQUATE; SEGMENTED NEUTROPHILS % (MAN) 94 % (42-78); TOTAL CELLS COUNTED 100
[2019-10-01] MEDS ORDERED: BISACODYL 5 MG TABEC PO PRN (10:40)
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
[2019-10-01] MEDS: ONDANSETRON HCL INJ/PF 4 MG/2 ML SDV IV PRN (12:24)
[2019-10-01] MEDS: MONTELUKAST SODIUM 10 MG TABLET PO SCH (17:08)
[2019-10-01] MEDS: AZITHROMYCIN 500 MG in DEXTROSE 5%-WATER 250 ML IV SCH (17:09)
[2019-10-01] MEDS: ATORVASTATIN CALCIUM 40 MG TABLET PO SCH (21:43)
[2019-10-01] MEDS: TEMAZEPAM 7.5 MG CAPSULE PO SCH (21:43)
[2019-10-01] MEDS: CEFTRIAXONE 1 GM/D5W RTU 1 GM/50 ML RTUPB IV SCH (21:45)
[2019-10-01] MEDS: AMLODIPINE BESYLATE 5 MG TABLET PO SCH (21:46)
[2019-10-02] MEDS: IPRATROPIUM/ALBUTEROL 0.5-2.5 MG/3 ML AMPUL NEB PRN (02:34)
[2019-10-02] MEDS: DEXAMETHASONE SOD PHOSPHATE INJ 4 MG/1 ML VIAL IV SCH ×3 (05:51→21:33)
[2019-10-02] MEDS: LISINOPRIL 10 MG TABLET PO SCH ×2 (05:52→18:00)
[2019-10-02] MEDS: PANTOPRAZOLE SODIUM 40 MG TABLET.DR PO SCH ×3 (05:53→17:43)
[2019-10-02] MEDS: IPRATROPIUM/ALBUTEROL 0.5-2.5 MG/3 ML AMPUL NEB SCH ×3 (08:01→20:55)
[2019-10-02] MEDS: ZINC SULFATE 220 MG CAPSULE PO SCH (09:25)
[2019-10-02] MEDS: FUROSEMIDE 40 MG TABLET PO SCH (09:26)
[2019-10-02] MEDS: ASPIRIN 81 MG TABLET, CHEWABLE PO SCH (09:26)
[2019-10-02] MEDS: METOPROLOL SUCCINATE 50 MG TAB.SR.24H PO SCH ×2 (09:26→21:33)
[2019-10-02] MEDS: AMLODIPINE BESYLATE 5 MG TABLET PO SCH ×2 (09:26→21:33)
[2019-10-02] MEDS: FERROUS SULFATE 325 MG TABLET PO SCH (09:26)
[2019-10-02] MEDS: INSULIN LISPRO 100 UNIT/ML 3 ML VIAL SUBCUT SCH ×4 (09:26→21:32)
[2019-10-02] MEDS: MULTIVITAMIN TABLET PO SCH (09:26)
[2019-10-02] MEDS: SUCRALFATE 1 GM TABLET PO SCH ×6 (09:26→21:33)
[2019-10-02] MEDS: CALCIUM CARBONATE 600 MG TABLET PO SCH ×3 (09:26→17:45)
[2019-10-02] MEDS: ENOXAPARIN SODIUM INJ 100 MG/1 ML DISP.SYRIN SUBCUT SCH ×2 (09:27→21:34)
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
[2019-10-02] MEDS: AZITHROMYCIN 500 MG in DEXTROSE 5%-WATER 250 ML IV SCH (18:00)
[2019-10-02] MEDS: MONTELUKAST SODIUM 10 MG TABLET PO SCH (18:00)
[2019-10-02] MEDS: TEMAZEPAM 7.5 MG CAPSULE PO SCH (21:33)
[2019-10-02] MEDS: ATORVASTATIN CALCIUM 40 MG TABLET PO SCH (21:33)
[2019-10-02] MEDS: CEFTRIAXONE 1 GM/D5W RTU 1 GM/50 ML RTUPB IV SCH (21:34)
[2019-10-03] MEDS: PANTOPRAZOLE SODIUM 40 MG TABLET.DR PO SCH ×2 (05:36→17:35)
[2019-10-03] MEDS: LISINOPRIL 10 MG TABLET PO SCH ×2 (05:36→17:35)
[2019-10-03] MEDS: DEXAMETHASONE SOD PHOSPHATE INJ 4 MG/1 ML VIAL IV SCH ×3 (05:37→21:36)
[2019-10-03 06:39] LABS: HEMATOCRIT 40.1 % (37.9-51.0); HEMOGLOBIN 13.8 g/dL (13.5-17.0); MEAN CORPUSCULAR HEMOGLOBIN 29.7 pg (27.0-33.4); MEAN CORPUSCULAR HGB CONC 34.5 g/dL (32.0-36.0); MEAN CORPUSCULAR VOLUME 86 fl (80-97); PLATELET COUNT 201 10^3/uL (150-450); RED BLOOD COUNT 4.66 10^6/uL (4.35-5.55); RED CELL DISTRIBUTION WIDTH 14.8 % (11.5-14.0); WHITE BLOOD COUNT 10.1 10^3/uL (4.0-10.5)
[2019-10-03] MEDS: INSULIN LISPRO 100 UNIT/ML 3 ML VIAL SUBCUT SCH ×4 (08:40→21:37)
[2019-10-03] MEDS: CALCIUM CARBONATE 600 MG TABLET PO SCH ×2 (08:41→17:34)
[2019-10-03] MEDS: FUROSEMIDE 40 MG TABLET PO SCH (08:41)
[2019-10-03] MEDS: SUCRALFATE 1 GM TABLET PO SCH ×4 (08:41→21:36)
[2019-10-03] MEDS: IPRATROPIUM/ALBUTEROL 0.5-2.5 MG/3 ML AMPUL NEB SCH ×3 (08:50→19:40)
[2019-10-03] MEDS: FERROUS SULFATE 325 MG TABLET PO SCH (09:16)
[2019-10-03] MEDS: AMLODIPINE BESYLATE 5 MG TABLET PO SCH ×2 (09:16→21:36)
[2019-10-03] MEDS: ASPIRIN 81 MG TABLET, CHEWABLE PO SCH (09:16)
[2019-10-03] MEDS: MULTIVITAMIN TABLET PO SCH (09:16)
[2019-10-03] MEDS: ZINC SULFATE 220 MG CAPSULE PO SCH (09:16)
[2019-10-03] MEDS: METOPROLOL SUCCINATE 50 MG TAB.SR.24H PO SCH ×2 (09:16→21:36)
[2019-10-03] MEDS: ENOXAPARIN SODIUM INJ 100 MG/1 ML DISP.SYRIN SUBCUT SCH ×3 (09:17→22:59)
[2019-10-03 10:00] LABS: APPEARANCE,URINE SLIGHTLY-CLOUDY; BILIRUBIN,URINE NEGATIVE (NEGATIVE); COLOR,URINE YELLOW; GLUCOSE, URINE >=500 mg/dL (NEGATIVE); KETONES,URINE NEGATIVE (NEGATIVE); LEUKOCYTE ESTERASE,URINE NEGATIVE (NEGATIVE); NITRITE,URINE NEGATIVE (NEGATIVE); PROTEIN,URINE >=500 mg/dL (NEGATIVE); URINE SPECIFIC GRAVITY 1.017; UROBILINOGEN,URINE NEGATIVE mg/dL (<2.0)
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
[2019-10-03] MEDS: MONTELUKAST SODIUM 10 MG TABLET PO SCH (17:35)
[2019-10-03] MEDS: AZITHROMYCIN 500 MG in DEXTROSE 5%-WATER 250 ML IV SCH (17:40)
[2019-10-03] MEDS: TEMAZEPAM 7.5 MG CAPSULE PO SCH (21:35)
[2019-10-03] MEDS: CEFTRIAXONE 1 GM/D5W RTU 1 GM/50 ML RTUPB IV SCH (21:35)
[2019-10-03] MEDS: ATORVASTATIN CALCIUM 40 MG TABLET PO SCH (21:36)
[2019-10-04] MEDS: PANTOPRAZOLE SODIUM 40 MG TABLET.DR PO SCH ×2 (06:06→17:41)
[2019-10-04] MEDS: DEXAMETHASONE SOD PHOSPHATE INJ 4 MG/1 ML VIAL IV SCH ×2 (06:06→23:36)
[2019-10-04] MEDS: LISINOPRIL 10 MG TABLET PO SCH ×2 (06:06→17:41)
[2019-10-04] MEDS: IPRATROPIUM/ALBUTEROL 0.5-2.5 MG/3 ML AMPUL NEB SCH ×3 (09:33→21:11)
[2019-10-04] MEDS: SUCRALFATE 1 GM TABLET PO SCH ×4 (10:42→23:35)
[2019-10-04] MEDS: ENOXAPARIN SODIUM INJ 100 MG/1 ML DISP.SYRIN SUBCUT SCH (10:42)
[2019-10-04] MEDS: CALCIUM CARBONATE 600 MG TABLET PO SCH ×2 (10:59→17:41)
[2019-10-04] MEDS: FERROUS SULFATE 325 MG TABLET PO SCH (10:59)
[2019-10-04] MEDS: METOPROLOL SUCCINATE 50 MG TAB.SR.24H PO SCH ×2 (10:59→23:38)
[2019-10-04] MEDS: ZINC SULFATE 220 MG CAPSULE PO SCH (11:00)
[2019-10-04] MEDS: AMLODIPINE BESYLATE 5 MG TABLET PO SCH ×2 (11:00→23:37)
[2019-10-04] MEDS: ASPIRIN 81 MG TABLET, CHEWABLE PO SCH (11:00)
[2019-10-04] MEDS: INSULIN LISPRO 100 UNIT/ML 3 ML VIAL SUBCUT SCH ×4 (11:00→23:36)
[2019-10-04] MEDS: FUROSEMIDE 40 MG TABLET PO SCH (11:00)
[2019-10-04] MEDS: MULTIVITAMIN TABLET PO SCH (11:00)
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
[2019-10-04 11:41] LABS: ARTERIAL BLOOD BASE EXCESS 0.6 mmol/L; ARTERIAL BLOOD H2CO3 1.08 mmol/L (1.05-1.35); ARTERIAL BLOOD HCO3 24.2 mmol/L (20-24); ARTERIAL BLOOD O2 SATURATION 94.5 % (94-98); ARTERIAL BLOOD PCO2 35.8 mmHg (35-45); ARTERIAL BLOOD PH 7.45 (7.35-7.45); ARTERIAL BLOOD PO2 68.5 mmHg (80-100); ARTERIAL BLOOD TOTAL CO2 25.3 mmol/L (23-27)
[2019-10-04] MEDS ORDERED: INSULIN GLARGINE,HUM.REC.ANLOG 1,000 UNIT/10 ML VIAL (PYX) SUBCUT ONE ×2 (13:10→23:20)
[2019-10-04] MEDS: INSULIN GLARGINE,HUM.REC.ANLOG 1,000 UNIT/10 ML VIAL SUBCUT SCH (13:30)
[2019-10-04] MEDS: MONTELUKAST SODIUM 10 MG TABLET PO SCH (17:40)
[2019-10-04] MEDS: ATORVASTATIN CALCIUM 40 MG TABLET PO SCH (23:35)
[2019-10-04] MEDS: TEMAZEPAM 7.5 MG CAPSULE PO SCH (23:38)
[2019-10-05] MEDS: ENOXAPARIN SODIUM INJ 100 MG/1 ML DISP.SYRIN SUBCUT SCH ×3 (04:00→21:34)
[2019-10-05 05:47] LABS: HEMATOCRIT 39.4 % (37.9-51.0); HEMOGLOBIN 13.3 g/dL (13.5-17.0); MEAN CORPUSCULAR HEMOGLOBIN 28.9 pg (27.0-33.4); MEAN CORPUSCULAR HGB CONC 33.8 g/dL (32.0-36.0); MEAN CORPUSCULAR VOLUME 86 fl (80-97); PLATELET COUNT 241 10^3/uL (150-450); RED BLOOD COUNT 4.61 10^6/uL (4.35-5.55); RED CELL DISTRIBUTION WIDTH 14.7 % (11.5-14.0); WHITE BLOOD COUNT 13.1 10^3/uL (4.0-10.5)
[2019-10-05] MEDS: LISINOPRIL 10 MG TABLET PO SCH ×2 (07:05→17:17)
[2019-10-05] MEDS: PANTOPRAZOLE SODIUM 40 MG TABLET.DR PO SCH ×2 (07:06→16:08)
[2019-10-05] MEDS ORDERED: CEFTRIAXONE 1 GM/D5W RTU 1 GM/50 ML RTUPB IV ONE (08:33)
[2019-10-05] MEDS: CALCIUM CARBONATE 600 MG TABLET PO SCH ×2 (08:37→16:07)
[2019-10-05] MEDS: SUCRALFATE 1 GM TABLET PO SCH ×4 (08:37→21:35)
[2019-10-05] MEDS: INSULIN LISPRO 100 UNIT/ML 3 ML VIAL SUBCUT SCH ×4 (08:38→21:33)
[2019-10-05] MEDS: FUROSEMIDE 40 MG TABLET PO SCH (08:38)
[2019-10-05] MEDS: IPRATROPIUM/ALBUTEROL 0.5-2.5 MG/3 ML AMPUL NEB SCH ×3 (09:34→20:10)
[2019-10-05] MEDS: DEXAMETHASONE SOD PHOSPHATE INJ 4 MG/1 ML VIAL IV SCH ×3 (09:47→21:33)
[2019-10-05] MEDS: ASPIRIN 81 MG TABLET, CHEWABLE PO SCH (09:47)
[2019-10-05] MEDS: FERROUS SULFATE 325 MG TABLET PO SCH (09:48)
[2019-10-05] MEDS: AMLODIPINE BESYLATE 5 MG TABLET PO SCH ×2 (09:48→21:34)
[2019-10-05] MEDS: MULTIVITAMIN TABLET PO SCH (09:49)
[2019-10-05] MEDS: CEFTRIAXONE 1 GM/D5W RTU 1 GM/50 ML RTUPB IV SCH (09:49)
[2019-10-05] MEDS: METOPROLOL SUCCINATE 50 MG TAB.SR.24H PO SCH ×2 (09:49→21:34)
[2019-10-05] MEDS: INSULIN GLARGINE,HUM.REC.ANLOG 1,000 UNIT/10 ML VIAL SUBCUT SCH (09:50)
[2019-10-05] MEDS: ZINC SULFATE 220 MG CAPSULE PO SCH (09:50)
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
[2019-10-05] MEDS ORDERED: INSULIN GLARGINE,HUM.REC.ANLOG 1,000 UNIT/10 ML VIAL SUBCUT SCH (12:00)
[2019-10-05] MEDS ORDERED: AZITHROMYCIN 500 MG in DEXTROSE 5%-WATER 250 ML IV SCH (12:00)
[2019-10-05] MEDS: AZITHROMYCIN 500 MG in DEXTROSE 5%-WATER 250 ML IV SCH (16:06)
[2019-10-05] MEDS: MONTELUKAST SODIUM 10 MG TABLET PO SCH (17:17)
[2019-10-05] MEDS: ATORVASTATIN CALCIUM 40 MG TABLET PO SCH (21:35)
[2019-10-06 05:36] LABS: HEMOGLOBIN 13.5 g/dL (13.5-17.0); MEAN CORPUSCULAR HEMOGLOBIN 28.9 pg (27.0-33.4); MEAN CORPUSCULAR HGB CONC 33.8 g/dL (32.0-36.0); MEAN CORPUSCULAR VOLUME 86 fl (80-97); PLATELET COUNT 248 10^3/uL (150-450); RED BLOOD COUNT 4.68 10^6/uL (4.35-5.55); RED CELL DISTRIBUTION WIDTH 14.8 % (11.5-14.0); WHITE BLOOD COUNT 10.9 10^3/uL (4.0-10.5)
[2019-10-06] MEDS: ENOXAPARIN SODIUM INJ 100 MG/1 ML DISP.SYRIN SUBCUT SCH ×3 (05:37→22:51)
[2019-10-06] MEDS: DEXAMETHASONE SOD PHOSPHATE INJ 4 MG/1 ML VIAL IV SCH ×2 (05:44→22:50)
[2019-10-06] MEDS: LISINOPRIL 10 MG TABLET PO SCH ×2 (05:44→17:02)
[2019-10-06] MEDS: PANTOPRAZOLE SODIUM 40 MG TABLET.DR PO SCH ×2 (05:45→16:49)
[2019-10-06 05:48] LABS: ALBUMIN 2.3 g/dL (3.5-5.0); ALKALINE PHOSPHATASE 93 U/L (38-126); ANION GAP 8 (5-19); ASPARTATE AMINO TRANSFERASE 23 U/L (17-59); BILIRUBIN,TOTAL 0.5 mg/dL (0.2-1.3); BLOOD UREA NITROGEN 42 mg/dL (7-20); CALCIUM 7.9 mg/dL (8.4-10.2); CARBON DIOXIDE 25 mmol/L (22-30); CHLORIDE 98 mmol/L (98-107); GLUCOSE 354 mg/dL (75-110); POTASSIUM 3.7 mmol/L (3.6-5.0); TOTAL PROTEIN 5.2 g/dL (6.3-8.2)
[2019-10-06 06:29] LABS: ABSOLUTE LYMPHOCYTES# (MANUAL) 0.7 10^3/uL (0.5-4.7); ABSOLUTE MONOCYTES # (MANUAL) 0.7 10^3/uL (0.1-1.4); BASOPHILS % (MANUAL) 0 % (0-2); EOSINOPHILS % (MANUAL) 0 % (0-6); LYMPHOCYTES % (MANUAL) 6 % (13-45); MONOCYTES % (MANUAL) 6 % (3-13); SEGMENTED NEUTROPHILS % (MAN) 88 % (42-78); TOTAL CELLS COUNTED 100
[2019-10-06 06:30] LABS: ANISOCYTOSIS SLIGHT; PLATELET COMMENT ADEQUATE
[2019-10-06] MEDS: IPRATROPIUM/ALBUTEROL 0.5-2.5 MG/3 ML AMPUL NEB SCH ×4 (08:14→21:08)
[2019-10-06] MEDS: CALCIUM CARBONATE 600 MG TABLET PO SCH ×2 (08:41→16:47)
[2019-10-06] MEDS: FUROSEMIDE 40 MG TABLET PO SCH (08:42)
[2019-10-06] MEDS: SUCRALFATE 1 GM TABLET PO SCH ×4 (08:42→22:52)
[2019-10-06] MEDS: INSULIN LISPRO 100 UNIT/ML 3 ML VIAL SUBCUT SCH ×4 (08:43→22:51)
[2019-10-06] MEDS: FERROUS SULFATE 325 MG TABLET PO SCH (10:02)
[2019-10-06] MEDS: METOPROLOL SUCCINATE 50 MG TAB.SR.24H PO SCH ×2 (10:02→22:52)
[2019-10-06] MEDS: MULTIVITAMIN TABLET PO SCH (10:02)
[2019-10-06] MEDS: INSULIN GLARGINE,HUM.REC.ANLOG 1,000 UNIT/10 ML VIAL SUBCUT SCH (10:03)
[2019-10-06] MEDS: ZINC SULFATE 220 MG CAPSULE PO SCH (10:03)
[2019-10-06] MEDS: ASPIRIN 81 MG TABLET, CHEWABLE PO SCH (10:03)
[2019-10-06] MEDS: AMLODIPINE BESYLATE 5 MG TABLET PO SCH ×2 (10:03→22:52)
[2019-10-06] MEDS: CEFTRIAXONE 1 GM/D5W RTU 1 GM/50 ML RTUPB IV SCH (10:04)
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
[2019-10-06] MEDS: AZITHROMYCIN 500 MG in DEXTROSE 5%-WATER 250 ML IV SCH (13:49)
[2019-10-06] MEDS: MONTELUKAST SODIUM 10 MG TABLET PO SCH (17:02)
[2019-10-06] MEDS: ATORVASTATIN CALCIUM 40 MG TABLET PO SCH (22:52)
[2019-10-07 05:21] LABS: HEMATOCRIT 38.5 % (37.9-51.0); MEAN CORPUSCULAR HEMOGLOBIN 28.7 pg (27.0-33.4); MEAN CORPUSCULAR HGB CONC 33.9 g/dL (32.0-36.0); MEAN CORPUSCULAR VOLUME 85 fl (80-97); PLATELET COUNT 251 10^3/uL (150-450); RED BLOOD COUNT 4.53 10^6/uL (4.35-5.55); RED CELL DISTRIBUTION WIDTH 14.8 % (11.5-14.0); WHITE BLOOD COUNT 13.3 10^3/uL (4.0-10.5)
[2019-10-07] MEDS: LISINOPRIL 10 MG TABLET PO SCH ×2 (06:18→17:00)
[2019-10-07] MEDS: PANTOPRAZOLE SODIUM 40 MG TABLET.DR PO SCH ×2 (06:18→16:42)
[2019-10-07] MEDS: IPRATROPIUM/ALBUTEROL 0.5-2.5 MG/3 ML AMPUL NEB SCH ×3 (08:06→21:10)
[2019-10-07] MEDS ORDERED: INSULIN GLARGINE,HUM.REC.ANLOG 1,000 UNIT/10 ML VIAL (PYX) SUBCUT ONE (08:58)
[2019-10-07] MEDS: INSULIN GLARGINE,HUM.REC.ANLOG 1,000 UNIT/10 ML VIAL SUBCUT SCH (08:59)
[2019-10-07] MEDS: INSULIN LISPRO 100 UNIT/ML 3 ML VIAL SUBCUT SCH ×4 (09:00→22:50)
[2019-10-07] MEDS: CEFTRIAXONE 1 GM/D5W RTU 1 GM/50 ML RTUPB IV SCH (09:00)
[2019-10-07] MEDS: CALCIUM CARBONATE 600 MG TABLET PO SCH ×2 (09:01→16:42)
[2019-10-07] MEDS: ZINC SULFATE 220 MG CAPSULE PO SCH (09:01)
[2019-10-07] MEDS: ASPIRIN 81 MG TABLET, CHEWABLE PO SCH (09:02)
[2019-10-07] MEDS: AMLODIPINE BESYLATE 5 MG TABLET PO SCH ×2 (09:02→22:50)
[2019-10-07] MEDS: SUCRALFATE 1 GM TABLET PO SCH ×4 (09:02→22:50)
[2019-10-07] MEDS: FERROUS SULFATE 325 MG TABLET PO SCH (09:02)
[2019-10-07] MEDS: METOPROLOL SUCCINATE 50 MG TAB.SR.24H PO SCH ×2 (09:02→22:50)
[2019-10-07] MEDS: MULTIVITAMIN TABLET PO SCH (09:02)
[2019-10-07] MEDS: ENOXAPARIN SODIUM INJ 100 MG/1 ML DISP.SYRIN SUBCUT SCH ×2 (09:03→23:14)
[2019-10-07] MEDS: DEXAMETHASONE SOD PHOSPHATE INJ 4 MG/1 ML VIAL IV SCH ×2 (09:03→22:50)
[2019-10-07] MEDS: FUROSEMIDE 40 MG TABLET PO SCH (09:03)
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
[2019-10-07] MEDS: RINGERS SOLUTION,LACTATED 1,000 ML IV PRN (16:42)
[2019-10-07] MEDS: MONTELUKAST SODIUM 10 MG TABLET PO SCH (17:00)
[2019-10-07] MEDS: ATORVASTATIN CALCIUM 40 MG TABLET PO SCH (22:50)
[2019-10-08] MEDS: AZITHROMYCIN 500 MG in DEXTROSE 5%-WATER 250 ML IV SCH (01:01)
[2019-10-08] MEDS: LISINOPRIL 10 MG TABLET PO SCH ×2 (05:49→17:21)
[2019-10-08] MEDS: PANTOPRAZOLE SODIUM 40 MG TABLET.DR PO SCH ×2 (05:49→17:20)
[2019-10-08] MEDS: FUROSEMIDE 40 MG TABLET PO SCH (07:47)
[2019-10-08] MEDS: INSULIN LISPRO 100 UNIT/ML 3 ML VIAL SUBCUT SCH ×4 (07:47→21:46)
[2019-10-08] MEDS: SUCRALFATE 1 GM TABLET PO SCH ×4 (07:48→21:35)
[2019-10-08] MEDS: CALCIUM CARBONATE 600 MG TABLET PO SCH ×2 (07:48→17:20)
[2019-10-08] MEDS: RINGERS SOLUTION,LACTATED 1,000 ML IV PRN ×2 (07:55→23:00)
[2019-10-08] MEDS: IPRATROPIUM/ALBUTEROL 0.5-2.5 MG/3 ML AMPUL NEB SCH ×3 (08:25→21:18)
[2019-10-08] MEDS: AZITHROMYCIN 250 MG TABLET PO SCH (10:09)
[2019-10-08] MEDS: AMLODIPINE BESYLATE 5 MG TABLET PO SCH ×2 (10:10→21:35)
[2019-10-08] MEDS: CEFTRIAXONE 1 GM/D5W RTU 1 GM/50 ML RTUPB IV SCH (10:10)
[2019-10-08] MEDS: ENOXAPARIN SODIUM INJ 100 MG/1 ML DISP.SYRIN SUBCUT SCH ×3 (10:10→21:37)
[2019-10-08] MEDS: METOPROLOL SUCCINATE 50 MG TAB.SR.24H PO SCH ×2 (10:10→21:35)
[2019-10-08] MEDS: ZINC SULFATE 220 MG CAPSULE PO SCH (10:10)
[2019-10-08] MEDS: ASPIRIN 81 MG TABLET, CHEWABLE PO SCH (10:10)
[2019-10-08] MEDS: FERROUS SULFATE 325 MG TABLET PO SCH (10:10)
[2019-10-08] MEDS: DEXAMETHASONE SOD PHOSPHATE INJ 4 MG/1 ML VIAL IV SCH ×2 (10:10→21:35)
[2019-10-08] MEDS: MULTIVITAMIN TABLET PO SCH (10:10)
[2019-10-08] MEDS: INSULIN GLARGINE,HUM.REC.ANLOG 1,000 UNIT/10 ML VIAL SUBCUT SCH (10:13)
--- NOTE | 2019-10-08 14:24 | PDOC PROGRESS REPORT ---
Subjective Progress Note for:: 10/08/19 Subjective:: Patient was seen on morning rounds. He is found resting in bed, comfortably, on high flow nasal cannula. He reports continued dyspnea, occasional pleurisy, nonproductive cough. Primary complaint today is anxiety/tearfulness; very depressed about his current medical condition and prolonged hospital stay. Feels like he will never get better. He denies fever, chills, [cardiac] chest pain, palpitations, abdominal pain, nausea vomiting and diarrhea. He has no other questions or concerns at this time. No concerns per nursing. Reason For Visit: DIABETIC GASTROPARESIS Physical Exam Vital Signs: Temp Pulse Resp BP Pulse Ox 98.4 F 70 16 137/76 H 97 10/08/19 10:52 10/08/19 10:52 10/08/19 13:01 10/08/19 10:52 10/08/19 13:01 Intake & Output 10/07/19 10/08/19 10/09/19 06:59 06:59 06:59 Intake Total 770 1570 50 Output Total 600 300 250 Balance 170 1270 -200 Weight 97.3 kg 97.1 kg General appearance: PRESENT: no acute distress, cooperative, well-developed, well-nourished Head exam: PRESENT: atraumatic, normocephalic Eye exam: PRESENT: conjunctiva pink, EOMI, PERRLA. ABSENT: scleral icterus Mouth exam: PRESENT: moist, tongue midline Respiratory exam: PRESENT: clear to auscultation priyank, symmetrical, tachypnea, unlabored, other - HFNC. ABSENT: rales, rhonchi, wheezes Cardiovascular exam: PRESENT: RRR. ABSENT: diastolic murmur, rubs, systolic murmur Pulses: PRESENT: normal dorsalis pedis pul Vascular exam: PRESENT: normal capillary refill Extremities exam: PRESENT: full ROM. ABSENT: calf tenderness, clubbing, pedal edema Neurological exam: PRESENT: alert, awake, oriented to person, oriented to place, oriented to time, oriented to situation, CN II-XII grossly intact. ABSENT: motor sensory deficit Psychiatric exam: PRESENT: anxious, appropriate affect, other - Labile emotion; tearful. ABSENT: homicidal ideation, suicidal ideation Skin exam: PRESENT: dry, intact, warm. ABSENT: cyanosis, rash Results Laboratory Results: 10/07/19 04:28 10/06/19 04:32 09/25/19 09/25/19 09/25/19 14:14 16:48 16:48 Creatine Kinase 54 L CK-MB (CK-2) Troponin I 0.056 0.037 09/25/19 09/25/19 16:48 22:45 Creatine Kinase CK-MB (CK-2) 1.03 Troponin I 0.047 Impressions: Chest X-Ray 09/25/19 14:00 IMPRESSION: NO ACUTE FINDINGS. Abdomen/Pelvis CTA 09/25/19 14:10 IMPRESSION: No aortic aneurysm or dissection. There is approximately 80% stenosis in the right renal artery and the first 1 cm from its origin. No acute findings otherwise. Chest/Abdomen CTA 09/25/19 14:10 IMPRESSION: No aortic aneurysm or dissection. There is approximately 80% stenosis in the right renal artery and the first 1 cm from its origin. No acute findings otherwise. Assessment and Plan - Diagnosis (1) Acute respiratory failure due to COVID-19 Is this a current diagnosis for this admission?: Yes Plan: Unchanged. On high flow nasal cannula, on FiO2 of 70 to 90%. SPO2 low 90s. Afebrile. WBC slightly elevated. Cultures negative. COVID-19 came back positive on 09/27/2019. Chest x-ray on admission no acute findings. Day 11 IV antibiotics. Day 11 IV ceftriaxone. Day 11 IV azithromycin. Day 11 IV steroids. Decrease to 2 mg IV every 12 10/06/2019. Taper off if pos sible. Refusing Lovenox. Continue PRN DuoNebs, PRN BiPAP, supplemental oxygen, contact precaution, empiric IV antibiotics, zinc, Lovenox, steroids, flutter valve, incentive spirometry. (2) Epigastric abdominal pain Is this a current diagnosis for this admission?: Yes Plan: Resolved. History of gastroparesis. Lipase normal on admission. CTA chest abdomen pelvis is negative for acute findings. Continue PPIs, Carafate, GI cocktail PRN. GI was consulted for upper GI endoscopy currently on hold as patient has tested positive for COVID-19. Pending H. pylori antigen. Upper GI endoscopy has been canceled as patient is positive for coag. Will arrange outpatient upper GI endoscopy. (3) CKD (chronic kidney disease) stage 3, GFR 30-59 ml/min Is this a current diagnosis for this admission?: Yes Plan: Creatinine at baseline. Monitor electrolytes and volume status replace as needed. Avoid nephrotoxic meds. (4) Coronary artery disease Qualifiers: Coronary Disease-Associated Artery/Lesion type: [place] artery [place] vs. transplanted heart: [place] heart Associated angina: without angina Qualified Code(s): I25.10 - Atherosclerotic heart disease of [place] coronary artery without angina pectoris Is this a current diagnosis for this admission?: Yes Plan: Denies any anginal symptoms. Troponins negative. Lipid panel acceptable range. Continue statins, beta-blockers, ANGELA, statins. Adjust meds as needed. Outpatient PCP and cardiology follow-up. (5) Diabetic gastroparesis associated with type 2 diabetes mellitus Is this a current diagnosis for this admission?: Yes Plan: Likely contributing to his discomfort. Continue Reglan, Carafate, GI cocktail every 6 hours PRN. Gastroenterology consulted. Recommendations noted. (6) Diabetes mellitus type 2 in nonobese Is this a current diagnosis for this admission?: Yes Plan: Worsening due to IV steroids. Hemoglobin A1c 8.2. Cardiac diet, basal, sliding scale and correctional insulin. Hypoglycemia protocol. Accu-Chek. Resume home meds upon discharge. Outpatient PCP and endocrinology follow-up. (7) Anemia Qualifiers: Anemia type: unspecified type Qualified Code(s): D64.9 - Anemia, unspecified Is this a current diagnosis for this admission?: Yes Plan: Normocytic anemia. H&H stable. Denies any nosebleed, hematemesis, hemoptysis, easy bleeding, melena, hematochezia, hematuria. Stool guaiac positive. Iron panel suggestive of anemia of chronic inflammation. Continue ferrous sulfate and MVI. (8) Hypertension Is this a current diagnosis for this admission?: Yes Plan: Euvolemic. Hypertensive. Not optimized. Continue beta-blockers, ANGELA, calcium channel blockers. Adjust meds as needed. Outpatient PCP follow-up. (9) Renal artery stenosis Is this a current diagnosis for this admission?: Yes Plan: Incidental finding on CT abdomen 09/25/2019 right renal artery stenosis 80% 1 cm from margin. Will consult vascular surgeon if any intervention could be done here at [facility] if not we will arrange for outpatient vascular follow-up. Will discuss with patient. This may explain his CKD and hypertension. Continue ANGELA, optimize BP. Avoid nephrotoxic meds. (10) Thrombocytopenia Is this a current diagnosis for this admission?: Yes Plan: Resolved. Not sure if this is due to COVID. Denies any history of cirrhosis. Monitor H&H. Has been refusing Lovenox. Not sure if this is HIT. (11) Depression with anxiety Is this a current diagnosis for this admission?: Yes Plan: Likely situation r/t COVID acute illness and subsequent social isolation. Labial emotions and tearful today. Will start Effexor and twice daily BuSpar - Time Time Spent with patient: 35 or more minutes Medications reviewed and adjusted accordingly: Yes Anticipated Discharge Disposition: Home, Self Care Anticipated Discharge Timeframe: >72 hrs
[2019-10-08] MEDS: VENLAFAXINE HCL 37.5 MG CAP.SR.24H PO SCH (14:50)
[2019-10-08] MEDS: MONTELUKAST SODIUM 10 MG TABLET PO SCH (17:21)
[2019-10-08] MEDS: ATORVASTATIN CALCIUM 40 MG TABLET PO SCH (21:35)
[2019-10-08] MEDS: BUSPIRONE HCL 10 MG TABLET PO SCH (21:36)
[2019-10-09] MEDS: HYDRALAZINE HCL INJ/PF 20 MG/1 ML SDV IV PRN (04:23)
[2019-10-09] MEDS: PANTOPRAZOLE SODIUM 40 MG TABLET.DR PO SCH ×2 (05:19→17:03)
[2019-10-09] MEDS: LISINOPRIL 10 MG TABLET PO SCH ×2 (05:19→17:03)
[2019-10-09] MEDS: INSULIN LISPRO 100 UNIT/ML 3 ML VIAL SUBCUT SCH ×4 (07:34→21:33)
[2019-10-09] MEDS: SUCRALFATE 1 GM TABLET PO SCH ×4 (07:34→21:28)
[2019-10-09] MEDS: CALCIUM CARBONATE 600 MG TABLET PO SCH ×2 (07:34→17:03)
[2019-10-09] MEDS: FUROSEMIDE 40 MG TABLET PO SCH (07:34)
[2019-10-09] MEDS: IPRATROPIUM/ALBUTEROL 0.5-2.5 MG/3 ML AMPUL NEB SCH ×3 (08:18→15:31)
[2019-10-09] MEDS: CEFTRIAXONE 1 GM/D5W RTU 1 GM/50 ML RTUPB IV SCH (10:21)
[2019-10-09] MEDS: ENOXAPARIN SODIUM INJ 100 MG/1 ML DISP.SYRIN SUBCUT SCH ×3 (10:21→22:00)
[2019-10-09] MEDS: AZITHROMYCIN 250 MG TABLET PO SCH (10:22)
[2019-10-09] MEDS: HYDROCHLOROTHIAZIDE 25 MG TABLET PO SCH (10:22)
[2019-10-09] MEDS: ZINC SULFATE 220 MG CAPSULE PO SCH (10:22)
[2019-10-09] MEDS: VENLAFAXINE HCL 37.5 MG CAP.SR.24H PO SCH (10:22)
[2019-10-09] MEDS: INSULIN GLARGINE,HUM.REC.ANLOG 1,000 UNIT/10 ML VIAL SUBCUT SCH (10:22)
[2019-10-09] MEDS: DEXAMETHASONE SOD PHOSPHATE INJ 4 MG/1 ML VIAL IV SCH (10:22)
[2019-10-09] MEDS: MULTIVITAMIN TABLET PO SCH (10:22)
[2019-10-09] MEDS: AMLODIPINE BESYLATE 5 MG TABLET PO SCH ×2 (10:22→21:28)
[2019-10-09] MEDS: FERROUS SULFATE 325 MG TABLET PO SCH (10:22)
[2019-10-09] MEDS: BUSPIRONE HCL 10 MG TABLET PO SCH ×2 (10:22→21:28)
[2019-10-09] MEDS: ASPIRIN 81 MG TABLET, CHEWABLE PO SCH (10:22)
[2019-10-09] MEDS: METOPROLOL SUCCINATE 50 MG TAB.SR.24H PO SCH ×2 (10:22→21:28)
[2019-10-09] MEDS: RINGERS SOLUTION,LACTATED 1,000 ML IV PRN (10:23)
--- NOTE | 2019-10-09 14:47 | PDOC PROGRESS REPORT ---
Subjective Progress Note for:: 10/09/19 Subjective:: Patient was seen on morning rounds. He is found resting in bed, comfortably, on high flow nasal cannula. He reports continued dyspnea, occasional pleurisy, nonproductive cough. Improved dyspnea while at rest, does continue to desat to the low to mid 80s with minimal activity. Primary complaint today is anxiety/tearfulness; we had a long conversation today regarding his family, friends, planned vacation in November, and he expressed that overall he is feeling more optimistic and is appreciative of his care. He denies fever, chills, [cardiac] chest pain, palpitations, abdominal pain, nausea vomiting and diarrhea. He has no other questions or concerns at this time. No concerns per nursing. Reason For Visit: DIABETIC GASTROPARESIS Physical Exam Vital Signs: Temp Pulse Resp BP Pulse Ox 98.2 F 70 29 H 139/83 H 89 L 10/09/19 11:28 10/09/19 11:28 10/09/19 11:28 10/09/19 11:28 10/09/19 11:28 Intake & Output 10/08/19 10/09/19 10/10/19 06:59 06:59 06:59 Intake Total 1570 1810 1050 Output Total 300 750 Balance 1270 1060 1050 Weight 97.1 kg 100.5 kg General appearance: PRESENT: no acute distress, cooperative, well-developed, well-nourished Head exam: PRESENT: atraumatic, normocephalic Eye exam: PRESENT: conjunctiva pink, EOMI, PERRLA. ABSENT: scleral icterus Mouth exam: PRESENT: moist, tongue midline Respiratory exam: PRESENT: clear to auscultation priyank, symmetrical, unlabored, other - High flow nasal cannula. ABSENT: rales, rhonchi, wheezes Cardiovascular exam: PRESENT: RRR. ABSENT: diastolic murmur, rubs, systolic murmur Pulses: PRESENT: normal dorsalis pedis pul Vascular exam: PRESENT: normal capillary refill Rectal exam: PRESENT: deferred Extremities exam: PRESENT: full ROM. ABSENT: calf tenderness, clubbing, pedal edema Neurological exam: PRESENT: alert, awake, oriented to person, oriented to place, oriented to time, oriented to situation, CN II-XII grossly intact. ABSENT: motor sensory deficit Psychiatric exam: PRESENT: appropriate affect, depressed - Decreased tearfulness today. ABSENT: homicidal ideation, suicidal ideation Skin exam: PRESENT: dry, intact, warm. ABSENT: cyanosis, rash Results Laboratory Results: 10/07/19 04:28 10/06/19 04:32 09/25/19 09/25/19 09/25/19 14:14 16:48 16:48 Creatine Kinase 54 L CK-MB (CK-2) Troponin I 0.056 0.037 09/25/19 09/25/19 16:48 22:45 Creatine Kinase CK-MB (CK-2) 1.03 Troponin I 0.047 Impressions: Chest X-Ray 09/25/19 14:00 IMPRESSION: NO ACUTE FINDINGS. Abdomen/Pelvis CTA 09/25/19 14:10 IMPRESSION: No aortic aneurysm or dissection. There is approximately 80% stenosis in the right renal artery and the first 1 cm from its origin. No acute findings otherwise. Chest/Abdomen CTA 09/25/19 14:10 IMPRESSION: No aortic aneurysm or dissection. There is approximately 80% stenosis in the right renal artery and the first 1 cm from its origin. No acute findings otherwise. Assessment and Plan - Diagnosis (1) Acute respiratory failure due to COVID-19 Is this a current diagnosis for this admission?: Yes Plan: Unchanged. On high flow nasal cannula, on FiO2 of 70 to 90%. SPO2 low 90s. Afebrile. WBC slightly elevated. Cultures negative. COVID-19 came back positive on 09/27/2019. Chest x-ray on admission no acute findings. Day 12 IV antibiotics. Day 12 IV ceftriaxone; will discontinue today. Day 12 IV azithromycin. Day 12 IV steroids. Decrease to 2 mg IV every 12 10/06/2019. Transition to oral prednisone 20 mg daily Refusing Lovenox. Decrease frequency of scheduled nebs. Continue PRN DuoNebs, supplemental oxygen/HF NC, contact precaution, empiric IV antibiotics, zinc, Lovenox, steroids, flutter valve, incentive spirometry. (2) Epigastric abdominal pain Is this a current diagnosis for this admission?: Yes Plan: Resolved. History of gastroparesis. Lipase normal on admission. CTA chest abdomen pelvis is negative for acute findings. Continue PPIs, Carafate, GI cocktail PRN. GI was consulted for upper GI endoscopy currently on hold as patient has tested positive for COVID-19. Pending H. pylori antigen. Upper GI endoscopy has been canceled as patient is positive for coag. Will arrange outpatient upper GI endoscopy. (3) CKD (chronic kidney disease) stage 3, GFR 30-59 ml/min Is this a current diagnosis for this admission?: Yes Plan: Creatinine at baseline. Monitor electrolytes and volume status replace as needed. Avoid nephrotoxic meds. Follow-up chemistry (4) Coronary artery disease Qualifiers: Coronary Disease-Associated Artery/Lesion type: [place] artery [place] vs. transplanted heart: [place] heart Associated angina: without angina Qualified Code(s): I25.10 - Atherosclerotic heart disease of [place] coronary artery without angina pectoris Is this a current diagnosis for this admission?: Yes Plan: Denies any anginal symptoms. Troponins negative. Lipid panel acceptable range. Continue statins, beta-blockers, ANGELA, statins. Adjust meds as needed. Outpatient PCP and cardiology follow-up. (5) Diabetic gastroparesis associated with type 2 diabetes mellitus Is this a current diagnosis for this admission?: Yes Plan: Likely contributing to his discomfort. Continue Reglan, Carafate, GI cocktail every 6 hours PRN. Gastroenterology consulted. Recommendations noted. (6) Diabetes mellitus type 2 in nonobese Is this a current diagnosis for this admission?: Yes Plan: Worsening due to IV steroids. Hemoglobin A1c 8.2. Cardiac diet, basal, sliding scale and correctional insulin. Hypoglycemia protocol. Accu-Chek. Resume home meds upon discharge. Outpatient PCP and endocrinology follow-up. (7) Anemia Qualifiers: Anemia type: unspecified type Qualified Code(s): D64.9 - Anemia, unspecified Is this a current diagnosis for this admission?: Yes Plan: Normocytic anemia. H&H stable. Denies any nosebleed, hematemesis, hemoptysis, easy bleeding, melena, hematochezia, hematuria. Stool guaiac positive. Iron panel suggestive of anemia of chronic inflammation. Continue ferrous sulfate and MVI. (8) Hypertension Is this a current diagnosis for this admission?: Yes Plan: Euvolemic. Hypertensive. Not optimized. Continue beta-blockers, ANGELA, calcium channel blockers. Adjust meds as needed. Outpatient PCP follow-up. (9) Renal artery stenosis Is this a current diagnosis for this admission?: Yes Plan: Incidental finding on CT abdomen 09/25/2019 right renal artery stenosis 80% 1 cm from margin. Will consult vascular surgeon if any intervention could be done here at [facility] if not we will arrange for outpatient vascular follow-up. Will discuss with patient. This may explain his CKD and hypertension. Continue ANGELA, optimize BP. Avoid nephrotoxic meds. (10) Thrombocytopenia Is this a current diagnosis for this admission?: Yes Plan: Resolved. Not sure if this is due to COVID. Denies any history of cirrhosis. Monitor H&H. Has been refusing Lovenox. Not sure if this is HIT. (11) Depression with anxiety Is this a current diagnosis for this admission?: Yes Plan: Likely situation r/t COVID acute illness and subsequent social isolation. Labial emotions and tearful today. Will start Effexor and twice daily BuSpar - Plan Summary Summary: 22-gauge peripheral IV to right medial upper arm with ultrasound guidance placed; one attempt. - Time Time Spent with patient: 35 or more minutes Medications reviewed and adjusted accordingly: Yes Anticipated Discharge Disposition: Home, Self Care Anticipated Discharge Timeframe: >75 hrs
[2019-10-09] MEDS: MONTELUKAST SODIUM 10 MG TABLET PO SCH (17:03)
[2019-10-09] MEDS: ATORVASTATIN CALCIUM 40 MG TABLET PO SCH (21:28)
[2019-10-10] MEDS: IPRATROPIUM/ALBUTEROL 0.5-2.5 MG/3 ML AMPUL NEB SCH ×4 (00:03→23:41)
[2019-10-10] MEDS: LISINOPRIL 10 MG TABLET PO SCH ×2 (05:11→17:03)
[2019-10-10] MEDS: PANTOPRAZOLE SODIUM 40 MG TABLET.DR PO SCH ×2 (05:12→17:03)
[2019-10-10 06:54] LABS: ABSOLUTE EOSINOPHILS # (AUTO) 0.1 10^3/uL (0.0-0.6); ABSOLUTE LYMPHOCYTES (AUTO) 0.8 10^3/uL (0.5-4.7); ABSOLUTE MONOCYTES (AUTO) 0.7 10^3/uL (0.1-1.4); ABSOLUTE NEUT (AUTO) 11.6 10^3/uL (1.7-8.2); BASOPHILS % (AUTO) 0.2 % (0-2); EOSINOPHILS % (AUTO) 0.6 % (0-6); HEMATOCRIT 40.2 % (37.9-51.0); HEMOGLOBIN 13.5 g/dL (13.5-17.0); LYMPHOCYTES % (AUTO) 6.3 % (13-45); MEAN CORPUSCULAR HEMOGLOBIN 28.6 pg (27.0-33.4); MEAN CORPUSCULAR HGB CONC 33.7 g/dL (32.0-36.0); MEAN CORPUSCULAR VOLUME 85 fl (80-97); MONOCYTES % (AUTO) 5.4 % (3-13); PLATELET COUNT 252 10^3/uL (150-450); RED BLOOD COUNT 4.74 10^6/uL (4.35-5.55); RED CELL DISTRIBUTION WIDTH 14.6 % (11.5-14.0); SEGMENTED NEUTROPHILS % (AUTO) 87.5 % (42-78); TOTAL CELLS COUNTED % (AUTO) 100 %; WHITE BLOOD COUNT 13.3 10^3/uL (4.0-10.5)
[2019-10-10 07:00] LABS: APPEARANCE,URINE CLEAR; BILIRUBIN,URINE NEGATIVE (NEGATIVE); COLOR,URINE YELLOW; GLUCOSE, URINE 50 mg/dL (NEGATIVE); KETONES,URINE NEGATIVE (NEGATIVE); LEUKOCYTE ESTERASE,URINE NEGATIVE (NEGATIVE); NITRITE,URINE NEGATIVE (NEGATIVE); PROTEIN,URINE 100 mg/dL (NEGATIVE); URINE SPECIFIC GRAVITY 1.015; UROBILINOGEN,URINE NEGATIVE mg/dL (<2.0)
[2019-10-10 07:19] LABS: ANION GAP 5 (5-19); BLOOD UREA NITROGEN 53 mg/dL (7-20); CALCIUM 8.5 mg/dL (8.4-10.2); CARBON DIOXIDE 27 mmol/L (22-30); CHLORIDE 102 mmol/L (98-107); GLUCOSE 192 mg/dL (75-110); POTASSIUM 3.5 mmol/L (3.6-5.0)
[2019-10-10] MEDS: FUROSEMIDE 40 MG TABLET PO SCH (07:54)
[2019-10-10] MEDS: SUCRALFATE 1 GM TABLET PO SCH ×4 (07:54→21:38)
[2019-10-10] MEDS: INSULIN LISPRO 100 UNIT/ML 3 ML VIAL SUBCUT SCH ×4 (07:54→23:00)
[2019-10-10] MEDS: CALCIUM CARBONATE 600 MG TABLET PO SCH ×2 (07:54→17:03)
[2019-10-10] MEDS: FERROUS SULFATE 325 MG TABLET PO SCH (10:41)
[2019-10-10] MEDS: PREDNISONE 20 MG TABLET PO SCH (10:42)
[2019-10-10] MEDS: BUSPIRONE HCL 10 MG TABLET PO SCH ×2 (10:42→21:38)
[2019-10-10] MEDS: ASPIRIN 81 MG TABLET, CHEWABLE PO SCH (10:42)
[2019-10-10] MEDS: INSULIN GLARGINE,HUM.REC.ANLOG 1,000 UNIT/10 ML VIAL SUBCUT SCH (10:42)
[2019-10-10] MEDS: ZINC SULFATE 220 MG CAPSULE PO SCH (10:42)
[2019-10-10] MEDS: MULTIVITAMIN TABLET PO SCH (10:42)
[2019-10-10] MEDS: METOPROLOL SUCCINATE 50 MG TAB.SR.24H PO SCH ×2 (10:42→21:38)
[2019-10-10] MEDS: VENLAFAXINE HCL 37.5 MG CAP.SR.24H PO SCH (10:42)
[2019-10-10] MEDS: AMLODIPINE BESYLATE 5 MG TABLET PO SCH ×2 (10:42→21:39)
[2019-10-10] MEDS: HYDROCHLOROTHIAZIDE 25 MG TABLET PO SCH (10:42)
[2019-10-10] MEDS: AZITHROMYCIN 250 MG TABLET PO SCH (10:42)
--- NOTE | 2019-10-10 14:51 | RADIOLOGY REPORT (SQ) ---
EXAM DESCRIPTION: PICC INSERTION IMAGES COMPLETED DATE/TIME: 10/10/2019 2:16 pm REASON FOR STUDY: Need IV access COMPARISON: None. FLUOROSCOPY TIME: 31 seconds 2 images saved to PACS. TECHNIQUE: Fluoroscopic and ultrasound guided PICC placement. LIMITATIONS: None. PROCEDURE: After written consent and assessment were obtained, the patient was brought into the fluo roscopy room and placed supine on the table. Ultrasound evaluation of potential access sites were per formed. After successfully identifying a patent left basilic vein, the left arm was prepped and drape d in a sterile fashion along with the ultrasound probe. The entry site was anesthetized with 1% lidoc anna. A 21 gauge 7 cm needle was advanced through the skin and into the basilic vein under live ultra sound guidance. An ultrasound image was saved to PACS confirming access site. A .018 guide wire was then inserted through the needle and into the venous system. The needle was then removed and an 11 b lade scalpel was used to make a 1cm skin incision. A 5 fr peel-away sheath was advanced over the wir e and into the venous system. A measurement was then made using the existing wire and live fluoroscop ic guidance. The wire was then removed and trimmed. The PICC was advanced through the peel-away sheat h and into the venous system. The peel-away sheath was removed and the catheter was adhered to the pa tients arm with a stat lock. The catheter was then aspirated and flushed and a sterile bandage was pl aced over the access site. A fluoroscopic spot image was saved to PACS confirming the catheter tip w ithin the superior vena cava. IMPRESSION: SUCCESSFUL PLACEMENT OF A 5 FR DUAL LUMEN 43 CM PICC IN THE LEFT BASILIC VEIN. COMMENT: Patient medication list reviewed: Yes- Quality ID# [id number]:Eligible professional attests to doc umenting in the medical record they obtained, updated, or reviewed the patient's current medications. . Quality ID 145: Final reports for procedures using fluoroscopy that document radiation exposure medhat kahlil, or exposure time and number of fluorographic images (if radiation exposure indices are not avail able) Quality ID #76: The patient was prepped and draped using maximum sterile barrier technique including cap, mask, sterile gown, sterile gloves, a large sterile sheet, hand hygiene, and 2% Chlorhexidine fo r cutaneous antisepsis. When ultrasound is used, sterile ultrasound techniques are followed requiring sterile gel and sterile probes. TECHNICAL DOCUMENTATION: JOB ID: [id number] 2010 [employer]- All Rights Reserved rev Reading location - IP/workstation name: [email or web address]
[2019-10-10] MEDS ORDERED: PHENOL/SODIUM PHENOLATE 100 SPRAY/177 ML BOTTLE PO PRN (15:51)
[2019-10-10] MEDS: MONTELUKAST SODIUM 10 MG TABLET PO SCH (17:03)
--- NOTE | 2019-10-10 18:52 | PDOC PROGRESS REPORT ---
Subjective Progress Note for:: 10/10/19 Subjective:: Patient was seen on afternoon rounds. He is found resting in bed, comfortably, on Oxymizer. He reports continued dyspnea with minimal exertion, though comfortable at rest. Occasional pleurisy, nonproductive cough; overall improved. Improved anxiety/depressive symptoms today; states he is feeling more optimistic. He denies fever, chills, [cardiac] chest pain, palpitations, abdominal pain, nausea vomiting and diarrhea. He has no other questions or concerns at this time. No concerns per nursing. Reason For Visit: DIABETIC GASTROPARESIS Physical Exam Vital Signs: Temp Pulse Resp BP Pulse Ox 97.7 F 75 16 137/71 H 90 L 10/10/19 17:10 10/10/19 17:10 10/10/19 17:10 10/10/19 17:10 10/10/19 17:10 Intake & Output 10/09/19 10/10/19 10/11/19 06:59 06:59 06:59 Intake Total 1810 2627 260 Output Total 750 750 720 Balance 1060 1877 -460 Weight 100.5 kg 100.5 kg General appearance: PRESENT: no acute distress, cooperative, well-developed, well-nourished Head exam: PRESENT: atraumatic, normocephalic Eye exam: PRESENT: conjunctiva pink, EOMI, PERRLA. ABSENT: scleral icterus Mouth exam: PRESENT: moist, tongue midline Respiratory exam: PRESENT: clear to auscultation priyank, symmetrical, unlabored, other - Supplemental oxygen by Oxymizer. ABSENT: rales, rhonchi, wheezes Cardiovascular exam: PRESENT: RRR, +S1, +S2. ABSENT: diastolic murmur, rubs, systolic murmur Pulses: PRESENT: normal dorsalis pedis pul Vascular exam: PRESENT: normal capillary refill Extremities exam: PRESENT: full ROM. ABSENT: calf tenderness, clubbing, pedal edema Neurological exam: PRESENT: alert, awake, oriented to person, oriented to place, oriented to time, oriented to situation, CN II-XII grossly intact. ABSENT: motor sensory deficit Psychiatric exam: PRESENT: appropriate affect, normal mood. ABSENT: homicidal ideation, suicidal ideation Skin exam: PRESENT: dry, intact, warm. ABSENT: cyanosis, rash Results Laboratory Results: 10/10/19 06:01 10/10/19 06:01 10/10/19 10/10/19 10/10/19 06:01 06:01 06:20 WBC 13.3 H RBC 4.74 Hgb 13.5 Hct 40.2 MCV 85 MCH 28.6 MCHC 33.7 RDW 14.6 H Plt Count 252 Seg Neutrophils % 87.5 H Sodium 133.6 L Potassium 3.5 L Chloride 102 Carbon Dioxide 27 Anion Gap 5 BUN 53 H Creatinine 1.53 H Est GFR ( Amer) 57 L Glucose 192 H Calcium 8.5 Ferritin 204.00 Urine Color YELLOW Urine Appearance CLEAR Urine pH 5.0 Ur Specific [place] 1.015 Urine Protein 100 H Urine Glucose (UA) 50 H Urine Ketones NEGATIVE Urine Blood MODERATE H Urine Nitrite NEGATIVE Ur Leukocyte Esterase NEGATIVE Urine WBC (Auto) 1 Urine RBC (Auto) 11 09/25/19 09/25/19 09/25/19 14:14 16:48 16:48 Creatine Kinase 54 L CK-MB (CK-2) Troponin I 0.056 0.037 09/25/19 09/25/19 16:48 22:45 Creatine Kinase CK-MB (CK-2) 1.03 Troponin I 0.047 Impressions: Chest X-Ray 09/25/19 14:00 IMPRESSION: NO ACUTE FINDINGS. Abdomen/Pelvis CTA 09/25/19 14:10 IMPRESSION: No aortic aneurysm or dissection. There is approximately 80% stenosis in the right renal artery and the first 1 cm from its origin. No acute findings otherwise. Chest/Abdomen CTA 09/25/19 14:10 IMPRESSION: No aortic aneurysm or dissection. There is approximately 80% stenosis in the right renal artery and the first 1 cm from its origin. No acute findings otherwise. PICC Line Insertion 10/09/19 00:00 IMPRESSION: SUCCESSFUL PLACEMENT OF A 5 FR DUAL LUMEN 43 CM PICC IN THE LEFT BASILIC VEIN. Assessment and Plan - Diagnosis (1) Acute respiratory failure due to COVID-19 Is this a current diagnosis for this admission?: Yes Plan: Improved; On Oxymizer. SPO2 mid 90s. Afebrile. WBC slightly elevated. Cultures negative. COVID-19 came back positive on 09/27/2019. Chest x-ray on admission no acute findings. Completed 12 days of IV ceftriaxone and 13 days azithromycin. Day 12 IV steroids. Decrease to 2 mg IV every 12 10/06/2019. Transition to oral prednisone 20 mg daily; continue weaning. Refusing Lovenox. Decrease frequency of scheduled nebs. Continue PRN DuoNebs, supplemental oxygen, contact precaution, Lovenox, steroids, flutter valve, incentive spirometry. (2) Epigastric abdominal pain Is this a current diagnosis for this admission?: Yes Plan: Resolved. History of gastroparesis. Lipase normal on admission. CTA chest abdomen pelvis is negative for acute findings. Continue PPIs, Carafate, GI cocktail PRN. GI was consulted for upper GI endoscopy currently on hold as patient has tested positive for COVID-19. Upper GI endoscopy has been canceled as patient is positive for coag. Will arrange outpatient upper GI endoscopy. (3) CKD (chronic kidney disease) stage 3, GFR 30-59 ml/min Is this a current diagnosis for this admission?: Yes Plan: Creatinine at baseline. Monitor electrolytes and volume status replace as needed. Avoid nephrotoxic meds. Follow-up chemistry (4) Coronary artery disease Qualifiers: Coronary Disease-Associated Artery/Lesion type: [place] artery [place] vs. transplanted heart: [place] heart Associated angina: without angina Qualified Code(s): I25.10 - Atherosclerotic heart disease of [place] coronary artery without angina pectoris Is this a current diagnosis for this admission?: Yes Plan: Denies any anginal symptoms. Troponins negative. Lipid panel acceptable range. Continue statins, beta-blockers, ANGELA, statins. Adjust meds as needed. Outpatient PCP and cardiology follow-up. (5) Diabetic gastroparesis associated with type 2 diabetes mellitus Is this a current diagnosis for this admission?: Yes Plan: Likely contributing to his discomfort. Continue Reglan, Carafate, GI cocktail every 6 hours PRN. Gastroenterology consulted. Recommendations noted. (6) Diabetes mellitus type 2 in nonobese Is this a current diagnosis for this admission?: Yes Plan: Worsening due to IV steroids. Hemoglobin A1c 8.2. Cardiac diet, basal, sliding scale and correctional insulin. Hypoglycemia protocol. Accu-Chek. Resume home meds upon discharge. Outpatient PCP and endocrinology follow-up. (7) Anemia Qualifiers: Anemia type: unspecified type Qualified Code(s): D64.9 - Anemia, unspecif ied Is this a current diagnosis for this admission?: Yes Plan: Normocytic anemia. H&H slightly down; likely hemodilution. Hgb 9.8 Denies any nosebleed, hematemesis, hemoptysis, easy bleeding, melena, hematochezia, hematuria. Stool guaiac positive. Iron panel suggestive of anemia of chronic inflammation. Continue ferrous sulfate and MVI. Follow up CBC (8) Hypertension Is this a current diagnosis for this admission?: Yes Plan: Euvolemic. Hypertensive. Not optimized. Continue beta-blockers, ANGELA, calcium channel blockers. Adjust meds as needed. Outpatient PCP follow-up. (9) Renal artery stenosis Is this a current diagnosis for this admission?: Yes Plan: Incidental finding on CT abdomen 09/25/2019 right renal artery stenosis 80% 1 cm from margin. Will consult vascular surgeon if any intervention could be done here at [facility] if not we will arrange for outpatient vascular follow-up. Will discuss with patient. This may explain his CKD and hypertension. Continue ANGELA, optimize BP. Avoid nephrotoxic meds. (10) Thrombocytopenia Is this a current diagnosis for this admission?: Yes Plan: Resolved. Not sure if this is due to COVID. Denies any history of cirrhosis. Monitor H&H. Has been refusing Lovenox. Not sure if this is HIT. (11) Depression with anxiety Is this a current diagnosis for this admission?: Yes Plan: Likely situation r/t COVID acute illness and subsequent social isolation. Continue Effexor and twice daily BuSpar - Time Time Spent with patient: 25-34 minutes Medications reviewed and adjusted accordingly: Yes Anticipated Discharge Disposition: Home, Self Care Anticipated Discharge Timeframe: 4-5 days
[2019-10-10] MEDS: NORMAL SALINE 1000 ML 1,000 ML IV PRN (21:00)
[2019-10-10 21:30] LABS: APPEARANCE,URINE SLIGHTLY-CLOUDY; BILIRUBIN,URINE NEGATIVE (NEGATIVE); COLOR,URINE YELLOW; GLUCOSE, URINE NEGATIVE (NEGATIVE); KETONES,URINE NEGATIVE (NEGATIVE); LEUKOCYTE ESTERASE,URINE NEGATIVE (NEGATIVE); NITRITE,URINE NEGATIVE (NEGATIVE); PROTEIN,URINE 100 mg/dL (NEGATIVE); URINE SPECIFIC GRAVITY 1.013; UROBILINOGEN,URINE NEGATIVE mg/dL (<2.0)
[2019-10-10] MEDS: ATORVASTATIN CALCIUM 40 MG TABLET PO SCH (21:39)
[2019-10-10] MEDS: NORMAL SALINE 10 ML SDV (SCHEDULED) IV SCH (21:39)
[2019-10-11] MEDS: PANTOPRAZOLE SODIUM 40 MG TABLET.DR PO SCH ×2 (05:27→17:06)
[2019-10-11] MEDS: LISINOPRIL 10 MG TABLET PO SCH ×2 (05:27→17:09)
[2019-10-11] MEDS: NORMAL SALINE 1000 ML 1,000 ML IV PRN ×3 (05:29→22:17)
[2019-10-11 06:11] LABS: HEMATOCRIT 35.8 % (37.9-51.0); HEMOGLOBIN 12.2 g/dL (13.5-17.0); MEAN CORPUSCULAR HEMOGLOBIN 29.1 pg (27.0-33.4); MEAN CORPUSCULAR VOLUME 86 fl (80-97); PLATELET COUNT 230 10^3/uL (150-450); RED BLOOD COUNT 4.19 10^6/uL (4.35-5.55); RED CELL DISTRIBUTION WIDTH 14.3 % (11.5-14.0); WHITE BLOOD COUNT 9.5 10^3/uL (4.0-10.5)
[2019-10-11 06:32] LABS: ANION GAP 6 (5-19); BLOOD UREA NITROGEN 41 mg/dL (7-20); CALCIUM 8.1 mg/dL (8.4-10.2); CARBON DIOXIDE 27 mmol/L (22-30); CHLORIDE 101 mmol/L (98-107); GLUCOSE 78 mg/dL (75-110); POTASSIUM 3.4 mmol/L (3.6-5.0)
[2019-10-11] MEDS: IPRATROPIUM/ALBUTEROL 0.5-2.5 MG/3 ML AMPUL NEB SCH ×2 (08:10→16:04)
[2019-10-11] MEDS: INSULIN LISPRO 100 UNIT/ML 3 ML VIAL SUBCUT SCH ×4 (09:31→22:14)
[2019-10-11] MEDS: CALCIUM CARBONATE 600 MG TABLET PO SCH ×2 (09:32→17:06)
[2019-10-11] MEDS: SUCRALFATE 1 GM TABLET PO SCH ×4 (09:32→22:14)
[2019-10-11] MEDS: AMLODIPINE BESYLATE 5 MG TABLET PO SCH ×2 (09:32→22:14)
[2019-10-11] MEDS: MULTIVITAMIN TABLET PO SCH (09:32)
[2019-10-11] MEDS: METOPROLOL SUCCINATE 50 MG TAB.SR.24H PO SCH ×2 (09:32→22:14)
[2019-10-11] MEDS: HYDROCHLOROTHIAZIDE 25 MG TABLET PO SCH (09:33)
[2019-10-11] MEDS: FERROUS SULFATE 325 MG TABLET PO SCH (09:33)
[2019-10-11] MEDS: FUROSEMIDE 40 MG TABLET PO SCH (09:33)
[2019-10-11] MEDS: NORMAL SALINE 10 ML SDV (SCHEDULED) IV SCH ×2 (09:33→22:14)
[2019-10-11] MEDS: ZINC SULFATE 220 MG CAPSULE PO SCH (09:33)
[2019-10-11] MEDS: VENLAFAXINE HCL 37.5 MG CAP.SR.24H PO SCH (09:34)
[2019-10-11] MEDS: PREDNISONE 20 MG TABLET PO SCH (09:34)
[2019-10-11] MEDS: BUSPIRONE HCL 10 MG TABLET PO SCH ×2 (09:34→22:14)
[2019-10-11] MEDS: ASPIRIN 81 MG TABLET, CHEWABLE PO SCH (09:34)
[2019-10-11] MEDS: INSULIN GLARGINE,HUM.REC.ANLOG 1,000 UNIT/10 ML VIAL SUBCUT SCH (09:42)
--- NOTE | 2019-10-11 15:34 | PDOC PROGRESS REPORT ---
Subjective Progress Note for:: 10/11/19 Subjective:: Feels like some mucus is caught in his throat. He was coughing out some mucus but it seems that it is there but he is unable to mobilize it. Reason For Visit: DIABETIC GASTROPARESIS Physical Exam Vital Signs: Temp Pulse Resp BP Pulse Ox 98.3 F 71 18 141/81 H 91 L 10/11/19 13:28 10/11/19 13:28 10/11/19 08:15 10/11/19 13:28 10/11/19 13:28 Intake & Output 10/10/19 10/11/19 10/12/19 06:59 06:59 06:59 Intake Total 2627 1380 1000 Output Total 750 995 275 Balance 1877 385 725 Weight 100.5 kg 101.8 kg General appearance: PRESENT: no acute distress, cooperative Head exam: PRESENT: atraumatic, normocephalic Eye exam: PRESENT: conjunctiva pink. ABSENT: scleral icterus Ear exam: PRESENT: normal external ear exam. ABSENT: bleeding, drainage Mouth exam: PRESENT: moist, tongue midline Respiratory exam: PRESENT: rales - Faint rales right base, symmetrical, unlabored. ABSENT: rhonchi, tachypnea, wheezes Cardiovascular exam: PRESENT: RRR, +S1, +S2. ABSENT: bradycardia, diastolic murmur, irregular rhythm, systolic murmur, tachycardia GI/Abdominal exam: PRESENT: normal bowel sounds, soft. ABSENT: distended, tenderness Rectal exam: PRESENT: deferred Gentrourinary exam: ABSENT: indwelling catheter Extremities exam: ABSENT: pedal edema Musculoskeletal exam: PRESENT: ambulatory, normal inspection Neurological exam: PRESENT: alert, awake, oriented to person, oriented to place, oriented to time, oriented to situation, CN II-XII grossly intact. ABSENT: altered Psychiatric exam: PRESENT: appropriate affect. ABSENT: agitated, anxious Focused psych exam: ABSENT: delusional, paranoid, restlessness Skin exam: PRESENT: dry, normal color, warm. ABSENT: rash Results Laboratory Results: 10/11/19 05:40 10/11/19 05:40 10/10/19 10/11/19 10/11/19 20:55 05:40 05:40 WBC 9.5 RBC 4.19 L Hgb 12.2 L Hct 35.8 L MCV 86 MCH 29.1 MCHC 34.0 RDW 14.3 H Plt Count 230 Sodium 133.7 L Potassium 3.4 L Chloride 101 Carbon Dioxide 27 Anion Gap 6 BUN 41 H Creatinine 1.30 H Est GFR ( Amer) > 60 Glucose 78 Calcium 8.1 L Urine Color YELLOW Urine Appearance SLIGHTLY-CLOUDY Urine pH 5.0 Ur Specific [place] 1.013 Urine Protein 100 H Urine Glucose (UA) NEGATIVE Urine Ketones NEGATIVE Urine Blood MODERATE H Urine Nitrite NEGATIVE Ur Leukocyte Esterase NEGATIVE Urine WBC (Auto) 1 Urine RBC (Auto) 11 09/25/19 09/25/19 09/25/19 14:14 16:48 16:48 Creatine Kinase 54 L CK-MB (CK-2) Troponin I 0.056 0.037 09/25/19 09/25/19 16:48 22:45 Creatine Kinase CK-MB (CK-2) 1.03 Troponin I 0.047 Impressions: Chest X-Ray 09/25/19 14:00 IMPRESSION: NO ACUTE FINDINGS. Abdomen/Pelvis CTA 09/25/19 14:10 IMPRESSION: No aortic aneurysm or dissection. There is approximately 80% stenosis in the right renal artery and the first 1 cm from its origin. No acute findings otherwise. Chest/Abdomen CTA 09/25/19 14:10 IMPRESSION: No aortic aneurysm or dissection. There is approximately 80% stenosis in the right renal artery and the first 1 cm from its origin. No acute findings otherwise. PICC Line Insertion 10/09/19 00:00 IMPRESSION: SUCCESSFUL PLACEMENT OF A 5 FR DUAL LUMEN 43 CM PICC IN THE LEFT BASILIC VEIN. Assessment and Plan - Diagnosis (1) Acute respiratory failure due to COVID-19 Is this a current diagnosis for this admission?: Yes Plan: Remains on nasal cannula oxygen. Antibiotic therapy completed. Steroids are now 20 mg of prednisone daily. We will continue to taper. Incentive spirometer and flutter valve ordered. Mucinex has been added for the sensation of mucus stuck in the back of his throat. He remains on droplet precaution due to Covid-19. (2) Epigastric abdominal pain Is this a current diagnosis for this admission?: Yes Plan: Upper endoscopy was requested but currently unavailable due to COVID status. He does have a history of gastroparesis. He is currently on proton pump inhibitors, Carafate with GI cocktail available as needed. He has metoclo pramide available if needed. Discomfort is improved. (3) CKD (chronic kidney disease) stage 3, GFR 30-59 ml/min Is this a current diagnosis for this admission?: Yes Plan: Appears to be at baseline. Continue to monitor renal function as well as intake and output. (4) Coronary artery disease Qualifiers: Coronary Disease-Associated Artery/Lesion type: [place] artery [place] vs. transplanted heart: [place] heart Associated angina: without angina Qualified Code(s): I25.10 - Atherosclerotic heart disease of [place] coronary artery without angina pectoris Is this a current diagnosis for this admission?: Yes Plan: No symptoms of acute coronary syndrome. Continue statin therapy, beta blockers, ANGELA inhibitors and adjust medications based on symptoms as well as pulse and blood pressure. (5) Diabetic gastroparesis associated with type 2 diabetes mellitus Is this a current diagnosis for this admission?: Yes Plan: Consider changing metoclopramide to scheduled instead of as needed. Continue Carafate and proton pump inhibitors. (6) Anemia Qualifiers: Anemia type: unspecified type Qualified Code(s): D64.9 - Anemia, unspecified Is this a current diagnosis for this admission?: Yes Plan: Most likely a combination of his chronic renal disease and iron deficiency. Consider increasing ferrous sulfate. Continue multivitamin. Monitor hemoglobin with serial CBCs. (7) Hypertension Qualifiers: Hypertension type: renovascular hypertension Qualified Code(s): I15.0 - Renovascular hypertension Is this a current diagnosis for this admission?: Yes Plan: History of renal artery stenosis. Blood pressures currently higher than ac ceptable range. Because his BUN is increasing I will decrease his furosemide temporarily. Consider adjusting medications based on blood pressure response. The steroid therapy is also likely contributing to his hypertension. (8) Renal artery stenosis Is this a current diagnosis for this admission?: Yes Plan: This was an incidental finding when working up his abdominal pain. Outpatient vascular surgery consult. Need to optimize blood pressure. Continue aspirin and statin therapy. (9) Thrombocytopenia Is this a current diagnosis for this admission?: Yes Plan: Resolved. Continue to monitor CBC. Specific etiology unclear at this time. (10) Depression with anxiety Is this a current diagnosis for this admission?: Yes Plan: Currently on Effexor 37.5 mg daily and BuSpar twice daily. Potentially reactive depression due to acute illness with Covid-19 and the social isolation of his hospitalization. He has been in the hospital for 2 weeks. Continue to monitor and adjust medications accordingly. - Time Time Spent with patient: 15-24 minutes Medications reviewed and adjusted accordingly: Yes Anticipated Discharge Disposition: Home with Home Health Anticipated Discharge Timeframe: Unknown
[2019-10-11] MEDS: MONTELUKAST SODIUM 10 MG TABLET PO SCH (17:11)
[2019-10-11] MEDS: ATORVASTATIN CALCIUM 40 MG TABLET PO SCH (22:14)
[2019-10-12] MEDS: IPRATROPIUM/ALBUTEROL 0.5-2.5 MG/3 ML AMPUL NEB SCH ×3 (00:05→15:58)
[2019-10-12] MEDS: LISINOPRIL 10 MG TABLET PO SCH ×2 (06:06→17:43)
[2019-10-12] MEDS: PANTOPRAZOLE SODIUM 40 MG TABLET.DR PO SCH ×2 (06:06→17:43)
[2019-10-12] MEDS: NORMAL SALINE 1000 ML 1,000 ML IV PRN ×2 (06:07→12:55)
[2019-10-12 06:48] LABS: ABSOLUTE EOSINOPHILS # (AUTO) 0.2 10^3/uL (0.0-0.6); ABSOLUTE MONOCYTES (AUTO) 0.8 10^3/uL (0.1-1.4); ABSOLUTE NEUT (AUTO) 8.9 10^3/uL (1.7-8.2); BASOPHILS % (AUTO) 0.1 % (0-2); EOSINOPHILS % (AUTO) 1.4 % (0-6); HEMATOCRIT 37.4 % (37.9-51.0); HEMOGLOBIN 12.6 g/dL (13.5-17.0); LYMPHOCYTES % (AUTO) 9.3 % (13-45); MEAN CORPUSCULAR HEMOGLOBIN 28.9 pg (27.0-33.4); MEAN CORPUSCULAR HGB CONC 33.7 g/dL (32.0-36.0); MEAN CORPUSCULAR VOLUME 86 fl (80-97); MONOCYTES % (AUTO) 7.1 % (3-13); PLATELET COUNT 220 10^3/uL (150-450); RED BLOOD COUNT 4.36 10^6/uL (4.35-5.55); RED CELL DISTRIBUTION WIDTH 14.2 % (11.5-14.0); SEGMENTED NEUTROPHILS % (AUTO) 82.1 % (42-78); TOTAL CELLS COUNTED % (AUTO) 100 %; WHITE BLOOD COUNT 10.8 10^3/uL (4.0-10.5)
[2019-10-12 07:00] LABS: ANION GAP 5 (5-19); BLOOD UREA NITROGEN 34 mg/dL (7-20); CALCIUM 8.2 mg/dL (8.4-10.2); CARBON DIOXIDE 30 mmol/L (22-30); CHLORIDE 104 mmol/L (98-107); GLUCOSE 115 mg/dL (75-110); POTASSIUM 3.4 mmol/L (3.6-5.0)
--- NOTE | 2019-10-12 08:58 | PDOC PROGRESS REPORT ---
Subjective Progress Note for:: 10/12/19 Subjective:: Still frustrated and depressed but he does exhibit insight into his current illness. Coughing up white sputum Reason For Visit: DIABETIC GASTROPARESIS Physical Exam Vital Signs: Temp Pulse Resp BP Pulse Ox 98.4 F 69 17 156/85 H 93 10/12/19 05:08 10/12/19 05:08 10/12/19 05:08 10/12/19 06:10 10/12/19 05:08 Intake & Output 10/11/19 10/12/19 10/13/19 06:59 06:59 06:59 Intake Total 1380 3476 Output Total 995 1525 Balance 385 1951 Weight 101.8 kg 101.8 kg General appearance: PRESENT: no acute distress, cooperative, well-developed Head exam: PRESENT: atraumatic, normocephalic Eye exam: PRESENT: conjunctiva pink. ABSENT: scleral icterus Ear exam: PRESENT: normal external ear exam. ABSENT: bleeding, drainage Mouth exam: PRESENT: moist, tongue midline Neck exam: ABSENT: carotid bruit, JVD, lymphadenopathy Respiratory exam: PRESENT: rales - Fine rales at bases, symmetrical, unlabored. ABSENT: accessory muscle use, rhonchi, tachypnea, wheezes Cardiovascular exam: PRESENT: RRR, +S1, +S2. ABSENT: bradycardia, diastolic mu rmur, irregular rhythm, systolic murmur, tachycardia GI/Abdominal exam: PRESENT: normal bowel sounds, soft. ABSENT: distended, guarding, tenderness Rectal exam: PRESENT: deferred Gentrourinary exam: ABSENT: indwelling catheter Extremities exam: ABSENT: pedal edema Musculoskeletal exam: PRESENT: ambulatory, full ROM, normal inspection. ABSENT: deformity, dislocation Neurological exam: PRESENT: alert, awake, oriented to person, oriented to place, oriented to time, oriented to situation, CN II-XII grossly intact, normal gait. ABSENT: altered, motor sensory deficit Psychiatric exam: PRESENT: flat affect. ABSENT: agitated, anxious Focused psych exam: ABSENT: delusional, paranoid, restlessness Skin exam: PRESENT: dry, normal color, warm. ABSENT: rash Results Laboratory Results: 10/12/19 06:12 10/12/19 06:12 10/12/19 10/12/19 06:12 06:12 WBC 10.8 H RBC 4.36 Hgb 12.6 L Hct 37.4 L MCV 86 MCH 28.9 MCHC 33.7 RDW 14.2 H Plt Count 220 Seg Neutrophils % 82.1 H Sodium 138.6 Potassium 3.4 L Chloride 104 Carbon Dioxide 30 Anion Gap 5 BUN 34 H Creatinine 1.44 H Est GFR ( Amer) > 60 Glucose 115 H Calcium 8.2 L 09/25/19 09/25/19 09/25/19 14:14 16:48 16:48 Creatine Kinase 54 L CK-MB (CK-2) Troponin I 0.056 0.037 09/25/19 09/25/19 16:48 22:45 Creatine Kinase CK-MB (CK-2) 1.03 Troponin I 0.047 Impressions: Chest X-Ray 09/25/19 14:00 IMPRESSION: NO ACUTE FINDINGS. Abdomen/Pelvis CTA 09/25/19 14:10 IMPRESSION: No aortic aneurysm or dissection. There is approximately 80% stenosis in the right renal artery and the first 1 cm from its origin. No acute findings otherwise. Chest/Abdomen CTA 09/25/19 14:10 IMPRESSION: No aortic aneurysm or dissection. There is approximately 80% stenosis in the right renal artery and the first 1 cm from its origin. No acute findings otherwise. PICC Line Insertion 10/09/19 00:00 IMPRESSION: SUCCESSFUL PLACEMENT OF A 5 FR DUAL LUMEN 43 CM PICC IN THE LEFT BASILIC VEIN. Assessment and Plan - Diagnosis (1) Acute respiratory failure due to COVID-19 Is this a current diagnosis for this admission?: Yes Plan: Completed antibiotic therapy. Tapering off of steroids. Still requiring oxygen. (2) Epigastric abdominal pain Is this a current diagnosis for this admission?: Yes Plan: Improving. Possibly related to gastroparesis. Continue Protonix and Carafate. Consider metoclopramide scheduled trial. It is available as needed. (3) CKD (chronic kidney disease) stage 3, GFR 30-59 ml/min Is this a current diagnosis for this admission?: Yes Plan: Stable. Continue to monitor with laboratory studies (4) Coronary artery disease Qualifiers: Coronary Disease-Associated Artery/Lesion type: [place] artery [place] vs. transplanted heart: [place] heart Associated angina: without angina Qualified Code(s): I25.10 - Atherosclerotic heart disease of [place] coronary artery without angina pectoris Is this a current diagnosis for this admission?: Yes Plan: No symptoms of acute coronary syndrome. Continue to monitor. (5) Diabetic gastroparesis associated with type 2 diabetes mellitus Is this a current diagnosis for this admission?: Yes Plan: Not exhibiting consistent control. May need to revise treatment regimen. (6) Anemia Qualifiers: Anemia type: unspecified type Qualified Code(s): D64.9 - Anemia, unspecified Is this a current diagnosis for this admission?: Yes Plan: Continue to monitor hemoglobin. Stable at this time. (7) Hypertension Qualifiers: Hypertension type: renovascular hypertension Qualified Code(s): I15.0 - Renovascular hypertension Is this a current diagnosis for this admission?: Yes Plan: Fair blood pressure control. Renal artery stenosis identified. May need to adjust treatment. (8) Renal artery stenosis Is this a current diagnosis for this admission?: Yes Plan: Continued evaluation and treatment as an outpatient (9) Thrombocytopenia Is this a current diagnosis for this admission?: Yes Plan: Resolved (10) Depression with anxiety Is this a current diagnosis for this admission?: Yes Plan: Possibly slightly better. Continue to monitor. Consider revising medication regimen. - Time Time Spent with patient: 15-24 minutes Medications reviewed and adjusted accordingly: Yes Anticipated Discharge Disposition: Home with Home Health Anticipated Discharge Timeframe: Unable to determine at this time.
[2019-10-12] MEDS: FUROSEMIDE 20 MG TABLET PO SCH (09:41)
[2019-10-12] MEDS: PREDNISONE 20 MG TABLET PO SCH (09:41)
[2019-10-12] MEDS: MULTIVITAMIN TABLET PO SCH (09:41)
[2019-10-12] MEDS: FERROUS SULFATE 325 MG TABLET PO SCH (09:41)
[2019-10-12] MEDS: CALCIUM CARBONATE 600 MG TABLET PO SCH ×2 (09:41→17:43)
[2019-10-12] MEDS: AMLODIPINE BESYLATE 5 MG TABLET PO SCH ×2 (09:41→23:06)
[2019-10-12] MEDS: ZINC SULFATE 220 MG CAPSULE PO SCH (09:41)
[2019-10-12] MEDS: ASPIRIN 81 MG TABLET, CHEWABLE PO SCH (09:41)
[2019-10-12] MEDS: METOPROLOL SUCCINATE 50 MG TAB.SR.24H PO SCH ×2 (09:41→23:06)
[2019-10-12] MEDS: BUSPIRONE HCL 10 MG TABLET PO SCH ×2 (09:41→23:06)
[2019-10-12] MEDS: SUCRALFATE 1 GM TABLET PO SCH ×4 (09:41→23:06)
[2019-10-12] MEDS: HYDROCHLOROTHIAZIDE 25 MG TABLET PO SCH (09:42)
[2019-10-12] MEDS: NORMAL SALINE 10 ML SDV (SCHEDULED) IV SCH ×2 (09:42→23:07)
[2019-10-12] MEDS: INSULIN LISPRO 100 UNIT/ML 3 ML VIAL SUBCUT SCH ×4 (09:42→23:40)
[2019-10-12] MEDS: GUAIFENESIN 600 MG TABLET.SA PO SCH ×2 (09:42→23:06)
[2019-10-12] MEDS: VENLAFAXINE HCL 37.5 MG CAP.SR.24H PO SCH (09:42)
[2019-10-12] MEDS: IPRATROPIUM/ALBUTEROL 0.5-2.5 MG/3 ML AMPUL NEB PRN (10:07)
[2019-10-12] MEDS: INSULIN GLARGINE,HUM.REC.ANLOG 1,000 UNIT/10 ML VIAL SUBCUT SCH (10:13)
[2019-10-12] MEDS: HYDRALAZINE HCL INJ/PF 20 MG/1 ML SDV IV PRN (12:54)
[2019-10-12] MEDS: MONTELUKAST SODIUM 10 MG TABLET PO SCH (17:43)
[2019-10-12] MEDS: ATORVASTATIN CALCIUM 40 MG TABLET PO SCH (23:06)
[2019-10-13] MEDS: IPRATROPIUM/ALBUTEROL 0.5-2.5 MG/3 ML AMPUL NEB SCH ×4 (00:56→23:30)
[2019-10-13] MEDS: LISINOPRIL 10 MG TABLET PO SCH ×2 (05:03→18:21)
[2019-10-13] MEDS: PANTOPRAZOLE SODIUM 40 MG TABLET.DR PO SCH ×2 (05:04→17:27)
[2019-10-13 06:21] LABS: APPEARANCE,URINE CLEAR; BILIRUBIN,URINE NEGATIVE (NEGATIVE); COLOR,URINE YELLOW; GLUCOSE, URINE 150 mg/dL (NEGATIVE); KETONES,URINE NEGATIVE (NEGATIVE); LEUKOCYTE ESTERASE,URINE NEGATIVE (NEGATIVE); NITRITE,URINE NEGATIVE (NEGATIVE); PROTEIN,URINE >=500 mg/dL (NEGATIVE); URINE SPECIFIC GRAVITY 1.015; UROBILINOGEN,URINE NEGATIVE mg/dL (<2.0)
[2019-10-13] MEDS: CALCIUM CARBONATE 600 MG TABLET PO SCH ×2 (07:08→17:27)
[2019-10-13] MEDS: SUCRALFATE 1 GM TABLET PO SCH ×4 (07:08→21:06)
[2019-10-13] MEDS: NORMAL SALINE 1000 ML 1,000 ML IV PRN ×3 (07:30→23:47)
[2019-10-13] MEDS: INSULIN LISPRO 100 UNIT/ML 3 ML VIAL SUBCUT SCH ×4 (08:21→21:40)
[2019-10-13] MEDS ORDERED: POTASSIUM CHLORIDE 10 MEQ TABLET.ER PO ONE (09:00)
--- NOTE | 2019-10-13 09:51 | PDOC PROGRESS REPORT ---
Subjective Progress Note for:: 10/13/19 Subjective:: The patient continues to slowly improve. He is still oxygen dependent to maintain saturations greater than 90%. Abdomen is now pain free. Reason For Visit: DIABETIC GASTROPARESIS Physical Exam Vital Signs: Temp Pulse Resp BP Pulse Ox 98.3 F 85 16 159/89 H 94 10/13/19 07:24 10/13/19 08:09 10/13/19 08:09 10/13/19 07:24 10/13/19 08:09 Intake & Output 10/12/19 10/13/19 10/14/19 06:59 06:59 06:59 Intake Total 3476 2900 Output Total 1525 1000 Balance 195 1900 Weight 101.8 kg 101.8 kg General appearance: PRESENT: no acute distress, cooperative, well-developed Head exam: PRESENT: atraumatic, normocephalic Ear exam: PRESENT: normal external ear exam. ABSENT: bleeding, drainage Mouth exam: PRESENT: moist, tongue midline Respiratory exam: PRESENT: rales - faint at left base, symmetrical, unlabored. ABSENT: rhonchi, tachypnea, wheezes Cardiovascular exam: PRESENT: RRR, +S1, +S2. ABSENT: bradycardia, diastolic murmur, irregular rhythm, systolic murmur, tachycardia GI/Abdominal exam: PRESENT: normal bowel sounds, soft. ABSENT: distended, guard ing, tenderness Rectal exam: PRESENT: deferred Gentrourinary exam: ABSENT: indwelling catheter Extremities exam: ABSENT: pedal edema Musculoskeletal exam: PRESENT: ambulatory, normal inspection. ABSENT: deformity, dislocation Neurological exam: PRESENT: alert, awake, oriented to person, oriented to place, oriented to time, oriented to situation, CN II-XII grossly intact. ABSENT: altered, motor sensory deficit Psychiatric exam: PRESENT: flat affect. ABSENT: agitated, anxious Focused psych exam: ABSENT: delusional, paranoid, restlessness Skin exam: PRESENT: dry, normal color, warm. ABSENT: rash Results Laboratory Results: 10/12/19 06:12 10/12/19 06:12 10/13/19 05:00 Urine Color YELLOW Urine Appearance CLEAR Urine pH 5.0 Ur Specific [place] 1.015 Urine Protein >=500 H Urine Glucose (UA) 150 H Urine Ketones NEGATIVE Urine Blood MODERATE H Urine Nitrite NEGATIVE Ur Leukocyte Esterase NEGATIVE Urine WBC (Auto) 1 Urine RBC (Auto) 7 09/25/19 09/25/19 09/25/19 14:14 16:48 16:48 Creatine Kinase 54 L CK-MB (CK-2) Troponin I 0.056 0.037 09/25/19 09/25/19 16:48 22:45 Creatine Kinase CK-MB (CK-2) 1.03 Troponin I 0.047 Impressions: Chest X-Ray 09/25/19 14:00 IMPRESSION: NO ACUTE FINDINGS. Abdomen/Pelvis CTA 09/25/19 14:10 IMPRESSION: No aortic aneurysm or dissection. There is approximately 80% stenosis in the right renal artery and the first 1 cm from its origin. No acute findings otherwise. Chest/Abdomen CTA 09/25/19 14:10 IMPRESSION: No aortic aneurysm or dissection. There is approximately 80% stenosis in the right renal artery and the first 1 cm from its origin. No acute findings otherwise. PICC Line Insertion 10/09/19 00:00 IMPRESSION: SUCCESSFUL PLACEMENT OF A 5 FR DUAL LUMEN 43 CM PICC IN THE LEFT BASILIC VEIN. Assessment and Plan - Diagnosis (1) Acute respiratory failure due to COVID-19 Is this a current diagnosis for this admission?: Yes Plan: Pneumonia appears to have resolved. We are continuing his steroid taper. (2) Epigastric abdominal pain Is this a current diagnosis for this admission?: Yes Plan: Appears to be resolved. We are continuing the Carafate and Protonix. I believe tapering off of the steroids will also be helpful. (3) CKD (chronic kidney disease) stage 3, GFR 30-59 ml/min Is this a current diagnosis for this admission?: Yes Plan: Stable. Continue to monitor with laboratory studies (4) Coronary artery disease Qualifiers: Coronary Disease-Associated Artery/Lesion type: [place] artery [place] vs. transplanted heart: [place] heart Associated angina: without angina Qualified Code(s): I25.10 - Atherosclerotic heart disease of [place] coronary artery without angina pectoris Is this a current diagnosis for this admission?: Yes Plan: No symptoms of acute coronary syndrome. Continue to monitor. (5) Diabetic gastroparesis associated with type 2 diabetes mellitus Is this a current diagnosis for this admission?: Yes Plan: The patient states that he thinks he has metoclopramide at home but does not recall using it regularly. It is available here. He is improving and likely will not need it. (6) Anemia Qualifiers: Anemia type: unspecified type Qualified Code(s): D64.9 - Anemia, unspecified Is this a current diagnosis for this admission?: Yes Plan: Continue to monitor hemoglobin. Stable at this time with no evidence of bleeding. (7) Hypertension Qualifiers: Hypertension type: renovascular hypertension Qualified Code(s): I15.0 - Renovascular hypertension Is this a current diagnosis for this admission?: Yes Plan: Blood pressure is still not quite at goal. It is likely that his renal artery stenosis is contributing. He will be evaluated by vascular surgery after discharge. (8) Renal artery stenosis Is this a current diagnosis for this admission?: Yes Plan: Outpatient evaluation with vascular surgery. (9) Depression with anxiety Is this a current diagnosis for this admission?: Yes Plan: Continue BuSpar and venlafaxine (10) Thrombocytopenia Is this a current diagnosis for this admission?: Yes Plan: Resolved - Time Time Spent with patient: 15-24 minutes Medications reviewed and adjusted accordingly: Yes Anticipated Discharge Disposition: Home with Home Health Anticipated Discharge Timeframe: within 72 hours
[2019-10-13] MEDS: NORMAL SALINE 10 ML SDV (SCHEDULED) IV SCH ×2 (09:53→21:07)
[2019-10-13] MEDS: PREDNISONE 20 MG TABLET PO SCH (09:54)
[2019-10-13] MEDS: VENLAFAXINE HCL 37.5 MG CAP.SR.24H PO SCH (09:54)
[2019-10-13] MEDS: ASPIRIN 81 MG TABLET, CHEWABLE PO SCH (09:54)
[2019-10-13] MEDS: FERROUS SULFATE 325 MG TABLET PO SCH (09:54)
[2019-10-13] MEDS: AMLODIPINE BESYLATE 5 MG TABLET PO SCH ×2 (09:54→21:07)
[2019-10-13] MEDS: ZINC SULFATE 220 MG CAPSULE PO SCH (09:54)
[2019-10-13] MEDS: HYDROCHLOROTHIAZIDE 25 MG TABLET PO SCH (09:54)
[2019-10-13] MEDS: FUROSEMIDE 20 MG TABLET PO SCH (09:54)
[2019-10-13] MEDS: MULTIVITAMIN TABLET PO SCH (09:54)
[2019-10-13] MEDS: METOPROLOL SUCCINATE 50 MG TAB.SR.24H PO SCH ×2 (09:54→21:07)
[2019-10-13] MEDS: GUAIFENESIN 600 MG TABLET.SA PO SCH ×2 (09:54→21:06)
[2019-10-13] MEDS: BUSPIRONE HCL 10 MG TABLET PO SCH ×2 (09:54→21:07)
[2019-10-13] MEDS: INSULIN GLARGINE,HUM.REC.ANLOG 1,000 UNIT/10 ML VIAL SUBCUT SCH (09:57)
[2019-10-13] MEDS: METFORMIN HCL 500 MG TABLET PO SCH (15:53)
[2019-10-13] MEDS: MONTELUKAST SODIUM 10 MG TABLET PO SCH (18:21)
[2019-10-13] MEDS: ATORVASTATIN CALCIUM 40 MG TABLET PO SCH (21:07)
[2019-10-14] MEDS: PANTOPRAZOLE SODIUM 40 MG TABLET.DR PO SCH ×2 (05:18→17:15)
[2019-10-14] MEDS: LISINOPRIL 10 MG TABLET PO SCH ×2 (05:18→17:15)
[2019-10-14 06:17] LABS: HEMATOCRIT 35.4 % (37.9-51.0); MEAN CORPUSCULAR HGB CONC 33.9 g/dL (32.0-36.0); MEAN CORPUSCULAR VOLUME 86 fl (80-97); PLATELET COUNT 173 10^3/uL (150-450); RED BLOOD COUNT 4.14 10^6/uL (4.35-5.55); RED CELL DISTRIBUTION WIDTH 14.6 % (11.5-14.0); WHITE BLOOD COUNT 9.5 10^3/uL (4.0-10.5)
[2019-10-14 06:28] LABS: ALBUMIN 2.1 g/dL (3.5-5.0); ALKALINE PHOSPHATASE 86 U/L (38-126); ASPARTATE AMINO TRANSFERASE 24 U/L (17-59); BILIRUBIN,TOTAL 0.6 mg/dL (0.2-1.3); BLOOD UREA NITROGEN 26 mg/dL (7-20); CALCIUM 8.1 mg/dL (8.4-10.2); GLUCOSE 208 mg/dL (75-110); POTASSIUM 3.7 mmol/L (3.6-5.0); TOTAL PROTEIN 4.8 g/dL (6.3-8.2)
[2019-10-14 06:29] LABS: APPEARANCE,URINE CLEAR; BILIRUBIN,URINE NEGATIVE (NEGATIVE); COLOR,URINE YELLOW; GLUCOSE, URINE 50 mg/dL (NEGATIVE); KETONES,URINE NEGATIVE (NEGATIVE); LEUKOCYTE ESTERASE,URINE NEGATIVE (NEGATIVE); NITRITE,URINE NEGATIVE (NEGATIVE); PROTEIN,URINE 100 mg/dL (NEGATIVE); URINE SPECIFIC GRAVITY 1.016; UROBILINOGEN,URINE NEGATIVE mg/dL (<2.0)
[2019-10-14 06:33] LABS: CARBON DIOXIDE 28 mmol/L (22-30); CHLORIDE 106 mmol/L (98-107)
[2019-10-14 06:37] LABS: ANION GAP 4 (5-19)
[2019-10-14] MEDS: SUCRALFATE 1 GM TABLET PO SCH ×4 (08:00→21:02)
[2019-10-14] MEDS: METFORMIN HCL 500 MG TABLET PO SCH ×2 (08:00→17:15)
[2019-10-14] MEDS: INSULIN LISPRO 100 UNIT/ML 3 ML VIAL SUBCUT SCH ×4 (08:00→22:00)
[2019-10-14] MEDS: CALCIUM CARBONATE 600 MG TABLET PO SCH ×2 (08:00→17:15)
[2019-10-14] MEDS: NORMAL SALINE 1000 ML 1,000 ML IV PRN ×2 (08:00→17:22)
[2019-10-14] MEDS: ASPIRIN 81 MG TABLET, CHEWABLE PO SCH (09:22)
[2019-10-14] MEDS: POTASSIUM CHLORIDE 10 MEQ TABLET.ER PO SCH (09:22)
[2019-10-14] MEDS: ZINC SULFATE 220 MG CAPSULE PO SCH (09:22)
[2019-10-14] MEDS: VENLAFAXINE HCL 37.5 MG CAP.SR.24H PO SCH (09:22)
[2019-10-14] MEDS: METOPROLOL SUCCINATE 50 MG TAB.SR.24H PO SCH ×2 (09:22→21:02)
[2019-10-14] MEDS: FERROUS SULFATE 325 MG TABLET PO SCH (09:22)
[2019-10-14] MEDS: GUAIFENESIN 600 MG TABLET.SA PO SCH ×2 (09:22→21:02)
[2019-10-14] MEDS: MULTIVITAMIN TABLET PO SCH (09:22)
[2019-10-14] MEDS: FUROSEMIDE 20 MG TABLET PO SCH (09:22)
[2019-10-14] MEDS: HYDROCHLOROTHIAZIDE 25 MG TABLET PO SCH (09:22)
[2019-10-14] MEDS: BUSPIRONE HCL 10 MG TABLET PO SCH ×2 (09:22→21:02)
[2019-10-14] MEDS: AMLODIPINE BESYLATE 5 MG TABLET PO SCH ×2 (09:22→21:02)
[2019-10-14] MEDS: PREDNISONE 10 MG TABLET PO SCH (09:22)
[2019-10-14] MEDS: NORMAL SALINE 10 ML SDV (SCHEDULED) IV SCH ×2 (09:23→21:04)
[2019-10-14] MEDS: INSULIN GLARGINE,HUM.REC.ANLOG 1,000 UNIT/10 ML VIAL SUBCUT SCH (09:23)
[2019-10-14] MEDS: IPRATROPIUM/ALBUTEROL 0.5-2.5 MG/3 ML AMPUL NEB SCH ×2 (09:33→15:56)
--- NOTE | 2019-10-14 12:35 | PDOC PROGRESS REPORT ---
Subjective Progress Note for:: 10/14/19 Subjective:: Feeling better today. Still requiring oxygen and still quite weak. Reason For Visit: DIABETIC GASTROPARESIS Physical Exam Vital Signs: Temp Pulse Resp BP Pulse Ox 98.0 F 64 22 H 165/87 H 94 10/14/19 11:28 10/14/19 11:28 10/14/19 11:28 10/14/19 11:28 10/14/19 11:28 Pulse Oximeter Ambulatory Start: 10/13/19 15:32 Freq: ONCE Status: Active Protocol: Document 10/13/19 18:04 [facility] (Rec: 10/13/19 18:12 [facility] [id number]) Additional RT Notes Other patient's sao2 dropped to 88% just moving to chair, RN did not attempt further ambulation Intervention Variance Therapy Variance Delayed Variance Reason Other Patient Care Exercise Oximetry Treatment Ambulating SpO2 Charge Now No Intake & Output 10/13/19 10/14/19 10/15/19 06:59 06:59 06:59 Intake Total 2900 3656 1188 Output Total 1000 2250 200 Balance 1900 1406 988 Weight 101.8 kg 101.7 kg General appearance: PRESENT: no acute distress, cooperative, well-developed Head exam: PRESENT: atraumatic, normocephalic Ear exam: PRESENT: normal external ear exam. ABSENT: bleeding, drainage Respiratory exam: PRESENT: clear to auscultation [place], decreased breath sounds, symmetrical, unlabored. ABSENT: rales, rhonchi, tachypnea, wheezes Cardiovascular exam: PRESENT: RRR, +S1, +S2. ABSENT: bradycardia, diastolic murmur, irregular rhythm, systolic murmur, tachycardia GI/Abdominal exam: PRESENT: normal bowel sounds, soft. ABSENT: distended, guarding, tenderness Rectal exam: PRESENT: deferred Gentrourinary exam: ABSENT: indwelling catheter Extremities exam: ABSENT: pedal edema Musculoskeletal exam: PRESENT: ambulatory - Still quite weak, normal inspection Neurological exam: PRESENT: alert, awake, oriented to person, oriented to place, oriented to time, oriented to situation, CN II-XII grossly intact. ABSENT: altered, motor sensory deficit Psychiatric exam: PRESENT: flat affect. ABSENT: agitated, anxious Focused psych exam: ABSENT: delusional, paranoid, restlessness Skin exam: PRESENT: dry, normal color, warm. ABSENT: rash Results Laboratory Results: 10/14/19 05:45 10/14/19 05:45 10/14/19 10/14/19 10/14/19 05:45 05:45 05:45 WBC 9.5 RBC 4.14 L Hgb 12.0 L Hct 35.4 L MCV 86 MCH 29.0 MCHC 33.9 RDW 14.6 H Plt Count 173 Sodium 137.5 Potassium 3.7 Chloride 106 Carbon Dioxide 28 Anion Gap 4 L BUN 26 H Creatinine 1.30 H Est GFR ( Amer) > 60 Glucose 208 H Calcium 8.1 L Magnesium 1.8 Total Bilirubin 0.6 AST 24 Alkaline Phosphatase 86 Total Protein 4.8 L Albumin 2.1 L Urine Color YELLOW Urine Appearance CLEAR Urine pH 5.0 Ur Specific [place] 1.016 Urine Protein 100 H Urine Glucose (UA) 50 H Urine Ketones NEGATIVE Urine Blood MODERATE H Urine Nitrite NEGATIVE Ur Leukocyte Esterase NEGATIVE Urine WBC (Auto) 1 Urine RBC (Auto) 5 09/25/19 09/25/19 09/25/19 14:14 16:48 16:48 Creatine Kinase 54 L CK-MB (CK-2) Troponin I 0.056 0.037 09/25/19 09/25/19 16:48 22:45 Creatine Kinase CK-MB (CK-2) 1.03 Troponin I 0.047 Impressions: Chest X-Ray 09/25/19 14:00 IMPRESSION: NO ACUTE FINDINGS. Abdomen/Pelvis CTA 09/25/19 14:10 IMPRESSION: No aortic aneurysm or dissection. There is approximately 80% stenosis in the right renal artery and the first 1 cm from its origin. No acute findings otherwise. Chest/Abdomen CTA 09/25/19 14:10 IMPRESSION: No aortic aneurysm or dissection. There is approximately 80% stenosis in the right renal artery and the first 1 cm from its origin. No acute findings otherwise. PICC Line Insertion 10/09/19 00:00 IMPRESSION: SUCCESSFUL PLACEMENT OF A 5 FR DUAL LUMEN 43 CM PICC IN THE LEFT BASILIC VEIN. Assessment and Plan - Diagnosis (1) Acute respiratory failure due to COVID-19 Is this a current diagnosis for this admission?: Yes Plan: Still requiring oxygen with Oxymizer. Will need home oxygen at discharge. The pneumonia has resolved but he still requires oxygen to keep his saturation greater than 90%. (2) Epigastric abdominal pain Is this a current diagnosis for this admission?: Yes Plan: He says he was nauseated earlier. Consider scheduled Reglan before meals. (3) CKD (chronic kidney disease) stage 3, GFR 30-59 ml/min Is this a current diagnosis for this admission?: Yes Plan: GFR was actually greater than 60 yesterday. We will recheck labs tomorrow. Consider discharge to home when his ex- arrives in [place] to help care for him at home. (4) Coronary artery disease Qualifiers: Coronary Disease-Associated Artery/Lesion type: [place] artery [place] vs. transplanted heart: [place] heart Associated angina: without angina Qualified Code(s): I25.10 - Atherosclerotic heart disease of [place] coronary artery without angina pectoris Is this a current diagnosis for this admission?: Yes Plan: Currently without acute coronary symptoms. Continue current regimen. (5) Diabetic gastroparesis associated with type 2 diabetes mellitus Is this a current diagnosis for this admission?: Yes Plan: As noted above he had some nausea. He also reports that the food taste different/metallic taste. Metoclopramide is available as needed. If this continues we will consider scheduled doses before meals. (6) Anemia Qualifiers: Anemia type: unspecified type Qualified Code(s): D64.9 - Anemia, unspecified Is this a current diagnosis for this admission?: Yes Plan: Stable at this time. (7) Hypertension Qualifiers: Hypertension type: renovascular hypertension Qualified Code(s): I15.0 - Renovascular hypertension Is this a current diagnosis for this admission?: Yes Plan: Systolic blood pressure still quite variable. Likely related to episodes of nausea or discomfort. He does have intravenous hydralazine available if needed. (8) Renal artery stenosis Is this a current diagnosis for this admission?: Yes Plan: Needs further assessment and treatment as an outpatient (9) Depression with anxiety Is this a current diagnosis for this admission?: Yes Plan: Continue BuSpar and Effexor (10) Thrombocytopenia Is this a current diagnosis for this admission?: Yes Plan: Resolved (11) Hyperglycemia due to diabetes mellitus Is this a current diagnosis for this admission?: Yes Plan: Serum glucoses are now under 100. Will need to monitor closely for hypoglycemia. If this occurs we will adjust medications. It is also affected by his poor appetite. - Time Time Spent with patient: 15-24 minutes Medications reviewed and adjusted accordingly: Yes Anticipated Discharge Disposition: Home, Self Care Anticipated Discharge Timeframe: within 72 hours
[2019-10-14] MEDS: MONTELUKAST SODIUM 10 MG TABLET PO SCH (17:15)
[2019-10-14] MEDS: ATORVASTATIN CALCIUM 40 MG TABLET PO SCH (21:02)
[2019-10-15] MEDS: IPRATROPIUM/ALBUTEROL 0.5-2.5 MG/3 ML AMPUL NEB SCH ×4 (00:09→16:17)
[2019-10-15] MEDS: NORMAL SALINE 1000 ML 1,000 ML IV PRN ×3 (01:17→16:49)
[2019-10-15] MEDS: PANTOPRAZOLE SODIUM 40 MG TABLET.DR PO SCH ×2 (06:15→16:48)
[2019-10-15] MEDS: LISINOPRIL 10 MG TABLET PO SCH ×2 (06:16→17:04)
[2019-10-15] MEDS: ONDANSETRON HCL INJ/PF 4 MG/2 ML SDV IV PRN (08:55)
[2019-10-15] MEDS: METFORMIN HCL 500 MG TABLET PO SCH ×2 (08:55→16:48)
[2019-10-15] MEDS: CALCIUM CARBONATE 600 MG TABLET PO SCH ×2 (08:55→16:48)
[2019-10-15] MEDS: SUCRALFATE 1 GM TABLET PO SCH ×4 (08:55→21:08)
[2019-10-15] MEDS: INSULIN LISPRO 100 UNIT/ML 3 ML VIAL SUBCUT SCH ×4 (08:56→22:45)
[2019-10-15] MEDS ORDERED: INSULIN GLARGINE,HUM.REC.ANLOG 1,000 UNIT/10 ML VIAL (PYX) SUBCUT ONE (09:02)
[2019-10-15] MEDS: INSULIN GLARGINE,HUM.REC.ANLOG 1,000 UNIT/10 ML VIAL SUBCUT SCH (09:03)
[2019-10-15] MEDS: VENLAFAXINE HCL 37.5 MG CAP.SR.24H PO SCH (09:04)
[2019-10-15] MEDS: HYDROCHLOROTHIAZIDE 25 MG TABLET PO SCH (09:04)
[2019-10-15] MEDS: MULTIVITAMIN TABLET PO SCH (09:04)
[2019-10-15] MEDS: POTASSIUM CHLORIDE 10 MEQ TABLET.ER PO SCH (09:04)
[2019-10-15] MEDS: ASPIRIN 81 MG TABLET, CHEWABLE PO SCH (09:04)
[2019-10-15] MEDS: ZINC SULFATE 220 MG CAPSULE PO SCH (09:04)
[2019-10-15] MEDS: GUAIFENESIN 600 MG TABLET.SA PO SCH ×2 (09:04→21:08)
[2019-10-15] MEDS: BUSPIRONE HCL 10 MG TABLET PO SCH ×2 (09:04→21:08)
[2019-10-15] MEDS: AMLODIPINE BESYLATE 5 MG TABLET PO SCH ×2 (09:05→21:08)
[2019-10-15] MEDS: FUROSEMIDE 20 MG TABLET PO SCH (09:05)
[2019-10-15] MEDS: PREDNISONE 10 MG TABLET PO SCH (09:05)
[2019-10-15] MEDS: METOPROLOL SUCCINATE 50 MG TAB.SR.24H PO SCH ×2 (09:05→21:08)
[2019-10-15] MEDS: FERROUS SULFATE 325 MG TABLET PO SCH (09:05)
[2019-10-15] MEDS: NORMAL SALINE 10 ML SDV (SCHEDULED) IV SCH (09:06)
[2019-10-15] MEDS: MONTELUKAST SODIUM 10 MG TABLET PO SCH (17:04)
[2019-10-15] MEDS: ATORVASTATIN CALCIUM 40 MG TABLET PO SCH (21:08)
[2019-10-16] MEDS: IPRATROPIUM/ALBUTEROL 0.5-2.5 MG/3 ML AMPUL NEB SCH ×4 (00:03→23:58)
[2019-10-16] MEDS: NORMAL SALINE 1000 ML 1,000 ML IV PRN ×2 (00:50→06:33)
[2019-10-16] MEDS: NORMAL SALINE 10 ML SDV (SCHEDULED) IV SCH ×3 (00:50→22:39)
[2019-10-16] MEDS: HYDRALAZINE HCL INJ/PF 20 MG/1 ML SDV IV PRN (03:48)
[2019-10-16] MEDS: PANTOPRAZOLE SODIUM 40 MG TABLET.DR PO SCH (05:55)
[2019-10-16] MEDS: LISINOPRIL 10 MG TABLET PO SCH ×2 (05:55→17:43)
[2019-10-16] MEDS: ONDANSETRON HCL INJ/PF 4 MG/2 ML SDV IV PRN (06:28)
[2019-10-16] MEDS: METFORMIN HCL 500 MG TABLET PO SCH (08:26)
[2019-10-16] MEDS: SUCRALFATE 1 GM TABLET PO SCH ×4 (08:26→22:38)
[2019-10-16] MEDS: CALCIUM CARBONATE 600 MG TABLET PO SCH ×2 (08:26→16:32)
[2019-10-16] MEDS: INSULIN LISPRO 100 UNIT/ML 3 ML VIAL SUBCUT SCH ×4 (08:42→22:47)
--- NOTE | 2019-10-16 11:46 | PDOC PROGRESS REPORT ---
Subjective Progress Note for:: 10/16/19 Subjective:: Patient still reports nausea. His diarrhea is worsening. He has had 3 bowel movements already this morning. He remains extremely weak. Reason For Visit: DIABETIC GASTROPARESIS Physical Exam Vital Signs: Temp Pulse Resp BP Pulse Ox 98.1 F 76 21 H 138/66 H 94 10/16/19 07:46 10/16/19 07:46 10/16/19 07:46 10/16/19 07:46 10/16/19 07:46 Pulse Oximeter Ambulatory Start: 10/13/19 15:32 Freq: ONCE Status: Active Protocol: Document 10/13/19 18:04 [facility] (Rec: 10/13/19 18:12 [facility] [id number]) Additional RT Notes Other patient's sao2 dropped to 88% just moving to chair, RN did not attempt further ambulation Intervention Variance Therapy Variance Delayed Variance Reason Other Patient Care Exercise Oximetry Treatment Ambulating SpO2 Charge Now No Intake & Output 10/15/19 10/16/19 10/17/19 06:59 06:59 06:59 Intake Total 2990 4974 Output Total 1100 1975 Balance 1890 2999 Weight 107.4 kg 106.4 kg General appearance: PRESENT: cooperative, well-developed, other - Appears moderately distressed. Head exam: PRESENT: atraumatic, normocephalic Eye exam: PRESENT: conjunctiva pink. ABSENT: scleral icterus Ear exam: PRESENT: normal external ear exam. ABSENT: bleeding, drainage Respiratory exam: PRESENT: clear to auscultation [place], symmetrical, unlabored. ABSENT: prolonged expiratory phas, rales, rhonchi, tachypnea, wheezes Cardiovascular exam: PRESENT: RRR, +S1, +S2. ABSENT: bradycardia, diastolic murmur, irregular rhythm, systolic murmur, tachycardia GI/Abdominal exam: PRESENT: normal bowel sounds, soft, tenderness - Minimal nonfocal tenderness. ABSENT: distended, guarding Rectal exam: PRESENT: deferred Extremities exam: ABSENT: pedal edema Musculoskeletal exam: PRESENT: ambulatory, normal inspection. ABSENT: deformity, dislocation Neurological exam: PRESENT: alert, awake, oriented to person, oriented to place, oriented to time, oriented to situation, CN II-XII grossly intact. ABSENT: altered, motor sensory deficit Psychiatric exam: PRESENT: flat affect. ABSENT: agitated, anxious Focused psych exam: ABSENT: delusional, paranoid, restlessness Skin exam: PRESENT: dry, warm. ABSENT: rash Results Laboratory Results: 10/14/19 05:45 10/14/19 05:45 09/25/19 09/25/19 09/25/19 14:14 16:48 16:48 Creatine Kinase 54 L CK-MB (CK-2) Troponin I 0.056 0.037 09/25/19 09/25/19 16:48 22:45 Creatine Kinase CK-MB (CK-2) 1.03 Troponin I 0.047 Impressions: Chest X-Ray 09/25/19 14:00 IMPRESSION: NO ACUTE FINDINGS. Abdomen/Pelvis CTA 09/25/19 14:10 IMPRESSION: No aortic aneurysm or dissection. There is approximately 80% stenosis in the right renal artery and the first 1 cm from its origin. No acute findings otherwise. Chest/Abdomen CTA 09/25/19 14:10 IMPRESSION: No aortic aneurysm or dissection. There is approximately 80% stenosis in the right renal artery and the first 1 cm from its origin. No acute findings otherwise. PICC Line Insertion 10/09/19 00:00 IMPRESSION: SUCCESSFUL PLACEMENT OF A 5 FR DUAL LUMEN 43 CM PICC IN THE LEFT BASILIC VEIN. Assessment and Plan - Diagnosis (1) Acute respiratory failure due to COVID-19 Is this a current diagnosis for this admission?: Yes Plan: Still requiring supplemental oxygen despite resolution of pneumonia. No further rales noted. Continue to taper prednisone. (2) Epigastric abdominal pain Is this a current diagnosis for this admission?: Yes Plan: Present today. Was improved several days ago. Continue Carafate and Protonix. Antiemetics available as needed. I did decrease the Protonix to once daily as this may be contributing to his diarrhea. (3) CKD (chronic kidney disease) stage 3, GFR 30-59 ml/min Is this a current diagnosis for this admission?: Yes Plan: GFR is 59 with a cutoff at 60. Patient is almost at stage II chronic kidney fa ilure. (4) Coronary artery disease Qualifiers: Coronary Disease-Associated Artery/Lesion type: [place] artery [place] vs. transplanted heart: [place] heart Associated angina: without angina Qualified Code(s): I25.10 - Atherosclerotic heart disease of [place] coronary artery with out angina pectoris Is this a current diagnosis for this admission?: Yes Plan: Stable without any evidence of acute coronary syndrome. Continue current regimen. (5) Diabetic gastroparesis associated with type 2 diabetes mellitus Is this a current diagnosis for this admission?: Yes Plan: Reglan is available however with his diarrhea am not going to attempt a scheduled trial. (6) Anemia Qualifiers: Anemia type: unspecified type Qualified Code(s): D64.9 - Anemia, unspecified Is this a current diagnosis for this admission?: Yes Plan: Likely due to his critical illness and chronic kidney failure. We will continue to monitor. We will watch for bleeding. We are continuing his Lovenox as his d-dimer is still greater than 1.0. (7) Hypertension Qualifiers: Hypertension type: renovascular hypertension Qualified Code(s): I15.0 - Renovascular hypertension Is this a current diagnosis for this admission?: Yes Plan: Blood vessels are still quite variable. His diastolic pressures are well maintained but his systolic pressures will vary considerably. (8) Renal artery stenosis Is this a current diagnosis for this admission?: Yes Plan: Needs further assessment and treatment as an outpatient (9) Depression with anxiety Is this a current diagnosis for this admission?: Yes Plan: Continue BuSpar and Effexor (10) Thrombocytopenia Is this a current diagnosis for this admission?: Yes Plan: Resolved (11) Hyperglycemia due to diabetes mellitus Is this a current diagnosis for this admission?: Yes Plan: His sugars have been on the low side. I will decrease his Lantus. Because of the diarrhea I will hold all of his metformin as well. We will continue Accu- Cheks and sliding scale. (12) Diarrhea Qualifiers: Diarrhea type: unspecified type Qualified Code(s): R19.7 - Diarrhea, unspecified Is this a current diagnosis for this admission?: Yes Plan: He does have Covid-19 however the diarrhea started only recently. It is more likely due to the resumption of metformin and or high-dose Protonix. I have stopped his metformin and decrease his Protonix to once daily. We will continue to monitor. Imodium is available. (13) Critical illness myopathy Is this a current diagnosis for this admission?: Yes Plan: The patient remains very weak. Other than with physical therapy and going to the bathroom he remains in the bed for the most part. I will write an order insisting that he is at least out of bed to chair 3 times a day. - Time Time Spent with patient: 15-24 minutes Medications reviewed and adjusted accordingly: Yes Anticipated Discharge Disposition: Home with Home Health Anticipated Discharge Timeframe: within 48 hours
[2019-10-16] MEDS: AMLODIPINE BESYLATE 5 MG TABLET PO SCH ×2 (12:03→22:38)
[2019-10-16] MEDS: FERROUS SULFATE 325 MG TABLET PO SCH (12:03)
[2019-10-16] MEDS: PREDNISONE 10 MG TABLET PO SCH (12:03)
[2019-10-16] MEDS: GUAIFENESIN 600 MG TABLET.SA PO SCH ×2 (12:03→22:38)
[2019-10-16] MEDS: METOPROLOL SUCCINATE 50 MG TAB.SR.24H PO SCH ×2 (12:03→22:38)
[2019-10-16] MEDS: ASPIRIN 81 MG TABLET, CHEWABLE PO SCH (12:03)
[2019-10-16] MEDS: MULTIVITAMIN TABLET PO SCH (12:03)
[2019-10-16] MEDS: BUSPIRONE HCL 10 MG TABLET PO SCH ×2 (12:04→22:38)
[2019-10-16] MEDS: ZINC SULFATE 220 MG CAPSULE PO SCH (12:04)
[2019-10-16] MEDS: POTASSIUM CHLORIDE 10 MEQ TABLET.ER PO SCH (12:04)
[2019-10-16] MEDS: FUROSEMIDE 20 MG TABLET PO SCH (12:04)
[2019-10-16] MEDS: HYDROCHLOROTHIAZIDE 25 MG TABLET PO SCH (12:04)
[2019-10-16] MEDS: VENLAFAXINE HCL 37.5 MG CAP.SR.24H PO SCH (12:07)
[2019-10-16] MEDS: INSULIN GLARGINE,HUM.REC.ANLOG 1,000 UNIT/10 ML VIAL SUBCUT SCH (12:37)
[2019-10-16 13:56] LABS: ABSOLUTE EOSINOPHILS # (AUTO) 0.2 10^3/uL (0.0-0.6); ABSOLUTE LYMPHOCYTES (AUTO) 1.1 10^3/uL (0.5-4.7); ABSOLUTE MONOCYTES (AUTO) 0.7 10^3/uL (0.1-1.4); ABSOLUTE NEUT (AUTO) 7.8 10^3/uL (1.7-8.2); BASOPHILS % (AUTO) 0.4 % (0-2); EOSINOPHILS % (AUTO) 1.8 % (0-6); HEMATOCRIT 34.7 % (37.9-51.0); HEMOGLOBIN 11.8 g/dL (13.5-17.0); LYMPHOCYTES % (AUTO) 10.8 % (13-45); MEAN CORPUSCULAR HEMOGLOBIN 29.1 pg (27.0-33.4); MEAN CORPUSCULAR VOLUME 86 fl (80-97); MONOCYTES % (AUTO) 7.3 % (3-13); PLATELET COUNT 159 10^3/uL (150-450); RED BLOOD COUNT 4.06 10^6/uL (4.35-5.55); RED CELL DISTRIBUTION WIDTH 14.4 % (11.5-14.0); SEGMENTED NEUTROPHILS % (AUTO) 79.7 % (42-78); TOTAL CELLS COUNTED % (AUTO) 100 %; WHITE BLOOD COUNT 9.8 10^3/uL (4.0-10.5)
[2019-10-16 14:11] LABS: ALBUMIN 2.2 g/dL (3.5-5.0); ALKALINE PHOSPHATASE 95 U/L (38-126); ASPARTATE AMINO TRANSFERASE 30 U/L (17-59); BILIRUBIN,DIRECT 0.1 mg/dL (0.0-0.4); BILIRUBIN,TOTAL 0.5 mg/dL (0.2-1.3); BLOOD UREA NITROGEN 20 mg/dL (7-20); CALCIUM 8.2 mg/dL (8.4-10.2); GLUCOSE 72 mg/dL (75-110); POTASSIUM 3.7 mmol/L (3.6-5.0); TOTAL PROTEIN 4.8 g/dL (6.3-8.2)
[2019-10-16 14:17] LABS: CARBON DIOXIDE 30 mmol/L (22-30); CHLORIDE 103 mmol/L (98-107)
[2019-10-16 14:23] LABS: ANION GAP 2 (5-19)
[2019-10-16] MEDS: MONTELUKAST SODIUM 10 MG TABLET PO SCH (17:43)
[2019-10-16] MEDS: ENOXAPARIN SODIUM INJ 100 MG/1 ML DISP.SYRIN SUBCUT SCH (22:32)
[2019-10-16] MEDS: ATORVASTATIN CALCIUM 40 MG TABLET PO SCH (22:38)
[2019-10-17] MEDS: LISINOPRIL 10 MG TABLET PO SCH ×2 (05:44→17:02)
[2019-10-17 07:15] LABS: ALBUMIN 2.3 g/dL (3.5-5.0); ALKALINE PHOSPHATASE 86 U/L (38-126); ASPARTATE AMINO TRANSFERASE 30 U/L (17-59); BILIRUBIN,DIRECT 0.1 mg/dL (0.0-0.4); BILIRUBIN,TOTAL 0.7 mg/dL (0.2-1.3); BLOOD UREA NITROGEN 17 mg/dL (7-20); GLUCOSE 71 mg/dL (75-110); POTASSIUM 3.8 mmol/L (3.6-5.0); TOTAL PROTEIN 4.9 g/dL (6.3-8.2)
[2019-10-17 07:28] LABS: CHLORIDE 100 mmol/L (98-107)
[2019-10-17 07:29] LABS: ANION GAP 1 (5-19); CARBON DIOXIDE 34 mmol/L (22-30)
[2019-10-17] MEDS: INSULIN LISPRO 100 UNIT/ML 3 ML VIAL SUBCUT SCH ×4 (08:05→22:20)
[2019-10-17 08:06] LABS: HEMATOCRIT 34.9 % (37.9-51.0); HEMOGLOBIN 11.9 g/dL (13.5-17.0); MEAN CORPUSCULAR HEMOGLOBIN 29.3 pg (27.0-33.4); MEAN CORPUSCULAR HGB CONC 34.2 g/dL (32.0-36.0); MEAN CORPUSCULAR VOLUME 86 fl (80-97); PLATELET COUNT 131 10^3/uL (150-450); RED BLOOD COUNT 4.08 10^6/uL (4.35-5.55); RED CELL DISTRIBUTION WIDTH 14.7 % (11.5-14.0); WHITE BLOOD COUNT 8.3 10^3/uL (4.0-10.5)
[2019-10-17] MEDS: SUCRALFATE 1 GM TABLET PO SCH ×4 (08:13→21:39)
[2019-10-17] MEDS: CALCIUM CARBONATE 600 MG TABLET PO SCH ×2 (08:13→16:58)
[2019-10-17] MEDS: IPRATROPIUM/ALBUTEROL 0.5-2.5 MG/3 ML AMPUL NEB SCH ×2 (08:38→16:14)
[2019-10-17] MEDS: PREDNISONE 10 MG TABLET PO SCH (12:16)
[2019-10-17] MEDS: HYDROCHLOROTHIAZIDE 25 MG TABLET PO SCH (12:16)
[2019-10-17] MEDS: ZINC SULFATE 220 MG CAPSULE PO SCH (12:16)
[2019-10-17] MEDS: BUSPIRONE HCL 10 MG TABLET PO SCH ×2 (12:17→21:39)
[2019-10-17] MEDS: FERROUS SULFATE 325 MG TABLET PO SCH (12:17)
[2019-10-17] MEDS: POTASSIUM CHLORIDE 10 MEQ TABLET.ER PO SCH (12:17)
[2019-10-17] MEDS: ASPIRIN 81 MG TABLET, CHEWABLE PO SCH (12:17)
[2019-10-17] MEDS: VENLAFAXINE HCL 37.5 MG CAP.SR.24H PO SCH (12:17)
[2019-10-17] MEDS: AMLODIPINE BESYLATE 5 MG TABLET PO SCH ×2 (12:17→21:39)
[2019-10-17] MEDS: METOPROLOL SUCCINATE 50 MG TAB.SR.24H PO SCH ×2 (12:17→21:39)
[2019-10-17] MEDS: PANTOPRAZOLE SODIUM 40 MG TABLET.DR PO SCH (12:18)
[2019-10-17] MEDS: MULTIVITAMIN TABLET PO SCH (12:18)
[2019-10-17] MEDS: INSULIN GLARGINE,HUM.REC.ANLOG 1,000 UNIT/10 ML VIAL SUBCUT SCH (12:18)
[2019-10-17] MEDS: GUAIFENESIN 600 MG TABLET.SA PO SCH ×2 (12:18→21:39)
[2019-10-17] MEDS: FUROSEMIDE 20 MG TABLET PO SCH (12:18)
[2019-10-17] MEDS: NORMAL SALINE 10 ML SDV (SCHEDULED) IV SCH ×2 (12:19→21:41)
[2019-10-17] MEDS: NORMAL SALINE 10 ML SDV (AFTER EACH USE) IV PRN (12:20)
[2019-10-17] MEDS: ENOXAPARIN SODIUM INJ 100 MG/1 ML DISP.SYRIN SUBCUT SCH ×2 (12:20→21:40)
--- NOTE | 2019-10-17 15:31 | PDOC PROGRESS REPORT ---
Subjective Progress Note for:: 10/17/19 Subjective:: The patient looks much better. He is sitting up in the chair. His diarrhea has stopped. This was likely the metformin. Reason For Visit: DIABETIC GASTROPARESIS Physical Exam Vital Signs: Temp Pulse Resp BP Pulse Ox 98.0 F 74 20 164/79 H 92 10/17/19 12:02 10/17/19 14:00 10/17/19 12:02 10/17/19 12:02 10/17/19 12:02 Pulse Oximeter Ambulatory Start: 10/13/19 15:32 Freq: ONCE Status: Active Protocol: Document 10/13/19 18:04 [facility] (Rec: 10/13/19 18:12 [facility] [email or web address]) Additional RT Notes Other patient's sao2 dropped to 88% just moving to chair, RN did not attempt further ambulation Intervention Variance Therapy Variance Delayed Variance Reason Other Patient Care Exercise Oximetry Treatment Ambulating SpO2 Charge Now No Intake & Output 10/16/19 10/17/19 10/18/19 06:59 06:59 06:59 Intake Total 4974 1230 Output Total 1975 1325 375 Balance 2999 -95 -375 Weight 106.4 kg 70.8 kg General appearance: PRESENT: no acute distress, cooperative Head exam: PRESENT: atraumatic, normocephalic Ear exam: PRESENT: normal external ear exam. ABSENT: bleeding, drainage Mouth exam: PRESENT: moist, tongue midline Respiratory exam: PRESENT: clear to auscultation [place], symmetrical, unlabored. ABSENT: prolonged expiratory phas, rales, rhonchi, tachypnea, wheezes Cardiovascular exam: PRESENT: RRR, +S1, +S2. ABSENT: bradycardia, diastolic murmur, irregular rhythm, systolic murmur, tachycardia GI/Abdominal exam: PRESENT: normal bowel sounds, soft. ABSENT: distended, guarding, tenderness Rectal exam: PRESENT: deferred Gentrourinary exam: ABSENT: indwelling catheter Extremities exam: ABSENT: pedal edema Musculoskeletal exam: PRESENT: ambulatory, normal inspection. ABSENT: deformity, dislocation Neurological exam: PRESENT: alert, awake, oriented to person, oriented to place, oriented to time, oriented to situation, CN II-XII grossly intact. ABSENT: altered Psychiatric exam: PRESENT: appropriate affect, normal mood. ABSENT: agitated, anxious Focused psych exam: ABSENT: delusional, paranoid, restlessness Skin exam: PRESENT: dry, pallor, warm. ABSENT: rash Results Laboratory Results: 10/17/19 07:10 10/17/19 05:45 10/17/19 10/17/19 05:45 07:10 WBC 8.3 RBC 4.08 L Hgb 11.9 L Hct 34.9 L MCV 86 MCH 29.3 MCHC 34.2 RDW 14.7 H Plt Count 131 L Sodium 135.1 L Potassium 3.8 Chloride 100 Carbon Dioxide 34 H Anion Gap 1 L BUN 17 Creatinine 1.31 H Est GFR ( Amer) > 60 Glucose 71 L Calcium 9.0 Magnesium 1.6 Total Bilirubin 0.7 AST 30 Alkaline Phosphatase 86 Total Protein 4.9 L Albumin 2.3 L 09/25/19 09/25/19 09/25/19 14:14 16:48 16:48 Creatine Kinase 54 L CK-MB (CK-2) Troponin I 0.056 0.037 09/25/19 09/25/19 16:48 22:45 Creatine Kinase CK-MB (CK-2) 1.03 Troponin I 0.047 Impressions: Chest X-Ray 09/25/19 14:00 IMPRESSION: NO ACUTE FINDINGS. Abdomen/Pelvis CTA 09/25/19 14:10 IMPRESSION: No aortic aneurysm or dissection. There is approximately 80% st enosis in the right renal artery and the first 1 cm from its origin. No acute findings otherwise. Chest/Abdomen CTA 09/25/19 14:10 IMPRESSION: No aortic aneurysm or dissection. There is approximately 80% stenosis in the right renal artery and the first 1 cm from its origin. No acute findings otherwise. PICC Line Insertion 10/09/19 00:00 IMPRESSION: SUCCESSFUL PLACEMENT OF A 5 FR DUAL LUMEN 43 CM PICC IN THE LEFT BASILIC VEIN. Assessment and Plan - Diagnosis (1) Acute respiratory failure due to COVID-19 Is this a current diagnosis for this admission?: Yes Plan: He still remains on oxygen despite resolution of his pneumonia. This is likely a combination of pneumonia and his COPD being exacerbated. (2) Epigastric abdominal pain Is this a current diagnosis for this admission?: Yes Plan: This has resolved. Continue Carafate and Protonix. (3) CKD (chronic kidney disease) stage 3, GFR 30-59 ml/min Is this a current diagnosis for this admission?: Yes Plan: GFR remains 58. Chronic kidney disease is stable. (4) Coronary artery disease Qualifiers: Coronary Disease-Associated Artery/Lesion type: [place] artery [place] vs. transplanted heart: [place] heart Associated angina: without angina Qualified Code(s): I25.10 - Atherosclerotic heart disease of [place] coronary artery without angina pectoris Is this a current diagnosis for this admission?: Yes Plan: Stable without any evidence of acute coronary syndrome. Continue current regimen. (5) Diabetic gastroparesis associated with type 2 diabetes mellitus Is this a current diagnosis for this admission?: Yes Plan: Patient is actually much better with the Protonix and Carafate. The diarrhea was likely the metformin. He has metoclopramide available if needed. (6) Anemia Qualifiers: Anemia type: unspecified type Qualified Code(s): D64.9 - Anemia, unspecified Is this a current diagnosis for this admission?: Yes Plan: Still just below the lower limit normal. Will likely improve as his recovery continues. (7) Hypertension Qualifiers: Hypertension type: renovascular hypertension Qualified Code(s): I15.0 - Renovascular hypertension Is this a current diagnosis for this admission?: Yes Plan: Blood pressure still very. This could be partly due to the timing of the medications. He is on multiple medications and seems to be tolerating them. (8) Renal artery stenosis Is this a current diagnosis for this admission?: Yes Plan: Needs further assessment and treatment as an outpatient (9) Depression with anxiety Is this a current diagnosis for this admission?: Yes Plan: Actually in good spirits today. Part of this is being out of bed. I have written for out of bed 3 times a day as an order (10) Thrombocytopenia Is this a current diagnosis for this admission?: Yes Plan: Platelets are slightly down to 131. This is just below the lower limit normal. Continue to monitor. He is still on Lovenox as his d-dimer is still greater than 1.0. I would discontinue at the time of discharge. (11) Hyperglycemia due to diabetes mellitus Is this a current diagnosis for this admission?: Yes Plan: Very stable at this point. Continue current regimen. (12) Diarrhea Qualifiers: Diarrhea type: unspecified type Qualified Code(s): R19.7 - Diarrhea, unspecified Is this a current diagnosis for this admission?: Yes Plan: Has subsided. It was most likely the metformin. We will need to adjust his diabetes regimen off of the metformin. (13) Critical illness myopathy Is this a current diagnosis for this admission?: Yes Plan: Continue physical therapy at home. Discharge is imminent. - Time Time Spent with patient: 15-24 minutes Medications reviewed and adjusted accordingly: Yes Anticipated Discharge Disposition: Home with Home Health Anticipated Discharge Timeframe: within 24 hours
[2019-10-17] MEDS: MONTELUKAST SODIUM 10 MG TABLET PO SCH (17:02)
[2019-10-17] MEDS: ATORVASTATIN CALCIUM 40 MG TABLET PO SCH (21:39)
[2019-10-17 23:45] LABS: APPEARANCE,URINE CLEAR; BILIRUBIN,URINE NEGATIVE (NEGATIVE); COLOR,URINE YELLOW; GLUCOSE, URINE 50 mg/dL (NEGATIVE); KETONES,URINE NEGATIVE (NEGATIVE); LEUKOCYTE ESTERASE,URINE NEGATIVE (NEGATIVE); NITRITE,URINE NEGATIVE (NEGATIVE); PROTEIN,URINE 100 mg/dL (NEGATIVE); URINE SPECIFIC GRAVITY 1.013; UROBILINOGEN,URINE NEGATIVE mg/dL (<2.0)
[2019-10-18] MEDS: IPRATROPIUM/ALBUTEROL 0.5-2.5 MG/3 ML AMPUL NEB SCH ×3 (00:59→15:52)
[2019-10-18] MEDS: LISINOPRIL 10 MG TABLET PO SCH ×2 (05:41→17:31)
[2019-10-18] MEDS: SUCRALFATE 1 GM TABLET PO SCH ×4 (08:20→21:45)
[2019-10-18] MEDS: INSULIN LISPRO 100 UNIT/ML 3 ML VIAL SUBCUT SCH ×4 (08:20→21:46)
[2019-10-18] MEDS: CALCIUM CARBONATE 600 MG TABLET PO SCH ×2 (08:20→17:31)
[2019-10-18] MEDS ORDERED: CLONIDINE 0.1 MG/24 HR PATCH.TDWK TD SCH (10:00)
[2019-10-18] MEDS: NORMAL SALINE 10 ML SDV (AFTER EACH USE) IV PRN (11:37)
[2019-10-18] MEDS: NORMAL SALINE 10 ML SDV (SCHEDULED) IV SCH ×2 (11:37→21:48)
[2019-10-18] MEDS: POTASSIUM CHLORIDE 10 MEQ TABLET.ER PO SCH (11:38)
[2019-10-18] MEDS: HYDROCHLOROTHIAZIDE 25 MG TABLET PO SCH (11:38)
[2019-10-18] MEDS: VENLAFAXINE HCL 37.5 MG CAP.SR.24H PO SCH (11:38)
[2019-10-18] MEDS: BUSPIRONE HCL 10 MG TABLET PO SCH ×2 (11:38→21:45)
[2019-10-18] MEDS: FUROSEMIDE 20 MG TABLET PO SCH (11:39)
[2019-10-18] MEDS: MULTIVITAMIN TABLET PO SCH (11:39)
[2019-10-18] MEDS: AMLODIPINE BESYLATE 5 MG TABLET PO SCH ×2 (11:39→21:45)
[2019-10-18] MEDS: FERROUS SULFATE 325 MG TABLET PO SCH (11:39)
[2019-10-18] MEDS: ASPIRIN 81 MG TABLET, CHEWABLE PO SCH (11:39)
[2019-10-18] MEDS: ZINC SULFATE 220 MG CAPSULE PO SCH (11:39)
[2019-10-18] MEDS: PREDNISONE 10 MG TABLET PO SCH (11:39)
[2019-10-18] MEDS: GUAIFENESIN 600 MG TABLET.SA PO SCH ×2 (11:39→21:45)
[2019-10-18] MEDS: PANTOPRAZOLE SODIUM 40 MG TABLET.DR PO SCH (11:40)
[2019-10-18] MEDS: INSULIN GLARGINE,HUM.REC.ANLOG 1,000 UNIT/10 ML VIAL SUBCUT SCH (11:40)
[2019-10-18] MEDS: METOPROLOL SUCCINATE 50 MG TAB.SR.24H PO SCH ×2 (11:40→21:45)
[2019-10-18] MEDS: ENOXAPARIN SODIUM INJ 100 MG/1 ML DISP.SYRIN SUBCUT SCH ×2 (11:42→21:46)
--- NOTE | 2019-10-18 15:48 | PDOC PROGRESS REPORT ---
Subjective Progress Note for:: 10/18/19 Subjective:: Patient was seen on morning rounds. He is found sitting up to the edge of the bed, comfortably, on Oxymizer. He looks much improved as compared to last week. He is looking forward to going home but is concerned about ability to afford medications/oxygen. He denies fever, chills, chest pain, palpitations, abdominal pain, nausea vomiting and diarrhea. He has no questions or concerns at this time. No concerns per nursing. Reason For Visit: DIABETIC GASTROPARESIS Physical Exam Vital Signs: Temp Pulse Resp BP Pulse Ox 98.5 F 74 19 138/77 H 94 10/18/19 11:10 10/18/19 11:10 10/18/19 11:10 10/18/19 11:10 10/18/19 11:10 Pulse Oximeter Ambulatory Start: 10/13/19 15:32 Freq: ONCE Status: Active Protocol: Document 10/13/19 18:04 [facility] (Rec: 10/13/19 18:12 [facility] [id number]) Additional RT Notes Other patient's sao2 dropped to 88% just moving to chair, RN did not attempt further ambulation Intervention Variance Therapy Variance Delayed Variance Reason Other Patient Care Exercise Oximetry Treatment Ambulating SpO2 Charge Now No Intake & Output 10/17/19 10/18/19 10/19/19 06:59 06:59 06:59 Intake Total 1230 630 Output Total 1325 975 Balance -95 -345 Weight 70.8 kg 70.8 kg General appearance: PRESENT: no acute distress, cooperative, well-developed, well-nourished Head exam: PRESENT: atraumatic, normocephalic Eye exam: PRESENT: conjunctiva pink, EOMI, PERRLA. ABSENT: scleral icterus Mouth exam: PRESENT: moist, tongue midline Respiratory exam: PRESENT: clear to auscultation [place], symmetrical, unlabored, other - Supplemental oxygen. ABSENT: rales, rhonchi, wheezes Cardiovascular exam: PRESENT: RRR, +S1, +S2. ABSENT: diastolic murmur, rubs, systolic murmur Pulses: PRESENT: normal [place] pedis pul Vascular exam: PRESENT: normal capillary refill Rectal exam: PRESENT: deferred Extremities exam: PRESENT: full ROM. ABSENT: calf tenderness, clubbing, pedal edema Musculoskeletal exam: PRESENT: ambulatory Neurological exam: PRESENT: alert, awake, oriented to person, oriented to place, oriented to time, oriented to situation, CN II-XII grossly intact. ABSENT: motor sensory deficit Psychiatric exam: PRESENT: appropriate affect, normal mood. ABSENT: homicidal ideation, suicidal ideation Skin exam: PRESENT: dry, intact, warm. ABSENT: cyanosis, rash Results Laboratory Results: 10/17/19 07:10 10/17/19 05:45 10/17/19 22:38 Urine Color YELLOW Urine Appearance CLEAR Urine pH 7.0 Ur Specific [place] 1.013 Urine Protein 100 H Urine Glucose (UA) 50 H Urine Ketones NEGATIVE Urine Blood SMALL H Urine Nitrite NEGATIVE Ur Leukocyte Esterase NEGATIVE Urine WBC (Auto) 1 Urine RBC (Auto) 14 09/25/19 09/25/19 09/25/19 14:14 16:48 16:48 Creatine Kinase 54 L CK-MB (CK-2) Troponin I 0.056 0.037 09/25/19 09/25/19 16:48 22:45 Creatine Kinase CK-MB (CK-2) 1.03 Troponin I 0.047 Impressions: Chest X-Ray 09/25/19 14:00 IMPRESSION: NO ACUTE FINDINGS. Abdomen/Pelvis CTA 09/25/19 14:10 IMPRESSION: No aortic aneurysm or dissection. There is approximately 80% stenosis in the right renal artery and the first 1 cm from its origin. No acute findings otherwise. Chest/Abdomen CTA 09/25/19 14:10 IMPRESSION: No aortic aneurysm or dissection. There is approximately 80% stenosis in the right renal artery and the first 1 cm from its origin. No acute findings otherwise. PICC Line Insertion 10/09/19 00:00 IMPRESSION: SUCCESSFUL PLACEMENT OF A 5 FR DUAL LUMEN 43 CM PICC IN THE LEFT BASILIC VEIN. Assessment and Plan - Diagnosis (1) Acute respiratory failure due to COVID-19 Is this a current diagnosis for this admission?: Yes Plan: Patient with [id number] Pneumonia respiratory failure (subacute to chronic; high suspicion for pulmonary fibrosis as a result). Will require outpatient Pulm follow up. 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 Unfortunately, oxygen companies are stating that COVID-19 is an acute illness that does not qualify for home O2. 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 We will continue attempts to wean oxygen while discharge planning makes further attempts to arrange for home O2. Have asked nursing to transition to standard nasal cannula at 6 L/min. Encourage pulmonary toilet. Wean oxygen as tolerated; keep SPO2 greater than 90%. (2) Epigastric abdominal pain Is this a current diagnosis for this admission?: Yes Plan: This has resolved. Continue Carafate and Protonix. Outpatient follow-up with Dr. Higginbotham post COVID recovery (3) CKD (chronic kidney disease) stage 3, GFR 30-59 ml/min Is this a current diagnosis for this admission?: Yes Plan: GFR remains 58. Chronic kidney disease is stable. (4) Coronary artery disease Qualifiers: Coronary Disease-Associated Artery/Lesion type: [place] artery [place] vs. transplanted heart: [place] heart Associated angina: without angina Qualified Code(s): I25.10 - Atherosclerotic heart disease of [place] coronary artery without angina pectoris Is this a current diagnosis for this admission?: Yes Plan: Stable without any evidence of acute coronary syndrome. Continue current regimen. (5) Diabetic gastroparesis associated with type 2 diabetes mellitus Is this a current diagnosis for this admission?: Yes Plan: Patient is actually much better with the Protonix and Carafate. He has metoclopramide available if needed. (6) Diabetes mellitus type 2 in nonobese Is this a current diagnosis for this admission?: Yes Plan: Worsening due to IV steroids. Hemoglobin A1c 8.2. Cardiac diet, basal, sliding scale and correctional insulin. Hypoglycemia protocol. Accu-Chek. Resume home meds upon discharge. Outpatient PCP and endocrinology follow-up. (7) Anemia Qualifiers: Anemia type: unspecified type Qualified Code(s): D64.9 - Anemia, uns pecified Is this a current diagnosis for this admission?: Yes Plan: Still just below the lower limit normal. Will likely improve as his recovery continues. (8) Hypertension Qualifiers: Hypertension type: renovascular hypertension Qualified Code(s): I15.0 - Renovascular hypertension Is this a current diagnosis for this admission?: Yes Plan: Blood pressure still very. Renal artery stenosis incidentally noted on CTA abdomen pelvis. 80% stenosis of the right renal artery was identified. We will continue amlodipine twice daily, lisinopril 40 mg twice daily, metoprolol 100 mg twice daily, hydrochlorothiazide 25 mg daily, and furosemide 20 mg daily. Start clonidine 0.1 transdermal patch. (9) Renal artery stenosis Is this a current diagnosis for this admission?: Yes Plan: Needs further assessment and treatment as an outpatient (10) Thrombocytopenia Is this a current diagnosis for this admission?: Yes Plan: Platelets are slightly down to 131. This is just below the lower limit normal. Continue to monitor. He is still on Lovenox as his d-dimer is still greater than 1.0. I would discontinue at the time of discharge. (11) Depression with anxiety Is this a current diagnosis for this admission?: Yes Plan: Actually in good spirits today. Part of this is being out of bed. Continue out of bed 3 times daily. - Time Time Spent with patient: 35 or more minutes Medications reviewed and adjusted accordingly: Yes Anticipated Discharge Disposition: Home with Home Health Anticipated Discharge Timeframe: pending Home O2 arrangements
[2019-10-18] MEDS: MONTELUKAST SODIUM 10 MG TABLET PO SCH (17:31)
[2019-10-18] MEDS: ATORVASTATIN CALCIUM 40 MG TABLET PO SCH (21:44)
[2019-10-19] MEDS: IPRATROPIUM/ALBUTEROL 0.5-2.5 MG/3 ML AMPUL NEB SCH ×2 (00:16→07:48)
[2019-10-19 05:31] LABS: APPEARANCE,URINE CLEAR; BILIRUBIN,URINE NEGATIVE (NEGATIVE); COLOR,URINE STRAW; GLUCOSE, URINE NEGATIVE (NEGATIVE); KETONES,URINE NEGATIVE (NEGATIVE); LEUKOCYTE ESTERASE,URINE NEGATIVE (NEGATIVE); NITRITE,URINE NEGATIVE (NEGATIVE); PROTEIN,URINE 100 mg/dL (NEGATIVE); URINE SPECIFIC GRAVITY 1.008; UROBILINOGEN,URINE NEGATIVE mg/dL (<2.0)
[2019-10-19] MEDS: LISINOPRIL 10 MG TABLET PO SCH (06:03)
[2019-10-19 07:09] LABS: HEMATOCRIT 33.4 % (37.9-51.0); HEMOGLOBIN 11.4 g/dL (13.5-17.0); MEAN CORPUSCULAR HEMOGLOBIN 29.3 pg (27.0-33.4); MEAN CORPUSCULAR HGB CONC 34.3 g/dL (32.0-36.0); MEAN CORPUSCULAR VOLUME 86 fl (80-97); PLATELET COUNT 105 10^3/uL (150-450); RED CELL DISTRIBUTION WIDTH 14.4 % (11.5-14.0); WHITE BLOOD COUNT 7.9 10^3/uL (4.0-10.5)
[2019-10-19 07:33] LABS: BLOOD UREA NITROGEN 18 mg/dL (7-20); CALCIUM 8.9 mg/dL (8.4-10.2); CARBON DIOXIDE 34 mmol/L (22-30); GLUCOSE 108 mg/dL (75-110); POTASSIUM 3.7 mmol/L (3.6-5.0)
[2019-10-19 07:39] LABS: CHLORIDE 99 mmol/L (98-107)
[2019-10-19 07:41] LABS: ANION GAP 3 (5-19)
[2019-10-19] MEDS: SUCRALFATE 1 GM TABLET PO SCH ×3 (07:52→16:22)
[2019-10-19] MEDS: CALCIUM CARBONATE 600 MG TABLET PO SCH (07:52)
[2019-10-19] MEDS: INSULIN LISPRO 100 UNIT/ML 3 ML VIAL SUBCUT SCH ×3 (08:03→16:22)
[2019-10-19] MEDS: FERROUS SULFATE 325 MG TABLET PO SCH (11:55)
[2019-10-19] MEDS: INSULIN GLARGINE,HUM.REC.ANLOG 1,000 UNIT/10 ML VIAL SUBCUT SCH (11:55)
[2019-10-19] MEDS: VENLAFAXINE HCL 37.5 MG CAP.SR.24H PO SCH (11:56)
[2019-10-19] MEDS: ASPIRIN 81 MG TABLET, CHEWABLE PO SCH (11:56)
[2019-10-19] MEDS: BUSPIRONE HCL 10 MG TABLET PO SCH (11:56)
[2019-10-19] MEDS: PREDNISONE 10 MG TABLET PO SCH (11:56)
[2019-10-19] MEDS: METOPROLOL SUCCINATE 50 MG TAB.SR.24H PO SCH (11:56)
[2019-10-19] MEDS: FUROSEMIDE 20 MG TABLET PO SCH (11:56)
[2019-10-19] MEDS: MULTIVITAMIN TABLET PO SCH (11:57)
[2019-10-19] MEDS: AMLODIPINE BESYLATE 5 MG TABLET PO SCH (11:57)
[2019-10-19] MEDS: POTASSIUM CHLORIDE 10 MEQ TABLET.ER PO SCH (11:57)
[2019-10-19] MEDS: ZINC SULFATE 220 MG CAPSULE PO SCH (11:57)
[2019-10-19] MEDS: GUAIFENESIN 600 MG TABLET.SA PO SCH (11:57)
[2019-10-19] MEDS: HYDROCHLOROTHIAZIDE 25 MG TABLET PO SCH (11:57)
[2019-10-19] MEDS: NORMAL SALINE 10 ML SDV (SCHEDULED) IV SCH (11:58)
[2019-10-19] MEDS: PANTOPRAZOLE SODIUM 40 MG TABLET.DR PO SCH (11:58)
[2019-10-19] MEDS: NORMAL SALINE 10 ML SDV (AFTER EACH USE) IV PRN (11:58)
[2019-10-19] MEDS: ENOXAPARIN SODIUM INJ 100 MG/1 ML DISP.SYRIN SUBCUT SCH (11:58)
[2019-10-19 14:02] VITALS: BP 156/85
--- NOTE | 2019-10-22 08:59 | PDOC DISCHARGE SUMMARY ---
Impression - Admit/DC Date/PCP Admission Date/Primary Care Provider: 09/27/19 12:00 Discharge Date: 10/19/19 - Discharge Diagnosis (1) Acute respiratory failure due to COVID-19 Is this a current diagnosis for this admission?: Yes (2) Epigastric abdominal pain Is this a current diagnosis for this admission?: Yes (3) CKD (chronic kidney disease) stage 3, GFR 30-59 ml/min Is this a current diagnosis for this admission?: Yes (4) Coronary artery disease Is this a current diagnosis for this admission?: Yes (5) Diabetic gastroparesis associated with type 2 diabetes mellitus Is this a current diagnosis for this admission?: Yes (6) Diabetes mellitus type 2 in nonobese Is this a current diagnosis for this admission?: Yes (7) Anemia Is this a current diagnosis for this admission?: Yes (8) Hypertension Is this a current diagnosis for this admission?: Yes (9) Renal artery stenosis Is this a current diagnosis for this admission?: Yes (10) Thrombocytopenia Is this a current diagnosis for this admission?: Yes (11) Depression with anxiety Is this a current diagnosis for this admission?: Yes - Additional Information Discharge Diet: Cardiac, Diabetic Discharge Activity: Activity As Tolerated, Balance Activity w/Rest, Supervised Activity Referrals: KEATON GARCIA MD [ACTIVE STAFF] - (Follow up win 3-4 weeks. Left message for an appointment @ [phone]-) LARRY HIGGINBOTHAM MD [ACTIVE STAFF] - 12/07/19 2:00 pm (Follow up in 2 months.) SHRUTI BRAUN MD [COMMUNITY BASED STAFF] - 10/27/19 9:30 am Prescriptions: Buspirone HCl [Buspar 10 mg Tablet] 10 mg PO Q12 #60 tablet Sucralfate [Carafate 1 gm Tablet] 1 gm PO ACHS #120 tablet Clonidine [Catapres-Tts 1 (0.1 mg/24 Hr) Transderm Patch] 1 each TD Tu@10 #4 patch.tdwk Prednisone [Deltasone 10 mg Tablet] 10 mg PO ASDIR PRN #9 tablet PRN Reason: Venlafaxine HCl ER [Effexor Xr 37.5 mg Cap.sr] 37.5 mg PO DAILY #30 cap.sr.24h Ferrous Sulfate [Feosol 325 mg Tablet] 325 mg PO DAILY #30 tablet Hydrochlorothiazide [Hydrodiuril 25 mg Tablet] 25 mg PO DAILY #30 tablet Potassium Chloride [Klor-Con 10 Meq Tablet ER] 20 meq PO DAILY #60 tablet.er Furosemide [Lasix 20 mg Tablet] 20 mg PO DAILY #30 tablet Pantoprazole Sodium [Protonix [address] Tablet] 40 mg PO DAILY #30 tablet.dr Multivitamin [Tab-A-Moris (Multiple Vitamin) Tablet] 1 tab PO DAILY #90 tablet Lisinopril [Zestril] 40 mg PO DAILY #30 tablet Zinc Sulfate [Zinc-220 Capsule] 220 mg PO DAILY #30 capsule Home Medications: Glimepiride 4 mg PO BID 07/11/17 Metformin HCl 1,000 mg PO BID 07/11/17 Amlodipine Besylate [Norvasc 10 mg Tablet] 10 mg PO DAILY 09/26/19 Aspirin [Adult Low Dose Aspirin EC] 81 mg PO QAM 09/26/19 Atorvastatin Calcium [Lipitor 40 mg Tablet] 40 mg PO QHS 09/26/19 Metoclopramide HCl [Reglan 10 mg Tablet] 10 mg PO QIDP PRN 09/26/19 Metoprolol Succinate [Toprol Xl] 100 mg PO BID 09/26/19 Montelukast Sodium [Singulair 10 mg Tablet] 10 mg PO QPM 09/26/19 Acetaminophen [Tylenol 325 mg Tablet] 650 mg PO Q4HP PRN tablet 10/18/19 Buspirone HCl [Buspar 10 mg Tablet] 10 mg PO Q12 #60 tablet 10/18/19 Clonidine [Catapres-Tts 1 (0.1 mg/24 Hr) Transderm Patch] 1 each TD Tu@10 #4 patch.tdwk 10/18/19 Ferrous Sulfate [Feosol 325 mg Tablet] 325 mg PO DAILY #30 tablet 10/18/19 Furosemide [Lasix 20 mg Tablet] 20 mg PO DAILY #30 tablet 10/18/19 Hydrochlorothiazide [Hydrodiuril 25 mg Tablet] 25 mg PO DAILY #30 tablet 10/18/19 Lisinopril [Zestril] 40 mg PO DAILY #30 tablet 10/18/19 Multivitamin [Tab-A-Moris (Multiple Vitamin) Tablet] 1 tab PO DAILY #90 tablet 10/18/19 Pantoprazole Sodium [Protonix [address] Tablet] 40 mg PO DAILY #30 tablet.dr 10/18/19 Potassium Chloride [Klor-Con 10 Meq Tablet ER] 20 meq PO DAILY #60 tablet.er 10/18/19 Prednisone [Deltasone 10 mg Tablet] 10 mg PO ASDIR PRN #9 tablet 10/18/19 Sucralfate [Carafate 1 gm Tablet] 1 gm PO ACHS #120 tablet 10/18/19 Venlafaxine HCl ER [Effexor Xr 37.5 mg Cap.sr] 37.5 mg PO DAILY #30 cap.sr.24h 10/18/19 Zinc Sulfate [Zinc-220 Capsule] 220 mg PO DAILY #30 capsule 10/18/19 History of Present Illiness History of Present Illness: Per H&P by Dr. Penn: KEISHA SILVERIO is a 58 year old male with a history of coronary artery disease, ooq-pwiiwol-[id number] diabetes mellitus, and diabetic gastroparesis who does not frequently have flareups but said that since Thursday he has had middle abdominal discomfort with nausea. He said he also had some discomfort in the left lower quadrant but it is been intermittent. He said he is not really been vomiting but he has spit up a little bit intermittently. He said he can usually take Reglan for a few days and it makes it go away. He came to the ER because it had not been getting any better. He also has chronic kidney disease with baseline creatinine of around 2 and renal artery stenosis. He has not had chest pain. No diaphoresis. Said his nausea gets worse if he lays down flat. He has not had any shortness of breath. No diarrhea. He said something they gave him in the ER made him feel better, but they gave him Reglan, nitroglycerin, morphine and Dilaudid, so there is no telling what it was it actually made him feel better. He said he is not sure why they put him through the CT scanner for chest pain because he said his chest is never been hurting him. At any rate, CTA of the chest abdomen and pelvis was unremarkable except for some renal artery stenosis that was noted. He does have some elevated troponins but no signs of ischemia on chest x-ray, and the troponin is likely due to his chronic kidney disease. He had some fluctuations in his blood pressure which may be due to the nitroglycerin and narcotics. When I saw him in the ER his blood pressure was in the normal range and he was feeling improved overall. Hospital Course Hospital Course: (1) Acute respiratory failure due to COVID-19 Patient with [id number] Pneumonia respiratory failure (subacute to chronic; high suspicion for pulmonary fibrosis as a result). Will require outpatient Pulm follow up. 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 Completed full course of azithromycin and steroid therapy. Supported with Vit C, Vit D, Zinc, Melatonin and full dose Lovenox. Provided supplemental oxygen via BiPAP, HFNC, and Oxymizer with scheduled and as needed nebs as respiratory status indicated. He is discharged home in stable condition with home oxygen and home health services. (2) Epigastric abdominal pain This has resolved. Continue Carafate and Protonix. Outpatient follow-up with Dr. Higginbotham post COVID recovery (3) CKD (chronic kidney disease) stage 3, GFR 30-59 ml/min GFR remains 58. Chronic kidney disease is stable. (4) Coronary artery disease Stable without any evidence of acute coronary syndrome. Continue current regimen. (5) Diabetic gastroparesis associated with type 2 diabetes mellitus Patient is actually much better with the Protonix and Carafate. Outpatient follow up with Dr. Higginbotham in mid-November for possible EGD. (6) Diabetes mellitus type 2 in nonobese Hemoglobin A1c 8.2. While admitted, patient was managed with Cardiac diet, basal, sliding scale and correctional insulin. Hypoglycemia protocol. Resume home meds upon discharge. Outpatient PCP and endocrinology follow-up. (7) Anemia Still just below the lower limit normal. Will likely improve as his recovery continues. (8) Hypertension Blood pressures are improved Renal artery stenosis incidentally noted on CTA abdomen pelvis. Continue amlodipine twice daily, lisinopril 40 mg twice daily, metoprolol 100 mg twice daily, hydrochlorothiazide 25 mg daily, and furosemide 20 mg daily, and clonidine 0.1 transdermal patch. (9) Renal artery stenosis Incidentally found on CT imaging; 80% stenosis of the right renal artery was identified. (10) Thrombocytopenia Patient was placed on full dose Lovenox during admission due to elevated d-dimer and confirmed COVID-19 infection. Anticoagulant is discontinued at discharge. Recommend CBC at follow-up appointment with primary care provider next week. (11) Depression with anxiety In good spirits today. Continue Effexor Physical Exam Vital Signs: Temp Pulse Resp BP Pulse Ox 98.2 F 83 18 156/85 H 93 10/19/19 14:01 10/19/19 14:01 10/19/19 14:01 10/19/19 14:01 10/19/19 14:01 Pulse Oximeter Ambulatory Start: 10/13/19 15:32 Freq: ONCE Status: Discharge Protocol: Document 10/13/19 18:04 [facility] (Rec: 10/13/19 18:12 [facility] [email or web address]) Additional RT Notes Other patient's sao2 dropped to 88% just moving to chair, RN did not attempt further ambulation Intervention Variance Therapy Variance Delayed Variance Reason Other Patient Care Exercise Oximetry Treatment Ambulating SpO2 Charge Now No General appearance: PRESENT: no acute distress, cooperative, well-developed, well-nourished Head exam: PRESENT: atraumatic, normocephalic Eye exam: PRESENT: conjunctiva pink, EOMI, PERRLA. ABSENT: scleral icterus Mouth exam: PRESENT: moist, tongue midline Respiratory exam: PRESENT: clear to auscultation priyank, symmetrical, unlabored, other - Supplemental oxygen by nasal cannula at 3 L/min. ABSENT: rales, rhonchi, wheezes Cardiovascular exam: PRESENT: RRR, +S1, +S2. ABSENT: diastolic murmur, rubs, systolic murmur Pulses: PRESENT: normal dorsalis pedis pul Vascular exam: PRESENT: normal capillary refill Extremities exam: PRESENT: full ROM. ABSENT: calf tenderness, clubbing, pedal edema Musculoskeletal exam: PRESENT: ambulatory Neurological exam: PRESENT: alert, awake, oriented to person, oriented to place, oriented to time, oriented to situation, CN II-XII grossly intact. ABSENT: motor sensory deficit Psychiatric exam: PRESENT: appropriate affect, normal mood. ABSENT: homicidal ideation, suicidal ideation Skin exam: PRESENT: dry, intact, warm. ABSENT: cyanosis, rash Results Laboratory Results: WBC 7.9 10^3/uL (4.0-10.5) 10/19/19 06:05 RBC 3.90 10^6/uL (4.35-5.55) L 10/19/19 06:05 Hgb 11.4 g/dL (13.5-17.0) L 10/19/19 06:05 Hct 33.4 % (37.9-51.0) L 10/19/19 06:05 MCV 86 fl (80-97) 10/19/19 06:05 MCH 29.3 pg (27.0-33.4) 10/19/19 06:05 MCHC 34.3 g/dL (32.0-36.0) 10/19/19 06:05 RDW 14.4 % (11.5-14.0) H 10/19/19 06:05 Plt Count 105 10^3/uL (150-450) L 10/19/19 06:05 Lymph % (Auto) 10.8 % (13-45) L 10/16/19 12:25 [place] % (Auto) 7.3 % (3-13) 10/16/19 12:25 Eos % (Auto) 1.8 % (0-6) 10/16/19 12:25 Baso % (Auto) 0.4 % (0-2) 10/16/19 12:25 Reticulocyte # 0.031 10^6/uL (0.028-0.122) 09/29/19 05:05 Absolute Neuts (auto) 7.8 10^3/uL (1.7-8.2) 10/16/19 12:25 Absolute Lymphs (auto) 1.1 10^3/uL (0.5-4.7) 10/16/19 12:25 Absolute Monos (auto) 0.7 10^3/uL (0.1-1.4) 10/16/19 12:25 Absolute Eos (auto) 0.2 10^3/uL (0.0-0.6) 10/16/19 12:25 Absolute Basos (auto) 0.0 10^3/uL (0.0-0.2) 10/16/19 12:25 Total Counted 100 10/06/19 04:32 Seg Neutrophils % 79.7 % (42-78) H 10/16/19 12:25 Seg Neuts % (Manual) 88 % (42-78) H 10/06/19 04:32 Lymphocytes % (Manual) 6 % (13-45) L 10/06/19 04:32 Monocytes % (Manual) 6 % (3-13) 10/06/19 04:32 Eosinophils % (Manual) 0 % (0-6) 10/06/19 04:32 Basophils % (Manual) 0 % (0-2) 10/06/19 04:32 Abs Neuts (Manual) 9.6 10^3/uL (1.7-8.2) H 10/06/19 04:32 Abs Lymphs (Manual) 0.7 10^3/uL (0.5-4.7) 10/06/19 04:32 Abs Monocytes (Manual) 0.7 10^3/uL (0.1-1.4) 10/06/19 04:32 Absolute Eos (Manual) 0.0 10^3/uL (0.0-0.6) 10/06/19 04:32 Abs Basophils (Manual) 0.0 10^3/uL (0.0-0.2) 10/06/19 04:32 Platelet Comment ADEQUATE 10/06/19 04:32 Anisocytosis SLIGHT 10/06/19 04:32 Retic Count (auto) 0.72 % (0.66-2.85) 09/29/19 05:05 PT 12.4 SEC (11.4-15.4) 09/27/19 19:05 INR 0.90 09/27/19 19:05 D-Dimer 2.87 ug/mL (0.00-0.50) H 10/19/19 06:05 Carbonic Acid 1.08 mmol/L (1.05-1.35) 10/04/19 11:28 HCO3/H2CO3 Ratio 22:1 10/04/19 11:28 ABG pH 7.45 (7.35-7.45) 10/04/19 11:28 ABG pCO2 35.8 mmHg (35-45) 10/04/19 11:28 ABG pO2 68.5 mmHg (80-100) L 10/04/19 11:28 ABG HCO3 24.2 mmol/L (20-24) H 10/04/19 11:28 ABG Total CO2 25.3 mmol/L (23-27) 10/04/19 11:28 ABG O2 Saturation 94.5 % (94-98) 10/04/19 11:28 ABG Base Excess 0.6 mmol/L 10/04/19 11:28 VBG pH 7.35 (7.30-7.42) 09/25/19 16:48 VBG pCO2 48.1 mmHg (35-63) 09/25/19 16:48 VBG HCO3 26.1 mmol/L (20-32) 09/25/19 16:48 VBG Base Excess -0.1 mmol/L 09/25/19 16:48 FiO2 55% 10/04/19 11:28 Sodium 136.4 mmol/L (137-145) L 10/19/19 06:05 Potassium 3.7 mmol/L (3.6-5.0) 10/19/19 06:05 Chloride 99 mmol/L (98-107) 10/19/19 06:05 Carbon Dioxide 34 mmol/L (22-30) H 10/19/19 06:05 Anion Gap 3 (5-19) L 10/19/19 06:05 BUN 18 mg/dL (7-20) 10/19/19 06:05 Creatinine 1.13 mg/dL (0.52-1.25) 10/19/19 06:05 Est GFR ( Amer) > 60 (>60) 10/19/19 06:05 Est GFR (MDRD) Non-Af > 60 (>60) 10/19/19 06:05 Glucose 108 mg/dL (75-110) 10/19/19 06:05 POC Glucose 216 mg/dL (70-110) H 10/19/19 14:53 Hemoglobin A1c % 8.2 % (4.7-6.0) H 09/27/19 05:21 Lactic Acid 1.5 mmol/L (0.7-2.1) 09/25/19 14:14 Calcium 8.9 mg/dL (8.4-10.2) 10/19/19 06:05 Ionized Calcium Maral 1.03 mmol/L (1.14-1.30) L 09/28/19 08:34 Magnesium 1.6 mg/dL (1.6-2.3) 10/17/19 05:45 Iron < 10.1 ug/dL (49-181) L 09/29/19 05:05 TIBC 218 ug/dL (250-450) L 09/29/19 05:05 Iron Saturation UNABLE TO CALCULATE % (20% - 50%) 09/29/19 05:05 Ferritin 204.00 ng/mL (17.9-464.0) 10/10/19 06:01 Total Bilirubin 0.7 mg/dL (0.2-1.3) 10/17/19 05:45 Direct Bilirubin 0.1 mg/dL (0.0-0.4) 10/17/19 05:45 Neonat Total Bilirubin Not Reportable 10/17/19 05:45 Neonat Direct Bilirubin Not Reportable 10/17/19 05:45 Neonat Indirect Bili Not Reportable 10/17/19 05:45 AST 30 U/L (17-59) 10/17/19 05:45 ALT 35 U/L (<50) 10/17/19 05:45 Alkaline Phosphatase 86 U/L (38-126) 10/17/19 05:45 Creatine Kinase 54 U/L (55-170) L 09/25/19 16:48 CK-MB (CK-2) 1.03 ng/mL (<4.55) 09/25/19 16:48 Troponin I 0.047 ng/mL 09/25/19 22:45 C-Reactive Protein 34.3 mg/L (<10.0) H 09/27/19 19:05 Total Protein 4.9 g/dL (6.3-8.2) L 10/17/19 05:45 Albumin 2.3 g/dL (3.5-5.0) L 10/17/19 05:45 Triglycerides 150 mg/dL (<150) 09/26/19 05:02 Cholesterol 104.73 mg/dL (0-200) 09/26/19 05:02 LDL Cholesterol Direct 58 mg/dL (<100) 09/26/19 05:02 VLDL Cholesterol 30.0 mg/dL (10-31) 09/26/19 05:02 HDL Cholesterol 22 mg/dL (>40) L 09/26/19 05:02 Lipase 214.3 U/L (23-300) 09/25/19 14:14 Vitamin B12 925.0 pg/mL (239-931) 09/29/19 05:05 Folate 8.08 ng/mL (>2.76) 09/29/19 05:05 Urine Color STRAW 10/19/19 03:00 Urine Appearance CLEAR 10/19/19 03:00 Urine pH 8.0 (5.0-9.0) 10/19/19 03:00 Ur Specific [place] 1.008 10/19/19 03:00 Urine Protein 100 mg/dL (NEGATIVE) H 10/19/19 03:00 Urine Glucose (UA) NEGATIVE mg/dL (NEGATIVE) 10/19/19 03:00 Urine Ketones NEGATIVE mg/dL (NEGATIVE) 10/19/19 03:00 Urine Blood SMALL (NEGATIVE) H 10/19/19 03:00 Urine Nitrite NEGATIVE (NEGATIVE) 10/19/19 03:00 Urine Bilirubin NEGATIVE (NEGATIVE) 10/19/19 03:00 Urine Urobilinogen NEGATIVE mg/dL (<2.0) 10/19/19 03:00 Ur Leukocyte Esterase NEGATIVE (NEGATIVE) 10/19/19 03:00 Urine WBC (Auto) 1 /HPF 10/19/19 03:00 Urine RBC (Auto) 7 /HPF 10/19/19 03:00 U Hyaline Cast (Auto) 1 /LPF 10/17/19 22:38 Urine Bacteria (Auto) TRACE /HPF 10/17/19 22:38 Squamous Epi Cells Auto <1 /HPF 10/19/19 03:00 Granular Casts (Auto) 6 /LPF 10/03/19 09:25 Urine Mucus (Auto) RARE /LPF 10/17/19 22:38 Urine Ascorbic Acid NEGATIVE (NEGATIVE) 10/19/19 03:00 Stool Occult Blood POSITIVE (NEGATIVE) 10/01/19 20:25 COVID-19 Source Cancelled 09/27/19 13:51 COVID-19 (RONAN) Cancelled 09/27/19 13:51 SARS-CoV-2 (PCR) POSITIVE (NEGATIVE) H 09/27/19 13:51 09/25/19 09/25/19 09/25/19 14:14 16:48 16:48 CK-MB (CK-2) 1.03 Troponin I 0.056 0.037 09/25/19 22:45 CK-MB (CK-2) Troponin I 0.047 Impressions: Chest X-Ray 09/25/19 14:00 IMPRESSION: NO ACUTE FINDINGS. Abdomen/Pelvis CTA 09/25/19 14:10 IMPRESSION: No aortic aneurysm or dissection. There is approximately 80% stenosis in the right renal artery and the first 1 cm from its origin. No acute findings otherwise. Chest/Abdomen CTA 09/25/19 14:10 IMPRESSION: No aortic aneurysm or dissection. There is approximately 80% stenosis in the right renal artery and the first 1 cm from its origin. No acute findings otherwise. PICC Line Insertion 10/09/19 00:00 IMPRESSION: SUCCESSFUL PLACEMENT OF A 5 FR DUAL LUMEN 43 CM PICC IN THE LEFT BASILIC VEIN. Plan Plan of Treatment: Patient is discharged home in stable condition, with home O2, home health nursing, and PT services. He is advised follow-up with his primary care provider within 1 week. Follow-up with Dr. Higginbotham in 2 months for EGD. Follow-up with Dr. Garcia, pulmonology, to establish care. Take medications as prescribed. Avoid respiratory triggers. Return to the emergency department as needed for concerning symptoms. Time Spent: Greater than 30 Minutes Stroke Is this a Stroke Patient?: No Acute Heart Failure - Is this a Heart Failure Patient?: No
== END 2019-10-19 16:10 | disposition home health service (06) | DRG 177 ==
LOC: ER 13:28 → EH 21:11 → 4S 22:51 → OBSVTOIN 09-27 12:00 → 3N 09-27 17:37
PROVIDERS: ADMIT Family Medicine; ATTEND Registered Nurse
PROC: 5A09557 Assistance with Respiratory Ventilation, Greater than 96 Consecutive Hours, Continuous Positive Airway Pressure (ICD-10-PCS; principal; 2019-10-02)
PROC: 02HV33Z Insertion of Infusion Device into Superior Vena Cava, Percutaneous Approach (ICD-10-PCS; 2019-10-10)
DX: U07.1 COVID-19 (principal); J96.00 Acute respiratory failure, unspecified whether with hypoxia or hypercapnia; G72.81 Critical illness myopathy; E11.43 Type 2 diabetes mellitus with diabetic autonomic (poly)neuropathy; K31.84 Gastroparesis; N18.3 Chronic kidney disease, stage 3 (moderate); I25.10 Atherosclerotic heart disease of native coronary artery without angina pectoris; D63.1 Anemia in chronic kidney disease; I12.9 Hypertensive chronic kidney disease with stage 1 through stage 4 chronic kidney disease, or unspecified chronic kidney disease; I70.1 Atherosclerosis of renal artery; F32.9 Major depressive disorder, single episode, unspecified; F41.9 Anxiety disorder, unspecified; D69.6 Thrombocytopenia, unspecified; E11.51 Type 2 diabetes mellitus with diabetic peripheral angiopathy without gangrene; I87.2 Venous insufficiency (chronic) (peripheral); E11.22 Type 2 diabetes mellitus with diabetic chronic kidney disease; Z79.899 Other long term (current) drug therapy; Z79.82 Long term (current) use of aspirin; Z79.84 Long term (current) use of oral hypoglycemic drugs; Z99.81 Dependence on supplemental oxygen; Z86.14 Personal history of Methicillin resistant Staphylococcus aureus infection; Z89.411 Acquired absence of right great toe; Z89.421 Acquired absence of other right toe(s); Z80.9 Family history of malignant neoplasm, unspecified; Z82.49 Family history of ischemic heart disease and other diseases of the circulatory system
CPT/HCPCS: 36415; 36573; 36600; 71045; 71275; 74174; 80048; 80053; 80061; 81001; 82272; 82330; 82550; 82553; 82607; 82728; 82746; 82803; 82962; 83036; 83540; 83550; 83605; 83690; 83735; 84484; 85025; 85027; 85045; 85379; 85610; 86140; 87040; 87338; 87635; 93005; 93010; 94640; 94660; 94667; 94799; 96361; 96374; 99291; J0610; C9803; G0378; J0360; J0456; J0696; J1100; J1170; J1642; J1650; J1815; J2405; J2765; J3490; J7030; J7060; J7120; J7512

== ENCOUNTER → 2019-11-04 | Outpatient (CLI) | payer MEDICAID ==
--- NOTE | 2019-11-04 11:04 | ER [facility] ASSESSMENT REPORT ---
Intake - In the Last 14 days Have you traveled outside [place]?: No Have you been in close contact with someone CONFIRMED: No Worked in Healthcare?: No - Symptoms Subjective Fever([place] feverish): No Chills: No Muscule Aches: No Runny Nose: No Sore Throat: No Cough (New or worsening chronic cough): No Shortness of breath: Yes Nausea or Vomiting: No Headache: No Abdominal Pain: No Diarrhea(3 or more loose stools in last 24 hours): No - Do you have any of the following Chronic lung disease: Asthma or emphysema or COPD: No Cystic Fibrosis: No Diabetes: Yes High Blood Pressure: Yes Cardiovascular Disease: No Chronic Kidney Disease: No Chronic Liver Disease: No Chronic blood disorder like Sickle Cell Disease: No Weak immune system due to disease or medication: No Neurologic condition that limits movement: No Developmental delay - Moderate to Severe: No Morbid Obesity (>100 pounds over ideal weight): No - Objective Temperature: 98.7 F Pulse Rate: 98 Respiratory Rate: 18 Blood Pressure: 115/71 O2 Sat by Pulse Oximetry: 96 - RA Objective: Given above, testing performed: covid Disposition: Home; Selfcare General - General Stated Complaint: covid retest- previously positive Time Seen by Provider: 11/04/19 10:50 Mode of Arrival: Ambulatory Information source: Patient - HPI Notes: 59-year-old male presents [facility] clinic for COVID-19 testing. Patient states he previously tested positive for COVID-19 and was hospitalized. He was discharged home on home O2 which he still uses as needed. Patient states he is seeking repeat COVID testing to verify the infection has cleared so he can make his doctors appointments as scheduled. Patient states only residual symptom at this time is shortness of breath with exertion and fatigue. He does still have his home O2 which he can use if needed but he is finding that he has been needing it less and less. He states home O2 sats on room air have been sitting around 94 to 96%. He denies any fever chills nausea vomiting diarrhea myalgia sore throat headache or abdominal pain. - Related Data Allergies/Adverse Reactions: No Known Allergies Allergy (Verified 07/25/18 17:05) Past Medical History - General Information source: Patient - Social History Smoking Status: Never Smoker Family History: Hypertension, Malignancy - Past Medical History Cardiac Medical History: Reports: Hx Hypertension, Hx Peripheral Vascular Disease Denies: Hx Atrial Fibrillation, Hx Coronary Artery Disease Pulmonary Medical History: Reports: Other Denies: Hx Asthma, Hx COPD, Hx Tuberculosis Other: history COVID 19 infection EENT Medical History: Reports: None Neurological Medical History: Reports: None. Denies: Hx Seizures Endocrine Medical History: Reports: Hx Diabetes Mellitus Type 2. Denies: Hx Diabetes Mellitus Type 1, Hx Hyperthyroidism, Hx Hypothyroidism Renal/ Medical History: Reports: None. Denies: Hx Peritoneal Dialysis Malignancy Medical History: Reports None GI Medical History: Reports: Hx Colonoscopy, Hx Endoscopy. Denies: Hx Cirrhosis, Hx Crohn's Disease, Hx Hepatitis, Hx Ulcerative Colitis Musculoskeletal Medical History: Reports None, Denies Hx Arthritis, Denies Hx Gout Skin Medical History: Reports None, Denies Hx Eczema, Denies Hx Psoriasis Psychiatric Medical History: Reports: Hx Depression Traumatic Medical History: Reports: None Infectious Medical History: Reports: Hx MRSA, Other. Denies: Hx Hepatitis Other: hx covid Past Surgical History: Reports: Hx Cardiac Surgery - quadruple bypass surgery 02/2018, Hx Cholecystectomy, Hx Orthopedic Surgery - right great toe amputation, recent amputation distal right second toe. Denies: Hx Appendectomy, Hx Bowel Surgery, Hx Coronary Artery Bypass Graft, Hx Gastric Bypass Surgery, Hx Herniorrhaphy, Hx Pacemaker, Hx Tonsillectomy Physical Exam - General General appearance: Appears well, Alert In distress: None Notes: PHYSICAL EXAMINATION: GENERAL: Well-appearing and in no acute distress. HEAD: Atraumatic, normocephalic. EYES: sclera anicteric, conjunctiva are normal. ENT: nares patent. Moist mucous membranes. NECK: Normal range of motion, supple without lymphadenopathy. LUNGS: No increased work of breathing. Lung sounds CTAB and equal, diminished bases. No wheezes rales or rhonchi. HEART: Regular rate and rhythm without murmurs. ABDOMEN: Soft, nontender, normal bowel sounds, no guarding. EXTREMITIES: Normal range of motion, no pitting edema. No cyanosis. NEUROLOGICAL: A&O x 3. Normal speech. PSYCH: Normal mood, normal affect. SKIN: Warm, Dry, normal turgor, no rashes or lesions noted Patient Education/Counseling Counseling/Education: Patient presents with symptoms associated with possible Covid 19 infection. Patient previously tested positive for COVID-19 is seeking retest to verify infection has cleared. Patient does not have emergency worrying symptoms such as difficulty breathing, chest pain, pressure, confusion or cyanosis. Patient appears suitable for discharge as vital signs are stable and patient is nontoxic in appearance. Good return precautions have been discussed with patient, patient verbalized understanding and is agreeable with discharge plan of care at this time. Guidance for worsening S/SX: As a person under investigation for Covid 19, the [facility], division of public health advises you to adhere to the following guidance until your test results are reported to you. If your test result is positive, you will receive additional information from your provider and your local health department at that time. Remain at home until you are cleared by the health provider or public health authorities. Keep a log of visitors to your home, notify any visitors to your home of your isolation status. If you plan to move to a new address or leave the county, notify the local health department in your County. Call your doctor or seek care if you have an urgent medical need. Before seeking medical care, call ahead to get instructions from the provider before arriving at the medical office clinic or hospital. Notify them that you are being tested for the virus that causes Covid 19 so that arrangements can be made, as necessary, to prevent transmission to others in the healthcare setting. Next, notify the local health department in your county. If a medical emergency arises and you need to call 911, inform the first responders that you are being tested for the virus that causes Covid 19. Next, notify the local health department in your county. [facility] Discharge - Discharge Clinical Impression: Encounter for screening laboratory testing for COVID-19 virus Condition: Good Disposition: Home; Selfcare
[2019-11-04 11:09] VITALS: BP 115/71
== END ==
LOC: RDC 10:16
PROVIDERS: ATTEND Registered Nurse
DX: Z20.828 Contact with and (suspected) exposure to other viral communicable diseases (principal); R06.02 Shortness of breath; Z86.19 Personal history of other infectious and parasitic diseases; I10 Essential (primary) hypertension; E11.9 Type 2 diabetes mellitus without complications; R53.83 Other fatigue
CPT/HCPCS: 87635; C9803

== ENCOUNTER → 2019-11-16 | Outpatient (CLI) | payer MEDICAID ==
--- NOTE | 2019-11-16 16:35 | RADIOLOGY REPORT (SQ) ---
EXAM DESCRIPTION: CHEST PA/LATERAL IMAGES COMPLETED DATE/TIME: 11/16/2019 3:45 pm REASON FOR STUDY: DYSPNEA, UNSPECIFIED R06.00 DYSPNEA, UNSPECIFIED COMPARISON: 09/25/2019 NUMBER OF VIEWS: Two view. TECHNIQUE: Frontal and lateral radiographic views of the chest acquired. LIMITATIONS: None. FINDINGS: LUNGS AND PLEURA: Choose minimal patchy opacity at the right base. Left lung is clear. MEDIASTINUM AND HILAR STRUCTURES: No masses or contour abnormalities. HEART AND VASCULATURE: Heart normal size. No evidence for failure. Prior CABG. BONES: No acute findings. HARDWARE: CABG hardware. OTHER: No other significant finding. IMPRESSION: Minimal opacity at the right base. New CABG hardware. TECHNICAL DOCUMENTATION: JOB ID: [id number] 2010 [employer]- All Rights Reserved Reading location - IP/workstation name: [email or web address]
== END ==
LOC: OD 15:22
PROVIDERS: ATTEND Internal Medicine Pulmonary Disease
DX: R06.00 Dyspnea, unspecified (principal)
CPT/HCPCS: 71046

== ENCOUNTER → 2019-11-24 | Outpatient (CLI) | payer MEDICAID ==
--- NOTE | 2019-11-24 09:51 | ST Modified Barium Swallow ---
Recommendation - Recommendations Recommendations: No oral or pharyngeal deficits seen. Patient does have piecemeal swallow, however, he states that this is long standing. No diet change recommendations, no treatment indicated. Medical Diagnoses - Medical Diagnoses Medical Diagnosis Description & ICD-10 Code(s): dysphagia R13.10 Other Medical Diagnoses/Co-Morbidities: per patient report: diabetes, recovered from COVID-19 requiring occasional home oxygen, gastroparesis, uvula removed >[address] Modified Barium Swallow - General Date: 11/24/19 Referring Physician: Dr. Moat Date of Onset: 10/25/19 - approximate onset Reason for Referral: globus sensation - History History obtained from: Patient -: Medical - Patient provided medical history. States he has noticed "pressure" with swallowing for 3-4 weeks now. Patient does not report increased coughing with eating or drinking. Patient was recently in the hospital with COVID-19, now recovered, discharged on 10/19/19. Patient did not require intubation. He does report some reduced taste and smell sensations. Patient also reports that in the , he had his "uvula cut out" due to snoring. Medications: full list not provided, per patient report, diabetes medication, metoprolol, supplimental O2 as needed Allergies: none reported - Functional Status Prior Functional Status: INDEPENDENT: feeding - independent Current Functional Limitations: feeding - globus - Subjective Patient/caregiver goal(s): safe swallow, r/o aspiration Cognitive-Linguistic Function: WNL Speech Intelligibility: WNL Current Nutritional Means: PO Current PO diet: Regular Current symptoms: c/o Globus sensation Pain: Patient reports, 0/5 - Objective Assessment: Upright, Left Lateral - Food Trials Used Food trials used: Thin liquids, Pureed, Regular The patient: Was Able to Self Feed - Oral-Motor Skills Dentition: Full Velo-pharyngeal function: Unremarkable - uvula observed to be reduced due to prior surgery, movement still seen Laryngeal Function: clear voicing - Assessment Oral prep: Normal Labial closure: Adequate Leakage: None Mastication: Adequate Lingual Movement: Normal Oral stage: Piecemeal Deglutition - patient states that this is his baseline, that he has always required additional time to eat meals - Pharyngeal Stage Initiation of Pharyngeal Stage Reflex: Normal Decreased laryngeal elevation: No Reduced Velopharyngeal Closure: no Reduced pressure generation: No reduced tongue-based retraction: No Pre-swallow pooling in valleculae: None Pre-Swallow pooling in pyriforms: None Reduced Thyro-Hyoid approximation: No Reduced epiglottic excursion: No Reduced pharyngeal peristalsis/contraction: No Post-swallow residulas vallecular: None Post-Swallow residuals in pyriforms: None - Esophageal Stage Esophageal Stage: possible signs of mild retention of barium - Fall Risk Assessment Medications/Conditions that increase fall risks include: Antidepressants, sedatives, anti-arrhythmic, diuretic, benzodiazipenes, neuroleptics. BP regulation problems, cardiac problems, balance or gait deficits, neurological problems. Is patient considered at risk for falls: no Fall Risk Actions Taken: No action needed - Behavioral Observations During evaluation process patient: was cooperative, able to answer questions - Treatment / Educational Needs: Treatment/Education Needs: Treatment consisted of patient education on the role of the Speech Pathologist. Patient's plan of care and golas were communicated as well as scheduling and attendance policies. Recommendations for initial home program were shared. Patient demonstrated understanding and verbalized agreement. - Impression/Summary Laryngeal Penetration: No Tracheal Aspiration: no Patient presents with: Normal swallow at eval Risk of Aspiration: Minimal Evaluation and Findings: No aspiration or penetration of any trials, even with continuous drinking of thin liquid via straw. Piecemeal swallowing seen with pudding and cracker, patient reports that this is normal for him, and this did not cause any functional problems for the swallowing. Good constriction, no pharyngeal residue post swallow. - Recommendations Solid diet recommendations: Regular Liquid Diet Modification: Thin Dysphagia therapy with [employer]: no Reflux Precautions: Taught to Patient Recommended techniques: Fully Upright During Meal Information, Precautions and Recommendations: Patient (Written), Patient (Verbal) Other recommendations: Patient expressed concern for inflamed tissues in throat. Discussed that ENT would be better able to assess this, and that consistent coughing from his recent COVID-19 infection could result in inflamed and irritated tissues in the throat. - Time Total Time: 30 - Plan of Care Strategies to optimize patient understanding include:: ongoing assessment of educational needs, implementation of educational strategies, and re-education. - - -: Thank you for the opportunity to work with this patient and his/her family. Should you have any questions about this patient's plan or progress, I can be reached at [phone].
--- NOTE | 2019-11-24 10:40 | RADIOLOGY REPORT (SQ) ---
EXAM DESCRIPTION: COOKIE SWALLOW IMAGES COMPLETED DATE/TIME: 11/24/2019 9:13 am REASON FOR STUDY: R13.10 DYSPHAGIA, UNSPECIFIED R13.10 DYSPHAGIA, UNSPECIFIED Globus sensation following COVID 19 infection and recovery COMPARISON: None. TECHNIQUE: Videofluoroscopic swallowing examination was performed in conjunction with speech patholo gy. Videofluoroscopic imaging was obtained and reviewed and these are the findings: RADIATION DOSE: 2.3 minutes of fluoroscopy was used. 2 images saved to PACS. LIMITATIONS: None FINDINGS: The patient was brought into the fluoro room and placed upright on a modified barium swall ow chair. The patient was then given multiple consistencies mixed with barium to swallow under live fluoroscopic video guidance. According to the Speech Pathologist there was no penetration or aspirat ion. Mild cricopharyngeal hypertrophy. Post swallow residual contrast within the vallecula. IMPRESSION: NO EVIDENCE OF PENETRATION OR ASPIRATION. PLEASE SEE SPEECH PATHOLOGIST REPORT FOR OTHER FINDINGS AND RECOMMENDATIONS. COMMENT: Quality ID [id number]: Final reports for procedures using fluoroscopy that document radiation exp osure indices, or exposure time and number of fluorographic images (if radiation exposure indices are not available) TECHNICAL DOCUMENTATION: JOB ID: [id number] 2010 [employer]- All Rights Reserved Reading location - IP/workstation name: [email or web address] [id number]
== END ==
LOC: RAD 08:26
PROVIDERS: ATTEND Internal Medicine Pulmonary Disease
DX: R13.10 Dysphagia, unspecified (principal)
CPT/HCPCS: 74230

== ENCOUNTER → 2020-02-29 | Outpatient (CLI) | payer MEDICAID ==
[2020-02-29 19:33] LABS: ANION GAP 9 (5-19); BLOOD UREA NITROGEN 21 mg/dL (7-20); CALCIUM 9.7 mg/dL (8.4-10.2); CARBON DIOXIDE 30 mmol/L (22-30); CHLORIDE 103 mmol/L (98-107); GLUCOSE 189 mg/dL (75-110); POTASSIUM 3.9 mmol/L (3.6-5.0)
== END ==
LOC: OD 15:39
PROVIDERS: ATTEND Internal Medicine Pulmonary Disease
DX: R06.00 Dyspnea, unspecified (principal)
CPT/HCPCS: 36415; 80048; 83880

== ENCOUNTER → 2020-03-01 | Outpatient (CLI) | payer MEDICAID ==
--- NOTE | 2020-03-01 12:25 | RADIOLOGY REPORT (SQ) ---
EXAM DESCRIPTION: CHEST 2 VIEWS IMAGES COMPLETED DATE/TIME: 03/01/2020 11:03 am REASON FOR STUDY: (R06.00)DYSPNEA, UNSPECIFIED COMPARISON: 11/16/2019 EXAM PARAMETERS: NUMBER OF VIEWS: two views TECHNIQUE: Digital Frontal and Lateral radiographic views of the chest acquired. RADIATION DOSE: NA LIMITATIONS: none FINDINGS: LUNGS AND PLEURA: No opacities, masses or pneumothorax. No pleural effusion. MEDIASTINUM AND HILAR STRUCTURES: No masses or contour abnormalities. HEART AND VASCULAR STRUCTURES: Heart normal size. No evidence for failure. BONES: No acute findings. HARDWARE: Sternotomy wires. OTHER: No other significant finding. IMPRESSION: NO ACUTE RADIOGRAPHIC FINDING IN THE CHEST. TECHNICAL DOCUMENTATION: JOB ID: [id number] 2010 [employer]- All Rights Reserved Reading location - IP/workstation name: [email or web address]
== END ==
LOC: RAD 10:51
PROVIDERS: ATTEND Internal Medicine Pulmonary Disease
DX: R06.00 Dyspnea, unspecified (principal)
CPT/HCPCS: 71046